=== PATIENT | male | born 1970 | race Caucasian/White ===

== ENCOUNTER 2018-11-04 09:03 | Outpatient (REF) | payer BC, SELFPAY ==
[2018-11-04 13:32] LABS: ALT 24 U/L (16-63); AST 15 U/L (15-37); Calculated LDL 144 mg/dL; Cholesterol 202 mg/dL (50-200); HDL Cholesterol 40 mg/dL (40-60); Triglyceride 92 mg/dL (30-150)
== END 2018-11-04 09:23 ==
LOC: NCHCN 09:03
PROVIDERS: PCP Internal Medicine; Visit Provider Nurse Practitioner Family
DX: R03.0 Elevated blood-pressure reading, without diagnosis of hypertension (principal); Z82.49 Family history of ischemic heart disease and other diseases of the circulatory system; Z13.220 Encounter for screening for lipoid disorders
CPT/HCPCS: 80061; 83721; 84450; 84460

== ENCOUNTER 2018-11-10 09:46 | Observation (INO) | payer BC, SELFPAY ==
[2018-11-10] VITALS (25 sets, daily range): BP systolic 141–184; BP diastolic 78–123; PULSE 53–92; RESP 16–21; TEMP 36.6–37; O2SAT 92–97
--- NOTE | 2018-11-10 09:47 | DI.CT_ITS ---
SYMPTOM/DIAGNOSIS: LEFT SIDED WEAKNESS CT BRAIN: Noncontrast. No priors. A noncontrast cranial CT was performed. The ventricular system is normal in appearance. There is no evidence of an intracranial mass lesion. There is no evidence of a subdural or epidural hematoma. No focal areas of decreased attenuation are seen. CONCLUSION: Normal noncontrast Cranial CT. The findings were discussed with the Emergency Department on the date of the examination.
--- NOTE | 2018-11-10 09:53 | ED.GENADUL_ITS ---
Discharge Plan Disposition Patient Disposition: [facility] INPATIENT Condition: Improving Discharge Details Chief Complaint: CVA/TIA Clinical Impression: Transient neurologic deficit Admit Date/Time: 11/10/18 12:33 Admit Provider: Yajaira Aaron Attending Provider: Yajaira Aaron Primary Care Provider: Petar Brown ED Provider: Jed Arana Discharge Data Discharge Date/Time-TO BE ENTERED AT DEPARTURE: 11/10/18 13:45 Medical Decision Making Head CT negative for acute bleed or large infarct. CTA head neck negative. [facility] [place] consulted, recommends full dose aspirin, admit for telemetry and MRI. Dr. Santana in to see patient for hospitalist admission. Lab Data FSBG 110 ECG Data Attestation: I personally reviewed and interpreted this ECG (s) as follows: (NSR, rate 69, normal axis and morphology, no acute ST/T waves) JHONNY Recinos is a 47-year-old man with past medical history significant for hypertension, recently diagnosed and started antihypertensive medication as of 1 week ago. He felt well when he woke up this morning aside from a 2 out of 10 dull generalized headache noted upon waking, but while at [employer] at 8 AM he noticed some weakness on the left side of his body, particularly his left arm, and staff at his work noticed that his speech was off and had some drooping of the left half of his face. He also was noted to have some trouble walking. He refused ambulance transport to the emergency department. On arrival, he has a mild generalized headache, and is uncertain if he has weakness in the left half of his body. Fingerstick blood glucose on arrival is 105. He is hypertensive at 180/110 on arrival. No recent injuries. No blood thinning medications. No history of atrial fibrillation or other rhythm disturbance. General Date/Time Provider Initiated Documentation: 11/10/18 09:47 . Related Data Home Medications Medication Instructions Recorded Confirmed ibuprofen [IBU-200] 400 mg PO PRN PRN 11/10/18 11/10/18 lisinopril 10 mg PO DAILY 11/10/18 11/10/18 Allergies Allergy/AdvReac Type Severity Reaction Status Date / Time shellfish derived Allergy Severe Unverified 11/10/18 14:14 General Stated Complaint: CVA/TIA JYOTI: 1 Review of Systems Constitutional Denies chills, Denies fatigue, Denies fever(s) and Denies lethargy Eyes Denies loss of vision ENT Denies nasal congestion and Denies sore throat Cardiovascular Denies chest pain and Denies dyspnea Respiratory Denies cough and Denies dyspnea Gastrointestinal Denies abdominal pain, Denies nausea and Denies vomiting Musculoskeletal Denies back pain, Denies muscle weakness and Denies numbness Integumentary/Breasts Denies rash Neurologic Denies focal weakness, Denies loss of vision and Denies numbness Endocrine Denies fatigue Hematologic/Lymphatic Denies easy bruising PFSH Medical History (Updated 11/10/18 @ 14:32 by Yajaira Aaron MD) Hypertension (Chronic) Obesity (Chronic) Family History (Updated 11/10/18 @ 14:11 by Yajaira Aaron MD) Father Heart disease massive [place] - from this Paternal Grandfather Heart disease Massive heart failure Mother Heart disease +CAD, Afib Hypertension Diabetes Maternal Grandfather Prostate cancer Social History (Updated 11/10/18 @ 14:19 by Yajaira Aaron MD) Smoking/Tobacco Use Status: Former Tobacco Use Quit Date: 11/03/18 Pack-years: 27 Tobacco: How many years used: 27 Counseling given: provider counseling, support medications and patient declined Alcohol Intake: current Alcohol Intake frequency: holidays/special occasions only Substance use type: does not use Do you feel safe at home: Yes Do you feel safe in your relationship?: Yes Exam Const General: cooperative and comfortable HENMT Mouth: moist mucous membranes Eyes Conjunctivae: conjunctivae normal Sclera: sclerae normal Neck Neck: trachea midline Resp Effort & Inspection: normal respiratory effort and able to speak in complete sentences Auscultation: clear to auscultation bilaterally Cardio Rate: regular rate Rhythm: regular rhythm GI Inspection: non-distended Palpation: soft, not firm, no guarding, no masses and nontender Skin General skin exam: no rashes or lesions noted Neuro General: alert, awake, tone normal and moves all extremities Cranial Nerves: CN's II-XI intact bilaterally Cognition: normal cognition Speech: abnormal speech other (Difficulty word finding. Speech otherwise clear and appropriate.) Gait: normal gait Motor: muscle tone normal throughout, strength 5/5 throughout and no pronator drift Sensory Exam: no sensory deficits noted Pupils: Normal pupillary reactivity/response: bilateral Other: Unaided stroke scale 1 for expressive aphasia. Serial NIH stroke score is remain 1. At time of admission stroke score 0. Psych Appearance: grossly normal Mental Status: mental status grossly normal Course Vital Signs Temperature 36.6 C 11/10/18 09:49 Pulse 74 11/10/18 09:49 Respiratory Rate 16 11/10/18 09:49 Blood Pressure 180/110 H 11/10/18 09:49 Pulse Oximetry 96 11/10/18 09:49 Temperature 36.6 C 11/10/18 09:49 Temperature Source Temporal Artery Scan 11/10/18 09:49 Pulse 74 11/10/18 09:49 Respiratory Rate 16 11/10/18 09:49 Blood Pressure 180/110 H 11/10/18 09:49 Blood Pressure Position Sitting 11/10/18 09:49 Pulse Oximetry 96 11/10/18 09:49 Oxygen Delivery Method Room Air 11/10/18 09:49 Oxygen Flow Rate 0 11/10/18 09:49 Pain Level 4 11/10/18 09:49
[2018-11-10] MEDS: Normal Saline Flush 10 ML SYR IVP ×2 (09:55→19:52)
[2018-11-10 10:15] LABS: Abs Immature Grans 0.02 k/cumm (0.0-0.09); Absolute Basophil Count 0.02 k/cumm (0.0-0.2); Absolute Eosinophil Count 0.19 k/cumm (0.0-0.7); Absolute Lymphocyte Count 1.68 k/cumm (1.2-3.4); Absolute Monocyte Count 0.69 k/cumm (0.11-0.7); Absolute Neutrophil Count 8.66 k/cumm (1.2-6.7); Basophils % 0.2; Eosinophils % 1.7; HCT 45.9 % (40.0-50.0); HGB 15.8 g/dL (13.5-17.5); Immature Grans % 0.2; Lymphocytes % 14.9; Mean Corp. HGB Concentration 34.4 g/dL (32.0-36.0); Mean Corpuscular Hemoglobin 30.4 pg (27.0-33.0); Mean Corpuscular Volume 88.3 fL (80-95); Mean Platelet Volume 10.4 fL (8.0-11.0); Monocytes % 6.1; Neutrophils % 76.9; Platelet Count 279 x1000/uL (130-400); RBC Distribution Width 13.5 % (11.8-14.1); White Blood Cell Count 11.26 k/cumm (4.4-10.8)
[2018-11-10 10:37] LABS: ALT 24 U/L (16-63); AST 13 U/L (15-37); Albumin 3.9 g/dL (3.4-5.0); Alkaline Phosphatase 85 U/L (46-116); Anion Gap 11.3 mmol/L (3-11); BUN 19 mg/dL (7-18); Bilirubin, Total 0.5 mg/dL (0.2-1.0); CO2 24.7 mmol/L (21.0-32.0); CREATININE 1.08 mg/dL (0.70-1.30); Calcium 9.1 mg/dL (8.5-10.1); Chloride 104 mmol/L (98-107); Glucose 118 mg/dL (70-100); Magnesium 2.1 mg/dL (1.8-2.4); Potassium 3.9 mmol/L (3.5-5.1); Sodium 140 mmol/L (136-145); Total Protein 7.5 g/dL (6.4-8.2); Troponin I < 0.05 ng/mL (0.00-0.06)
--- NOTE | 2018-11-10 10:37 | DI.RAD_ITS ---
SYMPTOM/DIAGNOSIS: WEAKNESS, HEADACHE SINCE 8 A.M. CHEST X-RAY: Portable AP view No priors. The heart is normal in size. The lungs are clear. The mediastinal structures and pleura appear intact. CONCLUSION: Normal chest.
--- NOTE | 2018-11-10 11:05 | DI.CT_ITS ---
SYMPTOM/DIAGNOSIS: LT HEMIPARESIS, EXPRESSIVE APHASIS CTA HEAD AND NECK: CT angiography was performed with multi slice acquisition and multi planar and 3D reconstruction. NECK: The common carotid arteries are unremarkable without evidence of dissection or occlusion. The external carotid arteries are unremarkable without evidence of occlusion or significant stenosis. The extracranial internal carotid arteries are unremarkable without evidence of occlusion, dissection or significant stenosis. The vertebral arteries are unremarkable. No evidence of occlusion or significant stenosis is seen. The soft tissues are unremarkable. The lung apices appear clear. Degenerative changes are seen in the spine. IMPRESSION: No evidence of acute arterial injury in the neck. HEAD: The intracranial internal carotid arteries are unremarkable without evidence of occlusion or significant stenosis. No aneurysm is seen. The middle cerebral arteries are unremarkable without evidence of occlusion, stenosis or aneurysm. The anterior cerebral arteries are unremarkable without evidence of occlusion, stenosis or aneurysm. The right anterior cerebral artery is fed through the anterior communicating artery. The posterior cerebral arteries are unremarkable without evidence of occlusion, aneurysm or significant stenosis. The vertebral arteries and basilar artery are unremarkable without evidence of dissection, aneurysm or significant stenosis. IMPRESSION: No evidence of acute intracranial arterial injury. The findings were discussed with Jed Arana of the ER on the date of the examination.
[2018-11-10] MEDS: Omnipaque 350 MG/ML 100 ML BTL IJ (11:27)
[2018-11-10] MEDS: Aspirin 81 MG CHEW 324 MG CH (12:10)
[2018-11-10 12:17] LABS: Bilirubin Negative (Negative); Blood Negative (Negative); Clarity Clear (Clear); Glucose Negative (Negative); Ketones Negative (Negative); Leukocyte Esterase Negative (Negative); Nitrite Negative (Negative); Urobilinogen 0.2 EU/dL (Up TO 0.2)
[2018-11-10 12:30] LABS: *AMPHETAMINES SCREEN URINE Negative (Negative); *BARBITURATES SCREEN URINE Negative (Negative); *BENZODIAZEPINES SCREEN URINE Negative (Negative); Cannabinoids THC Negative (Negative); Cocaine Screen,Urine Negative (Negative); METHADONE URINE SCREEN Negative (Negative); OPIATES URINE SCREEN Negative (Negative)
[2018-11-10 12:34] LABS: Tricyclic Antidepressants Negative (Negative)
--- NOTE | 2018-11-10 13:51 | W.PM.HP.N ---
Date of service: 11/10/18 Time of Service: 13:52 Assessment and Plan (1) Transient neurologic deficit: Current visit: Yes Status: Acute Symptoms resolved at the time of evaluation. DDx: TIA, atypical migraine, much less likely seizure, much less likely hypertensive emergency/encephalopathy, neurologic Lyme disease. -Patient will be monitored on tele. -obtain MRI brain, echo, monitor neuro checks. -obtain a neurology consult -PT/OT consults -start asa and statin -permissive hypertension -case was discussed [place] [facility] [place] by the ED provider- asa 325 daily recommended as well as observation until MRI can be done. (2) Hypertension: Current visit: Yes Status: Chronic Hold home lisinopril. Permissive hypertension. Provide prn metoprolol for SBP>200 (3) Obesity: Current visit: Yes Status: Chronic BMI of 30.5. Will need screening for sleep apnea as outpatient (4) Hyperlipidemia: Current visit: Yes Status: Acute Start atorvastatin 80 mg PO qHS (5) DVT prophylaxis: Current visit: Yes Status: Acute TEDs and SCD's Chemical DVT ppx is contraindicated in setting of a potential CVA/TIA due to a risk of hemorrhagic conversion (6) Discharge planning issues: Current visit: Yes Status: Acute Full code Planned for discharge home tomorrow History of Present Illness Chief Complaint: I felt off balance Narrative: Mr Vazquez is a 47 year old male with PMHx of hypertension and smoking as well as family history of early cardiac , who at 8:10 am this morning experienced an acute onset of L facial weakness, dysarthria, LUE and LLE weakness. He felt off balance, but not dizzy. He had a little headache. The symptoms lasted for 30 minutes, then he felt better (but not completely back to normal), then 10 minutes later the symptoms worsened. He stated that overall, the whole episode lasted about 2 hours. In the ED, his BP was 180/110, he was perceived to have very minimal expressive aphasia, but the symptoms have now completely resolved, other than the small headache. Of note, the patient had an episode similar, but not quite like this, 1 month ago. He remembers feeling off balance and he is not quite sure whether or not he had LUE/LLE weakness, but he was leaning to the left when he was walking and felt off balance as well. He does not recall having facial symptoms at that time. Denies dizziness. He had some nausea with the episode today, but not the one 1 month ago. Per patient's , the episode 1 month ago lasted several days, which the patient spent mostly on the couch, and he required support of surrounding objects to stabilize himself when walking. The patient states he got a lot better after his first episode, but did not ever get back to his baseline. This morning, the patient did take ibuprofen for his headache. 1 week ago he was seen in his PCP's office, got diagnosed with hypertension, was started on lisinopril. He also stopped smoking at that time. Review of Systems Review of Systems +headache -dizziness -difficulty swallowing +difficulty pronouncing words (resolved) -syncope +fall (1st episode of loss of balance) -CP/palpitations +nausea -numbness/tingling +weakness +feeling off balance -known tick bites - has pets All systems reviewed & are unremarkable except as noted in HPI and below PFSH Medical History (Updated 11/10/18 @ 14:32 by Yajaira Aaron MD) Hypertension (Chronic) Obesity (Chronic) Family History (Updated 11/10/18 @ 14:11 by Yajaira Aaron MD) Father Heart disease massive [place] - from this Paternal Grandfather Heart disease Massive heart failure Mother Heart disease +CAD, Afib Hypertension Diabetes Maternal Grandfather Prostate cancer Social History (Updated 11/10/18 @ 14:19 by Yajaira Aaron MD) Smoking/Tobacco Use Status: Former Tobacco Use Quit Date: 11/03/18 Pack-years: 27 Tobacco: How many years used: 27 Counseling given: provider counseling, support medications and patient declined Alcohol Intake: current Alcohol Intake frequency: holidays/special occasions only Substance use type: does not use Do you feel safe at home: Yes Do you feel safe in your relationship?: Yes Meds Home Medications Medication Instructions Recorded Confirmed Type ibuprofen [IBU-200] 400 mg PO PRN PRN 11/10/18 11/10/18 History lisinopril 10 mg PO DAILY 11/10/18 11/10/18 History Allergies Allergy/AdvReac Type Severity Reaction Status Date / Time shellfish derived Allergy Severe Unverified 11/10/18 14:14 Exam Narrative Exam Narrative: General: Very pleasant middle-aged male, laying comfortably in a stretcher Neurological: A&Ox3, CN II-XII intact, sensory intact, speech normal, 5/5 strength throughout, EOMI, normal finger to nose and pronator drift, 1+ DTR's, plantar response flexion, no clonus Psychiatric: appropriate speech pattern/content; bright affect Skin: Visible skin intact HEENT: Atraumatic, normocephalic, EOMI, MMM, tongue and uvula midline, large neck diameter, clear oropharynx, no submandibular or cervical lymphadenopathy, no goiter or JVD Cardiovascular: RRR, no m/r/g Lungs: CTAB Gastrointestinal: abdomen soft, nondistended, nontender Extremities: no e/c/c BLE's, 2+ pedal pulses B Results Imaging Additional studies: CT head without contrast: Normal noncontrast Cranial CT. CXR: Normal chest. CTA head and neck: No evidence of acute intracranial arterial injury. No evidence of acute arterial injury in the neck. Labs : 11/10/18 10:05 11/10/18 10:05 Laboratory Results - last 24 hr 11/10/18 11/10/18 11/10/18 10:05 10:05 10:05 WBC 11.26 H RBC 5.20 Hgb 15.8 Hct 45.9 MCV 88.3 MCH 30.4 MCHC 34.4 RDW 13.5 Plt Count 279 MPV 10.4 Immature Gran % 0.2 Neutrophils % 76.9 Lymphocytes % 14.9 Monocytes % 6.1 Eosinophils % 1.7 Basophils % 0.2 Absolute Neutrophils 8.66 H Absolute Lymphocytes 1.68 Absolute Monocytes 0.69 Absolute Eosinophils 0.19 Absolute Basophils 0.02 PT 10.0 INR 1.0 Sodium 140 Potassium 3.9 Chloride 104 Carbon Dioxide 24.7 Anion Gap 11.3 H BUN 19 H Creatinine 1.08 Estimated GFR/1.73 m2 >= 60.00 Glucose 118 H Calcium 9.1 Magnesium 2.1 Total Bilirubin 0.5 AST 13 L ALT 24 Alkaline Phosphatase 85 Troponin I < 0.05 Total Protein 7.5 Albumin 3.9 Urine Color Urine Clarity Urine pH Ur Specific [place] Urine Protein Urine Ketones Urine Blood Urine Nitrite Urine Bilirubin Urine Urobilinogen Ur Leukocyte Esterase Urine Glucose Urine Opiates Screen Urine Methadone Screen Ur Barbiturates Screen Ur Tricyclics Screen Ur Amphetamines Screen U Benzodiazepines Scrn Urine Cocaine Screen Ur THC Screen 11/10/18 11/10/18 12:12 12:12 WBC RBC Hgb Hct MCV MCH MCHC RDW Plt Count MPV Immature Gran % Neutrophils % Lymphocytes % Monocytes % Eosinophils % Basophils % Absolute Neutrophils Absolute Lymphocytes Absolute Monocytes Absolute Eosinophils Absolute Basophils PT INR Sodium Potassium Chloride Carbon Dioxide Anion Gap BUN Creatinine Estimated GFR/1.73 m2 Glucose Calcium Magnesium Total Bilirubin AST ALT Alkaline Phosphatase Troponin I Total Protein Albumin Urine Color Yellow Urine Clarity Clear Urine pH 7.0 Ur Specific [place] 1.010 Urine Protein Negative Urine Ketones Negative Urine Blood Negative Urine Nitrite Negative Urine Bilirubin Negative Urine Urobilinogen 0.2 Ur Leukocyte Esterase Negative Urine Glucose Negative Urine Opiates Screen Negative Urine Methadone Screen Negative Ur Barbiturates Screen Negative Ur Tricyclics Screen Negative Ur Amphetamines Screen Negative U Benzodiazepines Scrn Negative Urine Cocaine Screen Negative Ur THC Screen Negative Last Vital Signs Temp 36.6 C 11/10/18 13:21 Pulse 67 11/10/18 13:21 Resp 21 11/10/18 13:21 BP 166/99 H 11/10/18 13:21 Pulse Ox 95 11/10/18 13:21
--- NOTE | 2018-11-10 15:44 | W.NEUROCONSU ---
Date of service: 11/10/18 Time of Service: 15:44 Assessment and Plan (1) Transient neurologic deficit: Current visit: Yes Status: Acute Mr. Vazquez is a 47 year-old, right-handed man with a PMH of hypertension, smoking (quit 1 week ago), and a FHx of early cardiac disease who presents with a 2 hours spell manifested by left hemiparesis, dysarthria, gait imbalance, and unwellness. The differential diagnosis includes TIA vs migraine. He has numerous vascular risk factors and no prior history of similar events, making TIA the more likely event. I agree with aspiring 325mg daily with high dose statin for secondary stroke prevention. I agree with further work-up including a TTE and a hypercoagulable work-up. Continue permissive hypertension and telemetry. Consideration for MAYDA and extended cardiac monitoring will be made pending the rest of the testing. History of Present Illness Chief Complaint: left hemiparesis Narrative: Handedness: right. HPI: Mr Vazquez is a 47 year-old man with a PMH of hypertension, single childhood febrile seizure, and smoking. He woke up at ~6:15 am with a mild headache. In the last 1 one week, he has woken up with a headache 3x. He attributes this to starting lisinopril one week ago for his hypertension. Prior to last week, he would have a headache only about once per month. At aroung 8:15 am, he initially noticed left arm weakness/heaviness. He subsequetly developed left leg and face weakness, dysarthria, and gait imbalance in the setting of diaphoresis/hot flashes. His symptoms waxed and waned over a 2 hour period at which time he presented to the [facility] ER and everything resolved. He has never had anything similar prior to this. Approximately 1 month ago, he had a 2 day period of unwellness and imbalance. It does not sound like he had any focal symptoms. He has a family history of early cardiac disease in his father (diseased at age 42 from NE) and his mother (NE at age 45). He has no family history of migraines. In the ER, his BP was 180/110. His WBC was 11/26 and he had a recent LDL of 144. He underwent a CT head and CTA head and neck both of which I was able to review. Both were unremarkable. 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 He spends a lot of time with his neck angled, but no change in the frequency of this recently. He has not been in any recent accidents. Consults Requesting physician: Yajaira Aaron Review of Systems Review of Systems All systems reviewed & are unremarkable except as noted in HPI and below PFSH Medical History Hypertension (Chronic) Obesity (Chronic) Seizure in childhood (Acute) Smoking (Acute) Family History Father Heart disease massive [place] - from this Paternal Grandfather Heart disease Massive heart failure Mother Heart disease +CAD, Afib Hypertension Diabetes Maternal Grandfather Prostate cancer Social History Smoking/Tobacco Use Status: Former Tobacco Use Quit Date: 11/03/18 Pack-years: 27 Tobacco: How many years used: 27 Counseling given: provider counseling, support medications and patient declined Alcohol Intake: current Alcohol Intake frequency: holidays/special occasions only Substance use type: does not use Household members: spouse 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 [employer] Do you feel safe at home: Yes Do you feel safe in your relationship?: Yes Visit Medication and Allergies Active Medications Generic Name Dose Route Start Last Admin Trade Name Freq PRN Reason Stop Dose Admin Acetaminophen 0 mg 11/10/18 12:31 Tylenol PO Q4H PRN PRN Al Hydrox/Mg Hydrox/Simethicone 30 ml 11/10/18 12:31 Mylanta Liquid PO Q2H PRN PRN Aspirin 325 mg 11/11/18 08:30 PO DAILY TATIANNA Atorvastatin Calcium 80 mg 11/10/18 20:00 Lipitor PO QPM TATIANNA Dimethicone/Zinc Oxide 0 gm 11/10/18 12:31 Mario Protect Cream TP PRN PRN Docusate Sodium 100 mg 11/10/18 12:31 Colace PO TID PRN PRN IV Miscellaneous Supplies 1 each 11/10/18 10:00 IV DIRECTED TATIANNA Iohexol 100 ml 11/10/18 11:30 11/10/18 11:27 Omnipaque 350 IJ 12/10/18 23:59 85 ml DIRECTED TATIANNA Administration Magnesium Hydroxide 30 ml 11/10/18 12:31 Milk Of Magnesia PO DAILY PRN PRN Metoprolol Tartrate 2.5 mg 11/10/18 14:30 Lopressor Injection IVP Q6H PRN PRN Sodium Chloride 0 ml 11/10/18 09:55 11/10/18 09:55 Saline Flush 10 Ml Syringe IVP 10 ml PRN PRN Administration Allergies shellfish derived Allergy (Severe, Unverified 11/10/18 14:14) Exam Narrative Exam Narrative: Physical Exam: Gen: Patient of apparent stated age, NAD Head and face: no facial or cranial abnormalities Neck: Supple, no meningismus, no occipital tenderness CV: + S1, S2, RRR, no murmur Resp: CTA B/L Abd: soft, nontender, nondistended Ext: No edema. No clubbing or cyanosis. No bony deformity. Neuro Exam: Language: fluency, naming, repetition, and comprehension intact; Mental Status: AAOx3, current events intact, fund of knowledge intact; Speech: no dysarthria Cranial nerves: Funduscopy: not performed CN II: visual osorio intact CN III, IV, : extraocular movements intact, no nystagmus, pupils symmetric and reactive to light CN V: face sensation intact to LT and PP CN VII: no facial asymmetry noted CN VIII: hearing intact bilaterally CN IX, X: palate rises symmetrically CN XI: trapezius/SCM 5/5 bilaterally CN XII: protrudes tongue symmetrically Sensory: intact to LT, PP, vibration, and joint position in all extremities, Motor: bulk and tone intact. Fine motor movements intact bilaterally. No pronator drift. Strength 5/5 throughout including the deltoids, biceps, triceps, wrist extensors, hip flexors, knee flexors, knee extensors, ankle flexors, and ankle extensors. Reflexes: 2+ at the biceps, triceps, brachioradialis, patella, and achilles tendons bilaterally; toes down going bilaterally; Coordination: FTN and HTS intact bilaterally Gait: deferred Results Last Vital Signs Temp 37 C 11/10/18 14:36 Pulse 67 11/10/18 14:36 Resp 18 11/10/18 14:36 BP 176/103 H 11/10/18 14:36 Pulse Ox 97 11/10/18 14:36 Labs : 11/10/18 10:05 11/10/18 10:05 Laboratory Results - last 24 hr 11/10/18 11/10/18 11/10/18 10:05 10:05 10:05 WBC 11.26 H RBC 5.20 Hgb 15.8 Hct 45.9 MCV 88.3 MCH 30.4 MCHC 34.4 RDW 13.5 Plt Count 279 MPV 10.4 Immature Gran % 0.2 Neutrophils % 76.9 Lymphocytes % 14.9 Monocytes % 6.1 Eosinophils % 1.7 Basophils % 0.2 Absolute Neutrophils 8.66 H Absolute Lymphocytes 1.68 Absolute Monocytes 0.69 Absolute Eosinophils 0.19 Absolute Basophils 0.02 PT 10.0 INR 1.0 Sodium 140 Potassium 3.9 Chloride 104 Carbon Dioxide 24.7 Anion Gap 11.3 H BUN 19 H Creatinine 1.08 Estimated GFR/1.73 m2 >= 60.00 Glucose 118 H Calcium 9.1 Magnesium 2.1 Total Bilirubin 0.5 AST 13 L ALT 24 Alkaline Phosphatase 85 Troponin I < 0.05 Total Protein 7.5 Albumin 3.9 Urine Color Urine Clarity Urine pH Ur Specific [place] Urine Protein Urine Ketones Urine Blood Urine Nitrite Urine Bilirubin Urine Urobilinogen Ur Leukocyte Esterase Urine Glucose Urine Opiates Screen Urine Methadone Screen Ur Barbiturates Screen Ur Tricyclics Screen Ur Amphetamines Screen U Benzodiazepines Scrn Urine Cocaine Screen Ur THC Screen 11/10/18 11/10/18 12:12 12:12 WBC RBC Hgb Hct MCV MCH MCHC RDW Plt Count MPV Immature Gran % Neutrophils % Lymphocytes % Monocytes % Eosinophils % Basophils % Absolute Neutrophils Absolute Lymphocytes Absolute Monocytes Absolute Eosinophils Absolute Basophils PT INR Sodium Potassium Chloride Carbon Dioxide Anion Gap BUN Creatinine Estimated GFR/1.73 m2 Glucose Calcium Magnesium Total Bilirubin AST ALT Alkaline Phosphatase Troponin I Total Protein Albumin Urine Color Yellow Urine Clarity Clear Urine pH 7.0 Ur Specific [place] 1.010 Urine Protein Negative Urine Ketones Negative Urine Blood Negative Urine Nitrite Negative Urine Bilirubin Negative Urine Urobilinogen 0.2 Ur Leukocyte Esterase Negative Urine Glucose Negative Urine Opiates Screen Negative Urine Methadone Screen Negative Ur Barbiturates Screen Negative Ur Tricyclics Screen Negative Ur Amphetamines Screen Negative U Benzodiazepines Scrn Negative Urine Cocaine Screen Negative Ur THC Screen Negative
[2018-11-10] MEDS: Atorvastatin 40 MG TAB 80 MG PO (19:51)
[2018-11-11] VITALS (7 sets, daily range): BP systolic 149–167; BP diastolic 96–108; PULSE 58–74; RESP 16–18; TEMP 36–37; O2SAT 95–97
[2018-11-11 07:11] LABS: Abs Immature Grans 0.03 k/cumm (0.0-0.09); Absolute Basophil Count 0.01 k/cumm (0.0-0.2); Absolute Eosinophil Count 0.27 k/cumm (0.0-0.7); Absolute Lymphocyte Count 2.28 k/cumm (1.2-3.4); Absolute Monocyte Count 0.63 k/cumm (0.11-0.7); Absolute Neutrophil Count 6.24 k/cumm (1.2-6.7); Basophils % 0.1; Eosinophils % 2.9; HCT 46.5 % (40.0-50.0); HGB 15.9 g/dL (13.5-17.5); Immature Grans % 0.3; Lymphocytes % 24.1; Mean Corp. HGB Concentration 34.2 g/dL (32.0-36.0); Mean Corpuscular Hemoglobin 30.2 pg (27.0-33.0); Mean Corpuscular Volume 88.2 fL (80-95); Mean Platelet Volume 10.8 fL (8.0-11.0); Monocytes % 6.7; Neutrophils % 65.9; Platelet Count 292 x1000/uL (130-400); RBC 5.27 m/cumm (4.50-6.00); RBC Distribution Width 13.5 % (11.8-14.1); White Blood Cell Count 9.46 k/cumm (4.4-10.8)
--- NOTE | 2018-11-11 07:31 | MERGE_ITS ---
*[facility]* *[facility]* [address] [place] [address] Date of study: 11/11/2018 Transthoracic Echocardiography M-mode, complete 2D, complete spectral Doppler, and color Doppler *STUDY CONCLUSIONS* Summary: 1. Left ventricle: The cavity size was normal. Wall thickness was increased in a pattern of mild LVH. Systolic function was normal. The estimated ejection fraction was 55-60%. Wall motion was normal; there were no regional wall motion abnormalities. 2. Right ventricle: The cavity size was normal. Systolic function was normal. 3. Inferior vena cava: The vessel was patent and normal in size. The respirophasic diameter changes were in the normal range (greater than or equal to 50%), consistent with normal central venous pressure. *PATIENT PRESENTATION* Height: 190.5cm (75in ) S/D Pressure: 152 / 102 Weight: 110.7kg (243.5lb ) BSA: 2.44m^2 Test start time: 07:35 AM. Test stop time: 08:30 AM. PERFORMING Unknown PERFORMING [facility] DAIRY WORKER RT Riaz Newton)(CT), CS CONSULTING Yajaira Aaron ORDERING Yajaira Araon REFERRING Yajaira Aaron *PROCEDURE DATA* Procedure information: The patient was identified by two identifiers. This study was interpreted by [facility]. Pertinent images and digital data are archived for permanent storage and are available for subsequent review. No prior study was available for comparison. Study status: Routine. Transthoracic echocardiography. M-mode, complete 2D, complete spectral Doppler, and color Doppler. A Transthoracic Echocardiogram was performed. Scanning was performed from the parasternal, apical, subcostal, and suprasternal notch acoustic windows. Images were obtained using an [id number] cardiac ultrasound machine. Image quality was adequate. Study completion: The patient tolerated the procedure well. There were no complications. History: PMH: TIA. *CARDIAC ANATOMY* Left ventricle: The cavity size was normal. Wall thickness was increased in a pattern of mild LVH. Systolic function was normal. The estimated ejection fraction was 55-60%. Wall motion was normal; there were no regional wall motion abnormalities. Findings consistent with diastolic dysfunction. There was no evidence of elevated ventricular filling pressure by Doppler parameters. Aortic valve: Trileaflet; normal thickness leaflets. Mobility was not restricted. Doppler: Transvalvular velocity was within the normal range. There was no stenosis. There was no significant regurgitation. VTI ratio of LVOT to aortic valve: 0.79. Valve area (VTI): 2.7cm^2. Indexed valve area (VTI): 1.1cm^2/m^2. Peak velocity ratio of LVOT to aortic valve: 0.85. Valve area (Vmax): 2.9cm^2. Indexed valve area (Vmax): 1.2cm^2/m^2. Mean velocity ratio of LVOT to aortic valve: 0.88. Valve area (Vmean): 3cm^2. Indexed valve area (Vmean): 1.2cm^2/m^2. Mean gradient (S): 3.9mm Hg. Peak gradient (S): 7.3mm Hg. Aorta: Aortic root: The aortic root was normal in size. Ascending aorta: The ascending aorta was normal in size. Mitral valve: Mildly thickened leaflets. Mobility was not restricted. Doppler: Transvalvular velocity was within the normal range. There was no evidence for stenosis. There was mild regurgitation. Valve area by pressure half-time: 3.4cm^2. Indexed valve area by pressure half-time: 1.4cm^2/m^2. Peak gradient (D): 4.1mm Hg. Left atrium: The atrium was normal in size. Right ventricle: The cavity size was normal. Systolic function was normal. Pulmonic valve: The pulmonary valve appears to be grossly normal. Doppler: Transvalvular velocity was within the normal range. There was no evidence for stenosis. There was trivial regurgitation. Tricuspid valve: Structurally normal valve. Doppler: Transvalvular velocity was within the normal range. There was no evidence for stenosis. There was trivial regurgitation. Pulmonary artery: Poorly visualized. Systolic pressure could not be accurately estimated. Right atrium: The atrium was normal in size. Pericardium: There was no pericardial effusion. Systemic veins: Inferior vena cava: Well visualized. The vessel was patent and normal in size. The respirophasic diameter changes were in the normal range (greater than or equal to 50%), consistent with normal central venous pressure. Baseline ECG: Normal sinus rhythm. Measurements Left ventricle Value Reference LV ID, ED, PLAX 5.6 cm 3.5 - 6.0 LV ID, ES, PLAX 3.7 cm 2.1 - 4.0 LV PW thickness, ED, PLAX 1.1 cm LV end-diastolic volume, 1-p A2C 103 ml LV ejection fraction, 1-p A2C 59 % LV end-diastolic volume, 1-p A4C 101 ml LV ejection fraction, 1-p A4C 61 % LV e', lateral 0.1 m/sec LV E/e', lateral 10 LV e', medial 0.076 m/sec LV E/e', medial 13 LV e', average 0.088 m/sec LV E/e', average 11 Ventricular septum Value Reference IVS thickness, ED, PLAX 1.2 cm LVOT Value Reference LVOT ID, A-P 2.1 cm LVOT area 3.4 cm^2 LVOT peak velocity, S 1.14 m/sec LVOT mean velocity, S 0.82 m/sec LVOT VTI, S 22.9 cm LVOT peak gradient, S 5.2 mm Hg LVOT mean gradient, S 3 mm Hg Stroke volume (SV), LVOT DP 78 ml Stroke index (SV/bsa), LVOT DP 32 ml/m^2 Aortic valve Value Reference Aortic valve peak velocity, S 1.3 m/sec Aortic valve mean velocity, S 0.9 m/sec Aortic valve VTI, S 29.0 cm Aortic mean gradient, S 3.9 mm Hg Aortic peak gradient, S 7.3 mm Hg VTI ratio, LVOT/AV 0.79 Aortic valve area, VTI 2.7 cm^2 Velocity ratio, peak, LVOT/AV 0.85 Aortic valve area, peak velocity 2.9 cm^2 Velocity ratio, mean, LVOT/AV 0.88 Aortic valve area, mean velocity 3 cm^2 Aortic valve area/bsa, mean velocity 1.2 cm^2/m^2 Aorta Value Reference Aortic root ID, ED 3.4 cm Ascending aorta ID, A-P, S 3.4 cm Left atrium Value Reference LA ID, A-P, ES 3.4 cm LA ID/bsa, A-P 1.4 cm/m^2 <=2.2 LA volume/bsa, ES, 1-p A4C 24 ml/m^2 LA volume, ES, 2-p 61 ml LA volume/bsa, ES, 2-p 25 ml/m^2 LA/aortic root ratio 1.01 Mitral valve Value Reference Mitral E-wave peak velocity 1.01 m/sec Mitral A-wave peak velocity 0.8 m/sec Mitral deceleration time 221 ms 150 - 230 Mitral pressure half-time 64 ms Mitral peak gradient, D 4.1 mm Hg Mitral E/A ratio, peak 1.26 Mitral valve area, PHT, DP 3.4 cm^2 Pulmonary veins Value Reference Pulmonary vein peak velocity, S 0.72 m/sec Pulmonary vein peak velocity, D 0.43 m/sec Pulmonary vein velocity ratio, peak, 1.69 S/D Tricuspid valve Value Reference Tricuspid regurg peak velocity 2.4 m/sec Tricuspid peak RV-RA gradient 22.6 mm Hg Right atrium Value Reference RA area, ES, A4C 18.5 cm^2 8.3 - 19.5 Legend: (L) and (H) julian values outside specified reference range. I have personally reviewed the images and have reviewed and edited the reported findings. Electronically signed by Jennifer Dowd 11/11/2018 09:45
[2018-11-11 07:37] LABS: Folate 14.2 ng/mL (8.6-20.0)
[2018-11-11 07:47] LABS: Anion Gap 11.2 mmol/L (3-11); BUN 19 mg/dL (7-18); CO2 24.8 mmol/L (21.0-32.0); CREATININE 1.07 mg/dL (0.70-1.30); Calcium 8.5 mg/dL (8.5-10.1); Chloride 107 mmol/L (98-107); Glucose 102 mg/dL (70-100); Magnesium 2.1 mg/dL (1.8-2.4); Potassium 3.9 mmol/L (3.5-5.1); Sodium 143 mmol/L (136-145); Vitamin B12 583 pg/mL (193-986)
--- NOTE | 2018-11-11 09:10 | DI.MRI_ITS ---
SYMPTOM/DIAGNOSIS: TIA MRI BRAIN: Comparison is made with head CT dated 10 November 2018 T2 sagittal, T1, T2 FLAIR, diffusion and gradient echo axial sequences were performed. There is a small focus of high signal seen on the right side of the ran on T2 and Flair images which showed restricted diffusion, consistent with an acute or subacute infarct. There are a few tiny scattered areas of restricted diffusion seen in the posterior parietal lobes bilaterally. There is no evidence of hemorrhage. The ventricles are normal in size. The vascular flow voids appear intact. There is some mucosal thickening at the inferior right maxillary sinus. The orbits and pituitary are unremarkable. IMPRESSION: Acute to subacute lacunar infarct in the right ran. Tiny lacunar infarcts are noted bilaterally in the posterior parietal regions.
[2018-11-11] MEDS: Aspirin 325 MG TAB PO (09:31)
--- NOTE | 2018-11-11 10:24 | OT.INNT ---
Date of service: 11/11/18 Time of Service: 10:24 Occupational Therapy Notes 11/11/18 OT consult received and pt's chart was reviewed. OT attempted to see pt x3 this morning and was unable to due to testing. OT will resume consult next week. Geneva Ozuna OTR/[facility]
[2018-11-11] MEDS: Cyanocobalamin 500 MCG TAB PO (10:49)
[2018-11-11 10:56] LABS: Lyme Ab w Rflx to Lyme Confirm Negative
--- NOTE | 2018-11-11 11:30 | W.PM.PROGNOT ---
Date of Service Date of service: 11/11/18 Time of Service: 11:30 Assessment and Plan (1) Embolic stroke: Current visit: Yes Status: Acute Mr. Vazquez is a 47 year-old, right-handed man who suffered an acute ischemic stroke manifested by left hemiparesis and dysarthria, now resolved. MRI imaging revealed infarcts in the right ran, left parietal cortex, and right parietal cortex. The etiology of his stroke is either cardioembolic or due to a hypercoaguable state. The infarcts in 3 different vascular territories is suspicious for an underlying malignancy. I recommend further work-up including 30 day cardiac monitoring and a MAYDA. A hypercoaguable panel is pending. Additionally, he should undergo cancer screening (consider CT C/A/P, colonoscopy, etc). He should also have a sleep study as an outpatient. I recommend he stop ASA and be started on anticoagulation for stroke prevention. We specifically discussed Eliquis 5mg BID including ADRs and risk of bleeding. He should continue a statin for secondary stroke prevention. This can be reduced to 40mg HS at discharge. Ok to re-start anti-hypertensive medications to slowly slowly reduce BP <140/100. He has already quit smoking and I encouraged him to continue the good work. Finally, we discussed signs and symptoms of recurrent stroke/TIA and what to do. He should follow-up in the neurology clinic in 4-6 weeks. Qualifiers: Precerebral and cerebral artery: unspecified cerebral artery Qualified Code(s): I63.40 - Cerebral infarction due to embolism of unspecified cerebral artery Subjective Interval history since last seen: Mr. Waggoner did well overnight. No new events, no headaches. Telemetry was unremarkable. He underwent a brain MRI and TTE. I was able to review the MRI imaging personally and with him and his family. -MRI brain: acute infarct in the right ran and 2 punctate areas of ischemia in the bilateral parietal cortex; no prior infarcts and no significant small vessel disease. -TTE: EF EF 55-60%, no wall motion abnormalities, LA normal Exam Narrative Exam Narrative: Physical Exam: Constitutional: Patient of apparent stated age, well nourished, well developed, no acute distress Neuro: MS/Language/Speech: Alert, oriented, clear language (fluency and comprehension), no dysarthria CN: EOMI, no facial asymmetry, hearing intact Motor: Moves all extremities equally Coordination: no ataxia Objective Objective Clinical Data: Abnormal lab results 11/11/18 Range/Units 06:35 Anion Gap 11.2 H (3-11) mmol/L BUN 19 H (7-18) mg/dL Glucose 102 H (70-100) mg/dL Vital Signs Temperature 37 C 11/11/18 07:00 Temperature Source Tympanic 11/11/18 07:00 Pulse 58 L 11/11/18 07:10 Pulse Rhythm Regular 11/10/18 19:35 Pulse 68 11/10/18 12:50 Respiratory Rate 16 11/11/18 07:00 Respiratory Effort 11/11/18 05:38 Respiratory Depth Normal 11/11/18 05:38 Respiratory Pattern Normal 11/11/18 05:38 Blood Pressure 167/108 H 11/11/18 07:00 Blood Pressure Mean 109 11/10/18 11:46 Blood Pressure Position Sitting 11/10/18 09:49 Pulse Oximetry 96 11/11/18 07:00 Oxygen Delivery Method Room Air 11/11/18 07:00 Oxygen Flow Rate 0 11/11/18 07:00 Pain Level 0 11/11/18 07:00 Comment 11/10/18 15:30 Intake & Output 11/10/18 11/10/18 11/11/18 11:59 23:59 11:59 Intake Total 240 / 240 Balance 240 / 240 Weight 110.677 kg 110.677 kg Intake: IV Oral 240 / 240 Other: Urine Appearance Clear Clear Voiding Methods Toilet Laboratory Results WBC 9.46 k/cumm (4.4-10.8) 11/11/18 06:35 RBC 5.27 m/cumm (4.50-6.00) 11/11/18 06:35 Hgb 15.9 g/dL (13.5-17.5) 11/11/18 06:35 Hct 46.5 % (40.0-50.0) 11/11/18 06:35 MCV 88.2 fL (80-95) 11/11/18 06:35 MCH 30.2 pg (27.0-33.0) 11/11/18 06:35 MCHC 34.2 g/dL (32.0-36.0) 11/11/18 06:35 RDW 13.5 % (11.8-14.1) 11/11/18 06:35 Plt Count 292 x1000/uL (130-400) 11/11/18 06:35 MPV 10.8 fL (8.0-11.0) 11/11/18 06:35 Immature Gran % 0.3 11/11/18 06:35 65.9 11/11/18 06:35 24.1 11/11/18 06:35 6.7 11/11/18 06:35 2.9 11/11/18 06:35 0.1 11/11/18 06:35 Absolute Neutrophils 6.24 k/cumm (1.2-6.7) 11/11/18 06:35 Absolute Lymphocytes 2.28 k/cumm (1.2-3.4) 11/11/18 06:35 Absolute Monocytes 0.63 k/cumm (0.11-0.7) 11/11/18 06:35 Absolute Eosinophils 0.27 k/cumm (0.0-0.7) 11/11/18 06:35 Absolute Basophils 0.01 k/cumm (0.0-0.2) 11/11/18 06:35 PT 10.0 sec (9.3-11.0) 11/10/18 10:05 INR 1.0 (0.9-1.1) 11/10/18 10:05 Sodium 143 mmol/L (136-145) 11/11/18 06:35 Potassium 3.9 mmol/L (3.5-5.1) 11/11/18 06:35 Chloride 107 mmol/L (98-107) 11/11/18 06:35 Carbon Dioxide 24.8 mmol/L (21.0-32.0) 11/11/18 06:35 11.2 mmol/L (3-11) H 11/11/18 06:35 BUN 19 mg/dL (7-18) H 11/11/18 06:35 1.07 mg/dL (0.70-1.30) 11/11/18 06:35 >= 60.00 (mL/min/1.73m2) 11/11/18 06:35 Glucose 102 mg/dL (70-100) H 11/11/18 06:35 Calcium 8.5 mg/dL (8.5-10.1) 11/11/18 06:35 Magnesium 2.1 mg/dL (1.8-2.4) 11/11/18 06:35 0.5 mg/dL (0.2-1.0) 11/10/18 10:05 AST 13 U/L (15-37) L 11/10/18 10:05 ALT 24 U/L (16-63) 11/10/18 10:05 85 U/L (46-116) 11/10/18 10:05 < 0.05 ng/mL (0.00-0.06) 11/10/18 10:05 7.5 g/dL (6.4-8.2) 11/10/18 10:05 3.9 g/dL (3.4-5.0) 11/10/18 10:05 Vitamin B12 583 pg/mL (193-986) 11/11/18 06:35 14.2 ng/mL (8.6-20.0) 11/11/18 06:35 Yellow (Yellow) 11/10/18 12:12 Clear (Clear) 11/10/18 12:12 7.0 (5-8) 11/10/18 12:12 Ur Specific [place] 1.010 (1.005-1.025) 11/10/18 12:12 Negative mg/dL (Negative) 11/10/18 12:12 Negative mg/dL (Negative) 11/10/18 12:12 Negative (Negative) 11/10/18 12:12 Negative (Negative) 11/10/18 12:12 Negative (Negative) 11/10/18 12:12 0.2 EU/dL (Up TO 0.2) 11/10/18 12:12 Ur Leukocyte Esterase Negative (Negative) 11/10/18 12:12 Negative mg/dL (Negative) 11/10/18 12:12 Negative (Negative) 11/10/18 12:12 Negative (Negative) 11/10/18 12:12 Ur Barbiturates Screen Negative (Negative) 11/10/18 12:12 Ur Tricyclics Screen Negative (Negative) 11/10/18 12:12 Ur Amphetamines Screen Negative (Negative) 11/10/18 12:12 U Benzodiazepines Scrn Negative (Negative) 11/10/18 12:12 Negative (Negative) 11/10/18 12:12 Ur THC Screen Negative (Negative) 11/10/18 12:12
--- NOTE | 2018-11-11 12:17 | DSE_ITS ---
Date of service: 11/11/18 Time of Service: 12:17 DS: Diagnosis Discharge Diagnosis (1) Embolic stroke: Status: Acute (2) Hypertension: Status: Chronic (3) Obesity: Status: Chronic (4) Hyperlipidemia: Status: Acute Discharge Plan Disposition Patient Disposition: HOME Condition: Stable Discharge Details Chief Complaint: CVA/TIA Clinical Impression: Transient neurologic deficit Reason For Visit: TIA Admit Date/Time: 11/10/18 12:33 Admit Provider: Yajaira Aaron Attending Provider: Yajaira Aaron Primary Care Provider: Petar Brown [facility] Hospital Course: Mr Vazquez is a 47 year old male with PMHx of hypertension, obesity, tobacco abuse in remission, who was observed on [facility] hospitalist service from 11/10/18 through 11/11/18 after presented to [facility] ED with self-limited L facial weakness, dysarthria, ?expressive aphasia, LUE/LLE weakness and loss of balance. The symptoms resolved after about 2 hours. The patient had an episode of loss of balance prior to this presentation as well. His workup consistent of negative CT/CTA head and CTA neck, telemetry monitoring (unremarkable), Echocardiogram (unremarkable), neurology evaluation and an MRI of the brain. This revealed 3 acute to subacute infarcts, one of them in R ran, the others in B posterior parietal regions. Dr Sarah is concerned about (A) the embolic nature of t hese strokes and (B) possibility of malignancy, which are associated with the three territory sign. Hyperocoagulable workup was collected while the patient is in the hospital. He was initiated on eliquis (his insurace covers it) as well as atorvastatin. He is going to need to have an outpatient malignancy workup (CT chest/abdomen/pelvis, colonoscopy), outpatient MAYDA, heart monitoring with a zio patch. He will need continued follow up with neurology. The patient was not interested in undergoing a MAYDA as inpatient. He would also benefit from outpatient PT, per our physical therapists, but is deemed safe for discharge home without an assistive device. Home Meds and New Rx's Prescriptions: New Eliquis 5 mg tablet 5 mg PO BID Qty: 60 RF: 0 atorvastatin [Lipitor] 40 mg Tablet 40 mg PO QPM Qty: 30 RF: 0 cyanocobalamin (vitamin B-12) [Vitamin B-12] 500 mcg Tablet 500 mcg PO DAILY Qty: 30 RF: 0 Continued lisinopril 10 mg Tablet 10 mg PO DAILY RF: 0 Discontinued ibuprofen [IBU-200] 200 mg Tablet 400 mg PO PRN PRNRF: 0 Discharge Instructions Instructions: Apixaban (By mouth), Ischemic Stroke (DC) Additional Instructions: Take your medications as prescribed. Return to the hospital with any fever, bleeding, chest pain, shortness of breath, or any new neurological deficits. Care Plan Goals: Home with outpatient PT. Referrals: Petar Brown MD [Primary Care Provider] - Zahira Sarah MD [ [facility] STAFF PHYSICIAN] - Woody Cardoza PT, DPT [DOCTOR OF PHYSICAL THERAPY] - Activity:: Activity as Tolerated Equipment/Supplies:: No Equipment Needed Diet:: Low Sodium Discharge Orders Discharge Orders: Discharge Order (Routine); Ordered 11/11/18 Ordered By: Yajaira Aaron Exam Narrative Exam Narrative: General: Very pleasant middle-aged male, seen ambulating in the hallway, looked very steady without assistive devices, A&Ox3 HEENT: Atraumatic, normocephalic, EOMI, MMM Cardiovascular: RRR, no m/r/g Lungs: CTAB Gastrointestinal: abdomen soft, nondistended, nontender Extremities: no e/c/c BLE's, 2+ pedal pulses B DS: Data Vitals/I&O Vitals and I&O: Vital Signs Temperature 37 C 11/11/18 07:00 Temperature Source Tympanic 11/11/18 07:00 Pulse 58 L 11/11/18 07:10 Pulse Rhythm Regular 11/10/18 19:35 Pulse 68 11/10/18 12:50 Respiratory Rate 16 11/11/18 07:00 Respiratory Effort 11/11/18 05:38 Respiratory Depth Normal 11/11/18 05:38 Respiratory Pattern Normal 11/11/18 05:38 Blood Pressure 167/108 H 11/11/18 07:00 Blood Pressure Mean 109 11/10/18 11:46 Blood Pressure Position Sitting 11/10/18 09:49 Pulse Oximetry 96 11/11/18 07:00 Oxygen Delivery Method Room Air 11/11/18 07:00 Oxygen Flow Rate 0 11/11/18 07:00 Pain Level 0 08/30/19 07:00 Comment 11/10/18 15:30 Intake & Output 11/10/18 11/11/18 11/11/18 23:59 11:59 23:59 Intake Total 240 / 240 Balance 240 / 240 Weight 110.677 kg Intake: IV Oral 240 / 240 Other: Urine Appearance Clear Clear Voiding Methods Toilet Completed studies during hospitalization [Text1]: CT head without contrast: Normal noncontrast Cranial CT. The findings were discussed with the Emergency Department on the date of the examination. CXR: Normal chest. CTA head/neck: No evidence of acute intracranial arterial injury. No evidence of acute arterial injury in the neck. Echo: 1. Left ventricle: The cavity size was normal. Wall thickness was increased in a pattern of mild LVH. Systolic function was normal. The estimated ejection fraction was 55-60%. Wall motion was normal; there were no regional wall motion abnormalities. 2. Right ventricle: The cavity size was normal. Systolic function was normal. 3. Inferior vena cava: The vessel was patent and normal in size. The respirophasic diameter changes were in the normal range (greater than or equal to 50%), consistent with normal central venous pressure. MRI brain: Acute to subacute lacunar infarct in the right ran. Tiny lacunar infarcts are noted bilaterally in the posterior parietal regions Pending studies at discharge: Hypercoagulable workup Labs on day of discharge: Labs from last 24 hours 11/11/18 11/11/18 11/11/18 06:35 06:35 06:35 WBC 9.46 RBC 5.27 Hgb 15.9 Hct 46.5 MCV 88.2 MCH 30.2 MCHC 34.2 RDW 13.5 Plt Count 292 MPV 10.8 Immature Gran % 0.3 Neutrophils % 65.9 Lymphocytes % 24.1 Monocytes % 6.7 Eosinophils % 2.9 Basophils % 0.1 Absolute Neutrophils 6.24 Absolute Lymphocytes 2.28 Absolute Monocytes 0.63 Absolute Eosinophils 0.27 Absolute Basophils 0.01 PT INR Fibrinogen Pending Functional Protein C Pending Functional Protein S Pending Func Antithrombin III Pending Factor V Pending Factor VII Assay Pending Factor VIII Activity Pending Fact VIII Inhib Screen Pending Sodium Potassium Chloride Carbon Dioxide Anion Gap BUN Creatinine Estimated GFR/1.73 m2 Glucose Calcium Magnesium Maau-7-Nsiqfqalphupm Pending Lipoprotein (a) Pending Vitamin B12 Folate 14.2 Homocysteine Pending Urine Color Urine Clarity Urine pH Ur Specific [place] Urine Protein Urine Ketones Urine Blood Urine Nitrite Urine Bilirubin Urine Urobilinogen Ur Leukocyte Esterase Urine Glucose Urine Opiates Screen Urine Methadone Screen Ur Barbiturates Screen Ur Tricyclics Screen Ur Amphetamines Screen U Benzodiazepines Scrn Urine Cocaine Screen Ur THC Screen CHICHI Titer Pending CHICHI Titer 2 Pending CHICHI Titer 3 Pending CHICHI Interpretation Pending Double Strand DNA Ab Pending Anti-Cardiolipin IgG Ab Pending Anti-Cardiolipin IgM Ab Pending A.phagocytophil DNA PCR B. divergens/MO-1 PCR Babesia duncani (PCR) Babesia microti DNA PCR Borrelia (PCR) Lyme Disease Antibody E.chaffeensis DNA (PCR) E.ewingii/canis DNA PCR E. muris-like DNA (PCR) Prothrombin [id number] Mut Pending Prothrombin Mut Interp Pending Prothromb Reviewed By Pending 11/11/18 11/10/18 11/10/18 06:35 12:12 12:12 WBC RBC Hgb Hct MCV MCH MCHC RDW Plt Count MPV Immature Gran % Neutrophils % Lymphocytes % Monocytes % Eosinophils % Basophils % Absolute Neutrophils Absolute Lymphocytes Absolute Monocytes Absolute Eosinophils Absolute Basophils PT INR Fibrinogen Functional Protein C Functional Protein S Func Antithrombin III Factor V Factor VII Assay Factor VIII Activity Fact VIII Inhib Screen Sodium 143 Potassium 3.9 Chloride 107 Carbon Dioxide 24.8 Anion Gap 11.2 H BUN 19 H Creatinine 1.07 Estimated GFR/1.73 m2 >= 60.00 Glucose 102 H Calcium 8.5 Magnesium 2.1 Jnlf-[id number]-Uygwouyylhhvz Lipoprotein (a) Vitamin B12 583 Folate Homocysteine Urine Color Yellow Urine Clarity Clear Urine pH 7.0 Ur Specific [place] 1.010 Urine Protein Negative Urine Ketones Negative Urine Blood Negative Urine Nitrite Negative Urine Bilirubin Negative Urine Urobilinogen 0.2 Ur Leukocyte Esterase Negative Urine Glucose Negative Urine Opiates Screen Negative Urine Methadone Screen Negative Ur Barbiturates Screen Negative Ur Tricyclics Screen Negative Ur Amphetamines Screen Negative U Benzodiazepines Scrn Negative Urine Cocaine Screen Negative Ur THC Screen Negative CHICHI Titer CHICHI Titer 2 CHICHI Titer 3 CHICHI Interpretation Double Strand DNA Ab Anti-Cardiolipin IgG Ab Anti-Cardiolipin IgM Ab A.phagocytophil DNA PCR B. divergens/MO-1 PCR Babesia duncani (PCR) Babesia microti DNA PCR Borrelia (PCR) Lyme Disease Antibody E.chaffeensis DNA (PCR) E.ewingii/canis DNA PCR E. muris-like DNA (PCR) Prothrombin [id number] Mut Prothrombin Mut Interp Prothromb Reviewed By 11/10/18 11/10/18 10:05 10:05 WBC RBC Hgb Hct MCV MCH MCHC RDW Plt Count MPV Immature Gran % Neutrophils % Lymphocytes % Monocytes % Eosinophils % Basophils % Absolute Neutrophils Absolute Lymphocytes Absolute Monocytes Absolute Eosinophils Absolute Basophils PT 10.0 INR 1.0 Fibrinogen Functional Protein C Functional Protein S Func Antithrombin III Factor V Factor VII Assay Factor VIII Activity Fact VIII Inhib Screen Sodium Potassium Chloride Carbon Dioxide Anion Gap BUN Creatinine Estimated GFR/1.73 m2 Glucose Calcium Magnesium Elec-9-Anhboffxhogwm Lipoprotein (a) Vitamin B12 Folate Homocysteine Urine Color Urine Clarity Urine pH Ur Specific [place] Urine Protein Urine Ketones Urine Blood Urine Nitrite Urine Bilirubin Urine Urobilinogen Ur Leukocyte Esterase Urine Glucose Urine Opiates Screen Urine Methadone Screen Ur Barbiturates Screen Ur Tricyclics Screen Ur Amphetamines Screen U Benzodiazepines Scrn Urine Cocaine Screen Ur THC Screen CHICHI Titer CHICHI Titer 2 CHICHI Titer 3 CHICHI Interpretation Double Strand DNA Ab Anti-Cardiolipin IgG Ab Anti-Cardiolipin IgM Ab A.phagocytophil DNA PCR Pending B. divergens/MO-1 PCR Pending Babesia duncani (PCR) Pending Babesia microti DNA PCR Pending Borrelia (PCR) Pending Lyme Disease Antibody Negative E.chaffeensis DNA (PCR) Pending E.ewingii/canis DNA PCR Pending E. muris-like DNA (PCR) Pending Prothrombin [id number] Mut Prothrombin Mut Interp Prothromb Reviewed By [facility] Medical History Hypertension (Chronic) Obesity (Chronic) Seizure in childhood (Acute) Smoking (Acute) Family History Father Heart disease massive MD - from this Paternal Grandfather Heart disease Massive heart failure Mother Heart disease +CAD, Afib Hypertension Diabetes Maternal Grandfather Prostate cancer Social History Smoking/Tobacco Use Status: Former Tobacco Use Quit Date: 11/03/18 Pack-years: 27 Tobacco: How many years used: 27 Counseling given: provider counseling, support medications and patient declined Alcohol Intake: current Alcohol Intake frequency: holidays/special occasions only Substance use type: does not use Household members: spouse 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
[2018-11-11] MEDS: Apixaban 5 MG TAB PO (12:22)
--- NOTE | 2018-11-11 12:34 | INITIAL_ITS ---
- If Service Date Differs Date of service: 11/11/18 Time of Service: 12:34 Care Management Initial Assess REASON FOR HOSPITALIZATION:: TIA PAST MEDICAL HISTORY/PAST SURGICAL HISTORY:: Embolic stroke (New), hyperlipidemia, hypertension, obesity PREVIOUS FUNCTIONAL STATUS/SOCIAL/FAMILY SUPPORTS:: Satish lives with his spouse Debbi he has two children 20 and 16. 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 He is indpendent with ADL's, transportation. His primary care is in [place], [place]. CURRENT FUNCTIONAL STATUS:: Satish is sitting up in bed his Mom and spouse are present. Consult with neurology is complete he will follow up with her as outpatient and primary care. Satish understands that he will need close follow up with primary care and neurology. He will start Eliquis for anticoagulation. CM contacted [facility] in [facility] his co-pay is 20.00 Satish was also provided with a coupon to reduce the cost. Satish makes good eye contact he wants to be discharged as soon he is able. His Mom and Spouse are supportive at the bedside. ADVANCE DIRECTIVES:: None on file - will complete at a later time. Did the patient sign up for the portal?: No CODE STATUS:: Full Code INSURANCE COVERAGE / FINANCIAL ISSUES:: BCBS CURRENT HOME/COMMUNITY SERVICES/EQUIPMENT:: None PRIMARY CARE PHYSICIAN:: POTENTIAL DISCHARGE NEEDS:: Follow up with primary care, neurology, and new medications. PATIENT/FAMILY EDUCATION NEEDS:: Discharge education, limitations and follow up plan of care including ask me three and self management. ANTICIPATED BARRIERS TO DISCHARGE:: None TRANSPORTATION:: Via private car with spouse at time of discharge. PLAN:: Satish is being discharged home today he will need close follow up with primary care including PA completed for Zio patch, continue to follow up with neurology as directed. Satish was notified of the copay at [facility] and this is acceptable for him.
--- NOTE | 2018-11-11 12:59 | PDOC.CMDIS ---
- If Service Date Differs Date of service: 11/11/18 Time of Service: 12:59 LACE Index Scoring Tool - Questions: Length of Stay (in days): 2 Acuity (Admit via E.D.?): Yes E.D. Visits: 1 - Answers: Total Score: 6 Risk of Readmission: Low Risk Care Management Discharge Reason for Hospitalization: TIA Discharge Plan: Satish is being discharged home today. CM faxed notes to [facility] for follow up. CM verified Eliquis prescription and cost. Pt accepted and will molded goods spot picker his medications at time of discharge. CM provided contact informaiton for questions or concerns after discharge. Patient/Family Education Needs: Discharge education, limitations, medications and follow up plan of care. family present during education and Satish asked appropiate questions.
--- NOTE | 2018-11-11 13:54 | PT.INIE ---
Date of service: 11/11/18 Time of Service: 11:40 PT Notes Inpatient Physical Therapy Evaluation Date: 11/11/2018 Referring Doctor: Yajaira Aaron MD PT Orders: PT CONSULT: Limited ability) Precautions: Fall. Standard. Patient Profile/Admitting Diagnosis: Patient presents s/p transient ischemic attack. MRI revealed acute to subacute lacunar infarct in the right ran. Tiny lacunar infarcts are noted bilaterally in the posterior parietal regions. 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 Current Functional Limitations: The patient reports no weakness, stiffness, or deficits in function. Equipment Owned/DME: None Subjective: The patient denied having any pain or weakness. He denied headaches during activity. He stated the neurologist told him that he did not have any special exercises to perform, and he was preparing for discharge to home. Objective: General Observation: The patient was seen laying supine with HOB elevated to 40 degrees. He had TEDs on bilaterally. Mental Status: Alert and Oriented x 4 Pain: The patient denied having any pain. ROM: Left Upper Extremity: Grossly WFL Right Upper Extremity: Grossly WFL Right Lower Extremity: Hip flexion WFL. Hip abduction WFL. Knee flexion WFL. Ankle dorsiflexion WFL. Ankle plantarflexion WFL. Left Lower Extremity: Hip flexion WFL. Hip abduction WFL. Knee flexion WFL. Ankle dorsiflexion WFL. Ankle plantarflexion WFL. Strength: Left Upper Extremity: Globally good against gravity Right Upper Extremity: Globally good against gravity Right Lower Extremity: Hip flexors 5/5. Hip abductors 5/5. Knee flexors 5/5. Knee extensors 5/5. Ankle dorsiflexors 5/5. Ankle plantarflexors 5/5. Left Lower Extremity:Hip flexors 5/5. Hip abductors 5/5. Knee flexors 5/5. Knee extensors 5/5. Ankle dorsiflexors 5/5. Ankle plantarflexors 5/5. Bed Mobility/Transfers: Rolling I Supine to sit I Sit to supine I Sit to stand I Stand to sit I Bed to chair I Chair to bed I Gait: The patient was able to ambulate 150 feet with standby assist without any assistive device. He showed a slight decrease in stance time on the left leg. The PT observed slightly less dorsiflexion on the left compared to the right ankle. Noted no signs of foot drop/slap or trunk sway. Balance: Static Sitting: Normal Dynamic Sitting: Normal Static Standing: Good Dynamic Standing: Good Special Tests: 4-Stage Balance Test: Patient was able to sustain the first 3 stages of the test, and only completed single-leg stance on the right foot classifying him as low-risk for falling. Mobility Limitations Standardized Measure [facility] AM-PAC 6 clicks Basic Mobility Inpatient Short Form: Raw Score: 24 [facility] Score: 0% Informed Consent/Education: Patient instructed in purpose of PT consult. Assessment: Patient is a 47 year old male presenting s/p one day TIA. Patient?s mobility limitations, gait instability, generalized weakness, and impairment of motor control have resolved. Mr. Vazquez appears to have no residual deficits following his TIA other than the slight gait deviation. The patient may benefit from outpatient PT to enhance strength of the L LE to mitigate the gait deviation. He was able to complete 3 stages of the 4-stage balance test and is thus at minimal risk of falling. 1. Decreased stance time on L LE during gait Patient is assessed as a low complexity based on the following: History: Cognitively intact 47 year old male with premorbid independent level diagnosed with TIA. Examination: Underlying impairments and functional limitations as noted above Presentation: Stable Decision Making: Low complexity DISCHARGE RECOMMENDATIONS: Mr. Vazquez will be discharged to his home under the care of his . A recommendation for outpatient physical therapy services was given to physician on-call to enhance the strength of the L LE to mitigate the minor gait deviation seen. TREATMENT CODE/TIME: 67162 x 15 minutes beginning at 11:40 AM. Thank you very much for this referral. Richmond Erwin SPT Under the supervision of: Rosario Asencio PT, DPT, CLT [facility]
[2018-11-11 18:16] LABS: Fibrinogen 273 mg/dl (171-384)
[2018-11-12 16:17] LABS: Lipoprotein (a) <6 mg/dL (<=30)
[2018-11-12 21:34] LABS: Anaplasma phagocytophilum Negative (Negative); B. miyamotoi PCR Negative (Negative); Babesia divergens/MO-1 Negative (Negative); Babesia duncani Negative (Negative); Babesia microti Negative (Negative); Ehrlichia chaffeensis Negative (Negative); Ehrlichia ewingii/canis Negative (Negative); Ehrlichia muris eauclairensis Negative (Negative)
[2018-11-13 10:41] LABS: Coag Factor VIII Activity Assa 176 % (55 - 200)
[2018-11-14 10:08] LABS: Antithrombin 3, Funct. 98 % (85-125)
[2018-11-14 12:04] LABS: Homocysteine 8.7 umol/L (4.5-12.4)
[2018-11-15 10:43] LABS: dsDNA Ab, IgG <12.3 IU/mL (<30)
[2018-11-15 11:12] LABS: Coag Factor VII Assay 100 % (65 - 180)
[2018-11-15 14:12] LABS: ANA Interpretation Positive (NEGAT); ANA Titer Pattern 1:160 Speckled
[2018-11-15 14:48] LABS: Beta-2-Microglobulin 2.36 mcg/mL
[2018-11-16 12:08] LABS: Protein C, Functional 133 % (71-199)
[2018-11-16 12:12] LABS: Protein S, Functional 125 % (73-156)
[2018-11-16 18:12] LABS: Prothrombin G20210A Mutation Negative (Negative)
== END 2018-11-11 13:40 | disposition home or self-care (01) ==
LOC: ER 12:44 → MS 13:46
PROVIDERS: Admitting Provider Internal Medicine; Emergency Provider Physician Assistant Medical; PCP Internal Medicine; Visit Provider Internal Medicine
DX: I63.19 Cerebral infarction due to embolism of other precerebral artery (principal); I67.82 Cerebral ischemia; G81.94 Hemiplegia, unspecified affecting left nondominant side; I10 Essential (primary) hypertension; R29.810 Facial weakness; R47.1 Dysarthria and anarthria; E66.9 Obesity, unspecified; Z68.30 Body mass index [BMI] 30.0-30.9, adult; E78.5 Hyperlipidemia, unspecified; Z82.49 Family history of ischemic heart disease and other diseases of the circulatory system; F17.210 Nicotine dependence, cigarettes, uncomplicated
CPT/HCPCS: 36416; 70496; 70498; 80048; 80053; 80307; 81240; 82962; 83090; 83695; 85240; 85300; 85306; 85384; 86147; 87798; 93005; 97161; 99217; 99220; 99233; 99255; 99285; 70450; 70551; 71045; 81003; 82232; 82607; 82746; 83735; 84484; 85025; 85230; 85303; 85335; 85610; 86038; 86225; 86618; 93010; 93306; G0378; J3490

== ENCOUNTER 2018-11-22 11:07 | Outpatient (CLI) | payer BC, SELFPAY ==
--- NOTE | 2018-12-12 09:30 | ZIOP_ITS ---
DATE OF DICTATION: December 12, [address]: 13 days, 8 hours, November 222018 Baseline rhythm sinus. Rare single PAC. Sixty-four bursts of SVT. Longest 8.9 seconds duration, fastest 245 bpm. No atria l fibrillation. Rare single PVC. No VT. No bradycardia or block. No symptoms. Three triggered events all occurring during sinus rhythm 60-78 bpm. Average heart rate sinus 73 bpm, range 49-142 bpm.
== END 2018-11-22 11:27 ==
PROVIDERS: PCP Internal Medicine; Visit Provider Nurse Practitioner Family
DX: G45.9 Transient cerebral ischemic attack, unspecified (principal)
CPT/HCPCS: 0296T

== ENCOUNTER 2018-12-06 16:46 | Outpatient (CLI) | payer BC, SELFPAY ==
[2018-12-06 18:06] LABS: CREATININE 1.08 mg/dL (0.70-1.30)
[2018-12-14 08:52] LABS: Factor V Leiden (R506Q) Mutat See Comments
== END 2018-12-06 17:06 ==
PROVIDERS: PCP Internal Medicine; Visit Provider Internal Medicine
DX: I63.50 Cerebral infarction due to unspecified occlusion or stenosis of unspecified cerebral artery (principal); Z01.812 Encounter for preprocedural laboratory examination
CPT/HCPCS: 36415; 81241; 82565

== ENCOUNTER 2023-03-12 16:07 | Outpatient (REF) | payer BC, SELFPAY ==
[2023-03-12 14:25] LABS: HCT 48.5 % (40.0-50.0); HGB 16.2 g/dL (13.5-17.5); MCH 29.1 pg (27.0-33.0); MCHC 33.4 % (32.0-36.0); MCV 87 fL (80-95); MPV 10.7 fL (8.0-11.0); Platelet Count 315 10^3/uL (130-400); RBC 5.57 10^6/uL (4.36-5.78); RDW 13.3 % (11.8-14.1); RDW-SD 42.6 fL; WBC 8.91 10^3/uL (4.4-10.8)
[2023-03-12 14:41] LABS: ALT 44 U/L (16-63); AST 23 U/L (15-37); Albumin 3.7 g/dL (3.4-5.0); Alkaline Phosphatase 79 U/L (46-116); BUN 14 mg/dL (7-18); Bilirubin, Total 0.5 mg/dL (0.2-1.0); CREATININE 1.1 mg/dL (0.70-1.30); Calcium 9.4 mg/dL (8.5-10.1); Calculated LDL 115 mg/dL (<100); Chloride 107 mmol/L (98-107); Cholesterol 190 mg/dL (<200); Estimated GFR 81.78 (mL/min/1.73m2); Glucose 87 mg/dL (74-106); HDL Cholesterol 56 mg/dL (40-60); Potassium 4.2 mmol/L (3.5-5.1); Sodium 141 mmol/L (136-145); Triglyceride 96 mg/dL (<150)
[2023-03-12 14:43] LABS: Hemoglobin A1C 5.8 % (<5.7)
== END 2023-03-12 16:08 | disposition home or self-care (01) ==
LOC: NCHCN 16:07
PROVIDERS: PCP Internal Medicine; Visit Provider Nurse Practitioner Family
DX: Z00.00 Encounter for general adult medical examination without abnormal findings (principal); Z13.220 Encounter for screening for lipoid disorders; Z13.1 Encounter for screening for diabetes mellitus; Z13.228 Encounter for screening for other metabolic disorders
CPT/HCPCS: 80053; 80061; 85027; 83036

== ENCOUNTER 2023-09-22 07:00 | Emergency (ER) | payer BC, SELFPAY ==
[2023-09-22 07:13] VITALS: BP 194/122; PULSE 87; RESP 16; TEMP 36.5; O2SAT 97
--- NOTE | 2023-09-22 07:15 | DI.US_ITS ---
Exam(s) US SCROTUM EXAM: US SCROTUM CLINICAL HISTORY: left testicular pain, possible hernia. TECHNIQUE: Scrotal ultrasound performed using grayscale, color-flow and spectral Doppler analysis. COMPARISON: No exams were available for comparison FINDINGS: RIGHT TESTICLE: 3.8 x 1.9 x 2.6 cm Echogenicity: Normal. Contour: Smooth. Mass: None seen. Microlithiasis: None. Hydrocele: None. Varicocele: Vessels mildly dilated 3 millimeters. Hernia: No peristalsing bowel loop identified. Epididymis: Normal. Scrotum: Normal. No hernia is identified LEFT TESTICLE: 3.7 x 1.9 x 2.9 cm Echogenicity: Normal. Contour: Smooth. Mass: None seen. Microlithiasis: None. Hydrocele: None. Varicocele: Vessels mildly dilated to 3 millimeters. Hernia: No peristalsing bowel loop identified. Epididymis: 6 millimeter spermatocele. Hyperemia in epididymal head could indicate epididymitis. Scrotum: Normal. Hernias identified. DOPPLER: Color: Hyperemia to the left testicle consistent with orchitis. Duplex: Bilateral testicular arterial waveforms visualized. IMPRESSION: Hyperemia in the left epididymis and testicle consistent epididymo-orchitis. DATA REPOSITORY:
--- NOTE | 2023-09-22 07:36 | ED.GENADUL_ITS ---
Discharge Plan Disposition Patient Disposition: Home Condition: Stable Discharge Details Clinical Impression: Acute epididymo-orchitis Primary Care Provider: Petar Brown ED Provider: Vin Faye Home Meds and New Rx's Prescriptions: New levofloxacin 500 mg tablet 500 mg PO DAILY 10 Days Qty: 10 0RF No Action aspirin 81 mg tablet,delayed release (DR/EC) 81 mg PO DAILY rosuvastatin 10 mg tablet 10 mg PO DAILY lisinopril 20 mg tablet 20 mg PO DAILY Discharge Instructions Instructions: Epididymitis and orchitis Additional Instructions: Please follow-up with your primary care physician. Please return to the emerged part for any worsening symptoms HPI General Date/Time Provider Initiated Documentation: 09/22/23 07:26 . HPI Narrative: 52-year-old male presents with left groin/scrotal discomfort after lifting a heavy box yesterday. Denies nausea or vomiting denies constipation, has been passing normal stool and flatus. Related Data Home Medications Medication Instructions Recorded Confirmed aspirin 81 mg tablet,delayed 81 mg PO DAILY 07/28/22 07/29/22 release lisinopril 20 mg tablet 20 mg PO DAILY 07/28/22 07/29/22 rosuvastatin 10 mg tablet 10 mg PO DAILY 07/28/22 07/29/22 levofloxacin 500 mg tablet 500 mg PO DAILY 10 days #10 tabs 09/22/23 Previous Rx's Medication Instructions Recorded levofloxacin 500 mg tablet 500 mg PO DAILY 10 days #10 tabs 09/22/23 Allergies Allergy/AdvReac Type Severity Reaction Status Date / Time shellfish derived Allergy Severe Unverified 07/29/22 08:28 General Stated Complaint: GenMedical JYOTI: 3 Review of Systems Narrative: Review of Systems Constitutional: negative Eyes: negative ENT: negative Cardiovascular: negative Respiratory: negative Gastrointestinal: negative : Groin discomfort Musculoskeletal: negative Skin: negative Neurologic: negative Psych: negative Exam Narrative Exam Narrative: Physical Examination General: alert, awake, cooperative, resting comfortably, no acute distress HEENT: normocephalic, atraumatic; PERRL, EOM intact, conjunctiva normal; no nasal discharge; moist mucous membranes, oral and pharyngeal mucosa normal, tolerating secretions Neck: supple, trachea midline; full ROM Chest: normal to inspection Respiratory: normal respiratory effort, speaking in full sentences, clear to auscultation, no wheezing, rales or rhonchi Cardiac: regular rate, regular rhythm, S1S2 intact, no murmurs rubs or gallops GI: abdomen soft, non-tender, non-distended; no palpable mass or hepatosplenomegaly : Normal external genitalia, left testicular discomfort on palpation with fullness to left hemiscrotum, normal rugae normal lie, normal cremasteric reflex Skin: no lesions, rashes or trauma appreciated Neuro: AAOx3, normal speech, moving all extremities Psych: Appropriate mood and affect Course Vital Signs Vital signs: Vital Signs Temperature 36.5 C 09/22/23 07:13 Pulse 87 09/22/23 07:13 Respiratory Rate 16 09/22/23 07:13 Blood Pressure 194/122 H 09/22/23 07:13 Pulse Oximetry 97 09/22/23 07:13 Temperature 36.5 C 09/22/23 07:13 Temperature Source Tympanic 09/22/23 07:13 Pulse 87 09/22/23 07:13 Respiratory Rate 16 09/22/23 07:13 Blood Pressure 194/122 H 09/22/23 07:13 Blood Pressure Position Supine 09/22/23 07:13 Pulse Oximetry 97 09/22/23 07:13 Oxygen Delivery Method Room Air 09/22/23 07:13 Oxygen Flow Rate 0 09/22/23 07:13 Pain Level 8 09/22/23 07:13 Medical Decision Making 52-year-old male presents with left groin discomfort after lifting a heavy box yesterday, fullness to left hemiscrotum, some tenderness to left testicle, normal lie normal rugae normal cremasteric reflex no penile discharge, high clinical suspicion for indirect inguinal hernia no evidence of incarceration or strangulation at this time given nonperitoneal no nausea no vomiting no constipation. Will obtain ultrasound scrotum to assess testicular, will likely receive surgical follow-up for elective hernia repair as needed in the future. 9: 58 evidence of left testicular orchitis and epididymitis, will screen patient for STI risk factors and treat appropriately with antibiotics, patient preparing to give us a urine sample. Patient will follow close with his primary care physician. Given home care instructions and strict return precautions 10: 21 no history of STIs per patient, no extramarital partners, no insertive anal intercourse, based off of these social factors patient can be covered with levofloxacin 500 mg orally once daily for 10 days. Home care instructions and return precautions given Quality:SDOH Health Related Social Needs: No Data to Display PFSH All Active Problems (Updated 09/22/23 @ 10:22 by Vin Faye MD) Acute epididymo-orchitis (Acute) Embolic stroke (Acute) lacunar infarct DVT prophylaxis (Acute) Hyperlipidemia (Acute) Transient neurologic deficit (Acute) Hypertension (Chronic) Obesity (Chronic) Medical History (Updated 09/22/23 @ 10:22 by Vin Faye MD) Sebaceous cyst face Back pain Family history of premature coronary heart disease Seizure in childhood Smoking Discharge planning issues Family History Father Heart disease massive [place] - from this Paternal Grandfather Heart disease Massive heart failure Mother Heart disease +CAD, Afib Hypertension Diabetes Maternal Grandfather Prostate cancer Social History Smoking/Tobacco Use Status: Former Tobacco Use Quit Date: 11/03/18 Pack-years: 27 Tobacco: How many years used: 27 Counseling given: provider counseling, support medications and patient declined Smoking risk assessment performed?: Yes Alcohol Intake: current Alcohol Intake frequency: holidays/special occasions only Substance use type: does not use Household members: spouse 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
[2023-09-22 08:09] VITALS: RESP 16
[2023-09-22 08:11] VITALS: BP 194/122; PULSE 87; RESP 16; TEMP 36.5; O2SAT 97
[2023-09-22 10:26] LABS: Bilirubin Negative (Negative); Blood Negative (Negative); Clarity Sl Cloudy (Clear); Glucose Negative (Negative); Ketones Negative (Negative); Leukocyte Esterase Negative (Negative); Nitrite Negative (Negative); Specific Gravity <= 1.005 (1.005-1.025); Urobilinogen 0.2 mg/dL (Up to 0.2)
[2023-09-22] MEDS: levoFLOXacin 500 MG TAB PO (10:42)
[2023-09-22 10:44] VITALS: BP 188/132; PULSE 84; RESP 18; O2SAT 95
== END 2023-09-22 10:51 | disposition home or self-care (01) ==
PROVIDERS: Emergency Provider Emergency Medicine; PCP Internal Medicine
DX: N45.3 Epididymo-orchitis (principal); I10 Essential (primary) hypertension; X50.0XXA Overexertion from strenuous movement or load, initial encounter
CPT/HCPCS: 87491; 87591; 99283; 76870; 81003

== ENCOUNTER 2023-10-28 15:00 | Outpatient (CLI) | payer BC, SELFPAY | END 2023-10-28 15:01 | disposition home or self-care (01) | PROVIDERS: PCP Internal Medicine; Visit Provider Nurse Practitioner Family | DX: I48.92 Unspecified atrial flutter (principal) | CPT/HCPCS: 93246 ==

== ENCOUNTER 2023-11-16 02:58 | Inpatient (IN) | payer BC, SELFPAY ==
[2023-11-16] VITALS (104 sets, daily range): BP systolic 102–158; BP diastolic 74–132; PULSE 55–172; RESP 16–30; TEMP 36.5–36.8; O2SAT 88–98
--- NOTE | 2023-11-16 03:00 | RT.EKG_ITS ---
APPROVED REPORT Exam: Resting ECG Reason for Exam: diff breathing Patient Location: E HR:160 bpm ECG Measurements Heart Rate 160 AXIS LA [id number] P [id number] QRSd 87 QRS 72 QT 284 T 242 QTc 464 Conclusion Atrial fibrillation...V-rate 111-188, irreg A-activity Probable lateral infarct, age indeterminate...Q >35mS, T neg, V5-V6 I aVL Anterior infarct, old...Q >40mS, abnormal ST-T, V2-V5 A-fib with rate related ST changes. No STEMI
[2023-11-16] MEDS: Metoprolol 5 MG/5 ML VIAL IVP ×4 (03:15→19:59)
--- NOTE | 2023-11-16 03:15 | DI.RAD_ITS ---
Exam(s) XR PORTABLE CHEST AP EXAM: XR PORTABLE CHEST AP CLINICAL HISTORY: SOB TECHNIQUE: 2D digital imaging was performed of the chest. One image was obtained. An AP view was ob tained. COMPARISON: CR XR PORTABLE CHEST AP from 11/10/2018 FINDINGS: MEDIASTINUM: Normal. HEART: The heart is at the upper limits of normal. PULMONARY VASCULATURE: Normal. LUNGS: No focal consolidating infiltrates. PLEURAL SPACE: No pleural effusion or pneumothorax. BONE:Within normal limits for the patient's age. OTHER FINDINGS:Normal. IMPRESSION: No focal consolidating infiltrates. If symptoms persist, a repeat chest x-ray may be obtained. DATA REPOSITORY: RADIATION DOSE DELIVERED:
[2023-11-16 03:25] LABS: Abs Immature Grans 0.06 10^3/uL (0.0-0.06); Absolute Basophil Count 0.05 10^3/uL (0.0-0.2); Absolute Eosinophil Count 0.15 10^3/uL (0.0-0.7); Absolute Lymphocyte Count 2.28 10^3/uL (1.2-3.4); Absolute Monocyte Count 0.87 10^3/uL (0.1-0.8); Basophils % 0.4 %; Eosinophils % 1.1 %; HCT 46.7 % (40.0-50.0); HGB 15.2 g/dL (13.5-17.5); Immature Grans % 0.5 %; Lymphocytes % 17.2 %; MCH 29.6 pg (27.0-33.0); MCHC 32.5 % (32.0-36.0); MCV 91 fL (80-95); MPV 10.9 fL (8.0-11.0); Monocytes % 6.6 %; Neutrophils % 74.2 %; Nucleated RBC 0.2 % (0.0-0.3); Platelet Count 345 10^3/uL (130-400); RBC 5.13 10^6/uL (4.36-5.78); RDW 13.7 % (11.8-14.1); RDW-SD 45.1 fL; WBC 13.25 10^3/uL (4.4-10.8)
[2023-11-16 03:29] LABS: Absolute Neutrophil Count 9.83 10^3/uL (1.2-6.7)
[2023-11-16 03:45] LABS: ALT 56 U/L (16-63); AST 32 U/L (15-37); Albumin 3.4 g/dL (3.4-5.0); Alkaline Phosphatase 85 U/L (46-116); Anion Gap 11.6 mmol/L (3-11); BUN 26 mg/dL (7-18); Bilirubin, Total 0.85 mg/dL (0.2-1.0); CO2 24.4 mmol/L (21.0-32.0); CREATININE 1.6 mg/dL (0.70-1.30); Calcium 9.4 mg/dL (8.5-10.1); Chloride 106 mmol/L (98-107); Estimated GFR 52.17 (mL/min/1.73m2); Glucose 153 mg/dL (74-106); Potassium 4.4 mmol/L (3.5-5.1); Sodium 142 mmol/L (136-145); Total Protein 7.1 g/dL (6.4-8.2); Troponin I < 50 ng/L (< or =60)
--- NOTE | 2023-11-16 03:52 | ED.GENADUL_ITS ---
Discharge Plan Disposition Patient Disposition: Admit to [facility] Condition: Fair Discharge Details Clinical Impression: Atrial fibrillation with RVR Primary Care Provider: Petar Brown ED Provider: Francisco Lopes Kimball Meds and New Rx's Prescriptions: No Action rosuvastatin 10 mg tablet 10 mg PO DAILY lisinopril 40 mg tablet 40 mg PO DAILY Patient Comments: TAKE ONE TABLET BY MOUTH EVERY DAY Eliquis 5 mg tablet 5 mg PO BID Patient Comments: TAKE ONE TABLET BY MOUTH TWICE A DAY metoprolol succinate 25 mg tablet extended release 24 hr 75 mg PO DAILY Patient Comments: TAKE ONE TABLET BY MOUTH EVERY DAY HPI General Mode of arrival: ambulatory . Date/Time Provider Initiated Documentation: 11/16/23 03:17 . Limitations to Documentation: no limitations . Information obtained by: patient, RN notes reviewed and old records reviewed . HPI Narrative: Patient presents to ED with complaint of chest tightness, shortness of breath, palpitations. Symptoms much worse this morning. Has been bothering him over the weekend. Recently diagnosed with atrial fibrillation and placed on metoprolol and Eliquis. Metoprolol dose increased last week from 25 to 75. Denies any syncope. Denies any cough. Denies any vomiting or diarrhea. Typically takes the metoprolol in the morning. Related Data Home Medications ?Medication ?Instructions ?Recorded ?Confirmed rosuvastatin 10 mg tablet 10 mg PO DAILY 07/28/22 11/16/23 apixaban 5 mg tablet (Eliquis) 5 mg PO BID 11/16/23 11/16/23 lisinopril 40 mg tablet 40 mg PO DAILY 11/16/23 11/16/23 metoprolol succinate 25 mg 75 mg PO DAILY 11/16/23 11/16/23 tablet,extended release 24 hr Allergies Allergy/AdvReac Type Severity Reaction Status Date / Time shellfish derived Allergy Severe Unknown Verified 11/16/23 03:12 General Stated Complaint: SOB JYOTI: 3 Review of Systems Narrative: Per HPI Exam Narrative Exam Narrative: Const: WDWN male in NAD. VS per triage. HEENT: NC/AT. Normal facial exam. Neck: Supple. Trachea midline. Lungs: Normal respiratory effort. Lungs are clear. Cor: Irr/irr and tachy. Good radial pulses. GI: Soft/ND/NT. Neuro: A+O x 3. Normal speech, mentation, gait. Cranial nerves II - XII grossly intact. No gross motor or sensory deficit. Ext: No C/C/E. Course Vital Signs Vital signs: Vital Signs Temperature 98.2 F 11/16/23 03:05 Pulse 168 H 11/16/23 03:05 Respiratory Rate 22 11/16/23 03:05 Pulse Oximetry 96 11/16/23 03:05 Temperature 98.2 F 11/16/23 03:05 Pulse 145 H 11/16/23 03:35 Respiratory Rate 22 11/16/23 03:05 Respiratory Effort Normal 11/16/23 03:10 Respiratory Depth Normal 11/16/23 03:10 Respiratory Pattern Normal 11/16/23 03:10 Blood Pressure 126/100 H 11/16/23 03:35 Pulse Oximetry 96 11/16/23 03:05 Pain Level 0 11/16/23 03:05 Lab/Test Results Lab/Test Results: Laboratory Tests Range/Units 11/16/23 03:15 WBC (4.4-10.8) 10^3/uL 13.25 H RBC (4.36-5.78) 10^6/uL 5.13 Hgb (13.5-17.5) g/dL 15.2 Hct (40.0-50.0) % 46.7 MCV (80-95) fL 91 MCH (27.0-33.0) pg 29.6 MCHC (32.0-36.0) % 32.5 RDW (11.8-14.1) % 13.7 Plt Count (130-400) 10^3/uL 345 MPV (8.0-11.0) fL 10.9 Immature Gran % % 0.5 Neutrophils % % 74.2 Lymphocytes % % 17.2 Monocytes % % 6.6 Eosinophils % % 1.1 Basophils % % 0.4 Nucleated RBC % (0.0-0.3) % 0.2 Absolute Neutrophils (1.2-6.7) 10^3/uL 9.83 H Absolute Lymphocytes (1.2-3.4) 10^3/uL 2.28 Absolute Monocytes (0.1-0.8) 10^3/uL 0.87 H Absolute Eosinophils (0.0-0.7) 10^3/uL 0.15 Absolute Basophils (0.0-0.2) 10^3/uL 0.05 Sodium (136-145) mmol/L 142 Potassium (3.5-5.1) mmol/L 4.4 Chloride (98-107) mmol/L 106 Carbon Dioxide (21.0-32.0) mmol/L 24.4 Anion Gap (3-11) mmol/L 11.6 H BUN (7-18) mg/dL 26 H Creatinine (0.70-1.30) mg/dL 1.6 H Est GFR (CKD-EPI 2020) (mL/min/1.73m2) 52.17 Glucose (74-106) mg/dL 153 H Calcium (8.5-10.1) mg/dL 9.4 Magnesium (1.8-2.4) mg/dL 2.0 Total Bilirubin (0.2-1.0) mg/dL 0.85 AST (15-37) U/L 32 ALT (16-63) U/L 56 Alkaline Phosphatase (46-116) U/L 85 Troponin I (< or =60) ng/L < 50 Total Protein (6.4-8.2) g/dL 7.1 Albumin (3.4-5.0) g/dL 3.4 Medical Decision Making Patient presenting to ED in rapid atrial fibrillation with recent diagnosis of same being made in the last 2 to 3 weeks. Review of his old records actually shows that he was here in 2019 with an embolic stroke. His EKG is rapid A-fib with rate related ST changes. IV established and laboratory studies obtained. As he is on metoprolol and due for his morning dose in a few hours will start with IV Lopressor 5 mg every 5 minutes x 3 doses. Portable chest x-ray ordered. Patient's rate slowed by about 20 points with the Lopressor. Still running at about 140. Will give Cardizem bolus and reevaluate. Laboratory studies with a white count of 13.3, normal hemoglobin and platelets. Electrolytes are normal. Kidney function is elevated with a BUN of 26 and a creatinine of 1.6. Creatinine in February 2023 was 1.1. Liver function is normal. Initial troponin is negative. Portable chest x-ray per my read and preliminary radiology read with no acute process. With the Cardizem bolus heart rate has come down to 120 but no lower. Will rebolus with 10 mg and start Cardizem drip. Discussed with hospitalist for admission for further management. Discussed with patient. Will plan admission to ICU on a Cardizem drip for A-fib with RVR. Medical Records Medical records reviewed: Yes I reviewed the patient's medical records. Medical records narrative: Admission from 2019 Imaging Data Radiologic Study: Attestation: I personally reviewed and interpreted this imaging study as follows: Imaging: X-Ray My impression: No acute process Lab Data Lab results reviewed: Yes I reviewed the patient's lab results. ECG Data Attestation: I personally reviewed and interpreted this ECG (s) as follows: Interpretation: See EKG Critical Care Time Critical Care Time Critical Care Time: Yes Total Critical Care Time: 45 Attestation: Upon my evaluation, this patient had a high probability of imminent or life- threatening deterioration, which required my direct attention, intervention, and personal management. I have personally provided 45 minutes of critical care time exclusive of time spent on separately billable procedures. Time includes monitoring for potential decompensation, ordering of tests and medications, review of laboratory and radiology results, discussion with consultants and documentation . Interventions were performed as documented above in procedures. PFSH All Active Problems (Updated 11/16/23 @ 04:28 by Francisco Lopes MD) Atrial fibrillation with RVR (Acute) Seizure in childhood (Acute) Family history of premature coronary heart disease (Acute) Sebaceous cyst (Acute) face Transient neurologic deficit (Acute) Medical History Hyperlipidemia Hypertension Embolic stroke lacunar infarct Family History Father Heart disease massive [place] - from this Paternal Grandfather Heart disease Massive heart failure Mother Heart disease +CAD, Afib Hypertension Diabetes Maternal Grandfather Prostate cancer Social History Smoking/Tobacco Use Status: Former Tobacco Use Quit Date: 11/03/18 Pack-years: 27 Tobacco: How many years used: 27 Counseling given: provider counseling, support medications and patient declined Smoking risk assessment performed?: Yes Alcohol Intake: current Alcohol Intake frequency: holidays/special occasions only Substance use type: does not use Household members: spouse 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
[2023-11-16] MEDS: dilTIAZem 25 MG/5 ML VIAL 15 MG IVP (03:57)
--- NOTE | 2023-11-16 04:13 | DI.VRAD_ITS ---
PROCEDURE INFORMATION: Exam: XR Chest Exam date and time: 11/16/2023 3:47 AM Age: 52 years old Clinical indication: Shortness of breath TECHNIQUE: Imaging protocol: Radiologic exam of the chest. Views: 1 view. COMPARISON: CR XR PORTABLE CHEST AP 11/10/2018 10:24 AM FINDINGS: Lungs: Unremarkable. No consolidation. Pleural spaces: Unremarkable. No pleural effusion. No pneumothorax. Heart/Mediastinum: Unremarkable. No cardiomegaly. Bones/joints: Unremarkable. IMPRESSION: No acute findings. Dictated and Authenticated by: Mark Garnica MD. Ordering:LEXUS Singh MD
[2023-11-16] MEDS: dilTIAZem 25 MG/5 ML VIAL 10 MG IVP (04:27)
[2023-11-16] MEDS: dilTIAZem 125 MG in Normal Saline 100 ML IV (04:28)
--- NOTE | 2023-11-16 04:51 | W.PM.HP.N ---
Date of service: 11/16/23 Time of Service: 07:14 Assessment and Plan Assessment and plan (1) Atrial fibrillation with RVR: Status: Acute Assessment and plan: Recently diagnosed as an outpatient. [id number] 3, was started on apixaban as well as metoprolol. Trigger is unclear, but around the time this started he quit smoking and also had a course of levofloxacin for epididymitis. Presented to ED with ongoing atrial fibrillation with RVR despite IV metopolol in the ED and recent uptitration to 75mg metoprolol succinate as outpatient. More response to diltiazem IV, now on drip and admitted to ICU for monitoring. Continue metoprolol orally as well. EKG shows some strain and BNaP high, but troponin x 2 negative and no longer symptomatic. Echo pending. (2) Acute renal insufficiency: Status: Acute Assessment and plan: New bump in creatinine. May be prerenal with heart strain/tachycardia. Monitor renal function and urine output. Get bladder scan to rule out outlet obstruction. (3) CVA (cerebrovascular accident): Assessment and plan: History of stroke in 2019 at age 47, concerning for embolic, though not totally clear and atrial fibrillation not found and treated with ASA/statin. Qualifiers: CVA mechanism: unspecified Qualified Code(s): I63.9 - Cerebral infarction, unspecified (4) Hyperlipidemia: Assessment and plan: Continue rosuvastatin, recheck LDL. With history and risk factors I think a goal of <70 LDL is appropriate (5) Hypertension: Assessment and plan: Continue lisinopril, also on metoprolol and not diltiazem. (6) Smoking: Status: Resolved Assessment and plan: Quit last month. He doesn't feel he needs medical help in maintenance. Encouraged. (7) DVT prophylaxis: Status: Acute Assessment and plan: on apixaban History of Present Illness History of Present Illness Chief Complaint: SOB Narrative: 52 yo M with history of CVA, recent smoker, who was diagnosed with atrial fibrillation 3 weeks ago as an outpatient presenting with gradually progressive shortness of breath and chest tightness. Atrial fibrillation was noted 3 weeks ago, started on metoprolol succinate 25mg and apixaban started 2 weeks ago. 5 days ago PCP increased his metoprolol to 75mg because his heart was too fast. Over the weekend he noted increased shortness of breath and chest tightness and finally came into the hospital. The chest tightness and shortness of breath resolved after he got medicine in the emergency room. He feels fine now. He states he decided to quit smoking last month, before he was diagnosed with atrial fibrillation. Around that time he was also treated with an antibiotic (levofloxacin per the record) for epididymitis. He has some stress at home but nothing major. He can't think of any other triggers. Sleeping well. Minimal alcohol. He states he has been on aspirin since he had the stroke along with his statin. He stopped the aspirin when he started the apixaban. He has not had bleeding. Review of Systems All systems reviewed & are unremarkable except as noted in HPI and below PFSH All Active Problems Acute renal insufficiency (Acute) DVT prophylaxis (Acute) Atrial fibrillation with RVR (Acute) Sebaceous cyst (Acute) face Family history of premature coronary heart disease (Acute) Seizure in childhood (Acute) Transient neurologic deficit (Acute) Medical History CVA (cerebrovascular accident) lacunar a/w dysartrhia, 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 neurology, but treated with ASA/statin, 2019 Hyperlipidemia Hypertension Family History Father Heart disease massive [place] - from this Paternal Grandfather Heart disease Massive heart failure Mother Heart disease +CAD, Afib Hypertension Diabetes Maternal Grandfather Prostate cancer Social History (Updated 11/16/23 @ 08:24 by Kwame Branch) Smoking/Tobacco Use Status: Former Tobacco Use Quit Date: 11/03/18 Pack-years: 27 Tobacco: How many years used: 27 Counseling given: provider counseling, support medications and patient declined Smoking risk assessment performed?: Yes Alcohol Intake: current Alcohol Intake frequency: holidays/special occasions only Substance use type: does not use Household members: spouse Housing: house 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[employer], 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[employer] Do you feel safe at home: Yes Do you feel safe in your relationship?: Yes Additional Social history: Lives with and one adult child in [facility] Allergies and Home Medications Allergies Allergy/AdvReac Type Severity Reaction Status Date / Time shellfish derived Allergy Severe Unknown Verified 11/16/23 03:12 Home Medications ?Medication ?Instructions ?Recorded ?Confirmed ?Type rosuvastatin 10 mg tablet 10 mg PO DAILY 07/28/22 11/16/23 History apixaban 5 mg tablet (Eliquis) 5 mg PO BID 11/16/23 11/16/23 History lisinopril 40 mg tablet 40 mg PO DAILY 11/16/23 11/16/23 History metoprolol succinate 25 mg 75 mg PO DAILY 11/16/23 11/16/23 History tablet,extended release 24 hr Exam Narrative Exam Narrative: GEN: Alert and oriented x 4, pleasant and cooperative, gives linear history. No acute distress at rest. HEENT: Head atraumatic. Conjunctiva clear, no icterus. PEERL, EOMI. no rhinorrhea. MMM, OP benign. Neck is supple with no thyromegaly, no masses or lymphadenopathy, trachea midline LUNGS: CTAB with normal effort CV: RRR with no murmurs, gallops, or rubs. ABD: active bowel sounds, soft, nontender and nondistended. No masses. EXT: no cyanosis, clubbing, or edema MSK: No joint redness or swelling NEURO: CN 2-12 grossly intact. Normal movement of 4 extremities. Normal speech and coordination. No tremor SKIN: No rashes or open wounds. PSYCH: normal mood and affect Results Imaging Chest x-ray: report reviewed (no acute disease) and image reviewed EKG: report reviewed and image reviewed (atrial fibrillation, rate 160, nl axis, slight ST depression/flat Ts lateral leads, no STEMI) Labs 11/16/23 03:15 11/16/23 03:15 Labs: Laboratory Results - last 24 hr 11/16/23 03:15 WBC 13.25 H RBC 5.13 Hgb 15.2 Hct 46.7 MCV 91 MCH 29.6 MCHC 32.5 RDW 13.7 Plt Count 345 MPV 10.9 Immature Gran % 0.5 Neutrophils % 74.2 Lymphocytes % 17.2 Monocytes % 6.6 Eosinophils % 1.1 Basophils % 0.4 Nucleated RBC % 0.2 Absolute Neutrophils 9.83 H Absolute Lymphocytes 2.28 Absolute Monocytes 0.87 H Absolute Eosinophils 0.15 Absolute Basophils 0.05 Sodium 142 Potassium 4.4 Chloride 106 Carbon Dioxide 24.4 Anion Gap 11.6 H BUN 26 H Creatinine 1.6 H Est GFR (CKD-EPI 2020) 52.17 Glucose 153 H Calcium 9.4 Magnesium 2.0 Total Bilirubin 0.85 AST 32 ALT 56 Alkaline Phosphatase 85 Troponin I < 50 Total Protein 7.1 Albumin 3.4 Last Vital Signs Temp 36.8 C 11/16/23 03:05 Pulse 112 H 11/16/23 04:27 Resp 26 H 11/16/23 03:57 BP 135/109 H 11/16/23 04:27 Pulse Ox 94 11/16/23 03:57 Time Spent Time spent with Patient: >75 minutes Time was spent: preparing to see the patient(eg.review tests), obtaining and/or reviewing separately otained hiistory, ordering medications,tests, procedures, referring, communicating with other health care management assistant, indepentently interpreting results, counseling the patient and care coordination
[2023-11-16 05:07] LABS: NT-proBNP 6513 pg/mL (<300)
[2023-11-16 05:34] LABS: Lab Add On Test DONE
[2023-11-16 05:42] LABS: Calculated LDL 51 mg/dL (<100); Cholesterol 99 mg/dL (<200); HDL Cholesterol 33 mg/dL (40-60); TSH (W/Ref FT4) 3.81 uIU/mL (0.36-3.74); Triglyceride 75 mg/dL (<150)
[2023-11-16 05:52] LABS: ETHANOL BLOOD < 3.0 mg/dL (<10)
[2023-11-16 06:00] LABS: FREE T4 1.32 ng/dL (0.76-1.46)
[2023-11-16 07:07] LABS: Lab Add On Test DONE
[2023-11-16 07:15] LABS: Troponin I < 50 ng/L (< or =60)
--- NOTE | 2023-11-16 09:01 | INITIAL_ITS ---
Date of service: 11/16/23 Time of Service: 09:02 Care Management Initial Assmt Initial Assessment Reason for Hospitalization: atrial fib with RVR Functional Status/Living Situation Patient Presentation: Satish was sitting up in bed visiting with his son when CM met with him. He was polite but minimally engaged. Satish was admitted with atrial fibrillation with RVR. He remains in the ICU on a Diltiazem drip and states that he feels good. His heart rate has ranged from a high of 160 to a low of 60. Satish has an Echo today and his EF was noted to be 30% and he has global hypokinesis. Satish is and lives in a single family home in [facility] with his and daughter. He works for the [employer] and is independent at baseline. Town of Residence: [facility] Resides with: Spouse (Debbi) Significant Other/Family: [facility] Employment Status: Employed ([employer]) Instrumental Activities of Daily Living (ADLs): Independent Medications Medication Management: No Issues/Barriers identified Physical Functioning/Mobility Assistive Device: none Advance Directives Advance Directives: Do you have an Advance Directive: N 07/27/22 10:43 AD On File at [facility]: N 07/27/22 10:43 Date Asked 11/16/23 11/16/23 03:17 AD Date Reviewed COLST On File at [facility] No 09/22/23 07:08 COLST Date Scanned Code Status Resuscitation Status Full Code Portal Pt does not currently have a portal and education provided: No Insurance Coverage/Financial Issues Insurance: / Care Team Visit Care Team Role Provider Type Petar Brown MD Primary Care Provider [facility] STAFF PHYSICIAN Francisco Lopes MD Emergency Provider [facility] STAFF PHYSICIAN Kwame Branch Admit Provider [facility] STAFF PHYSICIAN Attending Provider Discharge Potential Discharge Needs: PCP F/U Appt Anticipated Barriers to Discharge: None Identified Patient/Family Education Needs: Review discharge instructions, discuss Ask Me Three Transportation: Private vehicle Plan: Anticipate Satish will be discharged home with no new services when medically cleared. He will follow up with Cardiology and his PCP and transport with family. Cm will follow and continue to support discharge planning needs. 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 neurology, but treated with ASA/statin, 2019 Hyperlipidemia Hypertension Family History Father Heart disease massive [place] - from this Paternal Grandfather Heart disease Massive heart failure Mother Heart disease +CAD, Afib Hypertension Diabetes Maternal Grandfather Prostate cancer Social History (Updated 11/16/23 @ 08:24 by Kwame Branch) Smoking/Tobacco Use Status: Former Tobacco Use Quit Date: 11/03/18 Pack-years: 27 Tobacco: How many years used: 27 Counseling given: provider counseling, support medications and patient declined Smoking risk assessment performed?: Yes Alcohol Intake: current Alcohol Intake frequency: holidays/special occasions only Substance use type: does not use Household members: spouse Housing: house 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[employer], 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[employer] Do you feel safe at home: Yes Do you feel safe in your relationship?: Yes Additional Social history: Lives with and one adult child in [facility](Care Management) Screening Will the Patient Participate in the Screening?: Yes Do you worry about having a steady place to live?: no Problems where you live: no known problems In the past 12 months, have you had to go without electric, gas, oil or water in your home?: no Have you or anyone in your house had to go without enough food to eat?: no Has lack of transportation kept you from medical appointments or from doing things needed for daily living?: no Has anyone in your support network made you feel unsafe for any reason?: no
[2023-11-16] MEDS: Metoprolol CR 25 MG TABCR 75 MG PO (09:03)
[2023-11-16] MEDS: Lisinopril 20 MG TAB 40 MG PO (09:03)
[2023-11-16] MEDS: Rosuvastatin 5 MG TAB 10 MG PO (09:04)
[2023-11-16] MEDS: Apixaban 5 MG TAB PO ×2 (09:04→19:58)
[2023-11-16] MEDS: Normal Saline Flush 10 ML SYR IVP ×2 (09:06→20:00)
[2023-11-16 13:35] LABS: *AMPHETAMINES SCREEN URINE Negative (Negative); *BARBITURATES SCREEN URINE Negative (Negative); *BENZODIAZEPINES SCREEN URINE Negative (Negative); Cannabinoids THC Negative (Negative); Cocaine Screen,Urine Negative (Negative); METHADONE URINE SCREEN Negative (Negative); OPIATES URINE SCREEN Negative (Negative); Tricyclic Antidepressants Negative (Negative)
--- NOTE | 2023-11-16 14:00 | DI.US_ITS ---
APPROVED REPORT EXAM: Comprehensive 2D, Doppler, and color-flow Echocardiogram Patient Location: In-Patient Room/Bed: STC208 Fruit Raiser: Alison Dickson RDCS (AE) Indications: A FIB Other Information Study Quality: Fair. Technically limited study due to body habitus, inability to position patient exa m done supine bedside, arrhythmia. Conclusion Normal left ventricular wall thickness and chamber size. Ejection fraction is 30%. There is global hypokinesis Right ventricle is mildly hypocontractile Both atria are mildly enlarged There are no structural valvular abnormalities Moderate mitral regurgitation Moderate to severe tricuspid regurgitation Estimated right ventricular systolic pressure is 40 mmHg Wall motion Left Ventricle The left ventricle is normal size. Left ventricular ejection fraction is moderate to severely decreas ed. Beat to beat variation throughout exam. There is normal left ventricular wall thickness. There is no ventricular septal defect visualized. LVEF is 32%. Right Ventricle Right ventricle is grossly normal in size. Right ventricle is mildly hypokinetic. Atria Left atrium is mildly dilated. Right atrium is mildly dilated. The interatrial septum is intact with no evidence for an atrial septal defect. Aortic Valve The aortic valve is normal in structure. Aortic valve is trileaflet. There is no aortic valvular sten osis. Trace aortic regurgitation. Mitral Valve The mitral valve is normal in structure. No evidence of mitral valve stenosis. Moderate mitral regurg itation. Tricuspid Valve The tricuspid valve is normal in structure. There is no tricuspid valve stenosis. Moderate to severe tricuspid regurgitation. The RVSP is 40.5mmHg. Pulmonic Valve The pulmonary valve is normal in structure. There is no pulmonic valvular stenosis. There is no pulmo sri valvular regurgitation. Great Vessels The aortic root is normal in size. The ascending aorta is normal in size. Aortic arch is not well vis ualized. The IVC collapses <50% with inspiration. Pericardium There is no pericardial effusion. 2D Dimensions IVSD d PLAX 0.91 cm M: 0.6-1.2 Ao Root d 2.99 cm M: 3.1 - 3.7 LVPW d PLAX 0.91 cm M: 0.6 - 1.2 Ao Asc Diam d 3.40 cm M: 2.6 - 3.4 LVID d PLAX 5.65 cm M: 4.2 - 5.8 LVDs 4.90 cm M: 2.5 - 4.0 LV EF Teichholz 26.7 % FS 12.59 % LV EDV (Teich) 156.9 mL LV ESV (Teich) 115.0 mL M-Mode TAPSE 1.95 cm (M/F) >1.7 Auto EF LV EDV A4C 147.1 mL LV EDV A2C 137.8 mL LV EDV BP 142.2 mL LV ESV A4C 103.6 mL LV ESV A2C 91.2 mL LV ESV BP 97.0 mL LVEF(%) A4C 29.6 % LVEF(%) A2C 33.8 % LVEF(%) BP 31.8 % LV SV A4C 43.5 ml LV SV A2C 46.6 ml LV SV BP 45.2 ml LV CO A4C 3.9 L/min LV CO A2C 3.8 L/min LV CO BP 3.8 L/min HR A4C 89.33 BPM HR A2C 80.91 BPM LV EDV Index (BP) LA Volume LA Length A4C 6.3 cm LA Length A2C 6.2 cm LA Area A4C s 22.64 cm2 LA Area A2C s 27.67 cm2 LA Vol A4C A-L 69.16 mL LA Vol A2C A-L 105.63 mL LA Vol Biplane A-L 86.4 mL LA Vol/BSA A4C A-L LA Vol/BSA A2C A-L LA Vol/BSA BP A-L 36.2 mL/m2 LA Vol A4C MOD 66.0 mL LA Vol A2C MOD 97.4 mL LA Vol BP MOD 80.5 mL RA Volume RA Area A4C 20.7 cm2 RA ESV A4C (A-L) 61.4mL RA Vol/BSA A4C A-L RA Length A4C 5.9 cm RA ESV A4C (MOD) 57.9mL LV Diastology MV E Vmax 1.19 (0.4-1.3 m/s) Aortic Valve AoV Vmax 1.19 m/s LVOT Vmax 0.83 m/s AoV Peak Grad 5.7 mmHg LVOT Peak Grad 2.8 mmHg AoV Area (Vmax) 2.39 cm2 LVOT VTI 0.124 m AoV VTI 0.197 m LVOT Mean Fritz. 0.54 m/s AoV Mean Fritz. 0.84 m/s LVOT Mean Grad 1.4 mmHg AoV Mean Grad 3.3 mmHg LVOT SV 42.48 mL AoV Area (VTI) 2.16 cm2 LVOT Diam s 2.05 cm Velocity Ratio 0.70 Mitral Valve MV Vmax TIPS 1.13 m/s MV Mean Grad 1.4 (<2mmHg) MV Area PHT 5.20 cm2 MV VTI 0.265 m Pulmonary Valve PV Vmax 0.70 (0.5-1.5 m/s) RVOT Vmax 0.39 m/s PV Peak Grad 2.0 mmHg RVOT Peak Gr. 0.6 mmHg PV Mean Fritz 0.42 m/s RVOT VTI 0.080 m PV Mean Grad 0.8 mmHg RVOT Mean Gr. 0.3 mmHg Tricuspid Valve RA Pressure 8.00 mmHg TR Vmax 2.84 m/s TV S' 0.13 m/s TR Peak Grad 32.5 mmHg RVSP (TR) 40.5 mmHg
[2023-11-16] MEDS: dilTIAZem 125 MG in Normal Saline 100 ML 10 MG IV (16:01)
--- NOTE | 2023-11-16 17:42 | CHAPLAIN ---
Satish was resting in bed when I visited, and had two visitors in the room with him. We had a brief visit. I introduced myself and explained my role. Satish was pleasant but did not seem interested in further conversation.
[2023-11-16] MEDS: Metoprolol 50 MG TAB PO (19:58)
[2023-11-16] MEDS: Furosemide 40 MG/4 ML VIAL IVP (19:58)
--- NOTE | 2023-11-16 20:09 | W.EVENT ---
Date of service: 11/16/23 Time of Service: 20:09 Event Note: This is a 52-year-old gentleman who was hospitalized with exertional shortness of breath and found to have atrial fibrillation recently initiated on apixaban and metoprolol succinate with his lisinopril continued for blood pressure treatment. He also was on rosuvastatin which was continued. The nurse did call me but as he stated his heart rate despite being on diltiazem infusion was continuing to be well over 100 and to the 120s and higher but the patient was not having increased symptoms. His troponins were negative. His metoprolol was at the same dose of 75 mg daily with metoprolol succinate and this was discontinued with metoprolol tartrate 50 mg to be given every 8 hours. He also had IV metoprolol 5 mg as needed given with continuation of diltiazem infusion and slow weaning if possible. He presented with atrial fibrillation throughout the night and had no change in symptoms. His troponins were negative as mentioned. Labs were otherwise stable. Exam of the patient was unrevealing with slight moisture of his skin but normal color, no distress and lung findings essentially clear. His heart was irregularly irregular with slight tachycardia at times especially when exerting himself in his room. He voiced no new symptoms and did not have chest pain. He denies any weight gain or peripheral edema prior to his admission. His echocardiogram was done this hospitalization revealing drop in his left ventricular ejection fraction to around 30% having been about 50% on previous echocardiogram in 2019 the patient had had acute CVA with left-sided weakness. At that time he did not have any evidence of atrial fibrillation. Patient heart rate did improve with increased beta-blockade and diltiazem infusion was being weaned. His blood pressure was stable and even slightly low prior to diltiazem weaning and would be monitored closely with advance metoprolol if needed. Cardiology consultation was placed and patient needs evaluation of his treatment of CHF with response to IV Lasix 40 mg diuresing more than 2000 cc which was given when I was first consulted by the ICU nurses. He may be candidate for Entresto with discontinuation of his lisinopril. Apixaban will be maintained. He is a full code. Time Spent with Patient Time spent in critical care(minutes): 30 Time Spent Included: Chart review, Documenting critically ill care, Time at immediate bedside and Discussing critically ill care with other medical staff
[2023-11-16 21:54] LABS: Bilirubin Negative (Negative); Blood Negative (Negative); Clarity Clear (Clear); Glucose Negative (Negative); Ketones Negative (Negative); Leukocyte Esterase Negative (Negative); Nitrite Negative (Negative); Urobilinogen 0.2 mg/dL (Up to 0.2); pH 5.5 (5-8)
[2023-11-17] VITALS (56 sets, daily range): BP systolic 112–146; BP diastolic 84–119; PULSE 69–142; RESP 15–28; TEMP 36–36.8; O2SAT 89–95
[2023-11-17] MEDS: dilTIAZem 125 MG in Normal Saline 100 ML 12.5 MG IV (00:06)
[2023-11-17] MEDS: Metoprolol 50 MG TAB PO ×3 (03:48→15:10)
[2023-11-17] MEDS: Normal Saline Flush 10 ML SYR IVP ×3 (06:03→20:08)
[2023-11-17] MEDS: Metoprolol 5 MG/5 ML VIAL IVP ×3 (06:03→23:59)
[2023-11-17 06:43] LABS: Anion Gap 7.9 mmol/L (3-11); BUN 24 mg/dL (7-18); CO2 25.1 mmol/L (21.0-32.0); CREATININE 1.5 mg/dL (0.70-1.30); Calcium 8.9 mg/dL (8.5-10.1); Chloride 102 mmol/L (98-107); Estimated GFR 56.37 (mL/min/1.73m2); Glucose 113 mg/dL (74-106); Potassium 3.4 mmol/L (3.5-5.1); Sodium 135 mmol/L (136-145)
[2023-11-17] MEDS: Lisinopril 20 MG TAB 40 MG PO (08:36)
[2023-11-17] MEDS: Apixaban 5 MG TAB PO ×2 (08:36→20:05)
[2023-11-17] MEDS: Rosuvastatin 5 MG TAB 10 MG PO (08:36)
--- NOTE | 2023-11-17 09:02 | PDOC.CMPRO ---
Date of service: 11/17/23 Time of Service: 09:02 Care Management Progress Note Progress Note Text Progress Note Text: Satish was sitting up in bed when CM met with him. He was pleasant and cooperative and stated that he is feeling OK. Satish is still having issues with his heart rate (tachycardia) and is undergoing medication changes. CM will follow. Discharge Potential Discharge Needs: PCP F/U Appt Anticipated Barriers to Discharge: None Identified Patient/Family Education Needs: Review discharge instructions, discuss Ask Me Three Transportation: Private vehicle Plan: Anticipate Satish will be discharged home with no new services when medically cleared. It is possible he may require transfer to a tertiary care facility if his heart rate can not be controlled. Satish will follow up with his PCP, Cardiology and plan of care and transport with family. CM will follow and continue to support discharge planning needs. SDOH(Care Management) Screening Will the Patient Participate in the Screening?: Yes Do you worry about having a steady place to live?: no Problems where you live: no known problems In the past 12 months, have you had to go without electric, gas, oil or water in your home?: no Have you or anyone in your house had to go without enough food to eat?: no Has lack of transportation kept you from medical appointments or from doing things needed for daily living?: no Has anyone in your support network made you feel unsafe for any reason?: no
--- NOTE | 2023-11-17 09:22 | W.PM.PROGNOT ---
Date of Service Date of service: 11/17/23 Time of Service: 09:22 Assessment and Plan Assessment and plan (1) Atrial fibrillation with RVR: Status: Acute Assessment and plan: -Recently diagnosed as an outpatient on 10/19/2023 (4wks +1 day) with [id number] 3, was started on apixaban as well as metoprolol. -Trigger is unclear, but around the time this started he quit smoking and also had a course of levofloxacin for epididymitis. -Presented to ED with ongoing atrial fibrillation with RVR despite IV metopolol in the ED and recent uptitration to 75mg metoprolol succinate as outpatient. -had responded to dilt drip and continuation of home metop, but became smore tachycardic overnight -metop dose changed to 50mg PO Q8, dilt drip down to 10mcg, rates 90's-130's AM 11/16 -TTE showed EF 30% with global hypokinesis, potentially dueto tachy induced cardiomyopathy -given new finding of HFrEF, will need to wean off of dilt drip -patient has had good initial response to addition of PO lopressor -giving additional one-time 50mg PO dose and changing scheduled to 100mg PO BID to begin this evening -will get Cardiology consult in AM if patient remains in RVR anbd or remains on dilt drip (2) HFrEF (heart failure with reduced ejection fraction): Status: Acute Assessment and plan: -newly diagnosed on TTE 11/15 with EF 30% and global hypokinesis -currently on metop and lisinopril -consider transition to Entresto as outpatient (3) Acute renal insufficiency: Status: Acute Assessment and plan: -New bump in creatinine up to 1.6 on admission -May be prerenal with heart strain/tachycardia -Cr down to 1.5 AM 11/16 -f/u AM BMP (4) CVA (cerebrovascular accident): Assessment and plan: -History of stroke in 2019 at age 47, concerning for embolic, though not totally clear and atrial fibrillation not found and treated with ASA/statin. Qualifiers: CVA mechanism: unspecified Qualified Code(s): I63.9 - Cerebral infarction, unspecified (5) Hyperlipidemia: Assessment and plan: -Continue rosuvastatin (6) Hypertension: Assessment and plan: -Continue lisinopril, may consider transition to Entresto as outpatient given new dx of HFrEF as noted above (7) Smoking: Status: Resolved Assessment and plan: Quit last month. He doesn't feel he needs medical help in maintenance. Encouraged. (8) DVT prophylaxis: Status: Acute Assessment and plan: on apixaban Subjective Subjective Interval history since last seen: Patient states that he is continuing to do well and remains asymptomatic. He understands the plan to continue to monitor his HR and adjust his medication regimen accordingly. He also understands that there is a possibility he may need to transferred for MAYDA cardioversion if we are unable to control his rate with IV/PO lopressor Exam Narrative Exam Narrative: well appearing gentleman laying in bed in no acute distress, AOx4, heart irregularly irregular, rate 90-130bpm, lungs CTAB, abdomen soft, non-tender, non-distended Objective Last Vital Signs Temp 97.7 F 11/16/23 20:00 Pulse 80 11/17/23 08:02 Resp 18 11/17/23 09:00 BP 125/101 H 11/17/23 08:02 Pulse Ox 94 11/17/23 09:00 Laboratory Results - last 24 hr 11/16/23 11/16/23 11/17/23 12:10 21:30 05:45 Sodium 135 L Potassium 3.4 L D Chloride 102 Carbon Dioxide 25.1 Anion Gap 7.9 BUN 24 H Creatinine 1.5 H Est GFR (CKD-EPI 2020) 56.37 Glucose 113 H Calcium 8.9 Urine Color Yellow Urine Clarity Clear Urine pH 5.5 Ur Specific [place] 1.010 Urine Protein Negative Urine Ketones Negative Urine Blood Negative Urine Nitrite Negative Urine Bilirubin Negative Urine Urobilinogen 0.2 Ur Leukocyte Esterase Negative Urine Glucose Negative Urine Opiates Screen Negative Urine Methadone Screen Negative Ur Barbiturates Screen Negative Ur Tricyclics Screen Negative Ur Amphetamines Screen Negative U Benzodiazepines Scrn Negative Urine Cocaine Screen Negative Ur THC Screen Negative PAWSS Have you Been Recently Intoxicated or Drunk Within the Last 30 days?: No Have you Ever Experienced Previous Episodes of Alcohol Withdrawal?: No Have you ever Experienced Withdrawal Seizures?: No Have you ever Experienced Delirium Tremens(DT)s?: No Have you ever undergone Alcohol Rehabilitation Treatment (i.e, inpt ot outpatient treatment programs)?: No Have you ever Experienced Blackouts?: No Have you ever Combined Alcohol with other Downers within the last 90 days?: No Have you ever Combined Alcohol with any other Substance of Abuse during the last 90 days?: No Positive Blood Alcohol level on Presentation? [PCS.BAL]: No Evidence of Increased Autonomic Activity (i.e. HR>120, tremor, sweating, agitation, nausea)?: No Result: 0 Time Spent with Patient Time Spent with Patient: >50 minutes Time was spent: preparing to see the patient(eg.review tests), obtaining and/or reviewing separately otained hiistory, ordering medications,tests, procedures, referring, communicating with other health director of patient care, indepentently interpreting results, counseling the patient and care coordination
[2023-11-17] MEDS: dilTIAZem 125 MG in Normal Saline 100 ML 10 MG IV (10:53)
--- NOTE | 2023-11-17 11:16 | PHA.REVIEW2 ---
Pharmacy Admission Review Admission Clinical Review Admission Pharmacy Review: HFrEF (heart failure with reduced ejection fraction) (Acute) Acute renal insufficiency (Acute) DVT prophylaxis (Acute) Atrial fibrillation with RVR (Acute) shellfish derived Allergy (Severe, Verified 11/16/23 03:12) Unknown Resuscitation Status Full Code Height 6 ft 4 in Weight 107 kg Pharmacy Admission Review Renal Dosing Renal Dosing: BUN 24 mg/dL (7-18) H 11/17/23 05:45 Creatinine 1.5 mg/dL (0.70-1.30) H 11/17/23 05:45 Medications needing adjustments: Reviewed (CrCl 79 mL/min, BUN decreased from 26 and SCr decreased from 1.6) List of meds needing interventions: Current medications are okay Anticoagulation Anticoagulation: Hgb 15.2 g/dL (13.5-17.5) 11/16/23 03:15 Hct 46.7 % (40.0-50.0) 11/16/23 03:15 Plt Count 345 10^3/uL (130-400) 11/16/23 03:15 Creatinine 1.5 mg/dL (0.70-1.30) H 11/17/23 05:45 DVT Prophylaxis: Reviewed Medications: Apixaban (5mg PO BID) Relevant Labs Relevant Labs: Sodium 135 mmol/L (136-145) L 11/17/23 05:45 Potassium 3.4 mmol/L (3.5-5.1) L D 11/17/23 05:45 Chloride 102 mmol/L (98-107) 11/17/23 05:45 Magnesium 2.0 mg/dL (1.8-2.4) 11/16/23 03:15 Electrolytes, C-Reactive P, ESR: Reviewed (Na 135 and K 3.4) Cardiac Review Cardiac Review: Troponin I < 50 ng/L (< or =60) 11/16/23 05:35 NT-Pro-B Natriuret Pep 6513 pg/mL (<300) H 11/16/23 03:15 Blood Pressure 125/101 0802 Blood Pressure 133/108 0701 Blood Pressure 131/117 0603 Blood Pressure 131/117 0601 Blood Pressure 124/101 0501 Blood Pressure 146/109 0400 Blood Pressure 115/84 0301 Blood Pressure 136/104 0201 Blood Pressure 117/100 0101 Blood Pressure 120/99 0011 BP, HR, EF%: Reviewed (HR WNL - has been in the 120's for most of the morning) List meds needing interventions: Patient currently on diltiazem drip at 10mg/hr - per morning meeting trying to wean off. Patient is also on lisinopril 40mg daily, metoprolol IR 50mg q8h (was on 75mg XL daily at home) with a IVP 5mg PRN order (1 PRN dose given this morning at 0603). Per morning meeting if unable to get HR under control then patient may need MAYDA cardioversion which would [place] [facility] [place] QTc Review QTc: Reviewed (464 from 11/15) IV to PO Switch IV Medications: Reviewed (diltiazem infusion and metoprolol PRN) Home Meds Home Med List reviewed: Reviewed Current Meds Current Medication Order Review: Reviewed
[2023-11-17] MEDS: Metoprolol 50 MG TAB 100 MG PO (19:37)
[2023-11-18] VITALS (42 sets, daily range): BP systolic 103–140; BP diastolic 81–123; PULSE 62–180; RESP 16–28; TEMP 36.3–36.7; O2SAT 89–96
[2023-11-18] MEDS: Metoprolol 5 MG/5 ML VIAL IVP ×6 (04:05→22:27)
[2023-11-18] MEDS: Normal Saline Flush 10 ML SYR IVP ×5 (04:08→20:12)
[2023-11-18 06:19] LABS: HCT 42.9 % (40.0-50.0); HGB 14.5 g/dL (13.5-17.5); MCH 30.5 pg (27.0-33.0); MCHC 33.8 % (32.0-36.0); MCV 90 fL (80-95); Platelet Count 227 10^3/uL (130-400); RBC 4.75 10^6/uL (4.36-5.78); WBC 9.69 10^3/uL (4.4-10.8)
[2023-11-18 06:35] LABS: Anion Gap 8.5 mmol/L (3-11); BUN 22 mg/dL (7-18); CO2 25.5 mmol/L (21.0-32.0); CREATININE 1.3 mg/dL (0.70-1.30); Chloride 105 mmol/L (98-107); Estimated GFR 66.93 (mL/min/1.73m2); Glucose 117 mg/dL (74-106); Potassium 3.7 mmol/L (3.5-5.1); Sodium 139 mmol/L (136-145)
--- NOTE | 2023-11-18 08:30 | W.CARDEVENT ---
Date of service: 11/18/23 Time of Service: 08:30 Cardiac Event Recorder Referring Provider:: Ruth Mayorga Indications:: Unspecified atrial flutter Cardiac Event Note: This is a cardiac event monitor. Patient was monitored for 10 days and 9 hours Rhythm throughout was atrial fibrillation/flutter with an average heart rate of 144 There were occasional premature ventricular contractions. Episodes labeled brief nonsustained ventricular tachycardia were probably aberrant conduction Minimum heart rate was 86, maximum 232 There were no apparent patient symptoms
--- NOTE | 2023-11-18 08:34 | CCONE_ITS ---
Date of service: 11/18/23 Time of Service: 08:34 History of Present Illness Narrative: This is a 52-year-old man who has been in atrial fibrillation/flutter for several weeks. He just had an event monitor which disclosed his average heart rate was 145. He is now admitted to the hospital, found to have reduced left ventricular function. There have been difficulties controlling his rate. He is now on Eliquis for stroke prevention. Based on the records I cannot tell how long he has been anticoagulated. I suspect his LV dysfunction is due to uncontrolled rates of his atrial dysrhythmia If he has been anticoagulated for 4 weeks, we could do a cardioversion here. If it is less than 4 weeks, he should have a MAYDA cardioversion. I think this would be the best option for his care. I agree that Entresto should be considered as an alternative to lisinopril given his ejection fraction. 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 neurology, but treated with ASA/statin, 2019 Hyperlipidemia Hypertension Family History Father Heart disease massive [place] - from this Paternal Grandfather Heart disease Massive heart failure Mother Heart disease +CAD, Afib Hypertension Diabetes Maternal Grandfather Prostate cancer Social History (Updated 11/16/23 @ 08:24 by Kwame Branch) Smoking/Tobacco Use Status: Former Tobacco Use Quit Date: 11/03/18 Pack-years: 27 Tobacco: How many years used: 27 Counseling given: provider counseling, support medications and patient declined Smoking risk assessment performed?: Yes Alcohol Intake: current Alcohol Intake frequency: holidays/special occasions only Substance use type: does not use Household members: spouse Housing: house 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[employer], 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[employer] Do you feel safe at home: Yes Do you feel safe in your relationship?: Yes Additional Social history: Lives with and one adult child in [facility] Results Last Vital Signs Temp 36.3 C L 11/18/23 04:26 Pulse 128 H 11/18/23 08:01 Resp 20 11/18/23 08:01 BP 123/92 H 11/18/23 08:01 Pulse Ox 94 11/18/23 08:01 Labs 11/18/23 05:50 11/18/23 05:50 Labs: Laboratory Results - last 24 hr 11/18/23 05:50 WBC 9.69 RBC 4.75 Hgb 14.5 Hct 42.9 MCV 90 MCH 30.5 MCHC 33.8 RDW 14.0 Plt Count 227 MPV 11.0 Sodium 139 Potassium 3.7 Chloride 105 Carbon Dioxide 25.5 Anion Gap 8.5 BUN 22 H Creatinine 1.3 Est GFR (CKD-EPI 2020) 66.93 Glucose 117 H Calcium 9.0
[2023-11-18] MEDS: Rosuvastatin 5 MG TAB 10 MG PO (08:36)
[2023-11-18] MEDS: Metoprolol 50 MG TAB 100 MG PO ×2 (08:37→19:22)
[2023-11-18] MEDS: Lisinopril 20 MG TAB 40 MG PO (08:37)
[2023-11-18] MEDS: Apixaban 5 MG TAB PO ×2 (08:37→19:32)
[2023-11-18 09:05] LABS: Lab Add On Test DONE
[2023-11-18 09:27] LABS: Magnesium 2.1 mg/dL (1.8-2.4)
[2023-11-18] MEDS: POTASSIUM CHLORIDE 10 MEQ/100 ML BAG 100 MEQ IVINF ×2 (09:53→11:31)
--- NOTE | 2023-11-18 09:58 | PDOC.CMPRO ---
Date of service: 11/18/23 Time of Service: 09:58 Care Management Progress Note Progress Note Text Progress Note Text: Satish was sitting up in bed visiting with his son when CM met with him. He reported that he is not feeling any better as his heart rate remains elevated with rates today as high as 180. He was seen by Cardiology this morning and is scheduled to have an elective cardioversion tomorrow morning at 7:30. Satish shared that if he converts to a sinus rhythm with a normal rate, he may be able to go home later in the day. He admitted he would be very pleased if that were able to happen. Discharge Potential Discharge Needs: PCP F/U Appt and Other (Cardiology) Anticipated Barriers to Discharge: Medical Status Patient/Family Education Needs: Review discharge instructions, discuss Ask Me Three Transportation: Private vehicle Plan: Anticipate Satish will be discharged home with no new services when medically cleared. He will follow up with Cardiology, his PCP and plan of care and transport with family. CM will follow and continue to support discharge needs. SDOH(Care Management) Screening Will the Patient Participate in the Screening?: Yes Do you worry about having a steady place to live?: no Problems where you live: no known problems In the past 12 months, have you had to go without electric, gas, oil or water in your home?: no Have you or anyone in your house had to go without enough food to eat?: no Has lack of transportation kept you from medical appointments or from doing things needed for daily living?: no Has anyone in your support network made you feel unsafe for any reason?: no
--- NOTE | 2023-11-18 11:27 | PGE_ITS ---
Date of Service Date of service: 11/18/23 Time of Service: 11:27 Assessment and Plan Assessment and plan (1) Atrial fibrillation with RVR: Status: Acute Assessment and plan: -Recently diagnosed as an outpatient on 10/19/2023 (4wks +1 day) with [id number], was started on apixaban as well as metoprolol. -Trigger is unclear, but around the time this started he quit smoking and also had a course of levofloxacin for epididymitis. -Presented to ED with ongoing atrial fibrillation with RVR despite IV metopolol in the ED and recent uptitration to 75mg metoprolol succinate as outpatient. -had responded to dilt drip and continuation of home metop, but became smore tachycardic overnight -metop dose changed to 50mg PO Q8, dilt drip down to 10mcg, rates 90's-130's AM 11/16 -TTE showed EF 30% with global hypokinesis, potentially dueto tachy induced cardiomyopathy -given new finding of HFrEF, will need to wean off of dilt drip -patient has had good initial response to addition of PO lopressor -giving additional one-time 50mg PO dose and changing scheduled to 100mg PO BID to begin this evening -Cardiology consulted and has scheduled patient for Cardioversion tomorrow morning, Wednesday11/19/2023 at 7:30am -NPO at midnight (2) HFrEF (heart failure with reduced ejection fraction): Status: Acute Assessment and plan: -newly diagnosed on TTE 11/15 with EF 30% and global hypokinesis -currently on metop and lisinopril -consider transition to Entresto as outpatient (3) Acute renal insufficiency: Status: Acute Assessment and plan: -New bump in creatinine up to 1.6 on admission -May be prerenal with heart strain/tachycardia -Cr down to 1.5 AM 11/16 -f/u AM BMP (4) CVA (cerebrovascular accident): Assessment and plan: -History of stroke in 2019 at age 47, concerning for embolic, though not totally clear and atrial fibrillation not found and treated with ASA/statin. Qualifiers: CVA mechanism: unspecified Qualified Code(s): I63.9 - Cerebral infarction, unspecified (5) Hyperlipidemia: Assessment and plan: -Continue rosuvastatin (6) Hypertension: Assessment and plan: -Continue lisinopril, may consider transition to Entresto as outpatient given new dx of HFrEF as noted above (7) Smoking: Status: Resolved Assessment and plan: Quit last month. He doesn't feel he needs medical help in maintenance. Encouraged. (8) DVT prophylaxis: Status: Acute Assessment and plan: on apixaban Subjective Subjective Interval history since last seen: Patient stats that he is doing well and understands that he is set up for a Cardioversion tomorrow morning. Exam Narrative Exam Narrative: well appearing gentleman laying in bed in no acute distress, AOx4, heart irregularly irregular, rate 90-130bpm, lungs CTAB, abdomen soft, non-tender, non-distended Objective Last Vital Signs Temp 97.3 F L 11/18/23 04:26 Pulse 134 H 11/18/23 09:51 Resp 20 11/18/23 08:01 BP 121/102 H 11/18/23 09:51 Pulse Ox 94 11/18/23 08:01 Laboratory Results - last 24 hr 11/18/23 11/18/23 05:50 09:04 WBC 9.69 RBC 4.75 Hgb 14.5 Hct 42.9 MCV 90 MCH 30.5 MCHC 33.8 RDW 14.0 Plt Count 227 MPV 11.0 Sodium 139 Potassium 3.7 Chloride 105 Carbon Dioxide 25.5 Anion Gap 8.5 BUN 22 H Creatinine 1.3 Est GFR (CKD-EPI 2020) 66.93 Glucose 117 H Calcium 9.0 Magnesium 2.1 Add-On Test Request DONE PAWSS Have you Been Recently Intoxicated or Drunk Within the Last 30 days?: No Have you Ever Experienced Previous Episodes of Alcohol Withdrawal?: No Have you ever Experienced Withdrawal Seizures?: No Have you ever Experienced Delirium Tremens(DT)s?: No Have you ever undergone Alcohol Rehabilitation Treatment (i.e, inpt ot outpatient treatment programs)?: No Have you ever Experienced Blackouts?: No Have you ever Combined Alcohol with other Downers within the last 90 days?: No Have you ever Combined Alcohol with any other Substance of Abuse during the last 90 days?: No Positive Blood Alcohol level on Presentation? [PCS.BAL]: No Evidence of Increased Autonomic Activity (i.e. HR>120, tremor, sweating, agitation, nausea)?: No Result: 0 Time Spent with Patient Time Spent with Patient: >50 minutes Time was spent: preparing to see the patient(eg.review tests), obtaining and/or reviewing separately otained hiistory, ordering medications,tests, procedures, referring, communicating with other health career development consultant, indepentently interpreting results, counseling the patient and care coordination
[2023-11-19] VITALS (65 sets, daily range): BP systolic 95–147; BP diastolic 74–116; PULSE 52–162; RESP 12–30; TEMP 37.1–37.3; TEMPC 36.5; O2SAT 90–100; BMI 28.5
[2023-11-19 06:10] LABS: Anion Gap 7.6 mmol/L (3-11); BUN 24 mg/dL (7-18); CO2 23.4 mmol/L (21.0-32.0); CREATININE 1.5 mg/dL (0.70-1.30); Chloride 105 mmol/L (98-107); Estimated GFR 56.37 (mL/min/1.73m2); Glucose 110 mg/dL (74-106); Potassium 4.2 mmol/L (3.5-5.1); Sodium 136 mmol/L (136-145)
--- NOTE | 2023-11-19 06:15 | RT.EKG_ITS ---
APPROVED REPORT Exam: Resting ECG Reason for Exam: Pre-op for cardioversion Patient Location: I HR:150 bpm ECG Measurements Heart Rate 150 AXIS HI [id number] P [id number] QRSd 92 QRS 58 QT 312 T 223 QTc 493 Conclusion Atrial fibrillation...V-rate 87-192, irreg A-activity Ventricular premature complex...V complex w/ short R-R interval Nonspecific T abnormalities,
--- NOTE | 2023-11-19 06:28 | ANES.PREOP_ITS ---
General Info Date of Service Date Performed: 11/19/23 Height: 6 ft 4 in Weight: 106.5 kg Body Mass Index (BMI): 28.5 Surgical Procedure: Operation Date: 11/19/23 07:30 Proposed Procedure Side Surgeon p Cardioversion Asuncion Tellez MD Meds Allergies and Home Medications Allergies Allergy/AdvReac Type Severity Reaction Status Date / Time shellfish derived Allergy Severe Unknown Verified 11/16/23 03:12 Home Medication ?Medication ?Instructions ?Recorded rosuvastatin 10 mg tablet 10 mg PO DAILY 07/28/22 apixaban 5 mg tablet (Eliquis) 5 mg PO BID 11/16/23 lisinopril 40 mg tablet 40 mg PO DAILY 11/16/23 metoprolol succinate 25 mg 75 mg PO DAILY 11/16/23 tablet,extended release 24 hr Current Visit Medications: Current Medications Generic Name Dose Route Start Last Admin Trade Name Freq PRN Reason Stop Dose Admin Apixaban 5 mg 11/16/23 08:30 11/18/23 19:32 Apixaban 5 Mg Tab PO 5 mg BID TATIANNA Administration Diltiazem HCl 125 mg/ Sodium 125 mls @ 5 mls/hr 11/16/23 04:15 11/17/23 22:18 Chloride IV 0 mg/hr INFUSION TATIANNA 0 mls/hr Titration Protocol 5 MG/HR IV Miscellaneous Supplies 1 each 11/16/23 09:15 Iv Access IV DIRECTED TATIANNA Lisinopril 40 mg 11/16/23 08:30 11/18/23 08:37 Lisinopril 20 Mg Tab PO 40 mg DAILY TATIANNA Administration Metoprolol Tartrate 5 mg 11/16/23 19:36 11/18/23 22:27 Metoprolol 5 Mg/5 Ml Vial IVP 5 mg Q2H PRN PRN Administration Metoprolol Tartrate 100 mg 11/17/23 20:00 11/18/23 19:22 Metoprolol 50 Mg Tab PO 100 mg BID TATIANNA Administration Rosuvastatin Calcium 10 mg 11/16/23 08:30 11/18/23 08:36 Rosuvastatin 5 Mg Tab PO 10 mg DAILY TATIANNA Administration Sodium Chloride 0 ml 11/16/23 03:17 11/18/23 07:34 Normal Saline Flush 10 Ml Syr IVP 20 ml PRN PRN Administration Sodium Chloride 0 ml 11/16/23 08:30 11/18/23 20:12 Normal Saline Flush 10 Ml Syr IVP 20 ml BID TATIANNA Administration Sodium Chloride 0 ml 11/16/23 03:17 Normal Saline 10 Ml Vial IJ DIRECTED PRN PFSH Active Problems Active Problems: Problem Status Onset Code HFrEF (heart failure with reduced ejection fraction) Acute I50.20 Acute renal insufficiency Acute N28.9 DVT prophylaxis Acute Z29.9 Atrial fibrillation with RVR Acute I48.91 Seizure in childhood Acute R56.9 Family history of premature coronary heart disease Acute Z82.49 Sebaceous cyst Acute L72.3 Transient neurologic deficit Acute R29.818 Medical History Medical History CVA (cerebrovascular accident) lacunar a/w dysartrhia, 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 neurology, but treated with ASA/statin, 2019 Hyperlipidemia Hypertension Tobacco Smoking/Tobacco Use Status: Former Tobacco Use Counseling given: provider counseling, support medications and patient declined Alcohol Alcohol Intake: current Alcohol intake frequency: holidays/special occasions only Substance Use Substance use type: does not use Vital Signs and Lab Results Vital Signs Most Recent Vital Signs in EMR: Most Recent Vital Signs Temp Pulse Resp BP Pulse Ox 36.3 C L 127 H 13 103/81 97 11/18/23 04:26 11/18/23 22:34 11/19/23 04:00 11/18/23 22:34 11/19/23 04:00 Lab Results 11/18/23 05:50 11/19/23 05:50 Blood Type / Crossmatch: 2 No Data to Display Complete Blood Count: 2 White Blood Count 9.69 10^3/uL (4.4-10.8) 11/18/23 05:50 Red Blood Count 4.75 10^6/uL (4.36-5.78) 11/18/23 05:50 Hemoglobin 14.5 g/dL (13.5-17.5) 11/18/23 05:50 Hematocrit 42.9 % (40.0-50.0) 11/18/23 05:50 Platelet Count 227 10^3/uL (130-400) 11/18/23 05:50 Complete Metabolic Panel: 2 Sodium 136 mmol/L (136-145) 11/19/23 05:50 Potassium 4.2 mmol/L (3.5-5.1) 11/19/23 05:50 Chloride 105 mmol/L (98-107) 11/19/23 05:50 Carbon Dioxide 23.4 mmol/L (21.0-32.0) 11/19/23 05:50 BUN 24 mg/dL (7-18) H 11/19/23 05:50 Creatinine 1.5 mg/dL (0.70-1.30) H 11/19/23 05:50 Est GFR (CKD-EPI 2020) 56.37 (mL/min/1.73m2) 11/19/23 05:50 Magnesium 2.0 mg/dL (1.8-2.4) 11/19/23 05:50 Calcium 9.0 mg/dL (8.5-10.1) 11/19/23 05:50 Albumin 3.4 g/dL (3.4-5.0) 11/16/23 03:15 Glucose 110 mg/dL (74-106) H 11/19/23 05:50 Liver Function Panel: 2 Alanine Aminotransferase (ALT/SGPT) 56 U/L (16-63) 11/16/23 03: 15 Aspartate Amino Transf (AST/SGOT) 32 U/L (15-37) 11/16/23 03:15 Coagulation Panel: 2 No Data to Display Cardiac Panel: 2 Troponin I < 50 ng/L (< or =60) 11/16/23 NT-Pro-B Natriuret Pep 6513 pg/mL (<300) H 11/16/23 Arterial Blood Gas: 2 No Data to Display Venous Blood Gas: 2 No Data to Display Pancreas Panel: 2 No Data to Display Thyroid Panel: 2 Thyroid Stimulating Hormone (TSH) 3.81 uIU/mL (0.36-3.74) H 11/16/23 03:15 Infectious Disease: 2 No Data to Display Blood Cultures: 2 No Data to Display Toxicology Panel: 2 Ethyl Alcohol Level < 3.0 mg/dL (<10) 11/16/23 03:15 Urine Amphetamines Screen Negative (Negative) 11/16/23 12:10 Urine Benzodiazepines Screen Negative (Negative) 11/16/23 12:1 0 Urine Barbiturates Screen Negative (Negative) 11/16/23 12:10 Urine Cocaine Screen Negative (Negative) 11/16/23 12:10 Urine Methadone Screen Negative (Negative) 11/16/23 12:10 Urine Opiates Screen Negative (Negative) 11/16/23 12:10 Ur Tricyclic Antidepressants Screen Negative (Negative) 12:10 Ur Tetrahydrocannabinol (THC) Scrn Negative (Negative) 4 12:10 Imaging and Studies Imaging and Studies Study information below may be from another EMR and interpreted by another provider. Please see original notes in EMR for more complete details. EKG Summary: 12/06: a fib. Echocardiogram Summary: 12/06: LVEF 30%, global hypokinesis. RV hypocontractile. moderate MR. mod-severe TR. RVSP 40 mmhg. Anesthesia Assessment and Plan Anesthesia History Personal History: No History of Anesthesia Complications Family History: No Family History of Anesthesia Complications Exercise Tolerance Exercise Tolerance: Metabolic Equivalents>4 Cardiac & Pulmonary Exam Cardiac Exam: Normal S1/S2 Heart Sounds Pulmonary Exam: Clear Bilateral Breath Sounds Implantable Cardiac Device Does patient have a Pacemaker or an ICD?: No Airway Exam Known Difficult Airway: No Mallampati Class: 3 Mouth Opening: Narrow (< 3cm) Thyromental Distance: Greater than 3 cm Neck Range of Motion: Full ROM Neck Circumference: Normal Teeth Condition: Normal Dentition ASA Classification ASA Score: ASA 3 Emergency Case?: No NPO Status NPO Status: NPO Clears >2 hours, Solids >8 hours Anesthesia Plan Resuscitation Status: Full Code Anesthesia Technique: General Anesthesia Airway Planned: Natural Airway Monitors Used: Standard Monitors Preoperative Comments:: 52 yo male presented to the ED recently with chest tightness, SOB, palpitations and was found to be in afib with rvr. He was admitted an given metoprolol an diltiazem. He had negative trops. Plan for cardioversion today. Sig PMHx: AFib, CVA (apixaban. only residual is his left legs feels weak when he is tired), HTN (lisinopril), former smoker, occ EtOH. ECHO: LVEF 30%, global hypokinesis. RV hypocontractile. moderate MR. mod-severe TR. RVSP 40 mmhg.
[2023-11-19] MEDS: Metoprolol 5 MG/5 ML VIAL IVP (07:34)
[2023-11-19] MEDS: Normal Saline Flush 10 ML SYR IVP ×3 (07:36→22:06)
--- NOTE | 2023-11-19 07:55 | W.CARDVER ---
Date of service: 11/19/23 Time of Service: 07:55 Cardioversion DATE OF PROCEDURE: 11/19/23 PRE-OP DIAGNOSES: Atrial fibrillation POST-OP DIAGNOSES: same Indications: Atrial fibrillation uncontrolled rate, tachycardia mediated cardiomyopathy Procedure Description: Synchronized cardioversion Procedure was performed in the intensive care unit. After informed consent was obtained the patient was sedated under the direction of the department of anesthesia. Anterior and posterior ZOLL pads were placed. He was on the cardioverter/defibrillator, sync mode. When he was adequately sedated and initial shock of 150 W seconds was delivered. Atrial fibrillation persisted. He had 2 additional shocks, at 150 and then 200 W seconds but failed to convert to sinus rhythm. He should be treated with amiodarone loading with consideration to repeat cardioversion when this has been completed. Would consider transfer to [facility] where he can be evaluated further by electrophysiology, discussion of eventual atrial fibrillation ablation. Case was discussed with Dr. Branch
[2023-11-19] MEDS: Rosuvastatin 5 MG TAB 10 MG PO (08:45)
[2023-11-19] MEDS: Apixaban 5 MG TAB PO ×2 (08:45→20:05)
[2023-11-19] MEDS: Lisinopril 20 MG TAB 40 MG PO (08:45)
[2023-11-19] MEDS: Metoprolol 50 MG TAB 100 MG PO (08:45)
--- NOTE | 2023-11-19 09:41 | PDOC.CMPRO ---
Date of service: 11/19/23 Time of Service: 09:41 Care Management Progress Note Progress Note Text Progress Note Text: Satish was sitting up in bed visiting with his family when CM met with him. He had a cardioversion this morning in an attempt to convert him back to a sinus rhythm but it was unsuccessful. Satish verbalized being very disappointed, however he is hopeful that the new medication (Amiodarone) that has been started will be effective. Satish is understandably concerned as his father of heart disease at a young age. Satish was only diagnosed with atrial fibrillation in September and efforts to control his heart rate have not been successful. After consultation with [facility] Cardiology and Dr. Tellez, the current plan is to continue the Amiodarone through the weekend as he will need at least 72 hours before the cardioversion can be attempted again. Discharge Potential Discharge Needs: PCP F/U Appt Anticipated Barriers to Discharge: None Identified Patient/Family Education Needs: Review discharge instructions, discuss Ask Me Three Transportation: Private vehicle Plan: Anticipate Satish will be discharged home with no new services when medically cleared. He will follow up with Cardiology, his PCP and plan of care and transport with family. CM will follow and continue to support discharge needs. SDOH(Care Management) Screening Will the Patient Participate in the Screening?: Yes Do you worry about having a steady place to live?: no Problems where you live: no known problems In the past 12 months, have you had to go without electric, gas, oil or water in your home?: no Have you or anyone in your house had to go without enough food to eat?: no Has lack of transportation kept you from medical appointments or from doing things needed for daily living?: no Has anyone in your support network made you feel unsafe for any reason?: no
--- NOTE | 2023-11-19 09:55 | W.PM.PROGNOT ---
Date of Service Date of service: 11/19/23 Time of Service: 09:55 Assessment and Plan Assessment and plan (1) Atrial fibrillation with RVR: Status: Acute Assessment and plan: -Recently diagnosed as an outpatient on 10/06/2023 with [id number], was started on apixaban as well as metoprolol. -Trigger is unclear, but around the time this started he quit smoking and also had a course of levofloxacin for epididymitis. -Presented to ED with ongoing atrial fibrillation with RVR despite IV metopolol in the ED and recent uptitration to 75mg metoprolol succinate as outpatient. -had responded to dilt drip and continuation of home metop, but became more tachycardic overnight -metop dose changed to 50mg PO Q8, dilt drip down to 10mcg, rates 90's-130's AM 11/16 -TTE showed EF 30% with global hypokinesis, potentially due to tachy induced cardiomyopathy -given new finding of HFrEF, weaned off of dilt drip 11/16 -patient not rate controlled on metoprolol 100mg BID, spread to 50mg QID per [facility] [place]. -Cardiology consulted, cardioversion performed 11/18 am, failed to convert -Dr. Tellez recommended amiodarone loading. Case reviewed with [facility] [place] who agreed with amiodarone. Will need at least 72 hours before attempting cardioversion again. -Patient willing to stay for monitoring during loading process. (2) HFrEF (heart failure with reduced ejection fraction): Status: Acute Assessment and plan: -newly diagnosed on TTE 11/15 with EF 30% and global hypokinesis, most c/w rate induced cardiomyopathy -rate control is the first priority, though GDMT still indicated. -currently on metoprolol maximum dose and lisinopril -will start low dose spironolactone -consider trial on SGLT2i -consider transition to Entresto as outpatient (3) Acute renal insufficiency: Status: Acute Assessment and plan: -New bump in creatinine up to 1.6 on admission -May be prerenal with heart strain/tachycardia -Cr down to 1.5, follow on amiodarone (4) Hypertension: Assessment and plan: -Continue lisinopril, may consider transition to Entresto as outpatient given new dx of HFrEF as noted above. Start spironolactone as he does have room on his blood pressure at this point. (5) Smoking: Status: Resolved Assessment and plan: Quit last month. He doesn't feel he needs medical help in maintenance. Encouraged. (6) DVT prophylaxis: Status: Acute Assessment and plan: on apixaban Subjective Subjective Patient reports: voiding w/o difficulty; denies nausea or fever Interval history since last seen: Cardioversion x 3 this morning, unsuccsessful He feels frustrated. No chest pain. Not SOB at rest. No bleeding. He is hungry. Exam Narrative Exam Narrative: well appearing gentleman laying in bed in no acute distress, AOx4, heart irregularly irregular, rate 100-150bpm, lungs CTAB, abdomen soft, non-tender, non-distended Objective Last Vital Signs Temp 36.3 C L 11/18/23 04:26 Pulse 125 H 11/19/23 07:36 Resp 16 11/19/23 07:36 BP 135/112 H 11/19/23 07:36 Pulse Ox 94 11/19/23 07:36 Laboratory Results - last 24 hr 11/19/23 05:50 Sodium 136 Potassium 4.2 Chloride 105 Carbon Dioxide 23.4 Anion Gap 7.6 BUN 24 H Creatinine 1.5 H Est GFR (CKD-EPI 2020) 56.37 Glucose 110 H Calcium 9.0 Magnesium 2.0 PAWSS Have you Been Recently Intoxicated or Drunk Within the Last 30 days?: No Have you Ever Experienced Previous Episodes of Alcohol Withdrawal?: No Have you ever Experienced Withdrawal Seizures?: No Have you ever Experienced Delirium Tremens(DT)s?: No Have you ever undergone Alcohol Rehabilitation Treatment (i.e, inpt ot outpatient treatment programs)?: No Have you ever Experienced Blackouts?: No Have you ever Combined Alcohol with other Downers within the last 90 days?: No Have you ever Combined Alcohol with any other Substance of Abuse during the last 90 days?: No Positive Blood Alcohol level on Presentation? [PCS.BAL]: No Evidence of Increased Autonomic Activity (i.e. HR>120, tremor, sweating, agitation, nausea)?: No Result: 0 Time Spent with Patient Time Spent with Patient: >50 minutes Time was spent: preparing to see the patient(eg.review tests), obtaining and/or reviewing separately otained hiistory, ordering medications,tests, procedures, referring, communicating with other health hospice care sales consultant, indepentently interpreting results, counseling the patient and care coordination
[2023-11-19] MEDS: Spironolactone 25 MG TAB 12.5 MG PO (10:24)
[2023-11-19] MEDS: Amiodarone in Dextrose 360 MG/200 ML BAG 33.333 MG IV ×2 (10:26→14:03)
--- NOTE | 2023-11-19 14:06 | CHAPLAIN ---
I had a brief with Satish and his this morning. The cardioversion
--- NOTE | 2023-11-19 14:10 | W.ANESPOSTOP ---
Postoperative Evaluation Date, Time and Location Date Performed: 11/19/23 Time Performed: 14:10 Patient Location: Intensive Care Unit Vital Signs Most Recent Imported Vital Signs: Most Recent Vital Signs Temp Pulse Resp BP Pulse Ox 36.3 C L 125 H 16 135/112 H 94 11/18/23 04:26 11/19/23 07:36 11/19/23 07:36 11/19/23 07:36 11/19/23 07:36 Most Recent Manually Entered Vital Signs: Adult Blood Pressure: 116/94 Heart Rate: 113 Respirations: 22 Oxygen Saturation (%): 96 Temperature (C): 36.5 C Pain Score (0-10 Scale): 0 Pain Score Most Recent Pain Score: Most Recent Pain Score Pain Level 0 11/18/23 04:26 Assessment Mental Status: Awake (Alert & Oriented to Patient Baseline) Airway and Respiratory Function: Patent airway with normal (patient baseline) respiratory exam Cardiovascular Function: Hemodynamically Stable Hydration Status: Adequately Hydrated Nausea & Vomiting: No Nausea or Vomiting Pain: Pt. Denies Any Pain Peripheral Nerve Block: Patient did not receive a nerve block
--- NOTE | 2023-11-19 14:14 | CHAPLAIN ---
I had a brief visit with Satish and his . Satish had an attempted cardio version this morning that was not successful. He was not interested in further conversation with him. His father at an early age due to cardio issues so these concerns are in Satish's background. In the past his mother and sister have visited him as well as his . I don't know if they know he his were.
[2023-11-19] MEDS: Metoprolol 50 MG TAB PO ×2 (16:39→22:06)
[2023-11-19] MEDS: Melatonin 3 MG TAB 6 MG PO (22:06)
[2023-11-19] MEDS: Amiodarone in Dextrose 360 MG/200 ML BAG 16.667 MG IV (23:30)
[2023-11-20] VITALS (28 sets, daily range): BP systolic 111–135; BP diastolic 92–120; PULSE 72–140; RESP 13–31; TEMP 37.3; O2SAT 92–98
[2023-11-20] MEDS: Metoprolol 50 MG TAB PO ×4 (04:12→21:49)
[2023-11-20 07:04] LABS: HCT 46.1 % (40.0-50.0); HGB 15.5 g/dL (13.5-17.5); MCH 30.1 pg (27.0-33.0); MCHC 33.6 % (32.0-36.0); MCV 90 fL (80-95); MPV 13.5 fL (8.0-11.0); Platelet Count 152 10^3/uL (130-400); RBC 5.15 10^6/uL (4.36-5.78); RDW 14.7 % (11.8-14.1); RDW-SD 46.9 fL
[2023-11-20 07:13] LABS: ALT 47 U/L (16-63); AST 31 U/L (15-37); Alkaline Phosphatase 82 U/L (46-116); Anion Gap 11.3 mmol/L (3-11); BUN 30 mg/dL (7-18); Bilirubin, Total 0.76 mg/dL (0.2-1.0); CO2 17.7 mmol/L (21.0-32.0); CREATININE 1.3 mg/dL (0.70-1.30); Chloride 104 mmol/L (98-107); Estimated GFR 66.93 (mL/min/1.73m2); Glucose 127 mg/dL (74-106); Potassium 4.5 mmol/L (3.5-5.1); Sodium 133 mmol/L (136-145); Total Protein 6.7 g/dL (6.4-8.2)
[2023-11-20] MEDS: Spironolactone 25 MG TAB 12.5 MG PO (08:12)
[2023-11-20] MEDS: Rosuvastatin 5 MG TAB 10 MG PO (08:13)
[2023-11-20] MEDS: Lisinopril 20 MG TAB 40 MG PO (08:13)
[2023-11-20] MEDS: Apixaban 5 MG TAB PO ×2 (08:13→19:53)
[2023-11-20] MEDS: Normal Saline Flush 10 ML SYR IVP ×2 (08:14→19:58)
--- NOTE | 2023-11-20 08:43 | W.PM.PROGNOT ---
Date of Service Date of service: 11/20/23 Time of Service: 08:43 Assessment and Plan Assessment and plan (1) Atrial fibrillation with RVR: Status: Acute Assessment and plan: -Recently diagnosed as an outpatient on 10/06/2023 with [id number] 3, was started on apixaban as well as metoprolol. -Trigger is unclear, but around the time this started he quit smoking and also had a course of levofloxacin for epididymitis. -Presented to ED with ongoing atrial fibrillation with RVR despite IV metopolol in the ED and recent uptitration to 75mg metoprolol succinate as outpatient. 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 -Cardiology consulted, cardioversion performed 11/18 am, failed to convert -Dr. Tellez recommended amiodarone loading. Case reviewed with [facility] [place] who agreed with amiodarone. Will need at least 72 hours before attempting cardioversion again. -Patient willing to stay for monitoring during loading process. (2) HFrEF (heart failure with reduced ejection fraction): Status: Acute Assessment and plan: -newly diagnosed on TTE 11/15 with EF 30% and global hypokinesis, most c/w rate induced cardiomyopathy -rate control is the first priority, though GDMT still indicated. -currently on metoprolol maximum dose and lisinopril -will start low dose spironolactone -consider trial on SGLT2i -consider transition to Entresto as outpatient (3) Acute renal insufficiency: Status: Acute Assessment and plan: -New bump in creatinine up to 1.6 on admission -May be prerenal with heart strain/tachycardia -Cr down to 1.5, follow on amiodarone (4) Hypertension: Assessment and plan: -Continue lisinopril, may consider transition to Entresto as outpatient given new dx of HFrEF as noted above. Start spironolactone as he does have room on his blood pressure at this point. (5) Smoking: Status: Resolved Assessment and plan: Quit last month. He doesn't feel he needs medical help in maintenance. Encouraged. (6) DVT prophylaxis: Status: Acute Assessment and plan: on apixaban Subjective Subjective Interval history since last seen: Patient states that he is doing well today. He understands the plan to continue with amiodarone loading and in the event he does not convert to normal sinus rhythm to plan for another attempt at cardioversion on Wednesday morning. Exam Narrative Exam Narrative: well appearing gentleman laying in bed in no acute distress, AOx4, heart irregularly irregular, rate 90-110bpm, lungs CTAB, abdomen soft, non-tender, non-distended Objective Last Vital Signs Temp 98.8 F 11/19/23 22:02 Pulse 102 H 11/20/23 07:02 Resp 16 11/20/23 07:02 BP 111/99 H 11/20/23 07:02 Pulse Ox 98 11/20/23 07:02 Laboratory Results - last 24 hr 11/20/23 06:08 WBC 12.20 H RBC 5.15 Hgb 15.5 Hct 46.1 MCV 90 MCH 30.1 MCHC 33.6 RDW 14.7 H Plt Count 152 MPV 13.5 H Sodium 133 L Potassium 4.5 Chloride 104 Carbon Dioxide 17.7 L Anion Gap 11.3 H BUN 30 H Creatinine 1.3 Est GFR (CKD-EPI 2020) 66.93 Glucose 127 H Calcium 9.0 Total Bilirubin 0.76 AST 31 ALT 47 Alkaline Phosphatase 82 Total Protein 6.7 Albumin 3.0 L PAWSS Have you Been Recently Intoxicated or Drunk Within the Last 30 days?: No Have you Ever Experienced Previous Episodes of Alcohol Withdrawal?: No Have you ever Experienced Withdrawal Seizures?: No Have you ever Experienced Delirium Tremens(DT)s?: No Have you ever undergone Alcohol Rehabilitation Treatment (i.e, inpt ot outpatient treatment programs)?: No Have you ever Experienced Blackouts?: No Have you ever Combined Alcohol with other Downers within the last 90 days?: No Have you ever Combined Alcohol with any other Substance of Abuse during the last 90 days?: No Positive Blood Alcohol level on Presentation? [PCS.BAL]: No Evidence of Increased Autonomic Activity (i.e. HR>120, tremor, sweating, agitation, nausea)?: No Result: 0 Time Spent with Patient Time Spent with Patient: >50 minutes Time was spent: preparing to see the patient(eg.review tests), obtaining and/or reviewing separately otained hiistory, ordering medications,tests, procedures, referring, communicating with other health memory care director, indepentently interpreting results, counseling the patient and care coordination
[2023-11-20] MEDS: Amiodarone 200 MG TAB 400 MG PO ×2 (10:38→19:54)
[2023-11-20] MEDS: traZODone 50 MG TAB PO (21:48)
[2023-11-21] VITALS (24 sets, daily range): BP systolic 118–138; BP diastolic 92–108; PULSE 76–150; RESP 16–26; TEMP 37.1; O2SAT 92–98
[2023-11-21] MEDS: Metoprolol 50 MG TAB PO ×4 (04:00→20:03)
[2023-11-21 06:09] LABS: HCT 43.4 % (40.0-50.0); HGB 14.1 g/dL (13.5-17.5); MCH 29.6 pg (27.0-33.0); MCHC 32.5 % (32.0-36.0); MCV 91 fL (80-95); MPV 11.3 fL (8.0-11.0); Platelet Count 231 10^3/uL (130-400); RBC 4.76 10^6/uL (4.36-5.78); RDW 14.6 % (11.8-14.1); RDW-SD 48.1 fL; WBC 11.35 10^3/uL (4.4-10.8)
[2023-11-21 06:36] LABS: ALT 38 U/L (16-63); AST 20 U/L (15-37); Alkaline Phosphatase 76 U/L (46-116); Anion Gap 8.8 mmol/L (3-11); BUN 27 mg/dL (7-18); Bilirubin, Total 1.14 mg/dL (0.2-1.0); CO2 24.2 mmol/L (21.0-32.0); CREATININE 1.4 mg/dL (0.70-1.30); Calcium 8.9 mg/dL (8.5-10.1); Chloride 104 mmol/L (98-107); Estimated GFR 61.23 (mL/min/1.73m2); Glucose 100 mg/dL (74-106); Sodium 137 mmol/L (136-145); Total Protein 6.3 g/dL (6.4-8.2)
[2023-11-21] MEDS: Spironolactone 25 MG TAB 12.5 MG PO (08:03)
[2023-11-21] MEDS: Apixaban 5 MG TAB PO ×2 (08:05→20:03)
[2023-11-21] MEDS: Rosuvastatin 5 MG TAB 10 MG PO (08:05)
[2023-11-21] MEDS: Lisinopril 20 MG TAB 40 MG PO (08:06)
[2023-11-21] MEDS: Amiodarone 200 MG TAB 400 MG PO ×2 (08:06→20:03)
[2023-11-21] MEDS: Normal Saline Flush 10 ML SYR IVP ×2 (08:07→20:03)
--- NOTE | 2023-11-21 08:45 | W.PM.PROGNOT ---
Date of Service Date of service: 11/21/23 Time of Service: 08:47 Assessment and Plan Assessment and plan (1) Atrial fibrillation with RVR: Status: Acute Assessment and plan: -Recently diagnosed as an outpatient on 10/06/2023 with [id number] 3, was started on apixaban as well as metoprolol. -Trigger is unclear, but around the time this started he quit smoking and also had a course of levofloxacin for epididymitis. -Presented to ED with ongoing atrial fibrillation with RVR despite IV metopolol in the ED and recent uptitration to 75mg metoprolol succinate as outpatient. 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 -Cardiology consulted, cardioversion performed 11/18 am, failed to convert -Dr. Tellez recommended amiodarone loading. Case reviewed with [facility] cardiology who agreed with amiodarone. Will need at least 72 hours before attempting cardioversion again. -was on IV loading dose, and has been on 400mg BID since AM 11/19 -Patient willing to stay for monitoring during loading process and will readdress with Cardiology Wednesday (2) HFrEF (heart failure with reduced ejection fraction): Status: Acute Assessment and plan: -newly diagnosed on TTE 11/15 with EF 30% and global hypokinesis, most c/w rate induced cardiomyopathy -rate control is the first priority, though GDMT still indicated. -currently on metoprolol maximum dose and lisinopril -will start low dose spironolactone -consider trial on SGLT2i -consider transition to Entresto as outpatient (3) Acute renal insufficiency: Status: Acute Assessment and plan: -New bump in creatinine up to 1.6 on admission -May be prerenal with heart strain/tachycardia -Cr down to 1.5, follow on amiodarone (4) Hypertension: Assessment and plan: -Continue lisinopril, may consider transition to Entresto as outpatient given new dx of HFrEF as noted above. Start spironolactone as he does have room on his blood pressure at this point. (5) Smoking: Status: Resolved Assessment and plan: Quit last month. He doesn't feel he needs medical help in maintenance. Encouraged. (6) DVT prophylaxis: Status: Acute Assessment and plan: on apixaban Subjective Subjective Interval history since last seen: Patient states that he is doing well and understands the plan to coordinate with Cardiology tomorrow to schedule his cardioversion. Exam Narrative Exam Narrative: well appearing gentleman laying in bed in no acute distress, AOx4, heart irregularly irregular, rate 90-110bpm, lungs CTAB, abdomen soft, non-tender, non-distended Objective Last Vital Signs Temp 99.1 F 11/20/23 20:00 Pulse 123 H 11/21/23 08:01 Resp 25 H 11/21/23 08:01 BP 123/106 H 11/21/23 08:01 Pulse Ox 93 11/21/23 08:01 Laboratory Results - last 24 hr 11/21/23 05:20 WBC 11.35 H RBC 4.76 Hgb 14.1 Hct 43.4 MCV 91 MCH 29.6 MCHC 32.5 RDW 14.6 H Plt Count 231 D MPV 11.3 H Sodium 137 Potassium 4.0 Chloride 104 Carbon Dioxide 24.2 Anion Gap 8.8 BUN 27 H Creatinine 1.4 H Est GFR (CKD-EPI 2020) 61.23 Glucose 100 Calcium 8.9 Total Bilirubin 1.14 H AST 20 ALT 38 Alkaline Phosphatase 76 Total Protein 6.3 L Albumin 3.0 L PAWSS Have you Been Recently Intoxicated or Drunk Within the Last 30 days?: No Have you Ever Experienced Previous Episodes of Alcohol Withdrawal?: No Have you ever Experienced Withdrawal Seizures?: No Have you ever Experienced Delirium Tremens(DT)s?: No Have you ever undergone Alcohol Rehabilitation Treatment (i.e, inpt ot outpatient treatment programs)?: No Have you ever Experienced Blackouts?: No Have you ever Combined Alcohol with other Downers within the last 90 days?: No Have you ever Combined Alcohol with any other Substance of Abuse during the last 90 days?: No Positive Blood Alcohol level on Presentation? [PCS.BAL]: No Evidence of Increased Autonomic Activity (i.e. HR>120, tremor, sweating, agitation, nausea)?: No Result: 0 Time Spent with Patient Time Spent with Patient: >50 minutes Time was spent: preparing to see the patient(eg.review tests), obtaining and/or reviewing separately otained hiistory, ordering medications,tests, procedures, referring, communicating with other health intensive care ambulance paramedic, indepentently interpreting results, counseling the patient and care coordination
[2023-11-21] MEDS: Melatonin 3 MG TAB 6 MG PO (20:03)
[2023-11-21] MEDS: traZODone 50 MG TAB PO (22:13)
[2023-11-22] VITALS (11 sets, daily range): BP systolic 80–143; BP diastolic 68–98; PULSE 56–112; RESP 10–27; TEMP 36.4; O2SAT 96–98
[2023-11-22] MEDS: Metoprolol 50 MG TAB PO ×2 (04:58→09:05)
--- NOTE | 2023-11-22 08:38 | NUR.NOTE ---
Access chart to delete duplicate EKG order. Nursing Note:
[2023-11-22] MEDS: Apixaban 5 MG TAB PO (09:04)
[2023-11-22] MEDS: Amiodarone 200 MG TAB 400 MG PO (09:04)
[2023-11-22] MEDS: Lisinopril 20 MG TAB 40 MG PO (09:06)
[2023-11-22] MEDS: Rosuvastatin 5 MG TAB 10 MG PO (09:06)
[2023-11-22] MEDS: Normal Saline Flush 10 ML SYR IVP (09:07)
[2023-11-22] MEDS: Spironolactone 25 MG TAB 12.5 MG PO (09:12)
--- NOTE | 2023-11-22 09:14 | PDOC.CMPRO ---
Date of service: 11/22/23 Time of Service: 09:15 Care Management Progress Note Discharge Potential Discharge Needs: PCP F/U Appt and Other (Cardiology) Anticipated Barriers to Discharge: Medical Status (unable to convert afib) Patient/Family Education Needs: Review discharge instructions, discuss Ask Me Three Transportation: Private vehicle Plan: Anticipate Satish will be discharged home with no new services when medically cleared. He has still not converted from afib to NSR and remains tachycardic. He may have an elective cardioversion again today. Satish will follow up with Cardiology, his PCP and plan of care and transport with family. CM will follow and continue to support discharge needs. SDOH(Care Management) Screening Will the Patient Participate in the Screening?: Yes Do you worry about having a steady place to live?: no Problems where you live: no known problems In the past 12 months, have you had to go without electric, gas, oil or water in your home?: no Have you or anyone in your house had to go without enough food to eat?: no Has lack of transportation kept you from medical appointments or from doing things needed for daily living?: no Has anyone in your support network made you feel unsafe for any reason?: no
--- NOTE | 2023-11-22 09:22 | W.PM.PROGNOT ---
Date of Service Date of service: 11/22/23 Time of Service: :22 Assessment and Plan Assessment and plan (1) Atrial fibrillation with RVR: Status: Acute Assessment and plan: A-fib diagnosis outpatient on 10/06/2023 with [id number] score of 3 initially started on apixaban as well as metoprolol. Patient has not yet had noninvasive evaluation for coronary artery disease although CAD does run in his family his father in his 40s from a heart attack. Patient is not a regular consumer of alcohol therefore alcoholic cardiomyopathy is unlikely. Patient has had longstanding hypertension and formally was a smoker until he quit at the time of his diagnosis of A-fib. Echocardiogram shows diffuse hypokinesis with an LVEF of 30% potentially due to tachycardia induced cardiomyopathy however ischemic heart disease has not been evaluated. Plan will be for rate control and continued loading with amiodarone. Switching from Lopressor to Toprol XL 100 mg twice a day if his rates reasonably controlled this afternoon he can potentially be discharged today on 400 mg of amiodarone twice a day for another 10 days and then decrease to 200 mg twice a day. He will go home on the 100 mg of Toprol XL q12h and remain on apixaban. Further work should be directed towards goal-directed therapy of his cardiomyopathy including low-dose spironolactone and transition from lisinopril which is currently 40 mg daily to Entresto. He should follow-up with his physical fitness trainer Dr. Jamal garcía at [facility] who can then arrange repeat DCC cardioversion as an outpatient. Furthermore Dr. García can facilitate getting the patient in to see an EP physical fitness trainer. Case was discussed with Dr. Tellez, physical fitness trainer (2) HFrEF (heart failure with reduced ejection fraction): Status: Acute Assessment and plan: as above. currently on lisinopril 40 mg daily, spironolactone 12.5 mg daily, lopressor 50 mg q6h (will switch to Toprol XL 100 mg q12h) and apixaban 5 mg bid. Should consider Entresto but this can be managed as outpatient by Dr. García. For now goal is rate control and loading of amiodarione. (3) Acute renal insufficiency: Status: Acute Assessment and plan: creatinine stable over the course of this admission at 1.4 (has fluctuated 1.3 to 1.6) but definitely up from 9 months ago when his baseline was 1.1. (4) Hypertension: Assessment and plan: continue lisinopril 40 mg daily and spironolactone, monitor BUN and creatinine and K levels. Will have him get follow up BMP in one week from discharge. Qualifiers: Hypertension type: primary hypertension Qualified Code(s): I10 - Essential (primary) hypertension (5) Smoking: Status: Resolved Assessment and plan: Quit last month. He doesn't feel he needs medical help in maintenance. Encouraged. (6) DVT prophylaxis: Status: Acute Assessment and plan: on apixaban Subjective Subjective Interval history since last seen: Patient denies any current CP or dyspnea. He is upset that he was told that he would have a repeat cardioversion today after amiodarone loading. I conferred w/ Dr. Tellez. She agrees that repeat DCC should be tried prior to an ablation but says that it is too soon. She recommends that he be discharged on loading doses of amiodarone and follow up w/ Dr. García and EP cardiology. Patient tells me that he has an appointment w/ Dr. García in [place], [place] on . I told the patient that I am willing to dc him later today if his rate is reasonably controlled and he is not symptomatic while walking around the hospital. I will give him an additional dose of Toprol XL 100 mg today (was already on lopressor 50 mg q6h while inpatient but was on Toprol XL 75 mg daily as outpatient. He will be discharged on amiodarone 400 mg bid X 10 days then 200 mg bid thereafter. He will then see Dr. García who can set up outpatient DCC and EP referral. Exam Narrative Exam Narrative: Alert and oriented x 3 sitting up in bed talking with his stepfather who is visiting this morning. Jorje is not short of breath heart rhythm remains atrial fibrillation rate varies but is generally in the 120s at rest Lungs are clear Neck without JVD Heart is irregularly irregular no appreciable murmur rub rate is tachycardic Extremities without peripheral edema Objective Last Vital Signs Temp 37.1 C 11/21/23 20:00 Pulse 72 11/22/23 06:02 Resp 10 L 11/22/23 06:02 BP 143/95 H 11/22/23 06:02 Pulse Ox 96 11/22/23 00:00 PAWSS Have you Been Recently Intoxicated or Drunk Within the Last 30 days?: No Have you Ever Experienced Previous Episodes of Alcohol Withdrawal?: No Have you ever Experienced Withdrawal Seizures?: No Have you ever Experienced Delirium Tremens(DT)s?: No Have you ever undergone Alcohol Rehabilitation Treatment (i.e, inpt ot outpatient treatment programs)?: No Have you ever Experienced Blackouts?: No Have you ever Combined Alcohol with other Downers within the last 90 days?: No Have you ever Combined Alcohol with any other Substance of Abuse during the last 90 days?: No Positive Blood Alcohol level on Presentation? [PCS.BAL]: No Evidence of Increased Autonomic Activity (i.e. HR>120, tremor, sweating, agitation, nausea)?: No Result: 0 Time Spent with Patient Time Spent with Patient: 25-34 minutes Time was spent: preparing to see the patient(eg.review tests), ordering medications,tests, procedures, referring, communicating with other health career developer (Dr. Tellez), indepentently interpreting results, counseling the patient and care coordination
[2023-11-22] MEDS: Metoprolol CR 100 MG TABCR PO (09:37)
--- NOTE | 2023-11-22 13:03 | PDOC.CMDIS ---
Date of service: 11/22/23 Time of Service: 13:04 LACE Index Scoring Tool Questions: Length of Stay (in days): 4 - 6 Was the patient admitted via the E.D.?: Yes Comorbidities: Cerebrovascular Disease E.D. Visits: 2 Answers: Total Score: 10 Risk of Readmission: High Risk Care Management Discharge Plan Reason for Hospitalization: atrial fibrillation with RVR Discharge Plan: Satish will be discharged home with no new services when medically cleared. He will follow up with an EP E Commerce Marketing Analyst at [facility] [place] possible ablation and also with his PCP and plan of care. Satish will transport with family. Patient/Family Education Needs: Review discharge instructions, discuss Ask Me Three SDND Health Related Social Needs: No Data to Display
--- NOTE | 2023-11-22 14:05 | W.PM.DS.N ---
Date of service: 11/22/23 Time of Service: 14:05 DS: Diagnosis Discharge Diagnosis (1) Atrial fibrillation with RVR: Status: Acute Asessment and Plan: Rate improved with IV diltiazem however patient was switched to oral metoprolol 50 mg every 6 hours and then transition over to Toprol XL 100 mg every 12 hours. Still has some mild tachycardia but is asymptomatic from this. Resting heart rate is in the 90s with activity his heart rate will go up into the 120s but then come back down to baseline. Patient will continue apixaban 5 mg twice a day. Toprol-XL 100 mg every 12 hours has been prescribed. Patient was started on amiodarone was given a loading dose intravenously and then switched to oral loading dose 400 mg every 12 hours. He should continue 4 mg twice a day for 9 more days then decrease his maintenance dose to 200 mg once a day. Patient will need periodic monitoring of his thyroid function test and liver function test and ophthalmologic exams. Also consider performing DLCO monitoring of his lungs given that he is a former smoker. (2) HFrEF (heart failure with reduced ejection fraction): Status: Acute Asessment and Plan: Global hypokinesis with LVEF of 30%. Patient needs follow-up evaluation including workup for underlying. Consider stress MPI once his atrial fibrillation rate is controlled and has remained stable for some time. (3) Acute renal insufficiency: Status: Acute Asessment and Plan: Stable BUN and creatinine. Throughout hospital stay creatinine is ranged between 1.3-1.5. At the time of discharge creatinine is 1.4 BUN of 27 electrolytes within normal limits. (4) Hypertension: Asessment and Plan: Continue lisinopril 40 mg daily. Spironolactone 12.5 mg daily was added for goal-directed treatment of his cardiomyopathy. Recommend titration of his spironolactone to 25 mg daily after a week and consider transition from lisinopril to Entresto if his insurance will provide coverage. Also consider adding an SGLT2 inhibitor again if his insurance will cover it. (5) Smoking: Status: Resolved Asessment and Plan: Patient has been a non-smoker status for the last 5 weeks. Encouraged the patient to remain abstinent and consider obtaining PFTs including a DLCO particularly since the patient is going on amiodarone therapy. Discharge Plan Disposition Patient Disposition: Home Condition: Improving Discharge Details Reason For Visit: atrial fibrillation with RVR Admit Date/Time: 11/16/23 04:44 Admit Provider: Kwame Branch Attending Provider: Kwame Branch Primary Care Provider: Petar Brown Hospital Course Hospital Course: 52-year-old male former smoker with a history of recent diagnosis of atrial fibrillation as of 10/06/2023 with a [id number] score 3 was initially started on apixaban and metoprolol as an outpatient. Patient presented to the hospital with rapid atrial fibrillation on 11/16/2023 for which she was symptomatic of shortness of breath and chest tightness. EKG did not show acute ischemic changes troponin levels were normal. He was admitted to the intensive care unit started on IV diltiazem. Cardiology consultation was obtained with Dr. Terrie Tellez who performed cardioversion on 11/19/2023 which was unsuccessful. Patient was then started on amiodarone given a loading dose of IV amiodarone received 250 mg IV bolus and then placed on a continuous drip per protocol at 1 mg/h for 6 hours and 0.5 mg/h for another 18 hours and then started on oral amiodarone. During his hospital stay has had a total of 3050 mg of amiodarone. Per Dr. Tellez she did not plan to repeat cardioversion during this hospital stay although the hospitalist were managing them over the weekend thought he was going to have another cardioversion on Wednesday. Per Dr. Tellez she would wait at least 2 weeks until he has been fully loaded with amiodarone before attempting another cardioversion. Patient is routinely followed by Dr. Jamal García, rail car painter/sandblaster at [facility]. Patient has an appointment with Dr. García on 11/25/2023 at 12:40 PM. Patient's metoprolol dose was converted from the XL to Lopressor during hospital stay he was titrated up to 50 mg every 6 hours. He will now be discharged on a converted dose of metoprolol succinate or Toprol XL at 100 mg twice a day. He will remain on his Eliquis 5 mg twice a day and his lisinopril 40 mg daily. As well as his rosuvastatin 10 mg daily. Spironolactone was added at 12.5 mg daily to begin goal-directed therapy for his cardiomyopathy. Patient has a known diffuse LV hypokinesis with an EF of 30%. It is recommended that he have a follow-up stress MPI once his atrial fibrillation rate and/or rhythm are controlled. 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 Of note his TSH was checked this admission was slightly high at 3.81 with a normal free T4 of 1.32. It is recommended that repeat thyroid function test be obtained in 8 to 12 weeks and then monitored periodically thereafter possibly every 6 months for the first year and then yearly thereafter while on amiodarone. His LFTs were normal during this hospitalization. Total bilirubin 0.76 with an AST of 31, ALT 47 alkaline phosphatase 82. LFT should also be periodically monitored while on amiodarone. Again this should be repeated in 8 to 12 weeks and then probably every 3 months for the first year and then every 6 months thereafter. Patient should have a retinal exam by his certified rehabilitation counselor. Home Meds and New Rx's Prescriptions: New metoprolol succinate 100 mg tablet extended release 24 hr 100 mg PO Q12H Qty: 60 0RF amiodarone 200 mg tablet See Rx Instructions .ROUTE .COMPLEX Qty: 57 0RF Rx Instructions: 400 mg (two 200 mg) orally every 12h x 9 days then 200 mg once a day spironolactone 25 mg tablet 12.5 mg PO DAILY Qty: 30 0RF Continued rosuvastatin 10 mg tablet 10 mg PO DAILY lisinopril 40 mg tablet 40 mg PO DAILY Patient Comments: TAKE ONE TABLET BY MOUTH EVERY DAY Eliquis 5 mg tablet 5 mg PO BID Patient Comments: TAKE ONE TABLET BY MOUTH TWICE A DAY Discontinued metoprolol succinate 25 mg tablet extended release 24 hr 75 mg PO DAILY Patient Comments: TAKE ONE TABLET BY MOUTH EVERY DAY Discharge Instructions Instructions: Cardioversion, Medicines for atrial fibrillation, Amiodarone Additional Instructions: Follow-up with your primary care provider in the next week to 2 weeks. Follow-up with Dr. Jamal García as previously scheduled on 11/25/2023 at 12:40 PM. Get repeat labs in 1 week including a BMP to monitor electrolytes and BUN/creatinine while on spironolactone. Discussed with Dr. García's recommendations as far as follow-up monitoring while on amiodarone. This should include repeat thyroid function tests in 8 to 12 weeks and liver function test in 8 to 12 weeks as well as periodic monitoring thereafter every 3 to 6 months. Please see an certified rehabilitation counselor for an eye exam to monitor for any changes secondary to amiodarone. Begin your amiodarone at a dose of 400 mg twice a day for 9 more days then decrease her dose down to 200 mg once a day thereafter. Further adjustment will be made by Dr. García. Further medication changes may be recommended to treat your cardiomyopathy. He should discuss with Dr. García having a stress test to evaluate for ischemic heart disease. Referrals: Ruth Mayorga [NURSE PRACTITIONER] - 11/30/23 12:00 pm Activity:: Activity as Tolerated Equipment/Supplies:: No Equipment Needed Diet:: Low Sodium Discharge Orders Discharge Orders: Discharge Order (Routine); Ordered 11/22/23 Ordered By: Henry Hudson Other Ambulatory Orders: Basic Metabolic Panel (Routine) Timeframe: 1 Week Facility: [facility] - Location: Laboratory Outpatient - [facility] Ordered By: Henry Hudson DS: Summary Time Spent with Patient providing and/or coordinating discharge services: Greater than 30 minutes Status at Discharge Functional status at discharge: independent ambulation Overall status at discharge: patient is progressing back to baseline Mental Status: mental status grossly normal Speech and Movement: speech and movement normal Mood: congruent mood Affect: normal affect Quality:SDOH Health Related Social Needs: No Data to Display Exam Narrative Exam Narrative: Alert and oriented x 3 sitting up in bed talking with his stepfather who is visiting this morning. Jorje is not short of breath heart rhythm remains atrial fibrillation rate varies but is generally in the 120s at rest Lungs are clear Neck without JVD Heart is irregularly irregular no appreciable murmur rub rate is tachycardic Extremities without peripheral edema Psych Mental Status: mental status grossly normal Speech and Movement: speech and movement normal Mood: congruent mood Affect: normal affect DS: Data Vitals/I&O Vitals and I&O: Vital Signs Temperature 36.4 C L 11/22/23 10:46 Temperature Source Temporal Artery Scan 11/21/23 20:00 Pulse 80 11/22/23 10:46 Pulse 105 H 11/22/23 06:02 Respiratory Rate 17 11/22/23 10:46 Respiratory Effort Normal, Non-Labored 11/16/23 05:58 Respiratory Depth Normal 11/16/23 05:58 Respiratory Pattern Normal 11/16/23 05:58 Blood Pressure 109/91 H 11/22/23 10:46 Blood Pressure Mean 110 11/22/23 06:02 Blood Pressure Position Supine 11/16/23 05:58 Pulse Oximetry 98 11/22/23 10:46 Respiratory End-tidal CO2 35 11/19/23 08:07 Oxygen Delivery Method Room Air 11/22/23 10:46 Oxygen Flow Rate 0 11/22/23 10:46 Pain Level 0 11/22/23 10:46 Intake & Output 11/21/23 11/22/23 11/22/23 23:59 11:59 23:59 Intake Total 190.282 / 310.282 360 / 720 360 / 720 Output Total 700 / 1275 600 / 600 Balance -509.718 / -964.718 -240 / 120 360 / 120 Intake: IV 190.282 / 190.282 Oral 360 / 720 360 / 720 Output: Urine 700 / 1275 600 / 600 Other: Urine Color Light Sadie Light Sadie Urine Appearance Clear Clear Urine Odor Normal Normal Voiding Methods Urinal PFSH All Active Problems Medication monitoring encounter (Acute) HFrEF (heart failure with reduced ejection fraction) (Acute) Acute renal insufficiency (Acute) DVT prophylaxis (Acute) Atrial fibrillation with RVR (Acute) Seizure in childhood (Acute) Family history of premature coronary heart disease (Acute) Sebaceous cyst (Acute) face Transient neurologic deficit (Acute) Medical History CVA (cerebrovascular accident) lacunar a/w dysartrhia, 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 neurology, but treated with ASA/statin, 2019 Hyperlipidemia Hypertension Family History Father Heart disease massive DC - from this Paternal Grandfather Heart disease Massive heart failure Mother Heart disease +CAD, Afib Hypertension Diabetes Maternal Grandfather Prostate cancer Social History Smoking/Tobacco Use Status: Former Tobacco Use Quit Date: 11/03/18 Pack-years: 27 Tobacco: How many years used: 27 Counseling given: provider counseling, support medications and patient declined Smoking risk assessment performed?: Yes Alcohol Intake: current Alcohol Intake frequency: holidays/special occasions only Substance use type: does not use Household members: spouse Housing: house 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
== END 2023-11-22 14:30 | disposition home or self-care (01) | DRG 308 ==
LOC: ER 04:52 → ICU 05:53
PROVIDERS: Family Medicine; Admitting Provider Family Medicine; Emergency Provider Emergency Medicine; PCP Internal Medicine; Visit Provider Family Medicine
DX: I48.91 Unspecified atrial fibrillation (principal); I50.21 Acute systolic (congestive) heart failure; I11.0 Hypertensive heart disease with heart failure; N28.89 Other specified disorders of kidney and ureter; I42.8 Other cardiomyopathies; I48.92 Unspecified atrial flutter; E78.5 Hyperlipidemia, unspecified; Z87.891 Personal history of nicotine dependence; Z86.73 Personal history of transient ischemic attack (TIA), and cerebral infarction without residual deficits; Z79.01 Long term (current) use of anticoagulants; Z82.49 Family history of ischemic heart disease and other diseases of the circulatory system
CPT/HCPCS: 92960; 00123; 36415; 80048; 80053; 80061; 80307; 85027; 93005; 96365; 96375; 99291; 71045; 80320; 81003; 83735; 83880; 84439; 84443; 84484; 85025; 93010; 93306; 99223; 99233; 99238; J0283; J1940; J2371; J2704; J3480; J3490

== ENCOUNTER 2023-11-29 16:03 | Outpatient (CLI) | payer BC, SELFPAY ==
--- OUTSIDE RECORDS SUMMARY | 2023-11-29 16:05 | XMS_ITS | Continuity of Care Document ---
Author Organization [facility] Address [address] [place] [address] Assessment No assessment recorded. Plan of Treatment Reminders Order Date Submit Date Provider Last Modified By Organization Details Last Modified Time Details Appointments hospital follow up 2023 12:00P M Not available Not available Not available Annual Wellness Exam 40 2024 07:30A M Not available Not available Not available Office Visit 30 2024 01:30P M Not available Not available Not available Lab None recorded. Referral cardiolog ist referral 2023 024 GABE García MD, [address] [facility], [place], [address], 11/25/2023 14:37:04 Procedures MRI procedure (PROC) - please advise on how to order MRI of mass on back WO/W or if this order can suffice. original US report that recommend s the MRI is attached. CPT code needed as well.Patricia ext [phone] [facility], [address], [place], [address], 11/18/2023 09:07:18 Surgeries None recorded. Imaging electroca rdiogram 2023 024 [email or web address] [facility], [address] [place], [address], 11/10/2023 09:59:17 Medication Orders Eliquis 5 mg tablet 2023 024 [facility], [address] [facility], [address], [place], [address], 11/09/2023 15:56:47 Patient TargetsNo targets recorded. Patient InstructionsNo instructions recorded. Reason for Referral Urologist Referral for Lizeth watkins requested Referring Physician: [facility], Encounter Date: 10/06/2023 Web Operations Lead Referral for At jamaal flumarlener Referring Physician: [facility], Encounter Date: 10/06/2023 Web Operations Lead Referral for At rial flutter Referring Physician: [facility], Encounter Date: 11/09/2023 Results Created Date Observation Date Name Description Value Unit Range Abnormal Flag Note LastModifiedBy Organization Detail LastModifiedTime 11/08/19 24 11/04/2023 US, lower back No observ ation record ed. [address], [place], [address], 11/11/2023 08:07:16 11/09/19 24 11/10/2023 elect rocar diogr am No observ ation record ed. [email or web address] [address], [address], 11/10/2023 13:02:09 11/09/19 elect rocar diogr am No observ ation record ed. [email or web address] Not Available 2023 13:01:47 11/16/19 24 11/16/2023 vrad karen sy Name: Shankar mockDanny quintana et U Unit #: [id number] Loc: ER Orderi ng Provid er: Accgilmar t #: [id number] Status : REG ER Primar y Care Provid er: Jacques Brown M.D. Date of Exam: Sex: M : 1970 Age: 52 Exam(s ) PROCED URE INFORM ATION: Exam: XR Chest Exam date and time: 11/16/19 3:47 AM Age: 52 years old Clinic al indica tion: Shortn ess of breath TECHNI QUE: Imagin g protoc ol: Radiol ogic exam of the chest. Views: 1 view. COMPAR LILIYA: CR XR PORTAB LE CHEST AP 019 10:24 AM FINDIN GS: Lungs: Unrema rkable . No consol idatio n. Pleura l spaces : Unrema rkable . No pleura l effusi on. No pneumo thorax . Heart/ Medias tinum: Unrema rkable . No cardio megaly . Bones/ joints : Unrema rkable . IMPRES RICHY: No acute findin gs. Dictat ed and Authen ticate d by: Robin oswald MD. Orderi ng:Antonette Singh MD Access ion#=[id number] Ordere d By: CC: ------ ------ ------ ------ ------ ------ ------ ------ ------ ------ ------ ------ ---- Dictat ed By: Report s vrad 346 Transc ribed By: Hallie Merge 346 This is privil eged, confid ential inform ation intend ed only for the provid er named. Any use or distri bution by any person other than this provid er is strict ly prohib ited. If you receiv e this report in error, please notify us immedi ately at [phone] and return the origin al report to us at the addres s above. Thank- you. [email or web address] [facility] [address] [facility] [place] [place], [address] 11/16/2023 11:24:54 11/16/1911/16/2023 x-ray imagi ng repor t Patien t Name: Shankar leslie,Danny et U Unit #: [id number] Loc: ICU Orderi ng Provid er: Francisco Lopes M.D. Accoun t #: [id number] Status : ADM IN Primar y Care Provid er: Jacques Brown M.D. Date of Exam: Sex: M Admiss ion Date: : 1970 Age: 52 Exam(s ) XR PORTAB LE CHEST AP EXAM: XR PORTAB LE CHEST AP CLINIC AL HISTOR Y: SOB TECHNI QUE: 2D digita l imagin g was perfor med of the chest. One image was obtain ed. An AP view was obtain ed. COMPAR LILIYA: CR XR PORTAB LE CHEST AP from 2018 FINDIN GS: MEDIAS TINUM: Normal . HEART: The heart is at the upper limits of normal . PULMON RONEY VASCUL ATURE: Normal . LUNGS: No focal consol idatin g infilt rates. PLEURA L SPACE: No pleura l effusi on or pneumo thorax . BONE:W ithin normal limits for the patien t's age. OTHER FINDIN GS:Nor mal. IMPRES RICHY: No focal consol idatin g infilt rates. If sympto ms jeanna t, a repeat chest x-ray may be obtain ed. DATA REPOSI TORY: RADIAT ION DOSE DELIVE RED: Ordere d By: Francisco Lopes M.D. CC: ------ ------ ------ ------ ------ ------ ------ ------ ------ ------ ------ ------ - Dictat ed By: Francisco Medina M.D. 1029 1029 Transc ribed By: Francisco Medina 1029 This is privil eged, confid ential inform ation intend ed only for the provid er named. Any use or distri bution by any person other than this provid er is strict ly prohib ited. If you receiv e this report in error, please notify us immedi quentinly at and return the origin al report to us at the addres s above. Thank- you. [email or web address] [place] [id number], [place], [address] 11/16/2023 14:40:58 09/03/20 24 11/16/2023 ultra sound imagi ng repor t Patien t Name: Gatrh Jackson U Unit #: [id number] Loc: ICU Orderi ng Provid er: Cynthia Foote M.D. Accoun t #: [id number] Status : ADM IN Primva y [facility] er: Jacques Brwon M.D. Date of Exam: Sex: M Admiss ion Date: : 1970 Age: 52 ------ ------ --- APPROV ED REPORT ------ ------ -- EXAM: Compre hensiv e 2D, Dopple r, and color- flow Echoca rdiogr am Patien t Locati on: In-Pat ient Room/B ed: [id number] Sonogr apher: Alison Dickson , RDCS (AE) Indica tions: A FIB Other Inform ation Study Qualit y: Fair. Techni adelina limite d study due to body habitu s, inabil ity to positi on patien t exam done supine bedsid e, arrhyt hmia. Conclu richy Normal left ventri cular wall thickn ess and chambe r size. Ejecti on fracti on is 30%. There is global hypoki nesis Right ventri mike is mildly hypoco ntract ile Both atria are mildly enlarg ed There are no struct ural valvul ar abnorm alitie s Modera te mitral regurg itatio n Modera te to severe tricus pid regurg itatio n Estima orlando right ventri cular systol ic pressu re is 40 mmHg Wall motion Left Ventri mike The left ventri mike is normal size. Left ventri cular ejecti on fracti on is modera te to severe ly decrea sed. Beat to beat variat ion throug hout exam. There is normal left ventri cular wall thickn ess. There is no ventri cular septal defect visual ized. LVEF is 32%. Right Ventri mike Right ventri mike is grossl y normal in size. Right ventri mike is mildly hypoki netic. Atria Left atrium is mildly dilate d. Right atrium is mildly dilate d. The intera trial septum is intact with no eviden ce for an atrial septal defect . Aortic Valve The aortic valve is normal in struct ure. Aortic valve is trilea flet. There is no aortic valvul ar stenos is. Trace aortic regurg itatio n. Mitral Valve The mitral valve is normal in struct ure. No eviden ce of mitral valve stenos is. Modera te mitral regurg itatio n. Tricus pid Valve The tricus pid valve is normal in struct ure. There is no tricus pid valve stenos is. Modera te to severe tricus pid regurg itatio n. The RVSP is 40.5mm Hg. Pulmon ic Valve The pulmon roney valve is normal in struct ure. There is no pulmon ic valvul ar stenos is. There is no pulmon ic valvul ar regurg itatio n. Great Vessel s The aortic root is normal in size. The ascend ing aorta is normal in size. Aortic arch is not well visual ized. The IVC collap ses <50% with inspir ation. Perica rdium There is no perica rdial effusi on. 2D Dimens ions IVSD d PLAX 0.91 cm M: 0.6-1. 2 Ao Root d 2.99 cm M: 3.1 - 3.7 LVPW d PLAX 0.91 cm M: 0.6 - 1.2 Ao Asc Diam d 3.40 cm M: 2.6 - 3.4 LVID d PLAX 5.65 cm M: 4.2 - 5.8 LVDs 4.90 cm M: 2.5 - 4.0 LV EF Teichh olz 26.7 % FS 12.59 % LV EDV (Teich ) 156.9 mL LV ESV (Teich ) 115.0 mL M-Mode TAPSE 1.95 cm (M/F) >1.7 Auto EF LV EDV A4C 147.1 mL LV EDV A2C 137.8 mL LV EDV BP 142.2 mL LV ESV A4C 103.6 mL LV ESV A2C 91.2 mL LV ESV BP 97.0 mL LVEF(% ) A4C 29.6 % LVEF(% ) A2C 33.8 % LVEF(% ) BP 31.8 % LV SV A4C 43.5 ml LV SV A2C 46.6 ml LV SV BP 45.2 ml LV CO A4C 3.9 L/min LV CO A2C 3.8 L/min LV CO BP 3.8 L/min HR A4C 89.33 BPM HR A2C 80.91 BPM LV EDV Index (BP) LA Volume LA Length A4C 6.3 cm LA Length A2C 6.2 cm LA Area A4C s 22.64 cm2 LA Area A2C s 27.67 cm2 LA Vol A4C A-L 69.16 mL LA Vol A2C A-L 105.63 mL LA Vol Biplan e A-L 86.4 mL LA Vol/BS A A4C A-L LA Vol/BS A A2C A-L LA Vol/BS A BP A-L 36.2 mL/m2 LA Vol A4C MOD 66.0 mL LA Vol A2C MOD 97.4 mL LA Vol BP MOD 80.5 mL RA Volume RA Area A4C 20.7 cm2 RA ESV A4C (A-L) 61.4mL RA Vol/BS A A4C A-L RA Length A4C 5.9 cm RA ESV A4C (MOD) 57.9mL LV Diasto logy MV E Vmax 1.19 (0.4-1 .3 m/s) Aortic Valve AoV Vmax 1.19 m/s LVOT Vmax 0.83 m/s AoV Peak Grad 5.7 mmHg LVOT Peak Grad 2.8 mmHg AoV Area (Vmax) 2.39 cm2 LVOT VTI 0.124 m AoV VTI 0.197 m LVOT Mean Fritz. 0.54 m/s AoV Mean Fritz. 0.84 m/s LVOT Mean Grad 1.4 mmHg AoV Mean Grad 3.3 mmHg LVOT SV 42.48 mL AoV Area (VTI) 2.16 cm2 LVOT Diam s 2.05 cm Veloci ty Ratio 0.70 Mitral Valve MV Vmax TIPS 1.13 m/s MV Mean Grad 1.4 (<2mmH g) MV Area PHT 5.20 cm2 MV VTI 0.265 m Pulmon roney Valve PV Vmax 0.70 (0.5-1 .5 m/s) RVOT Vmax 0.39 m/s PV Peak Grad 2.0 mmHg RVOT Peak Gr. 0.6 mmHg PV Mean Frtiz 0.42 m/s RVOT VTI 0.080 m PV Mean Grad 0.8 mmHg RVOT Mean Gr. 0.3 mmHg Tricus pid Valve RA Pressu re 8.00 mmHg TR Vmax 2.84 m/s TV S' 0.13 m/s TR Peak Grad 32.5 mmHg RVSP (TR) 40.5 mmHg Ordercj d By: Cynthia Foote M.D. CC: ------ ------ ------ ------ ------ ------ ------ ------ ------ ------ ------ ------ - Dictat ed By: Asuncion Tellez M.D. 1526 1559 Transc ribed By: sAuncion Tellez MD 1526 This is privil eged, confid ential inform ation intend ed only for the provid er named. Any use or distri bution by any person other than this provid er is strict ly prohib ited. If you receiv e this report in error, please notify us immedi ately at and return the origin al report to us at the addres s above. Thank- you. [email or web address] [facility] [address], [place], [address] 11/17/2023 12:36:00 11/18/19 24 11/18/2023 event monit or CARDIA C EVENT RECORD ER REPORT JHON Sy NAME: Shankar mockDanny quintana et U UNIT #: [id number] ORDERI NG PROVID ER: ACCOUN T #: [id number] PRIMAR Y CARE PROVID ER: MERRILL MAYS, YAEL Y DATE/T JOAQUIN OF S ERVICE : : 1970 Date of servic e: Time of Servic e: 08:30 Cardia c Event Record er Referr ing Provid er:: Ruth Mayorga Indica tions: : Unspec ified atrial flutte r Cardia c Event Note: This is a cardia c event monito r. Jhon t was monito red for 10 days and 9 hours Rhythm throug hout was atrial fibril lation /flutt er with an averag e heart rate of 144 There were occasi onal premat ure ventri cular contra ctions . Episod es labele d brief nonsus tained ventri cular tachyc ardia were probab ly aberra nt conduc tion Minimu m heart rate was 86, maximu m 232 There were no appare nt jhon sy sympto ms CC: ------ ------ ------ ------ ------ ------ ------ ------ ------ ------ ------ ------ ------ ------ ------ ------ ---- -- Dictat ed by: LENORA MAYS,RAFAT MENDEZ Dictat ed:: [id number] [phone] 08 Transc ribed Date: Transc ribed Time: 829 By: RAMEZ This is privil eged, confid ential inform ation, intend ed only for the provid er named. Any use or distri bution by any person other than this provid er is strict ly prohib ited. If you receiv e this report in error, please notify us immedi quentinly at [phone] and return the origin al report to us at the addres s above. Thank you. [email or web address] [address] [place], [address] 11/23/2023 16:26:18 11/18/19 24 11/18/2023 cardi ac monit or No observ ation record ed. [email or web address] [facility] [address] [place] [address] [place], [address], 11/18/2023 12:24:27 Result Notes None recorded. Problems Name Problem SNOMED Code Status Onset Date Resolution Date Notes Provider Name and Address Organization Details Recorded Time Daniel medellin richy 88684091 Active 201805/06/19 22 - Comments only - Ruth WEBB - BP high today has not takin lisinopr il for 2-3 days. Previous ly taking 2 -10 mg tables. With patient bayron on I have sent for 20 mg tablets, take 1 daily. Problem Code: I10; Problem Code Type: ICD-10; JON ESPINOZA [address], [place], [address] , [facility] 3 11:48:44 Adult health examinat ion Active 201805/06/19 22 - Comments only - Ruth WEBB - Annual exam complete d at today's visit. [facility] ed routine visit to eye provider . [facility] COVID-19 VACCINAT ION: Per current guidelin es due for MRNA COVID-19 booster vaccinat ion. TETANUS VACCINAT ION: Administ ered 2018. PPSV23 VACCINAT ION: Administ ered in 2018. COLONOSC OPY: Elects not to complete until age 52, denies any family history of colon cancer. LIPIDS: Last complete d 2018. PSA: Will wait on screenin g until age 52, denies any history of prostate cancer. Problem Code: Z00.00; Problem Code Type: ICD-10; Not Available [facility] 3 03:49:54 Family history of Cardiova scular disease 308139538 Active 201810/28/19 19 - Comments only - Ruth Recinos voices his awarenes s of cardiac risk in regards to tobacco use. Will return for fasting labs to evaluate for hyperlip idemia. Problem Code: Z82.49; Problem Code Type: ICD-10; [address], [place], [address] , [facility] 3 11:48:31 Nicotine dependen ce 80991469 Active 201803/10/20 19 - Comments only - Ruth Covarrubias continue s to abstain from tobacco. Problem Code: Z87.891; Problem Code Type: ICD-10; Not Available [facility] 03:49:54 Hyperlip idemia 07034628 Active 201801/19/20 20 - Comments only - Ruth WEBB - Continue statin. Consider lipids at next visit. Problem Code: E78.5; Problem Code Type: ICD-10; [address], [place], [address] , [facility] 3 11:49:29 Cerebral infarcti on 285781690 Active 201801/19/20 20 - Comments only - Ruth WEBB - Continue asprin 81mg daily. Denies any bleeding concenrs . Problem Code: I63.50; Problem Code Type: ICD-10; [address], [place], [address] , [facility] 3 11:49:24 Pain in thoracic spine 023032634 Completed 201803/12/2023 12/07/19 19 - Comments only - Ruth Covarrubias has not taken anything for pain due to fear of interact ion with his medicati ons. Recommen ded he try acetamin ophen up to 4000mg a day, preferab ly 3000mg if pain is tolerabl e (may take up to 1000 mg every 4-6 hours). Has hurt his back in the past, has a chiropra ctor appointm ent on Wednesday. Problem Code: M54.9; Problem Code Type: ICD-10; [address], [place], [address] , [facility] 3 11:49:05 Stress at work 514722666 Completed 202103/12/2023 05/06/19 22 - Comments only - Ruth Anguloag ed to FU for mental health concerns that he feels warrant interven tion. Problem Code: Z56.6; Problem Code Type: ICD-10; [address], [place], [address] , [facility] 3 11:48:49 Pre-surg yanni testing Completed 201803/09/2019 Problem Code: Z01.812; Problem Code Type: ICD-10; Not Available [facility] 3 03:50:06 Cardiome fenrando 1458803 Completed 201801/19/2020 Problem Code: I51.7; Problem Code Type: ICD-10; Not Available [facility] 3 03:50:07 Tobacco user 503407377 Completed 201812/09/2022 Problem Code: Z72.0; Problem Code Type: ICD-10; Not Available [facility] 3 03:50:10 Dizzines s and giddines s 700824788 Completed 201812/06/2018 Problem Code: R42; Problem Code Type: ICD-10; Not Available [facility] 3 03:50:11 Hyperlip idemia screenin g Completed 201812/09/2022 Problem Code: Z13.220; Problem Code Type: ICD-10; Not Available [facility] 3 03:50:12 Screenin g for cancer Completed 201803/09/2019 Problem Code: Z12.9; Problem Code Type: ICD-10; Not Available [facility] 3 03:50:13 Transien t cerebral ischemia 936386466 Completed 201812/06/2018 Problem Code: G45.9; Problem Code Type: ICD-10; Not Available [facility] 3 03:50:14 Elevated blood-pr essure reading without diagnosi s of hyperten richy 921056497 Completed 201812/09/2022 10/28/19 19 - Comments only - Ruth WEBB - Blood pressure is quite elevated at today's visit. Jorje has not had medical care in some time, he agrees to follow-u p with fasting blood work and blood pressure check for further evaluati on. Problem Code: R03.0; Problem Code Type: ICD-10; JON ESPINOZA [facility] [address], [place], [address] , [facility] 4 14:10:59 Varicose veins of lower extremit y 59127578 Active [address], [place] [address] , [facility] 3 12:33:56 Lipoma of skin 883480740 Active [address], [place] [address] , [facility] 4 14:09:57 Elevated blood-pr essure reading without diagnosi s of hyperten richy 097846769 Active 202310/28/19 19 - Comments only - Ruth WEBB - Blood pressure is quite elevated at today's visit. Jorje has not had medical care in some time, he agrees to follow-u p with fasting blood work and blood pressure check for further evaluati on. Problem Code: R03.0; Problem Code Type: ICD-10; JON ESP[address], [place], [place], [address] [place] [address] , [facility] 4 14:10:59 Blood glucose outside referenc e range 546509542 Active [address], [place], [place], [address] [place] [address] , [facility] 4 16:16:53 Atrial flutter 4763697 Active [address], [place] [address] , [facility] 4 16:17:01 Disorder of skin and/or subcutan eous tissue 36889397 Active [address], [place] [address] , [facility] 4 15:58:21 Tricuspi d valve regurgit ation 827282614 Active [address], [place], [address] , [facility] 4 12:35:15 Mitral valve regurgit ation 08475604 Active [address], [place], [address] , [facility] 4 12:35:27 Atrial fibrilla tion 41306839 Active 2023 VANAD lucas, [facility] 4 08:43:19 Problem Notes None recorded. Procedures Surgical History None recorded. Imaging Results Imaging Date Name Status LastModified by Organization Details LastModified Time 11/10/2023 electrocardiogram completed [email or web address] [address], [address], 11/10/2023 13:02:09 Procedure Notes None recorded. Medical Equipment None Reported. Allergies No known drug allergies Medications Name Sig Start Date Stop Date Status Note LastModified by Organization Details LastModified Time furosemid e 40 mg tablet TAKE ONE TABLET BY MOUTH EVERY DAY active Not Available Not Available No t Available atorvasta tin 40 mg tablet Take 1 tablet by mouth every night 05/06 completed [facility] Not Available Not Available Not Available amiodaron e 200 mg tablet Take 2 tablets every 12 hours by oral route for 9 days. active Then 200 mg daily per [facility] d/c summary 11/22/23 Not Available Not Available Not Available lisinopri l 20 mg tablet TAKE ONE TABLET BY MOUTH EVERY DAY 03/12 completed DOSE INCREASE D Not Available Not Available Not Available metoprolo l succinate ER 100 mg tablet,ex tended release 24 hr Take 1 tablet every 12 hours by oral route. active per [facility] d/c summary 11/22/23 Not Available Not Available Not Available spironola ctone 25 mg tablet TAKE ONE-HALF TABLET BY MOUTH EVERY DAY active Not Available Not Available No t Available lisinopri l 10 mg tablet Take 2 tablet by mouth once a day 03/09 completed Not Available Not Available Not Available aspirin 81 mg tablet Take 1 tablet by mouth once a day 2018 active [facility] Not Available Not Available Not Avai lable metoprolo l succinate ER 25 mg tablet,ex tended release 24 hr TAKE ONE TABLET BY MOUTH EVERY DAY active Disconti nued per [facility] d/c summary 11/22/23 Not Available Not Available Not Available Aspir-81 mg tablet,de layed release Take 1 tab by mouth daily 2018 active [facility] Not Available Not Available Not Avai lable levofloxa sonia 500 mg tablet TAKE ONE TABLET BY MOUTH EVERY DAY FOR 10 DAYS 10/05 completed Not Available Not Available Not Available lisinopri l 40 mg tablet TAKE ONE TABLET BY MOUTH EVERY DAY active Not Available Not Available No t Available Flexeril 5 mg tablet 1 TAB three times daily 10/26 completed Not Available Not Available Not Available rosuvasta tin 10 mg tablet TAKE ONE TABLET BY MOUTH EVERY DAY active Not Available Not Available No t Available aspirin 2-3 prn 10/26 completed Not Available Not Available Not Available ibuprofen 10/26 completed Not Available Not Available Not Available Eliquis 5 mg tablet Take 1 tab by mouth twice a day 2023 active Not Available Not Available Not Avai lable cyanocoba sharri (vit B-12) 500 mcg sublingua l tablet Take 1 tablet by mouth daily 2018 active [facility] Not Available Not Available Not Avai lable Vitals Date Recorded Body height Body mass index (BMI) Body weight Body temperature Oxygen saturation Oxygen saturation in Arterial blood by Pulse oximetry Heart rate Systolic blood pressure Diastolic blood pressure Provider Name and Address Organization Details Last Updated DateTime 4 189.103 cm 30.6 kg/m2 560383. 76 g 97.8 [degF] 96 % 96 % 57 /min 140 mm[Hg] 82 mm[Hg] CHANO JULES [facility] 4 15:31:37 Social History None recorded. Functional Status None recorded. Mental Status None recorded. Family History Relationship Description Onset Age of this Age Resolved Age Notes Mother Family history of Hypertension Maternal Grandfather Family history of malignant neoplasm Father Family history of heart failure Paternal Grandfather Family history of heart failure PGF- [place] at 40 years old Notes:*Problem: Mother: denise corona and healthy Father: age 42 years cause [place] Sisters: 1 and healthy Brothers: none Children: 2 both healthy Family History of: Hypertension: no Coronary heart disease: yes father Diabetes mellitus: yes mgm Medical History No medical history recorded. Immunizations Vaccine Type Date Status Provider Name and Address Organization Details Recorded Time Tdap 10/26/2018 completed Not Available [facility] 06:07:27 Influenza, split virus, quadrivalent, PF 01/18/2020 completed Not Available [facility] 01/22/2023 06:07:27 Influenza, split virus, quadrivalent, PF 03/12/2022 completed Not Available [facility] 01/22/2023 06:07:27 COVID-19 vaccine, vector-nr, rS-Ad26, PF, 0.5 mL 06/14/2020 completed Not Available [facility] 01/22/2023 06:07:27 COVID-19, mRNA, LNP-S, PF, 30 mcg/0.3 mL dose, remy-sucrose 03/28/2021 completed Not Available [facility] 01/22/2023 06:07:27 pneumococcal polysaccharide PPV23 10/26/2018 completed Not Available [facility] 2022 06:07:27 Past Encounters Encounter ID Performer Location Encounter Start Date Encounter Closed Date Diagnosis/Indication Diagnosis SNOMED-CT Code Diagnosis ICD10 Code [id number] JON ESPINOZA [address] [address] 11/09/2023 15:22:35 11/09/2023 16:10:07 Atrial flutter 3857839 I48.92 Disorder o f skin and/or subcutaneous tissue 39187755 L98.9 Health Concerns Section Related Observation LastModified by Organization Detai ls LastModified Time None Recorded Concern Status LastModified by Organization Details LastModified Time None Recorded Payers Encounter Date Sequence Insurance Name Policy Number Policy Roldan Covered Member ID Roldan Member ID Guarantor Name 11/09/2023 1 [employer] [facility] Satish Vazquez [id number] Satish Vazquez Notes Date Note Type Note Provider Name and Address Organization Details Recorded Time 11/09/2023 text/html HPI Notes: Satish is here today to follow-up on a-fib. He admits to some fatigue. He has not heard back from cardiology regarding an appointment. He is wearing a rhythm monitor (has been wearing for 14 days) now. JON ESPINOZA [address], [place], [address], [facility]. 11/10/2023 15:57:32
--- OUTSIDE RECORDS SUMMARY | 2023-11-29 16:05 | XMS_ITS | Data Portability ---
Author Organization [place] [facility] Address [place] [address] Assessment No assessment recorded. Plan of Treatment Reminders Order Date Submit Date Provider Last Modified By Organization Details Last Modified Time Details Appointments hospital follow up 2023 12:00P M Not available Not available Not available Annual Wellness Exam 40 2024 07:30A M Not available Not available Not available Office Visit 30 2024 01:30P M Not available Not available Not available Lab CMP, serum or plasma 2022 023 [facility] (Registration ), [address] [place] [address] [place], [address], 03/12/2023 14:48:09 CBC 2022 023 [facility] (Registration ), [address] [place] [address] [place], [address], 03/12/2023 14:28:50 lipid panel, serum 2022 023 [email or web address] [facility] (Registration ), [address] [place] [address] [place], [address], 03/19/2023 11:03:37 HbA1c (hemoglob in A1c), blood 2022 023 [email or web address] [facility] (Registration ), [address] [place] [address] [place], [address], 03/19/2023 11:03:37 hemoglobi n A1C, fingersti ck 2023 024 [email or web address] [facility], [address] [place] [address], [id number], 10/06/2023 16:20:26 Referral urologist referral 2023 024 [facility], [address], [place], [address], 10/07/2023 09:10:31 cardiolog ist referral 2023 024 [email or web address] [facility], [address], [place], [address], 11/16/2023 10:23:00 cardiolog ist referral 2023 024 GABE García MD, [address], [place], [address], 11/25/2023 14:37:04 Procedures MRI procedure (PROC) - please advise on how to order MRI of mass on back WO/W or if this order can suffice. original US report that recommend s the MRI is attached. CPT code needed as well.Patricia ext [phone] [facility], [address], [place], [address], 11/18/2023 09:07:18 Surgeries None recorded. Imaging US, lower back 2023 024 [facility] (Imaging), [address], [place], [address], 11/08/2023 11:51:07 electroca rdiogram 2023 024 [facility], [address] [place] [address], [phone], 11/10/2023 09:59:17 Medication Orders lisinopri l 40 mg tablet 2022 023 GABE [facility], [address] [place], [address], 03/12/2023 12:37:04 metoprolo l succinate ER 25 mg tablet,ex tended release 24 hr 2023 024 [email or web address] [facility], [address] [place], [address], 11/24/2023 08:37:24 Eliquis 5 mg tablet 2023 024 GABE [facility], [address] [place], [address], 10/06/2023 16:20:30 Eliquis 5 mg tablet 2023 024 [facility], [address] [place] [address], [address], [place], [address], 11/09/2023 15:56:47 Patient TargetsNo targets recorded. Patient InstructionsNo instructions recorded. Reason for Referral Urologist Referral for Vasec june requested Referring Physician: Family Carri [facility], Encounter Date: 10/06/2023 Cokeman Referral for At jamaal shane Referring Physician: Family Carri Medicine, Encounter Date: 10/06/2023 Cokeman Referral for At jamaal shane Referring Physician: Family Shana Espinoza, Encounter Date: 11/09/2023 Results Created Date Observation Date Name Description Value Unit Range Abnormal Flag Note LastModifiedBy Organization Detail LastModifiedTime 03/12/2003/12/2023 COMPL ETE BLOOD COUNT NO DIFF WBC 8.91 10_3/ uL 4.4-10 .8 normal Not Available [facility] [address] [facility] [place], [address] 03/12/2023 14:28:50 03/12/20 23 03/12/2023 COMPL ETE BLOOD COUNT NO DIFF RBC 5.57 10_6/ uL 4.36-5 .78 normal Not Available [address] [place], [address] 03/12/2023 14:28:50 03/12/20 23 03/12/2023 COMPL ETE BLOOD COUNT NO DIFF HGB 16.2 g/dL 13.5-1 7.5 normal Not Available [address] [place], [address] 03/12/2023 14:28:50 03/12/20 23 03/12/2023 COMPL ETE BLOOD COUNT NO DIFF HCT 48.5 % 40.0-5 0.0 normal Not Available [address] [place], [address] 03/12/2023 14:28:50 03/12/2003/12/2023 COMPL ETE BLOOD COUNT NO DIFF MCV 87 fL 80-95 normal Not Available [address] [place], [address] 03/12/2023 14:28:50 03/12/20 23 03/12/2023 COMPL ETE BLOOD COUNT NO DIFF MCH 29.1 pg 27.0-3 3.0 normal Not Available [address] [place], [address] 03/12/2023 14:28:50 03/12/20 23 03/12/2023 COMPL ETE BLOOD COUNT NO DIFF MCHC 33.4 % 32.0-3 6.0 normal Not Available [address] [place], [address] 03/12/2023 14:28:50 03/12/20 23 03/12/2023 COMPL ETE BLOOD COUNT NO DIFF RDW 13.3 % 11.8-1 4.1 normal Not Available [address] [place], [address] 03/12/2023 14:28:50 03/12/20 23 03/12/2023 COMPL ETE BLOOD COUNT NO DIFF platelet count 315 10_3/ uL 130-40 0 normal Not Available [address] [place], [address] 03/12/2023 14:28:50 03/12/20 03/12/2023 COMPL ETE BLOOD COUNT NO DIFF MPV 10.7 fL 8.0-11 .0 normal Not Available [address] [place], [address] 03/12/2023 14:28:50 03/12/20 23 03/12/2023 COMPR EHENS BONY METAB OLIC PANEL calcium 9.4 mg/dL 8.5-10 .1 normal Not Available [address] [place], [address] 03/12/2023 14:48:09 03/12/20 23 03/12/2023 COMPR EHENS BONY METAB OLIC PANEL glucose 87 mg/dL 74-106 normal Not Available Leo caballero [address] [place], [address] 03/12/2023 14:48:09 03/12/20 23 03/12/2023 COMPR EHENS BONY METAB OLIC PANEL BUN 14 mg/dL 7-18 normal Not Available Leo caballero [address] [place], [address] 03/12/2023 14:48:09 03/12/20 23 03/12/2023 COMPR EHENS BONY METAB OLIC PANEL creatinine 1.1 mg/dL 0.70-1 .30 normal Not Available [address] [place], [address] 03/12/2023 14:48:09 03/12/20 23 03/12/2023 COMPR EHENS BONY METAB OLIC PANEL estimated GFR 81.78 mL/min /1.73m 2 The eGFR is calcu lated from a serum creat inine using the CKD-E PI 2020 equat ion. Other varia bles requi red for the equat ion are gende r and age; this equat ion does not inclu de a race coeff icien t. This equat ion has simil ar overa ll perfo rmanc e to previ ous equat ions excep t value s may diffe r, in parti cular , in patie nts with highe r value s of eGFR and young er-ag ed adult s. Not Available [address] [place], [address] 03/12/2023 14:48:09 03/12/20 23 03/12/2023 COMPR EHENS BONY METAB OLIC PANEL total protein 7.0 g/dL 6.4-8. 2 normal Not Available [address] [place], [address] 03/12/2023 14:48:09 03/12/20 23 03/12/2023 COMPR EHENS BONY METAB OLIC PANEL albumin 3.7 g/dL 3.4-5. 0 normal Not Available [address] [place], [address] 03/12/2023 14:48:09 03/12/20 23 03/12/2023 COMPR EHENS BONY METAB OLIC PANEL bilirubin, total 0.5 mg/dL 0.2-1. 0 normal Not Available [address] [place], [address] 03/12/2023 14:48:09 03/12/20 23 03/12/2023 COMPR EHENS BONY METAB OLIC PANEL alk phos 79 U/L 46-116 normal Not Available [address] [place], [address] 03/12/2023 14:48:09 03/12/20 23 03/12/2023 COMPR EHENS BONY METAB OLIC PANEL sodium 141 mmol/ L 136-14 5 normal Not Available [address] [place], [address] 03/12/2023 14:48:09 03/12/20 23 03/12/2023 COMPR EHENS BONY METAB OLIC PANEL potassium 4.2 mmol/ L 3.5-5. 1 normal Not Available [address] [place], [address] 03/12/2023 14:48:09 03/12/20 23 03/12/2023 COMPR EHENS BONY METAB OLIC PANEL chloride 107 mmol/ L 98-107 normal Not Available [address] [place], [address] 03/12/2023 14:48:09 03/12/20 23 03/12/2023 COMPR EHENS BONY METAB OLIC PANEL CO2 25.0 mmol/ L 21.0-3 2.0 normal Not Available [address] [place], [address] 03/12/2023 14:48:09 03/12/20 23 03/12/2023 COMPR EHENS BONY METAB OLIC PANEL anion gap 9.0 mmol/ L 3-11 normal Not Available [address] [place], [address] 03/12/2023 14:48:09 03/12/20 23 03/12/2023 COMPR EHENS BONY METAB OLIC PANEL AST 23 U/L 15-37 normal Not Available Leo [address] [place], [address] 03/12/2023 14:48:09 03/12/20 23 03/12/2023 COMPR EHENS BONY METAB OLIC PANEL ALT 44 U/L 16-63 normal Not Available Leo [address] [place], [address] 03/12/2023 14:48:09 03/12/20 23 03/12/2023 LIPID 2 cholesterol 190 mg/dL <200 Not Available [address] [place], [address] 03/12/2023 14:48:10 03/12/20 23 03/12/2023 LIPID 2 triglyceride 96 mg/dL <150 Not Available [address] [place], [address] 03/12/2023 14:48:10 03/12/20 23 03/12/2023 LIPID 2 HDL cholesterol 56 mg/dL 40-60 Not Available [address] [place], [address] 03/12/2023 14:48:10 03/12/20 23 03/12/2023 LIPID 2 calculated LDL 115 mg/dL <100 high Natio nal Fawn stero l Educa tion Progr am (NCEP -ATPI II) class ifica tions : Fawn stero l <200 mg/dL Tiki able Fawn stero l 200-2 39 mg/dL Borde rline High Fawn stero l >or=2 40 mg/dL High HDL <40 mg/dL Low HDL >or=6 0 mg/dL High LDL <100 mg/dL Optim al LDL 100-1 29 mg/dL Near Optim al/Ab ove Optim al LDL 130-1 59 mg/dL Borde rline High LDL 160-1 89 mg/dL High LDL >or=1 90 mg/dL Very High *The above refer ence range is for adult s 18 years or older . Not Available [address] [place], [address] 03/12/2023 14:48:10 03/12/20 23 03/12/2023 HEMOG LOBIN A1C hemoglobin A1C 5.8 % <5.7 high Refer ence Range s <5.7 Kirti l 5.7-6 .4% Predi abete s 6.5% or great er Diagn ostic for diabe ta (if confi rmed) Refer ences : 1. Ameri can Diabe ta Assoc iatio n. Clas sific ation and Diagn osis of Diabe ta. Diabe ta Care 2019 Mar;4 2(Sup pleme nt 1):S1 3-s28 . Not Available [address] [facility] [place], [address] 03/12/2023 14:50:59 09/22/19 24 09/22/2023 URINA LYSIS color Yellow yellow Not Available Leo caballero [address] [place], [address] 09/22/2023 10:31:00 09/22/19 24 09/22/2023 URINA LYSIS clarity Sl Cloudy clear Not Available Jia donovan [address] [facility] [place], [address] 09/22/2023 10:31:00 09/22/19 24 09/22/2023 URINA LYSIS specific gravity <= 1.005 1.005- 1.025 normal Not Available [address] [facility] [place], [address] 09/22/2023 10:31:00 09/22/19 24 09/22/2023 URINA LYSIS pH 6.0 5-8 normal Not Available Leo caballero [address] [facility] [place], [address] 09/22/2023 10:31:00 09/22/19 24 09/22/2023 URINA LYSIS leukocyte esterase Negati ve negati ve Not Available [address] [place], [address] 09/22/2023 10:31:00 09/22/19 24 09/22/2023 URINA LYSIS nitrite Negati ve negati ve Not Available [address] [place], [address] 09/22/2023 10:31:00 09/22/1909/22/2023 URINA LYSIS protein Trace mg/dL neg-tr rut Not Available [address] [place], [address] 09/22/2023 10:31:00 09/22/19 24 09/22/2023 URINA LYSIS glucose Negati ve mg/dL negati ve Not Available [address] [place], [address] 09/22/2023 10:31:00 09/22/19 24 09/22/2023 URINA LYSIS ketones Negati ve mg/dL negati ve Not Available [address] [place], [address] 09/22/2023 10:31:00 09/22/1909/22/2023 URINA LYSIS urobilinogen 0.2 mg/dL up to 0.2 Not Available [address] [place], [address] 09/22/2023 10:31:00 09/22/1909/22/2023 URINA LYSIS bilirubin Negati ve negati ve Not Available [address] [place], [address] 09/22/2023 10:31:00 09/22/19 24 09/22/2023 URINA LYSIS blood Negati ve negati ve Not Available [address] [place], [address] 09/22/2023 10:31:00 10/06/19 24 10/06/2023 hemog lobin A1C, finge rstic k hemoglobin A1C 5.7 % <5.7 Not Available [address], [address], 10/06/2023 14:09:28 11/16/1911/16/2023 COMPL ETE BLOOD COUNT W/DIF F WBC 13.25 10_3/ uL 4.4-10 .8 high Not Available [address] [place], [address] 11/16/2023 03:32:52 11/16/1911/16/2023 COMPL ETE BLOOD COUNT W/DIF F RBC 5.13 10_6/ uL 4.36-5 .78 normal Not Available [address] [place], [address] 11/16/2023 03:32:52 11/16/1911/16/2023 COMPL ETE BLOOD COUNT W/DIF F HGB 15.2 g/dL 13.5-1 7.5 normal Not Available [address] [place], [address] 11/16/2023 03:32:52 11/16/1911/16/2023 COMPL ETE BLOOD COUNT W/DIF F HCT 46.7 % 40.0-5 0.0 normal Not Available [address] [place], [address] 11/16/2023 03:32:52 11/16/1911/16/2023 COMPL ETE BLOOD COUNT W/DIF F MCV 91 fL 80-95 normal Not Available Leo caballero [address] [place], [address] 11/16/2023 03:32:52 11/16/1911/16/2023 COMPL ETE BLOOD COUNT W/DIF F MCH 29.6 pg 27.0-3 3.0 normal Not Available [address] [place], [address] 11/16/2023 03:32:52 11/16/1911/16/2023 COMPL ETE BLOOD COUNT W/DIF F MCHC 32.5 % 32.0-3 6.0 normal Not Available [address] [place], [address] 11/16/2023 03:32:52 11/16/19 24 11/16/2023 COMPL ETE BLOOD COUNT W/DIF F RDW 13.7 % 11.8-1 4.1 normal Not Available [address] [place], [address] 11/16/2023 03:32:52 11/16/19 24 11/16/2023 COMPL ETE BLOOD COUNT W/DIF F platelet count 345 10_3/ uL 130-40 0 normal Not Available [address] [place], [address] 11/16/2023 03:32:52 11/16/1911/16/2023 COMPL ETE BLOOD COUNT W/DIF F MPV 10.9 fL 8.0-11 .0 normal Not Available [address] [place], [address] 11/16/2023 03:32:52 11/16/1911/16/2023 COMPL ETE BLOOD COUNT W/DIF F neutrophils % 74.2 % Not Available [address] [place], [address] 11/16/2023 03:32:52 11/16/1911/16/2023 COMPL ETE BLOOD COUNT W/DIF F lymphocytes % 17.2 % Not Available [address] [place], [address] 11/16/2023 03:32:52 11/16/19 24 11/16/2023 COMPL ETE BLOOD COUNT W/DIF F monocytes % 6.6 % Not Available [address] [place], [address] 11/16/2023 03:32:52 11/16/1911/16/2023 COMPL ETE BLOOD COUNT W/DIF F eosinophils % 1.1 % Not Available [address] [place], [address] 11/16/2023 03:32:52 11/16/19 24 11/16/2023 COMPL ETE BLOOD COUNT W/DIF F basophils % 0.4 % Not Available [address] [place], [address] 11/16/2023 03:32:52 11/16/19 24 11/16/2023 COMPL ETE BLOOD COUNT W/DIF F immature grans % 0.5 % Not Available Yasmeen beal [address], [address] 11/16/2023 03:32:52 11/16/19 24 11/16/2023 COMPL ETE BLOOD COUNT W/DIF F nucleated RBC 0.2 % 0.0-0. 3 normal Not Available [address] [place], [address] 11/16/2023 03:32:52 11/16/19 24 11/16/2023 COMPL ETE BLOOD COUNT W/DIF F absolute neutrophil count 9.83 10_3/ uL 1.2-6. 7 high Not Available [address] [place], [address] 11/16/2023 03:32:52 11/16/19 24 11/16/2023 COMPL ETE BLOOD COUNT W/DIF F absolute lymphocyte count 2.28 10_3/ uL 1.2-3. 4 normal Not Available [address] [place], [address] 11/16/2023 03:32:52 11/16/19 24 11/16/2023 COMPL ETE BLOOD COUNT W/DIF F absolute monocyte count 0.87 10_3/ uL 0.1-0. 8 high Not Available [address] [place], [address] 11/16/2023 03:32:52 11/16/19 24 11/16/2023 COMPL ETE BLOOD COUNT W/DIF F absolute eosinophil count 0.15 10_3/ uL 0.0-0. 7 normal Not Available [address] [place], [address] 11/16/2023 03:32:52 11/16/19 24 11/16/2023 COMPL ETE BLOOD COUNT W/DIF F absolute basophil count 0.05 10_3/ uL 0.0-0. 2 normal Not Available [address] [place], [address] 11/16/2023 03:32:52 11/16/19 24 11/16/2023 COMPR EHENS BONY METAB OLIC PANEL calcium 9.4 mg/dL 8.5-10 .1 normal Not Available [address] [place], [address] 11/16/2023 03:48:52 11/16/19 24 11/16/2023 COMPR EHENS BONY METAB OLIC PANEL glucose 153 mg/dL 74-106 high Not Available Leo caballero [address] [place], [address] 11/16/2023 03:48:52 11/16/19 24 11/16/2023 COMPR EHENS BONY METAB OLIC PANEL BUN 26 mg/dL 7-18 high Not Available Leo [address] [place], [address] 11/16/2023 03:48:52 11/16/19 24 11/16/2023 COMPR EHENS BONY METAB OLIC PANEL creatinine 1.6 mg/dL 0.70-1 .30 high Not Available [address] [place], [address] 11/16/2023 03:48:52 11/16/1911/16/2023 COMPR EHENS BONY METAB OLIC PANEL estimated GFR 52.17 mL/min /1.73m 2 The eGFR is calcu lated from a serum creat inine using the CKD-E PI 2020 equat ion. Other varia bles requi red for the equat ion are gende r and age; this equat ion does not inclu de a race coeff icien t. This equat ion has simil ar overa ll perfo rmanc e to previ ous equat ions excep t value s may diffe r, in parti cular , in patie nts with highe r value s of eGFR and young er-ag ed adult s. Not Available [address] [place], [address] 11/16/2023 03:48:52 11/16/19 24 11/16/2023 COMPR EHENS BONY METAB OLIC PANEL total protein 7.1 g/dL 6.4-8. 2 normal Not Available [address] [place], [address] 11/16/2023 03:48:52 11/16/1911/16/2023 COMPR EHENS BONY METAB OLIC PANEL albumin 3.4 g/dL 3.4-5. 0 normal Not Available [address] [place], [address] 11/16/2023 03:48:52 11/16/1911/16/2023 COMPR EHENS BONY METAB OLIC PANEL bilirubin, total 0.85 mg/dL 0.2-1. 0 normal Not Available [address] [place], [address] 11/16/2023 03:48:52 11/16/1911/16/2023 COMPR EHENS BONY METAB OLIC PANEL alk phos 85 U/L 46-116 normal Not Available [address] [place], [address] 11/16/2023 03:48:52 11/16/1911/16/2023 COMPR EHENS BONY METAB OLIC PANEL sodium 142 mmol/ L 136-14 5 normal Not Available [address] [place], [address] 11/16/2023 03:48:52 11/16/1911/16/2023 COMPR EHENS BONY METAB OLIC PANEL potassium 4.4 mmol/ L 3.5-5. 1 normal Not Available [address] [place], [address] 11/16/2023 03:48:52 11/16/1911/16/2023 COMPR EHENS BONY METAB OLIC PANEL chloride 106 mmol/ L 98-107 normal Not Available [address] [place], [address] 11/16/2023 03:48:52 11/16/1911/16/2023 COMPR EHENS BONY METAB OLIC PANEL CO2 24.4 mmol/ L 21.0-3 2.0 normal Not Available [address] [place], [address] 11/16/2023 03:48:52 11/16/19 24 11/16/2023 COMPR EHENS BONY METAB OLIC PANEL anion gap 11.6 mmol/ L 3-11 high Not Available [address] [place], [address] 11/16/2023 03:48:52 11/16/19 24 11/16/2023 COMPR EHENS BONY METAB OLIC PANEL AST 32 U/L 15-37 normal Not Available Leo [address] [place], [address] 11/16/2023 03:48:52 11/16/19 24 11/16/2023 COMPR EHENS BONY METAB OLIC PANEL ALT 56 U/L 16-63 normal Not Available Leo [address] [place], [address] 11/16/2023 03:48:52 11/16/19 24 11/16/2023 MAGNE SIUM magnesium 2.0 mg/dL 1.8-2. 4 normal Not Available [address] [place], [address] 11/16/2023 03:48:53 11/16/1911/16/2023 TROPO SHANDRA I troponin I < 50 NG/L < or =60 Not Available [address] [place], [address] 11/16/2023 03:48:53 11/16/19 24 11/16/2023 MAGNE SIUM magnesium 2.0 mg/dL 1.8-2. 4 normal Not Available [address] [place], [address] 11/16/2023 05:10:55 11/16/1911/16/2023 NT-AL OBNP nt-probnp 6513 pg/mL <300 high NT-pr oBNP value s <300 pg/mL have a 98% negat bony predi ctive value for exclu ding acute conge stive heart failu re (CHF) . NT-pr oBNP value s >450 pg/mL are consi stent with CHF in adult s <50 years of age. A diagn ostic cut-o ff of 900 pg/mL has been sugge sted in adult s >50 years of age in the absen ce of renal failu re. A cut-o ff of 1200 pg/mL for patie nts with an eGFR less than 60 yield s a diagn ostic sensi tivit y and speci ficit y of 89% and 72% for acute conge stive failu re. NOTE: Supra -phys iolog ic doses of Bioti n(B7) may cause false negat bony resul ts. Not Available [address] [place], [address] 11/16/2023 05:10:56 11/16/19 24 11/16/2023 LAB ADD ON TEST lab add on test DONE Not Available [address] [place], [address] 11/16/2023 05:36:55 11/16/19 24 11/16/2023 LIPID 2 cholesterol 99 mg/dL <200 Not Available [address] [place], [address] 11/16/2023 05:43:55 11/16/19 24 11/16/2023 LIPID 2 triglyceride 75 mg/dL <150 Not Available [address] [place], [address] 11/16/2023 05:43:55 11/16/19 24 11/16/2023 LIPID 2 HDL cholesterol 33 mg/dL 40-60 low Not Available Guadalupe [address] [place], [address] 11/16/2023 05:43:55 11/16/1911/16/2023 LIPID 2 calculated LDL 51 mg/dL <100 Natio nal Fawn stero l Educa tion Progr am (NCEP -ATPI II) class ifica tions : Fawn stero l <200 mg/dL Tiki able Fawn stero l 200-2 39 mg/dL Borde rline High Fawn stero l >or=2 40 mg/dL High HDL <40 mg/dL Low HDL >or=6 0 mg/dL High LDL <100 mg/dL Optim al LDL 100-1 29 mg/dL Near Optim al/Ab ove Optim al LDL 130-1 59 mg/dL Borde rline High LDL 160-1 89 mg/dL High LDL >or=1 90 mg/dL Very High *The above refer ence range is for adult s 18 years or older . Not Available [address] [place], [address] 11/16/2023 05:43:55 11/16/19 24 11/16/2023 TSH (W/RE F FT4) TSH (w/ref FT4) 3.81 uIU/m L 0.36-3 .74 high Not Available [address] [place], [address] 11/16/2023 05:43:56 11/16/1911/16/2023 ETHYL ALCOH OL ethyl alcohol < 3.0 mg/dL <10 ETOH Refer ence Range = <10 mg/dL Legal Limit of Intox icati on is 80 mg/dL This test is inten ded only for Medic al purpo ses. Divid e resul t by 1000 to conve rt to %(w/v ) Not Available [address] [place], [address] 11/16/2023 05:55:56 11/16/19 24 11/16/2023 LIPID 2 cholesterol 99 mg/dL <200 Not Available [address] [place], [address] 11/16/2023 06:02:57 11/16/1911/16/2023 LIPID 2 triglyceride 75 mg/dL <150 Not Available [address] [place], [address] 11/16/2023 06:02:57 11/16/1911/16/2023 LIPID 2 HDL cholesterol 33 mg/dL 40-60 low Not Available Guadalupe [address] [place], [address] 11/16/2023 06:02:57 11/16/1911/16/2023 LIPID 2 calculated LDL 51 mg/dL <100 Natio nal Fawn stero l Educa tion Progr am (NCEP -ATPI II) class ifica tions : Fawn stero l <200 mg/dL Tiki able Fawn stero l 200-2 39 mg/dL Borde rline High Fawn stero l >or=2 40 mg/dL High HDL <40 mg/dL Low HDL >or=6 0 mg/dL High LDL <100 mg/dL Optim al LDL 100-1 29 mg/dL Near Optim al/Ab ove Optim al LDL 130-1 59 mg/dL Borde rline High LDL 160-1 89 mg/dL High LDL >or=1 90 mg/dL Very High *The above refer ence range is for adult s 18 years or older . Not Available [address] [place], [address] 11/16/2023 06:02:57 11/16/19 24 11/16/2023 TSH (W/RE F FT4) TSH (w/ref FT4) 3.81 uIU/m L 0.36-3 .74 high Not Available [address] [place], [address] 11/16/2023 06:02:57 11/16/19 24 11/16/2023 FREE T4 free T4 1.32 NG/dL 0.76-1 .46 normal Not Available [address] [place], [address] 11/16/2023 06:02:58 11/16/1911/16/2023 LAB ADD ON TEST lab add on test DONE Not Available Gorhamjames beal [address] [place], [address] 11/16/2023 07:10:02 11/16/19 24 11/16/2023 TROPO SHANDRA I troponin I < 50 NG/L < or =60 Not Available [address] [place], [address] 11/16/2023 07:17:04 11/16/1911/16/2023 URINE DRUG SCREE N ([facility] ) methadone Negati ve negati ve Not Available [address] [place], [address] 11/16/2023 13:39:02 11/16/19 24 11/16/2023 URINE DRUG SCREE N ([facility] ) benzodiazepi terrie Negati ve negati ve Benzo diaze pines are exten sivel y metab olize d and the paren t compo und may not be detec orlando in urine . If clini lucinda suspi cion is high, pleas e notif y Lab for send- out testi ng. Not Available [address] [place], [address] 11/16/2023 13:39:02 11/16/19 24 11/16/2023 URINE DRUG SCREE N ([facility] ) cocaine Negati ve negati ve Not Available [address] [place], [address] 11/16/2023 13:39:02 11/16/19 24 11/16/2023 URINE DRUG SCREE N ([facility] ) amphetamines Negati ve negati ve Not Available [address] [place], [address] 11/16/2023 13:39:02 11/16/19 24 11/16/2023 URINE DRUG SCREE N ([facility] ) tetrahydroca nnabinol Negati ve negati ve Not Available [address] [place], [address] 11/16/2023 13:39:02 11/16/19 24 11/16/2023 URINE DRUG SCREE N ([facility] ) opiates Negati ve negati ve Not Available [address] [place], [address] 11/16/2023 13:39:02 11/16/19 24 11/16/2023 URINE DRUG SCREE N ([facility] ) barbiturates Negati ve negati ve Not Available [address] [place], [address] 11/16/2023 13:39:02 11/16/19 24 11/16/2023 URINE DRUG SCREE N ([facility] ) tricyclic antidepressa nts Negati ve negati ve T his test is not suita ble for legal purpo ses Cutof f vernell ntrat ions for each drug class are: MTD 300 ng/mL BZO 200 ng/mL BANG 300 ng/mL * AMP 1000 ng/mL * THC 50 ng/mL OPI 300 ng/mL BAR 200 ng/mL TCA 1000 ng/mL *Francisco mmend ed scree mary cutof f vernell ntrat ions by the subst ance abuse and menta l healt h servi ruthie admin istra tion. This test provi john preli minar y resul ts. A more speci fic alter marisela metho d such as GC/MS is the prefe rred confi rmato ry metho d. Notif y the Labor atory withi n 72 hours of repor t date if you tiki e confi rmati on. Presc ribed medic ation s may give posit bony resul ts and must be consi dered prior to inter preta tion of these resul ts. Not Available [address] [facility] [place], [address] 11/16/2023 13:39:02 11/16/1911/16/2023 URINA LYSIS color Yellow yellow Not Available Leo caballero [address] [facility] [place], [address] 11/16/2023 21:58:04 11/16/19 24 11/16/2023 URINA LYSIS clarity Clear clear Not Available Leo caballero [address] [place], [address] 11/16/2023 21:58:04 11/16/19 24 11/16/2023 URINA LYSIS specific gravity 1.010 1.005- 1.025 normal Not Available [address] [place], [address] 11/16/2023 21:58:04 11/16/19 24 11/16/2023 URINA LYSIS pH 5.5 5-8 normal Not Available Leo caballero [address] [place], [address] 11/16/2023 21:58:04 11/16/19 24 11/16/2023 URINA LYSIS leukocyte esterase Negati ve negati ve Not Available [address] [facility] [place], [address] 11/16/2023 21:58:04 11/16/19 24 11/16/2023 URINA LYSIS nitrite Negati ve negati ve Not Available [address] [place], [address] 11/16/2023 21:58:04 11/16/19 24 11/16/2023 URINA LYSIS protein Negati ve mg/dL neg-tr rut Not Available [address] [place], [address] 11/16/2023 21:58:04 11/16/19 24 11/16/2023 URINA LYSIS glucose Negati ve mg/dL negati ve Not Available [address] [place], [address] 11/16/2023 21:58:04 11/16/19 24 11/16/2023 URINA LYSIS ketones Negati ve mg/dL negati ve Not Available [address] [place], [address] 11/16/2023 21:58:04 11/16/19 24 11/16/2023 URINA LYSIS urobilinogen 0.2 mg/dL up to 0.2 Not Available [address] [place], [address] 11/16/2023 21:58:04 11/16/19 24 11/16/2023 URINA LYSIS bilirubin Negati ve negati ve Not Available [address] [place], [address] 11/16/2023 21:58:04 11/16/1911/16/2023 URINA LYSIS blood Negati ve negati ve Not Available [address] [place], [address] 11/16/2023 21:58:04 11/17/19 24 11/17/2023 BASIC METAB OLIC PANEL calcium 8.9 mg/dL 8.5-10 .1 normal Not Available [address] [place], [address] 11/17/2023 06:51:32 11/17/19 24 11/17/2023 BASIC METAB OLIC PANEL glucose 113 mg/dL 74-106 high Not Available Leo caballero [address] [place], [address] 11/17/2023 06:51:32 11/17/19 24 11/17/2023 BASIC METAB OLIC PANEL BUN 24 mg/dL 7-18 high Not Available Leo caballero [address] [place], [address] 11/17/2023 06:51:32 11/17/19 24 11/17/2023 BASIC METAB OLIC PANEL creatinine 1.5 mg/dL 0.70-1 .30 high Not Available [address] [place], [address] 11/17/2023 06:51:32 11/17/19 24 11/17/2023 BASIC METAB OLIC PANEL estimated GFR 56.37 mL/min /1.73m 2 The eGFR is calcu lated from a serum creat inine using the CKD-E PI 2020 equat ion. Other varia bles requi red for the equat ion are gende r and age; this equat ion does not inclu de a race coeff icien t. This equat ion has simil ar overa ll perfo rmanc e to previ ous equat ions excep t value s may diffe r, in parti cular , in patie nts with highe r value s of eGFR and young er-ag ed adult s. Not Available [address] [place], [address] 11/17/2023 06:51:32 11/17/19 24 11/17/2023 BASIC METAB OLIC PANEL sodium 135 mmol/ L 136-14 5 low Not Available [address] [place], [address] 11/17/2023 06:51:32 11/17/19 24 11/17/2023 BASIC METAB OLIC PANEL potassium 3.4 mmol/ L 3.5-5. 1 low Not Available [address] [place], [address] 11/17/2023 06:51:32 11/17/19 24 11/17/2023 BASIC METAB OLIC PANEL chloride 102 mmol/ L 98-107 normal Not Available [address] [place], [address] 11/17/2023 06:51:32 11/17/19 24 11/17/2023 BASIC METAB OLIC PANEL CO2 25.1 mmol/ L 21.0-3 2.0 normal Not Available [address] [place], [address] 11/17/2023 06:51:32 11/17/19 24 11/17/2023 BASIC METAB OLIC PANEL anion gap 7.9 mmol/ L 3-11 normal Not Available [address] [place], [address] 11/17/2023 06:51:32 11/18/19 24 11/18/2023 COMPL ETE BLOOD COUNT NO DIFF WBC 9.69 10_3/ uL 4.4-10 .8 normal Not Available [address] [place], [address] 11/18/2023 06:24:15 11/18/1911/18/2023 COMPL ETE BLOOD COUNT NO DIFF RBC 4.75 10_6/ uL 4.36-5 .78 normal Not Available [address] [place], [address] 11/18/2023 06:24:15 11/18/19 24 11/18/2023 COMPL ETE BLOOD COUNT NO DIFF HGB 14.5 g/dL 13.5-1 7.5 normal Not Available [address] [place], [address] 11/18/2023 06:24:15 11/18/1911/18/2023 COMPL ETE BLOOD COUNT NO DIFF HCT 42.9 % 40.0-5 0.0 normal Not Available [address] [place], [address] 11/18/2023 06:24:15 11/18/1911/18/2023 COMPL ETE BLOOD COUNT NO DIFF MCV 90 fL 80-95 normal Not Available Leo caballero [address] [place], [address] 11/18/2023 06:24:15 11/18/1911/18/2023 COMPL ETE BLOOD COUNT NO DIFF MCH 30.5 pg 27.0-3 3.0 normal Not Available [address] [place], [address] 11/18/2023 06:24:15 11/18/19 24 11/18/2023 COMPL ETE BLOOD COUNT NO DIFF MCHC 33.8 % 32.0-3 6.0 normal Not Available [address] [place], [address] 11/18/2023 06:24:15 11/18/1911/18/2023 COMPL ETE BLOOD COUNT NO DIFF RDW 14.0 % 11.8-1 4.1 normal Not Available [address] [place], [address] 11/18/2023 06:24:15 11/18/1911/18/2023 COMPL ETE BLOOD COUNT NO DIFF platelet count 227 10_3/ uL 130-40 0 normal Not Available [address] [place], [address] 11/18/2023 06:24:15 11/18/1911/18/2023 COMPL ETE BLOOD COUNT NO DIFF MPV 11.0 fL 8.0-11 .0 normal Not Available [address] [place], [address] 11/18/2023 06:24:15 11/18/1911/18/2023 BASIC METAB OLIC PANEL calcium 9.0 mg/dL 8.5-10 .1 normal Not Available [address] [place], [address] 11/18/2023 06:41:16 11/18/1911/18/2023 BASIC METAB OLIC PANEL glucose 117 mg/dL 74-106 high Not Available Leo caballero [address] [place], [address] 11/18/2023 06:41:16 11/18/1911/18/2023 BASIC METAB OLIC PANEL BUN 22 mg/dL 7-18 high Not Available Leo caballero [address] [place], [address] 11/18/2023 06:41:16 11/18/1911/18/2023 BASIC METAB OLIC PANEL creatinine 1.3 mg/dL 0.70-1 .30 normal Not Available [address] [place], [address] 11/18/2023 06:41:16 09/05/20 24 11/18/2023 BASIC METAB OLIC PANEL estimated GFR 66.93 mL/min /1.73m 2 The eGFR is calcu lated from a serum creat inine using the CKD-E PI 2020 equat ion. Other varia bles requi red for the equat ion are gende r and age; this equat ion does not inclu de a race coeff icien t. This equat ion has simil ar overa ll perfo rmanc e to previ ous equat ions excep t value s may diffe r, in parti cular , in patie nts with highe r value s of eGFR and young er-ag ed adult s. Not Available [address] [place], [address] 11/18/2023 06:41:16 11/18/1911/18/2023 BASIC METAB OLIC PANEL sodium 139 mmol/ L 136-14 5 normal Not Available [address] [place], [address] 11/18/2023 06:41:16 11/18/1911/18/2023 BASIC METAB OLIC PANEL potassium 3.7 mmol/ L 3.5-5. 1 normal Not Available [address] [place], [address] 11/18/2023 06:41:16 11/18/1911/18/2023 BASIC METAB OLIC PANEL chloride 105 mmol/ L 98-107 normal Not Available [address] [place], [address] 11/18/2023 06:41:16 11/18/1911/18/2023 BASIC METAB OLIC PANEL CO2 25.5 mmol/ L 21.0-3 2.0 normal Not Available [address] [place], [address] 11/18/2023 06:41:16 11/18/1911/18/2023 BASIC METAB OLIC PANEL anion gap 8.5 mmol/ L 3-11 normal Not Available [address] [place], [address] 11/18/2023 06:41:16 11/18/1911/18/2023 LAB ADD ON TEST lab add on test DONE Not Available Yasmeen beal [address] [place], [address] 11/18/2023 09:06:46 11/18/1911/18/2023 MAGNE SIUM magnesium 2.1 mg/dL 1.8-2. 4 normal Not Available [address] [place], [address] 11/18/2023 09:35:52 11/19/19 24 11/19/2023 BASIC METAB OLIC PANEL calcium 9.0 mg/dL 8.5-10 .1 normal Not Available [address] [place], [address] 11/19/2023 06:18:11 11/19/19 24 11/19/2023 BASIC METAB OLIC PANEL glucose 110 mg/dL 74-106 high Not Available Leo caballero [address] [place], [address] 11/19/2023 06:18:11 11/19/19 24 11/19/2023 BASIC METAB OLIC PANEL BUN 24 mg/dL 7-18 high Not Available Leo caballero [address] [place], [address] 11/19/2023 06:18:11 11/19/19 24 11/19/2023 BASIC METAB OLIC PANEL creatinine 1.5 mg/dL 0.70-1 .30 high Not Available [address] [place], [address] 11/19/2023 06:18:11 11/19/19 24 11/19/2023 BASIC METAB OLIC PANEL estimated GFR 56.37 mL/min /1.73m 2 The eGFR is calcu lated from a serum creat inine using the CKD-E PI 2020 equat ion. Other varia bles requi red for the equat ion are gende r and age; this equat ion does not inclu de a race coeff icien t. This equat ion has simil ar overa ll perfo rmanc e to previ ous equat ions excep t value s may diffe r, in parti cular , in patie nts with highe r value s of eGFR and young er-ag ed adult s. Not Available [address] [place], [address] 11/19/2023 06:18:11 11/19/19 24 11/19/2023 BASIC METAB OLIC PANEL sodium 136 mmol/ L 136-14 5 normal Not Available [address] [place], [address] 11/19/2023 06:18:11 11/19/19 24 11/19/2023 BASIC METAB OLIC PANEL potassium 4.2 mmol/ L 3.5-5. 1 normal Not Available [address] [place], [address] 11/19/2023 06:18:11 11/19/19 24 11/19/2023 BASIC METAB OLIC PANEL chloride 105 mmol/ L 98-107 normal Not Available [address] [place], [address] 11/19/2023 06:18:11 11/19/19 24 11/19/2023 BASIC METAB OLIC PANEL CO2 23.4 mmol/ L 21.0-3 2.0 normal Not Available [address] [place], [address] 11/19/2023 06:18:11 11/19/19 24 11/19/2023 BASIC METAB OLIC PANEL anion gap 7.6 mmol/ L 3-11 normal Not Available [address] [place], [address] 11/19/2023 06:18:11 11/19/19 24 11/19/2023 MAGNE SIUM magnesium 2.0 mg/dL 1.8-2. 4 normal Not Available [address] [place], [address] 11/19/2023 06:18:11 11/20/19 24 11/20/2023 COMPL ETE BLOOD COUNT NO DIFF WBC 12.20 10_3/ uL 4.4-10 .8 high Not Available [address] [place], [address] 11/20/2023 07:11:09 11/20/19 24 11/20/2023 COMPL ETE BLOOD COUNT NO DIFF RBC 5.15 10_6/ uL 4.36-5 .78 normal Not Available [address] [place], [address] 11/20/2023 07:11:09 11/20/19 24 11/20/2023 COMPL ETE BLOOD COUNT NO DIFF HGB 15.5 g/dL 13.5-1 7.5 normal Not Available [address] [place], [address] 11/20/2023 07:11:09 11/20/19 24 11/20/2023 COMPL ETE BLOOD COUNT NO DIFF HCT 46.1 % 40.0-5 0.0 normal Not Available [address] [place], [address] 11/20/2023 07:11:09 11/20/1911/20/2023 COMPL ETE BLOOD COUNT NO DIFF MCV 90 fL 80-95 normal Not Available Leo [address] [place], [address] 11/20/2023 07:11:09 11/20/19 24 11/20/2023 COMPL ETE BLOOD COUNT NO DIFF MCH 30.1 pg 27.0-3 3.0 normal Not Available [address] [place], [address] 11/20/2023 07:11:09 11/20/19 24 11/20/2023 COMPL ETE BLOOD COUNT NO DIFF MCHC 33.6 % 32.0-3 6.0 normal Not Available [address] [place], [address] 11/20/2023 07:11:09 11/20/19 24 11/20/2023 COMPL ETE BLOOD COUNT NO DIFF RDW 14.7 % 11.8-1 4.1 high Not Available [address] [place], [address] 11/20/2023 07:11:09 11/20/19 24 11/20/2023 COMPL ETE BLOOD COUNT NO DIFF platelet count 152 10_3/ uL 130-40 0 normal Not Available [address] [place], [address] 11/20/2023 07:11:09 11/20/19 24 11/20/2023 COMPL ETE BLOOD COUNT NO DIFF MPV 13.5 fL 8.0-11 .0 high Not Available [address] [place], [address] 11/20/2023 07:11:09 11/20/19 24 11/20/2023 COMPR EHENS BONY METAB OLIC PANEL calcium 9.0 mg/dL 8.5-10 .1 normal Not Available [address] [place], [address] 11/20/2023 07:18:13 11/20/19 24 11/20/2023 COMPR EHENS BONY METAB OLIC PANEL glucose 127 mg/dL 74-106 high Not Available Leo caballero [address] [place], [address] 11/20/2023 07:18:13 11/20/19 24 11/20/2023 COMPR EHENS BONY METAB OLIC PANEL BUN 30 mg/dL 7-18 high Not Available Leo caballero [address] [place], [address] 11/20/2023 07:18:13 11/20/19 24 11/20/2023 COMPR EHENS BONY METAB OLIC PANEL creatinine 1.3 mg/dL 0.70-1 .30 normal Not Available [address] [place], [address] 11/20/2023 07:18:13 11/20/19 24 11/20/2023 COMPR EHENS BONY METAB OLIC PANEL estimated GFR 66.93 mL/min /1.73m 2 The eGFR is calcu lated from a serum creat inine using the CKD-E PI 2020 equat ion. Other varia bles requi red for the equat ion are gende r and age; this equat ion does not inclu de a race coeff icien t. This equat ion has simil ar overa ll perfo rmanc e to previ ous equat ions excep t value s may diffe r, in parti cular , in patie nts with highe r value s of eGFR and young er-ag ed adult s. Not Available [address] [place], [address] 11/20/2023 07:18:13 11/20/19 24 11/20/2023 COMPR EHENS BONY METAB OLIC PANEL total protein 6.7 g/dL 6.4-8. 2 normal Not Available [address] [place], [address] 11/20/2023 07:18:13 11/20/19 24 11/20/2023 COMPR EHENS BONY METAB OLIC PANEL albumin 3.0 g/dL 3.4-5. 0 low Not Available [address] [place], [address] 11/20/2023 07:18:13 11/20/19 24 11/20/2023 COMPR EHENS BONY METAB OLIC PANEL bilirubin, total 0.76 mg/dL 0.2-1. 0 normal Not Available [address] [place], [address] 11/20/2023 07:18:13 11/20/19 24 11/20/2023 COMPR EHENS BONY METAB OLIC PANEL alk phos 82 U/L 46-116 normal Not Available [address] [place], [address] 11/20/2023 07:18:13 11/20/19 24 11/20/2023 COMPR EHENS BONY METAB OLIC PANEL sodium 133 mmol/ L 136-14 5 low Not Available [address] [place], [address] 11/20/2023 07:18:13 11/20/19 24 11/20/2023 COMPR EHENS BONY METAB OLIC PANEL potassium 4.5 mmol/ L 3.5-5. 1 normal Not Available [address] [place], [address] 11/20/2023 07:18:13 11/20/19 24 11/20/2023 COMPR EHENS BONY METAB OLIC PANEL chloride 104 mmol/ L 98-107 normal Not Available [address] [place], [address] 11/20/2023 07:18:13 11/20/19 24 11/20/2023 COMPR EHENS BONY METAB OLIC PANEL CO2 17.7 mmol/ L 21.0-3 2.0 low Not Available [address] [place], [address] 11/20/2023 07:18:13 11/20/1911/20/2023 COMPR EHENS BONY METAB OLIC PANEL anion gap 11.3 mmol/ L 3-11 high Not Available [address] [place], [address] 11/20/2023 07:18:13 11/20/1911/20/2023 COMPR EHENS BONY METAB OLIC PANEL AST 31 U/L 15-37 normal Not Available Leo caballero [address] [place], [address] 11/20/2023 07:18:13 11/20/1911/20/2023 COMPR EHENS BONY METAB OLIC PANEL ALT 47 U/L 16-63 normal Not Available Leo [address] [place], [address] 11/20/2023 07:18:13 11/21/1911/21/2023 COMPL ETE BLOOD COUNT NO DIFF WBC 11.35 10_3/ uL 4.4-10 .8 high Not Available [address] [place], [address] 11/21/2023 06:15:48 11/21/1911/21/2023 COMPL ETE BLOOD COUNT NO DIFF RBC 4.76 10_6/ uL 4.36-5 .78 normal Not Available [address] [place], [address] 11/21/2023 06:15:48 11/21/1911/21/2023 COMPL ETE BLOOD COUNT NO DIFF HGB 14.1 g/dL 13.5-1 7.5 normal Not Available [address] [place], [address] 11/21/2023 06:15:48 11/21/1911/21/2023 COMPL ETE BLOOD COUNT NO DIFF HCT 43.4 % 40.0-5 0.0 normal Not Available [address] [place], [address] 11/21/2023 06:15:48 11/21/1911/21/2023 COMPL ETE BLOOD COUNT NO DIFF MCV 91 fL 80-95 normal Not Available Leo caballero [address] [place], [address] 11/21/2023 06:15:48 11/21/19 24 11/21/2023 COMPL ETE BLOOD COUNT NO DIFF MCH 29.6 pg 27.0-3 3.0 normal Not Available [address] [place], [address] 11/21/2023 06:15:48 11/21/19 24 11/21/2023 COMPL ETE BLOOD COUNT NO DIFF MCHC 32.5 % 32.0-3 6.0 normal Not Available [address] [place], [address] 11/21/2023 06:15:48 11/21/19 24 11/21/2023 COMPL ETE BLOOD COUNT NO DIFF RDW 14.6 % 11.8-1 4.1 high Not Available [address] [place], [address] 11/21/2023 06:15:48 11/21/1911/21/2023 COMPL ETE BLOOD COUNT NO DIFF platelet count 231 10_3/ uL 130-40 0 Not Available [address] [place], [address] 11/21/2023 06:15:48 11/21/19 24 11/21/2023 COMPL ETE BLOOD COUNT NO DIFF MPV 11.3 fL 8.0-11 .0 high Not Available [address] [place], [address] 11/21/2023 06:15:48 11/21/19 24 11/21/2023 COMPR EHENS BONY METAB OLIC PANEL calcium 8.9 mg/dL 8.5-10 .1 normal Not Available [address] [place], [address] 11/21/2023 06:38:52 11/21/19 24 11/21/2023 COMPR EHENS BONY METAB OLIC PANEL glucose 100 mg/dL 74-106 normal Not Available Leo caballero [address] [place], [address] 11/21/2023 06:38:52 11/21/19 24 11/21/2023 COMPR EHENS BONY METAB OLIC PANEL BUN 27 mg/dL 7-18 high Not Available Leo caballero [address] [place], [address] 11/21/2023 06:38:52 11/21/19 24 11/21/2023 COMPR EHENS BONY METAB OLIC PANEL creatinine 1.4 mg/dL 0.70-1 .30 high Not Available [address] [place], [address] 11/21/2023 06:38:52 11/21/19 24 11/21/2023 COMPR EHENS BONY METAB OLIC PANEL estimated GFR 61.23 mL/min /1.73m 2 The eGFR is calcu lated from a serum creat inine using the CKD-E PI 2020 equat ion. Other varia bles requi red for the equat ion are gende r and age; this equat ion does not inclu de a race coeff icien t. This equat ion has simil ar overa ll perfo rmanc e to previ ous equat ions excep t value s may diffe r, in parti cular , in patie nts with highe r value s of eGFR and young er-ag ed adult s. Not Available [address] [place], [address] 11/21/2023 06:38:52 11/21/19 24 11/21/2023 COMPR EHENS BONY METAB OLIC PANEL total protein 6.3 g/dL 6.4-8. 2 low Not Available [address] [place], [address] 11/21/2023 06:38:52 11/21/19 24 11/21/2023 COMPR EHENS BONY METAB OLIC PANEL albumin 3.0 g/dL 3.4-5. 0 low Not Available [address] [place], [address] 11/21/2023 06:38:52 11/21/19 24 11/21/2023 COMPR EHENS BONY METAB OLIC PANEL bilirubin, total 1.14 mg/dL 0.2-1. 0 high Not Available [address] [place], [address] 11/21/2023 06:38:52 11/21/1911/21/2023 COMPR EHENS BONY METAB OLIC PANEL alk phos 76 U/L 46-116 normal Not Available [address] [place], [address] 11/21/2023 06:38:52 11/21/1911/21/2023 COMPR EHENS BONY METAB OLIC PANEL sodium 137 mmol/ L 136-14 5 normal Not Available [address] [place], [address] 11/21/2023 06:38:52 11/21/1911/21/2023 COMPR EHENS BONY METAB OLIC PANEL potassium 4.0 mmol/ L 3.5-5. 1 normal Not Available [address] [place], [address] 11/21/2023 06:38:52 11/21/19 24 11/21/2023 COMPR EHENS BONY METAB OLIC PANEL chloride 104 mmol/ L 98-107 normal Not Available [address] [place], [address] 11/21/2023 06:38:52 11/21/1911/21/2023 COMPR EHENS BONY METAB OLIC PANEL CO2 24.2 mmol/ L 21.0-3 2.0 normal Not Available [address] [place], [address] 11/21/2023 06:38:52 11/21/19 24 11/21/2023 COMPR EHENS BONY METAB OLIC PANEL anion gap 8.8 mmol/ L 3-11 normal Not Available [address] [place], [address] 11/21/2023 06:38:52 11/21/1911/21/2023 COMPR EHENS BONY METAB OLIC PANEL AST 20 U/L 15-37 normal Not Available Leo [address] [place], [address] 11/21/2023 06:38:52 11/21/19 24 11/21/2023 COMPR EHENS BONY METAB OLIC PANEL ALT 38 U/L 16-63 normal Not Available Leo caballero [facility] [address] [place], [address] 11/21/2023 06:38:52 09/22/19 24 09/22/2023 ultra sound imagi ng repor t Patien t Name: Shankar mocks,Br et U Unit #: [id number] Loc: ER Orderi ng Provid er: Irvin Bains M.D. Accoun t #: [id number] Status : REG ER Primar y Care Provid er: Jacques Brown M.D. Date of Exam: Sex: M Admiss ion Date: : 1970 Age: 52 Exam(s ) US SCROTU M EXAM: US SCROTU M CLINIC AL HISTOR Y: left testic ular pain, possib le hernia . TECHNI QUE: Scrota l ultras ound perfor med using graysc ana, color- flow and spectr al Dopple r analys is. COMPAR GURDEEP: No exams were availa ble for compar gurdeep FINDIN GS: RIGHT TESTIC LE: 3.8 x 1.9 x 2.6 cm Echoge nicity : Normal . Contou r: Smooth . Mass: None seen. Microl ithias is: None. Hydroc ann marie: None. Varico scott: Vessel s mildly dilate d 3 millim eters. Hernia : No perist alsing bowel loop identi fied. Epidid ymis: Normal . Scrotu m: Normal . No hernia is identi fied LEFT TESTIC LE: 3.7 x 1.9 x 2.9 cm Echoge nicity : Normal . Contou r: Smooth . Mass: None seen. Microl ithias is: None. Hydroc ann marie: None. Varico scott: Vessel s mildly dilate d to 3 millim eters. Hernia : No perist alsing bowel loop identi fied. Epidid ymis: 6 millim eter sperma tocele . Hypere cindi in epidid ymal head could indica te epidid ymitis . Scrotu m: Normal . Hernia s identi fied. DOPPLE R: Color: Hypere cindi to the left testic le consis tent with orchit is. Duplex : Bilate ral testic ular arteri al wavefo kaycee visual ized. IMPRES DENIA: Hypere cindi in the left epidid ymis and testic le consis tent epidid ymo-or chitis . DATA REPOSI TORY: Ivorye d By: Irvin Bains M.D. CC: ------ ------ ------ ------ ------ ------ ------ ------ ------ ------ ------ ------ - Dictat ed By: Sudarshan Harden 931 Transc ribed By: Nick Garcai 931 This is privil eged, confid ential inform ation intend ed only for the provid er named. Any use or distri bution by any person other than this provid er is strict ly prohib ited. If you receiv e this report in error, please notify us immedi ately at [phone] and return the origin al report to us at the addres s above. Thank- you. [email or web address] [place] [address], [place], [address] 09/22/2023 14:55:25 11/08/1911/04/2023 US, lower back No observ ation record ed. [email or web address] [address], [place], [address], 11/11/2023 08:07:16 11/09/1911/10/2023 elect cristina christianson am No observ ation record ed. [email or web address] [address], [address], 11/10/2023 13:02:09 11/09/19 elect cristina christianson am No observ ation record ed. [email or web address] Not Available 2023 13:01:47 11/16/19 24 11/16/2023 vrad repor t Ponce t Name: Garth Jackson U Unit #: [id number] Loc: ER Orderi lin Rodgers er: Jarrod sy #: [id number] Status : REG ER Primar y [...] of the chest. Views: 1 view. COMPAR GURDEEP: CR XR PORTAB LE CHEST AP 019 10:24 AM FINDIN GS: Lungs: Unrema rkable . No consol idatio n. Pleura l spaces : Unrema rkable . No pleura l effusi on. No pneumo thorax . Heart/ Medias tinum: Unrema rkable . No cardio megaly . Bones/ joints : Unrema rkable . IMPRES DENIA: No acute findin gs. Dictat ed and Authen kristineate d by: Robin oswald MD. Dwain ng:Antonette Singh MD Access ion#=[id number] Orderjames d By: CC: ------ ------ ------ ------ ------ ------ ------ ------ ------ ------ ------ ------ ---- Dictat ed By: Report s vrad [id number] 041 Transc ribed By: Hallie Casiano 346 This is privil eged, confid ential [...] at the addres s above. Thank- you. [email or web address] [facility] [address] [place], [address] 11/16/2023 11:24:54 11/16/19 24 11/16/2023 x-ray imagi ng karen Serra t Name: Danny Jackson et U Unit #: [id number] Loc: ICU Orderi ng Provid er: Francisco Lopes M.D. Accoun t #: [id number] Status : ADM IN Primar y Care [facility] er: Jacques Brown M.D. Date of Exam: Sex: M Admiss ion Date: : 1970 Age: 52 Exam(s ) XR PORTAB LE CHEST AP EXAM: XR PORTAB LE CHEST AP CLINIC AL HISTOR Y: SOB TECHNI QUE: 2D digita l imagin g was perfor med of the chest. One image was obtain ed. An AP view was obtain ed. COMPAR GURDEEP: CR XR PORTAB LE CHEST AP from 2018 FINDIN GS: MEDIAS TINUM: Normal . HEART: The heart is at the upper limits of normal . PULMON SHAYLA VASCUL ATURE: Normal . LUNGS: No focal consol idatin g infilt rates. PLEURA L SPACE: No pleura l effusi on or pneumo thorax . BONE:W ithin normal limits for the patien t's age. OTHER FINDIN GS:Nor mal. IMPRES DENIA: No focal consol idatin g infilt rates. If sympto ms jeanna sy, a repeat chest x-ray may be obtain ed. DATA REPOSI TORY: RADIAT ION DOSE DELIVE RED: Hallie meyer By: Francisco Lopes M.D. CC: ------ ------ [...] error, please notify us immedi ately at [phone] and return the origin al report to us at the addres s above. Thank- you. [email or web address] [facility] [address], [place], [address] 11/16/2023 14:40:58 11/16/19 24 11/16/2023 ultra sound imagi ng repor t Patien t Name: Lis Jackson Unit #: [id number] Loc: ICU Orderi ng Provid er: Cynthia Foote M.D. Accoun t #: [id number] Status : ADM IN Primar y Care Provid er: Jacques Brown M.D. Date of Exam: Sex: M Admiss ion Date: : 1970 Age: 52 ------ ------ --- APPROV ED REPORT ------ ------ -- EXAM: Compre hensiv e 2D, Dopple r, and color- flow Echoca rdiogr am Patien t Locati on: In-Pat ient Room/B ed: [id number] Sonogr apher: Alison Dickson RDCS (AE) Indica tions: A FIB Other Inform ation Study Qualit y: Fair. Techni adelina limite d study due to body habitu s, inabil ity to positi on patien t exam done supine bedsid e, arrhyt hmia. Conclu denia Normal left ventri cular wall thickn ess [...] 40.5mm Hg. Pulmon ic Valve The pulmon shayla valve is normal in struct ure. There [...] 5.20 cm2 MV VTI 0.265 m Pulmon shayla Valve PV Vmax 0.70 (0.5-1 .5 m/s) RVOT Vmax 0.39 m/s PV Peak Grad 2.0 mmHg RVOT Peak Gr. 0.6 mmHg PV Mean Fritz 0.42 m/s RVOT VTI 0.080 m PV Mean Grad 0.8 mmHg RVOT Mean Gr. 0.3 mmHg Tricus pid Valve RA Pressu re 8.00 mmHg TR Vmax 2.84 m/s TV S' 0.13 m/s TR Peak Grad 32.5 mmHg RVSP (TR) 40.5 mmHg Ordere d By: Cynthia Foote M.D. CC: ------ ------ ------ ------ ------ ------ ------ ------ ------ ------ ------ ------ - Dictat ed By: Asuncion Tellez M.D. 1526 1559 Transc ribed By: Asuncion Tellez MD 1526 This is privil eged, [...] at the addres s above. Thank- you. [email or web address] [facility] [address] [place], [address] 11/17/2023 12:36:00 11/18/19 24 11/18/2023 event monit or CARDIA C EVENT RECORD ER REPORT PONCE Sy NAME: Bourge ois,Br et U UNIT #: [id number] ORDERI NG PROVID ER: ACCENO T #: [id number] PRIMAR Y CARE PROVID ER: YAEL BROWN MD Y DATE/T JOAQUIN OF S ERVICE : : 1970 Date of servic e: Time of Servic e: 08:30 Cardia c Event Record er Referr ing Provid er:: Mary Mayorga Indica tions: : Unspec ified atrial flutte r Cardia c Event Note: This is a cardia c event monito r. Ponce sy was monito red for 10 days and [...] m 232 There were no appare nt ponce t sympto ms CC: ------ ------ ------ ------ ------ ------ ------ ------ ------ ------ ------ ------ ------ ------ ------ ------ ---- -- Dictat ed by: RAFAT TELLEZ MD Dictat ed:: 4 30 0832 Transc ribed Date: Transc ribed Time: 829 By: RAMEZ This is privil eged, confid ential inform ation, intend ed only for the provid er named. Any use or distri bution by any person other than this provid er is strict ly prohib ited. If you receiv e this report in error, please notify us [email or web address] belen at and return the origin al report to us at the addres s above. Thank you. [address] [place], [address] 11/23/2023 16:26:18 11/18/19 24 11/18/2023 cardi ac monit or No observ ation record ed. [email or web address] [facility]- Cardiology [address] [place] [address] [place], [address], 11/18/2023 12:24:27 Result Notes None recorded. Problems Name Problem SNOMED Code Status Onset Date Resolution Date Notes Provider Name and Address Organization Details Recorded Time Daniel everett Amnisarash loaz 36521436 Active 201805/06/19 22 - Comments only - Mary WEBB - BP high today has not takin lisinopr il for 2-3 days. Previous ly taking 2 -10 mg tables. With patient permissi on I have sent for 20 mg tablets, take 1 daily. Problem Code: I10; Problem Code Type: ICD-10; [address], [place], [address] , [facility] 3 11:48:44 Adult health examinat ion Active 201805/06/19 22 - Comments only - Mary WEBB - Annual exam complete d at today's visit. [facility] ed routine visit to eye provider . [facility] COVID-19 VACCINAT ION: Per current guidelin es due for MRNA COVID-19 booster vaccinat ion. TETANUS VACCINAT ION: Administ ered 2019. PPSV23 VACCINAT ION: Administ ered in 2019. COLONOSC OPY: Elects not to complete until age 52, denies any family history of colon cancer. LIPIDS: Last complete d 2018. PSA: Will wait on screenin g until age 52, denies any history of prostate cancer. Problem Code: Z00.00; Problem Code Type: ICD-10; Not Available [facility] 3 03:49:54 Family history of Cardiova scular disease 551523986 Active 201810/28/19 19 - Comments only - Mary WEBB - Jorje voices his awarenes s of cardiac risk in regards to tobacco use. Will return for fasting labs to evaluate for hyperlip idemia. Problem Code: Z82.49; Problem Code Type: ICD-10; [address], [place], [address] , [facility] 3 11:48:31 Nicotine dependen ce 58790115 Active 201803/10/20 19 - Comments only - Mary VITALP - Satish continue s to abstain from tobacco. Problem Code: Z87.891; Problem Code Type: ICD-10; Not Available [facility] 3 03:49:54 Hyperlip idemia 12472711 Active 201801/19/20 20 - Comments only - Mary WEBB - Continue statin. Consider lipids at next visit. Problem Code: E78.5; Problem Code Type: ICD-10; [address], [place], [address] , [facility] 3 11:49:29 Cerebral infarcti on 518189449 Active 201801/19/20 20 - Comments only - Mary WEBB - Continue asprin 81mg daily. Denies any bleeding concenrs . Problem Code: I63.50; Problem Code Type: ICD-10; [address], [place], [address] , [facility] 3 11:49:24 Pain in thoracic spine 519125571 Completed 201803/12/2023 12/07/19 19 - Comments only - Mary VITALP - Satish has not taken anything for pain due [...] Problem Code Type: ICD-10; [address], [place], [address] , [facility] 3 11:49:05 Stress at work 354078153 Completed 202103/12/2023 05/06/19 22 - Comments only - Mary WEBB - [facility] ed to for mental health concerns that he feels warrant interven tion. Problem Code: Z56.6; Problem Code Type: ICD-10; [address], [place], [address] , [facility] 3 11:48:49 Pre-surg yanni testing Completed 201803/09/2019 Problem Code: Z01.812; Problem Code Type: ICD-10; Not Available [facility] 3 03:50:06 Cardiome fernando 7767543 Completed 201801/19/2020 Problem Code: I51.7; Problem Code Type: ICD-10; Not Available [facility] 3 03:50:07 Tobacco user 412672344 Completed 201812/09/2022 Problem Code: Z72.0; Problem Code Type: ICD-10; Not Available [facility] 3 03:50:10 Dizzines s and giddines s 866886647 Completed 201812/06/2018 Problem Code: R42; Problem Code Type: ICD-10; Not Available [facility] 3 03:50:11 Hyperlip idemia screenin g Completed 201812/09/2022 Problem Code: Z13.220; Problem Code Type: ICD-10; Not Available [facility] 3 03:50:12 Screenin g for cancer Completed 201803/09/2019 Problem Code: Z12.9; Problem Code Type: ICD-10; Not Available [facility] 3 03:50:13 Transien t cerebral ischemia 879686855 Completed 201812/06/2018 Problem Code: G45.9; Problem Code Type: ICD-10; Not Available [facility] 3 03:50:14 Elevated blood-pr essure reading without diagnosi s of hyperten denia 523467751 Completed 201812/09/2022 10/28/19 19 - Comments only - Mary Mayorga RELISH BLENDER - Blood pressure is quite elevated at today's visit. Jorje has not had medical care in some time, he agrees to follow-u p with fasting blood work and blood pressure check for further evaluati on. Problem Code: R03.0; Problem Code Type: ICD-10; [address], [place], [address] , [facility] 4 14:10:59 Varicose veins of lower extremit y 02408439 Active [address], [place], [address] , [facility], [facility] 3 12:33:56 Lipoma of skin 097506619 Active [address], [place], [address] , [facility], [facility] 4 14:09:57 Elevated blood-pr essure reading without diagnosi s of hyperten denia 272643648 Active 202310/28/19 19 - Comments only - Mary Mayorga RELISH BLENDER - Blood pressure is quite elevated at today's visit. Jorje has not had medical care in some time, he agrees to follow-u p with fasting blood work and blood pressure check for further evaluati on. Problem Code: R03.0; Problem Code Type: ICD-10; [address], [place], [address] , [facility], [facility]. 4 14:10:59 Blood glucose outside referenc e range 996982034 Active [address], [place], [address] , [facility]. 4 16:16:53 Atrial flutter 7228600 Active [address], [place], [address] , [facility] 4 16:17:01 Disorder of skin and/or subcutan eous tissue 00679281 Active [address], [place], [address] , [facility] 4 15:58:21 Tricuspi d valve regurgit ation 951105586 Active [address], [place], [address] , [facility] 4 12:35:15 Mitral valve regurgit ation 55569891 Active [address], [place], [address] , [facility] 4 12:35:27 Atrial fibrilla tion 93967785 Active 2023 VANDA lucas, [facility] 4 08:43:19 Problem Notes Documentation Provider Name and Address Organization Details Recorded Time Hospital Consultation - Cardiology : CARDIOLOGY CONSULTATION PATIENT NAME: Satish Vazquez UNIT #: [id number] ORDERING PROVIDER: PRIMARY CARE PROVIDER: ANTONIO BROWN MD DATE/TIME OF S ERVICE: 11/18/23 : 1970 Date of service: 11/18/23 Time of Service: 08:34 History of Present Illness Narrative: This is a 52-year-old man who has been in atrial fibrillation/flutter for several weeks. He just had an event monitor which disclosed his average heart rate was 145. He is now admitted to the hospital, found to have reduced left ventricular function. There have been difficulties controlling his rate. He is now on Eliquis for stroke prevention. Based on the records I cannot tell how long he has been anticoagulated. I suspect his LV dysfunction is due to uncontrolled rates of his atrial dysrhythmia If he has been anticoagulated for 4 weeks, we could do a cardioversion here. If it is less than 4 weeks, he should have a MAYDA cardioversion. I think this would be the best option for his care. I agree that Entresto should be considered as an alternative to lisinopril given his ejection fraction. 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 neurology, but treated with ASA/statin, 2019 Hyperlipidemia Hypertension Family History Father Heart disease massive [place] - from this Paternal Grandfather Heart disease Massive heart failure Mother Heart disease +CAD, Afib Hypertension Diabetes Maternal Grandfather Prostate cancer Social History (Updated 11/16/23 @ 08:24 by Kwame Branch) Smoking/Tobacco Use Status: Former Tobacco Use Quit Date: 11/03/18 Pack-years: 27 Tobacco: How many years used: 27 Counseling given: provider counseling, support medications and patient declined Smoking risk assessment performed?: Yes Alcohol Intake: current Alcohol Intake frequency: holidays/special occasions only Substance use type: does not use Household members: spouse Housing: house 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[employer], 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[employer] Do you feel safe at home: Yes Do you feel safe in your relationship?: Yes Additional Social history: Lives with and one adult child in [facility] Results Last Vital Signs Temp 36.3 C L 11/18/23 04:26 Pulse 128 H 11/18/23 08:01 Resp 20 11/18/23 08:01 BP 123/92 H 11/18/23 08:01 Pulse Ox 94 11/18/23 08:01 Labs 11/18/23 05:50 11/18/23 05:50 Labs: Laboratory Results - last 24 hr 11/18/23 05:50 WBC 9.69 RBC 4.75 Hgb 14.5 Hct 42.9 MCV 90 MCH 30.5 MCHC 33.8 RDW 14.0 Plt Count 227 MPV 11.0 Sodium 139 Potassium 3.7 Chloride 105 Carbon Dioxide 25.5 Anion Gap 8.5 BUN 22 H Creatinine 1.3 Est GFR (CKD-EPI 2020) 66.93 Glucose 117 H Calcium 9.0 CC: -- Dictated by: LENORA MAYS,ASUNCION ASHRAF Dictated:: [id number] Transcribed Date: 11/18/23 Transcribed Time: 833 By: RAMEZ This is privileged, confidential information, intended only for the provider named. Any use or distribution by any person other than this provider is strictly prohibited. If you receive this report in error, please notify us immediately at [phone] and return the original report to us at the address above. Thank you. [address], [place], [address], [facility]. 11/23/2023 17:00:59 Procedures Surgical History None recorded. Imaging Results Imaging Date Name Status LastModified by Organization Details LastModified Time 09/22/2023 ultrasound imaging report completed [email or web address] [facility] [address] , [facility] [place], [address] 09/22/2023 14:55:25 11/04/2023 US, lower back completed [email or web address] [facility] [address], [place], [address], 11/11/2023 08:07:16 11/10/2023 electrocardiogram completed [email or web address] [address], [address], 11/10/2023 13:02:09 11/09/2023 electrocardiogram completed [email or web address] Informa tion not available 11/10/2023 13:01:47 11/16/2023 vrad report completed [email or web address] [address] [place], [address] 11/16/2023 11:24:54 11/16/2023 x-ray imaging report completed [email or web address] Guadalupe craven [address], [address] 11/16/2023 14:40:58 11/16/2023 ultrasound imaging report completed [email or web address] [address] [place], [address] 11/17/2023 12:36:00 11/18/2023 event monitor completed [email or web address] [address] [place], [address] 11/23/2023 16:26:18 11/18/2023 health information systems technician completed [email or web address] [facility] Cardiology [address] [place] [address] [place], [address], 11/18/2023 12:24:27 Procedure Notes None recorded. Medical Equipment None Reported. Allergies No known drug allergies Medications Name Sig Start Date Stop Date Status Note LastModified by Organization Details LastModified Time furosemid e 40 mg tablet TAKE ONE TABLET BY MOUTH EVERY DAY active Not Available Not Available No t Available atorvasta tin 40 mg tablet Take 1 tablet by mouth every night 05/06 completed nv Not Available Not Available Not Available amiodaron e 200 mg tablet Take 2 tablets every 12 hours by oral route for 9 days. active Then 200 mg daily per [facility] d/c summary 11/22/23 Not Available Not Available Not Available lisinopri l 20 mg tablet TAKE ONE TABLET BY MOUTH EVERY DAY 03/12 completed DOSE INCREASE D Not Available Not Available Not Available metoprolo l succinate ER 100 mg tablet,ex tended release 24 hr Take 1 tablet every 12 hours by oral route. active per [facility] d/c summary 11/22/23 Not Available Not Available [...] by mouth once a day 2018 active [facility] Not Available Not Available Not Avai lable metoprolo l succinate ER 25 mg tablet,ex tended release 24 hr TAKE ONE TABLET BY MOUTH EVERY DAY active Disconti nued per [facility] d/c summary 11/22/23 Not Available Not Available Not Available Aspir-81 mg tablet,de layed release Take 1 tab by mouth daily 2018 active [facility] Not Available Not Available Not Avai lable [...] 1 tablet by mouth daily 2018 active [facility] Not Available Not Available Not Avai lable Vitals Date Recorded Body height Body temperature Oxygen saturation Oxygen saturation in Arterial blood by Pulse oximetry Heart rate Body mass index (BMI) Body weight Systolic blood pressure Diastolic blood pressure Provider Name and Address Organization Details Last Updated DateTime 3 189.103 cm 97.1 [degF] 97 % 97 % 76 /min 30.8 kg/m2 347868. 23 g 156 mm[Hg] 98 mm[Hg] Mago White RN [place] [facility], [facility]. 3 11:43:36 Date Recorded Body height Oxygen saturation Oxygen saturation in Arterial blood by Pulse oximetry Heart rate Body temperature Body mass index (BMI) Body weight Systolic blood pressure Diastolic blood pressure Provider Name and Address Organization Details Last Updated DateTime 4 189.103 cm 96 % 96 % 71 /min 97.3 [degF] 30.6 kg/m2 834191. 48 g 134 mm[Hg] 98 mm[Hg] Mago White RN [facility], [facility] 4 13:39:21 Date Recorded Body height Body mass index (BMI) Body weight Body temperature Oxygen saturation Oxygen saturation in Arterial blood by Pulse oximetry Heart rate Systolic blood pressure Diastolic blood pressure Provider Name and Address Organization Details Last Updated DateTime 4 189.103 cm 30.6 kg/m2 188633. 76 g 97.8 [degF] 96 % 96 % 57 /min 140 mm[Hg] 82 mm[Hg] CHANO JULES MA [facility], [facility] 4 15:31:37 Social History None recorded. [...] Recorded Time Tdap 10/26/2018 completed Not Available [facility] 06:07:27 Influenza, split virus, quadrivalent, PF 01/18/2020 completed Not Available [facility] 01/22/2023 06:07:27 Influenza, split virus, quadrivalent, PF 03/12/2022 completed Not Available [facility] 01/22/2023 06:07:27 COVID-19 vaccine, vector-nr, rS-Ad26, PF, 0.5 mL 06/14/2020 completed Not Available [facility] 01/22/2023 06:07:27 COVID-19, mRNA, LNP-S, PF, 30 mcg/0.3 mL dose, remy-sucrose 03/28/2021 completed Not Available [facility] 01/22/2023 06:07:27 pneumococcal polysaccharide PPV23 10/26/2018 completed Not Available [facility] 2022 06:07:27 Past Encounters Encounter ID Performer Location Encounter Start Date Encounter Closed Date Diagnosis/Indication Diagnosis SNOMED-CT Code Diagnosis ICD10 Code [id number] MARY MAYORGA [address] [address] 03/12/2023 11:35:31 03/12/2023 12:36:06 Adult health examination 461723142 Z00.00 Hyperlipidemia 06021532 E78.5 Essential hypertension 42124684 I10 Varicose v eins of lower extremity 51902145 I83.[id number] [address] 10/06/2023 13:29:26 10/06/2023 14:36:02 Essential hypertension 71911241 I10 Vasectomy requested 1839 20540 Z30.2 Lipoma of skin 095086635 D17.30 Blood gluc ose outside reference range 511076298 R73.09 Atrial flutter 7623765 I 48.92 [id number] MARY MAYORGA [address] [address] 11/09/2023 15:22:35 11/09/2023 16:10:07 Atrial flutter 1815640 I48.92 Disorder o f skin and/or subcutaneous tissue 11170945 L98.9 Health Concerns Section Related Observation LastModified by Organization Detai ls LastModified Time None Recorded Concern Status LastModified by Organization Details LastModified Time None Recorded Advance Directives Directive None Recorded Payers Encounter Date Sequence Insurance Name Policy Number Policy Roldan Covered Member ID Roldan Member ID Guarantor Name 03/12/2023 1 [place] [employer] [place] [id number] Debbi Vazquez [id number] Satish Vazquez 10/06/2023 1 [place] [employer] [place] Satish Vazquez [id number] Satish Vazquez 11/09/2023 1 [place] [place] Satish Vazquez [id number] Satish Vazquez Notes Date Note Type Note Provider Name and Address Organization Details Recorded Time 03/12/2023 text/html HPI Notes: Here today for annual exam. Notices that his left foot is blue at night. Legs ache some at night. [address], [place], [address], [facility] 03/12/2023 12:37:17 10/06/2023 text/html HPI Notes: - Requests referral for vasectomy. - Does not check blood pressures at home, has been taking lisinopril. - He has a lump that has been present on his back for the past [address], [place], [address], [facility] 10/06/2023 16:25:30 11/09/2023 text/html HPI Notes: Satish is here today to follow-up on a-fib. He admits to some fatigue. He has not heard back from cardiology regarding an appointment. He is wearing a rhythm monitor (has been wearing for 14 days) now. [address], [place], [address], [facility] 11/10/2023 15:57:32
--- OUTSIDE RECORDS SUMMARY | 2023-11-29 16:06 | XMS_ITS | Encounter Summary ---
Author Organization Formerly [facility] [place] [address] Care Team Providers Care Direct Of Real Estate Name Role Phone SandipMavis PILY Primary Care Provider [phone] [phone] Reason for Visit * Auth/Cert Specialty Diagnoses / Procedures Referred By Marisol t Referred To Contact Diagnoses Cerebral ischemia, cerebral arter occlusion w/cerebral Procedures PRG MAYDA REAL TIME IMG 2D W PRB IMG ACQUIS I&R TRANSESOPHAGEAL ECHOCARDIOGRAM (WRVU 2.55) Referral ID Status Reason Start Date Expiration Date Visits Re quested Visits Authorized [id number] 1 1 Encounter Details Date Type Department Care Team (Late st Contact Info) Description 01/02/2019 10:23 AM EDT - 01/02/2019 2:26 PM EDT Hospital Encounter [place] [address] Aditya Lemus MD [facility] [place] [address] Discharge Disposition: Home Social History Tobacco Use Types Packs/Day Years Used Date Smoking Tobacco: Never Assessed Sex and Gender Information Value Date Recorded Sex Assigned at Not on file Gender Identity Not on file Sexual Orientation Not on file documented as of this encounter Last Filed Vital Signs Vital Sign Reading Time Taken Comments Blood Pressure 138/87 01/02/2019 1:45 PM EDT Pulse 62 01/02/2019 11:40 AM EDT Temperature 36.2 ??C (97.2 ??F) 01/02/2019 1:08 PM ED T Respiratory Rate 16 01/02/2019 1:30 PM EDT Oxygen Saturation 98% 01/02/2019 1:51 PM EDT Inhaled Oxygen Concentration - - Weight 108 kg (238 lb 1.6 oz) 01/02/2019 11:40 A M EDT Height 193 cm (6' 4) 01/02/2019 11:40 AM EDT Body Mass Index 28.98 01/02/2019 11:40 AM EDT documented in this encounter Discharge Instructions * Discharge Instructions* Arely Smith RN - 01/02/2019 1:22 PM EDT SAME DAY PROGRAM POST-OPERATIVE INSTRUCTIONS POST TRANSESOPHAGEL ECHOCARDIOGRAPHY 1. A sore throat is normal after the procedure. It usually lasts several hours. Cold liquids and soothing lozenges will help ease the discomfort. 2. You may resume your normal diet in two hours. 3. No driving for twenty-four hours. No heavy lifting, no climbing or activities that require balance for twenty-four hours. 4. Please call you doctor if you develop: a. Difficulty swallowing or breathing b. Severe chest or abdominal pain c. Vomiting of blood 5. If you are having problems or have additional concerns or questions please call: Cardiology Clinic 8am - 5pm Same Day Program 6am- 6:30pm Emergency Room after 6:30pm documented in this encounter Medications at Time of Discharge Medication Sig Dispensed Refills Start Date End Date lisinopriL (Zestril) 40 mg tablet Take 40 mg by mouth daily. atorvastatin (LIPITOR) 40 mg Tablet Take 40 mg by mouth daily. apixaban (ELIQUIS) 5 mg Tablet Take 5 mg by mouth daily. 03/17/2019 cyanocobalamin, vitamin B-12, 500 mcg Tablet Take 500 mcg by mouth daily. 11/11/2023 documented as of this encounter Progress Notes * Arely Smith RN - 01/02/2019 2:27 PM EDT Patient alert and oriented, vital signs stable. Reviewed discharge instructions; patient and by nurse Deonna, verbalized understanding. Copy of instruction sheet with contact numbers for questions/concerns. Pain assessment documented. Patient escorted out of department via wheelchair with . Dr. Millan by to talk with patient and . documented in this encounter H&P Notes * Hari Millan - 01/02/2019 12:27 PM EDT Patient Name: Satish aVzquez Patient Age: 48 y.o. Birthdate: 1970 Admit date: 01/02/2019 Attending Physician: Aditya eLmus MD Patient presenting for MAYDA for evaluation of multiple CVAs over a month ago. Unclear etiology. Sentfor further evaluation by OSH provider. Patient has no history of upper GI bleeds. No problems withswallowing related to stroke. Understands risks/benefits. Plan to proceed as planned. Hari Millan MD Hull Sorter documented in this encounter Plan of Treatment Upcoming Encounters Date Type Department Care Team (Late st Contact Info) Description 04/26/2024 10:00 AM EST Office Visit Cardiology at [address] [address] Reggie Sy MD [facility] [place] [address] documented as of this encounter Procedures Procedure Name Priority Date/Time Associated Diagnosis Comments MAYDA complete wo contrast (08760) 01/02/2019 12:36 PM EDT Cerebral ischemia, cerebral arter occlusion w/cerebral documented in this encounter Visit Diagnoses Not on filedocumented in this encounter Administered Medications Inactive Administered Medications - up to 3 most recent administrations Medication Order MAR Action Action Date Dose Rate Site lactated ringers infusion 1,000 mL, at 100 mL/hr, Intravenous, CONTINUOUS, Starting on 01/02/19 at 1200, Until Wed01/02/19 at 1632, Day of Surgery (Day of Procedure) New Bag 01/02/2019 12:37 PM EDT New Bag 01/02/2019 12:10 PM EDT 1,000 mLs 100 mL/hr lidocaine (XYLOCAINE) 10 mg/mL (1 %) injection 3 mg 3 mg (0.3 mL), Subcutaneous, ONCE PRN, 1 dose, Starting on Wed01/02/19 at 1139, Until Wed01/02/19 at 1632, for discomfort with PIV insertion, Day of Surgery (Day of Procedure), Routine sodium chloride 0.9 % (flush) flush 5-20 mL 5-20 mL, Intravenous, EVERY 1 MIN PRN, Starting on Wed01/02/19 at 1139, Until Wed01/02/19 at 1632, flush, Flush pertains to all indwelling lines. Flush per protocol found in the job aid using the link provided on this medication record., Day of Surgery (Day of Procedure), Routine Given 01/02/2019 12:10 PM EDT 10 mLs documented in this encounter Active and Recently Administered Medications Times are shown in EDT. Continuous Medication Order 12/31/2018 01/01/2019 01/02/2019 lactated ringers infusion 1,000 mL, at 100 mL/hr, Intravenous, CONTINUOUS, Starting on Wed01/02/19 at 1200, Until Wed01/02/19 at 1632, Day of Surgery (Day of Procedure) 1210 (New Bag - Prov ider: Alyssa Deal RN)1237 (New Bag - Provider: Antione Bryant CRNA)1240 (Canceled Entry - Provider: Antione Bryant CRNA) PRN Medication Order 12/31/2018 01/01/2019 01/02/2019 lidocaine (XYLOCAINE) 10 mg/mL (1 %) injection 3 mg 3 mg (0.3 mL), Subcutaneous, ONCE PRN, 1 dose, Starting on Wed01/02/19 at 1139, Until Wed01/02/19 at 1632, for discomfort with PIV insertion, Day of Surgery (Day of Procedure), Routine lidocaine (XYLOCAINE) 5 % ointment (CANCELED) ONCE PRN, Starting on Wed01/02/19 at 1241, Until Wed01/02/19 at 1632, Intra-Operative (Intra-Procedure) 1241 (Given - Provid er: Aditya Lemus MD - Comment: back of throat) sodium chloride 0.9 % (flush) flush 5-20 mL 5-20 mL, Intravenous, EVERY 1 MIN PRN, Starting on Wed01/02/19 at 1139, Until Wed01/02/19 at 1632, flush, Flush pertains to all indwelling lines. Flush per protocol found in the job aid using the link provided on this medication record., Day of Surgery (Day of Procedure), Routine 1210 (Given - Provid er: Alyssa Deal RN) documented in this encounter Care Teams Direct Of Real Estate Relationship Specialty Start Date End Date Mavis Oropeza, PILY [address] [place] [address] PCP - General Family Medicine 11/21/18 11/24/23 documented as of this encounter
--- OUTSIDE RECORDS SUMMARY | 2023-11-29 16:06 | XMS_ITS | Encounter Summary ---
Author Organization [facility] [place] [address] Care Team Providers Care Clinical Team Manager Name Role Phone SandipMavis addison PILY Primary Care Provider [phone] Reason for Visit * Auth/Cert Specialty Diagnoses / Procedures Referred By Marisol t Referred To Contact Diagnoses Cerebral ischemia, cerebral arter occlusion w/cerebral Procedures PRG MAYDA REAL TIME IMG 2D W PRB IMG ACQUIS I&R TRANSESOPHAGEAL ECHOCARDIOGRAM (WRVU 2.55) Referral ID Status Reason Start Date Expiration Date Visits Re quested Visits Authorized [id number] 1 1 Encounter Details Date Type Department Care Team (Late st Contact Info) Description 01/02/2019 12:15 PM EDT - 01/02/2019 1:15 PM EDT Surgery [place] [address] Aditya Lemus MD [facility] [place] [address] TRANSESOPHAGEAL ECHOCARDIOGRAM (WRVU 2.3) Social History Tobacco Use Types Packs/Day Years Used Date Smoking Tobacco: Never Assessed Sex and Gender Information Value Date Recorded Sex Assigned at Not on file Gender Identity Not on file Sexual Orientation Not on file documented as of this encounter Last Filed Vital Signs Vital Sign Reading Time Taken Comments Blood Pressure 127/86 01/02/2019 1:15 PM EDT Pulse 62 01/02/2019 11:40 AM EDT Temperature 36.2 ??C (97.2 ??F) 01/02/2019 1:08 PM ED T Respiratory Rate 16 01/02/2019 1:15 PM EDT Oxygen Saturation 97% 01/02/2019 1:15 PM EDT Inhaled Oxygen Concentration - - [...] 01/02/2019 12:27 PM EDT Patient Name: Satish Vazquez Patient Age: 48 y.o. Birthdate: 1970 Admit date: 01/02/2019 Attending Physician: Aditya Lemus MD Patient presenting for MAYDA for evaluation of multiple CVAs over a month ago. Unclear etiology. Sentfor further evaluation by OSH provider. Patient has no history of upper GI bleeds. No problems withswallowing related to stroke. Understands risks/benefits. Plan to proceed as planned. Hari Millan MD Individual Pension Adviser documented in this encounter Plan of Treatment Upcoming Encounters Date Type Department Care Team (Late st Contact Info) Description 04/26/2024 10:00 AM EST Office Visit Cardiology at [address] [address] Reggie Sy MD [facility] [address] documented as of this encounter Procedures Procedure Name Priority Date/Time Associated Diagnosis Comments MAYDA complete wo contrast (55615) 01/02/2019 12:36 PM EDT Cerebral ischemia, cerebral [...] Procedure), Routine lidocaine (XYLOCAINE) 5 % ointment ONCE PRN, Starting on Wed01/02/19 at 1241, Until Wed01/02/19 at 1632, Intra-Operative (Intra-Procedure) Given 01/02/2019 12:41 PM EDT 1 inch 20-Other (document i n comment section) sodium chloride 0.9 % (flush) flush 5-20 [...] RN) documented in this encounter Care Teams Clinical Team Manager Relationship Specialty Start Date End Date Mavis Oropeza APRN [address] [place] [address] PCP - General Family Medicine 11/21/18 11/24/23 documented as of this encounter
--- OUTSIDE RECORDS SUMMARY | 2023-11-29 16:06 | XMS_ITS | Encounter Summary ---
Author Organization [facility] [place] [address] Care Team Providers Care Software Development Engineer Name Role Phone SandipMavis addison PILY Primary Care Provider [phone] [phone] Encounter Details Date Type Department Care Team (Late st Contact Info) Description 01/02/2019 7:45 AM EDT Laboratory Appointment Lab [address] [place] [address] Social History Tobacco Use Types Packs/Day Years Used Date Smoking Tobacco: Never Assessed Sex and Gender Information Value Date Recorded Sex Assigned at Not on file Gender Identity Not on file Sexual Orientation Not on file documented as of this encounter Plan of Treatment Upcoming Encounters Date Type Department Care Team (Late st Contact Info) Description 04/26/2024 10:00 AM EST Office Visit Cardiology at [address] [address] Reggie Sy MD [facility] [place] [address] documented as of this encounter Procedures Procedure Name Priority Date/Time Associated Diagnosis Comments CREATININE Routine 01/02/2019 7:53 AM EDT documented in this encounter Results * Creatinine (01/02/2019 7:53 AM EDT) Creatinine 1.07 0.80 - 1.50 mg/dL [facility] Est Glomerular Filtration Rate 83 >=60 mL/min/1.7 3 m?? [facility] Comment: The eGFR was calculated using the CKD-EPI equation. As with all creatinine based estimates of kidney function, eGFR values calculated with the CKD-EPI equation are not accurate in patients with acute kidney failure, extremes of body mass or the acutely ill. [email or web address] eGFR 96 >=60 mL/min/1.7 3 m?? [facility] Comment: The eGFR was calculated using the CKD-EPI equation. As with all creatinine based estimates of kidney function, eGFR values calculated with the CKD-EPI equation are not accurate in patients with acute kidney failure, extremes of body mass or the acutely ill. [email or web address] [email or web address] Blood specimen (specimen) Venous Draw / Unknown 01/02/2019 7:53 AM EDT 01/02/2019 7:57 AM EDT Narrative Resulting Agency Comment Spec In Lab Ruth Mayorga APRN CHEMISTRY ORDERABLES Performing Organization Address City/State/[facility] Co de Phone Number [facility] [place] [phone] documented in this encounter Visit Diagnoses Not on filedocumented in this encounter Care Teams Software Development Engineer Relationship Specialty Start Date End Date Mavis Oropeza APRN [address] [place] [address] PCP - General Family Medicine 11/21/18 11/24/23 documented as of this encounter
--- OUTSIDE RECORDS SUMMARY | 2023-11-29 16:06 | XMS_ITS | Encounter Summary ---
[place] [address] Care Team Providers Care Industrial Roofer Name Role Phone Mavis Oropeza APRN Primary Care Provider [phone] Reason for Referral * Diagnostic Test (Routine) - Closed Specialty Diagnoses / Procedures Referred By Marisol sy Referred To Contact Radiology Diagnoses Lacunar infarction TIA (transient ischemic attack) Procedures CT Abdomen & Pelvis w Contrast CT Abdomen & Pelvis wwo Contrast (Generic) Ruth Mayorga APRN [address] [place] [address] [facility] [place] [address] Referral ID Status Reason Start Date Expiration Date V isits Requested Visits Authorized [id number] Closed Specialty Service Requested 11/22/2018 01/19/2019 1 1 Reason for Visit * Diagnostic Test (Routine) - Closed Specialty Diagnoses / Procedures Referred By Contac t Referred To Contact Radiology Diagnoses Lacunar infarction TIA (transient ischemic attack) Procedures CT Abdomen & Pelvis w Contrast CT Abdomen & Pelvis wwo Contrast (Generic) Ruth Mayorga APRN [address] [place] [address] [facility] [place] [address] Referral ID Status Reason Start Date Expiration Date V isits Requested Visits Authorized [id number] Closed Specialty Service Requested 11/22/2018 01/19/2019 1 1 Encounter Details Date Type Department Care Team (Latest Contact Info) Description 01/02/2019 7:31 AM EDT - 01/02/2019 10:22 AM EDT Hospital [place] [address] Ruth Mayorga APRN [address] [place] [address] Lacunar infarction; TIA (transient ischemic attack) Discharge Disposition: Home Social History Tobacco Use Types Packs/Day Years Used Date Smoking Tobacco: Never Assessed Sex and Gender Information Value Date Recorded Sex Assigned at Not on file Gender Identity Not on file Sexual Orientation Not on file documented as of this encounter Medications at Time of Discharge [...] daily. 11/11/2023 documented as of this encounter Plan of Treatment Upcoming Encounters Date Type Department Care Team (Late st Contact Info) Description 04/26/2024 10:00 AM EST Office Visit Cardiology at [address] [address] Reggie Sy MD [facility] [place] [address] documented as of this encounter Procedures Procedure Name Priority Date/Time Associated Diagnosis Comments CT ABDOMEN AND PELVIS W CONTRAST Routine 01/02/2019 10:16 AM EDT Lacunar infarction TIA (transient ischemic attack) documented in this encounter Results * CT Abdomen & Pelvis w Contrast (01/02/2019 10:16 AM EDT) Anatomical Region Laterality Modality Abdomen, Pelvis Computed Tomogra phy Impressions 01/02/2019 11:13 AM EDT Normal study. No solid organ abnormality. The colon is grossly unremarkable. Thank you for letting us participate in the care of this patient. For questions regarding this report, please contact the number below. ? Narrative 01/02/2019 11:13 AM EDT EXAMINATION: ??CT ABDOMEN AND PELVIS W CONTRAST CLINICAL HISTORY: ??TIA, lacunar infarction, neurology concerned about clots malignancy, pt is also being scheduled for MAYDA outside order in scanned docs; Auth# [id number] exp.01-19-19 TECHNIQUE: Helical CT of the abdomen and pelvis was performed following the intravenous administration of contrast. Administered 120.0 ml of OMNIPAQUE 350.00 mg/ml. Oral contrast was administered. COMPARISON: None FINDINGS: Lower chest: Normal. Liver: Normal size and attenuation without lesions. Bile ducts: Nondilated. Gallbladder: No calcified gallstones. Normal caliber wall. Pancreas: Normal attenuation without ductal dilatation. Spleen: Normal. Adrenals: Normal. Kidneys: Normal. Symmetric renal enhancement. No renal masses. No renal collecting system obstruction bilaterally Urinary Bladder: Normal. Vasculature: No aneurysm. Lymph Nodes: No enlarged lymph nodes. Bowel: Nondilated, no wall thickening. ?? Peritoneum and mesentery: No ascites, free air, or loculated fluid collection. No mesenteric inflammation. Abdominal wall: Normal. Reproductive organs: Normal. Osseous structures: No suspicious lesions. Procedure Note Luis Varner MD - 01/02/2019 EXAMINATION: CT ABDOMEN AND PELVIS W CONTRAST CLINICAL HISTORY: TIA, lacunar infarction, neurology concerned aboutclots malignancy, pt is also being scheduled for MAYDA outside order in scanned docs; Auth# [id number] exp.01-19-19 TECHNIQUE: Helical CT of the abdomen and pelvis was performed followingthe intravenous administration of contrast. Administered 120.0 ml ofOMNIPAQUE 350.00 mg/ml. Oral contrast was administered. COMPARISON: None FINDINGS: Lower chest: Normal. Liver: Normal size and attenuation without lesions. Bile ducts: Nondilated. Gallbladder: No calcified gallstones. Normal caliber wall. Pancreas: Normal attenuation without ductal dilatation. Spleen: Normal. Adrenals: Normal. Kidneys: Normal. Symmetric renal enhancement. No renal masses. No renal collecting system obstruction bilaterally Urinary Bladder: Normal. Vasculature: No aneurysm. Lymph Nodes: No enlarged lymph nodes. Bowel: Nondilated, no wall thickening. Peritoneum and mesentery: No ascites, free air, or loculated fluidcollection. No mesenteric inflammation. Abdominal wall: Normal. Reproductive organs: Normal. Osseous structures: No suspicious lesions. IMPRESSION Normal study. No solid organ abnormality. The colon is grosslyunremarkable. Thank you for letting us participate in the care of this patient. Forquestions regarding this report, please contact the number below. Ruth Mayorga APRN IMG CT ORDERABLES documented in this encounter Visit Diagnoses Diagnosis Lacunar infarction Unspecified cerebral artery occlusion with cerebral infarction TIA (transient ischemic attack) Unspecified transient cerebral ischemia documented in this encounter Administered Medications Inactive Administered Medications - up to 3 most recent administrations Medication Order MAR Action Action Date Dose Rate Site iohexol (OMNIPAQUE) 350 mg/mL solution 0-200 mL 0-200 mL, Intravenous, ONCE PRN, 1 dose, Starting on Wed01/02/19 at 1017, Until Wed01/02/19 at 1012, Per Protocol, Warning Vesicant/Irritant Medication , Radiology Contrast, Routine Given 01/02/2019 10:12 AM EDT 120 mLs documented in this encounter Care Teams Industrial Roofer Relationship Specialty Start Date End Date Mavis Oropeza APRN [address] [place] [address] PCP - General Family Medicine 11/21/18 11/24/23 documented as of this encounter
--- OUTSIDE RECORDS SUMMARY | 2023-11-29 16:06 | XMS_ITS | Encounter Summary ---
Author Organization [facility] [place] [address] Care Team Providers Care Heavy Mobile Equipment Repairer Name Role Phone SandipMavis addison PILY Primary Care Provider [phone] [phone] Encounter Details Date Type Department Care Team (Late st Contact Info) Description 03/10/2019 Telephone [place] [address] Petar Laws MD [facility] [place] [address] Social History Tobacco Use Types Packs/Day Years Used Date Smoking Tobacco: Former Cigarettes Q uit: 08/2018 Smokeless Tobacco: Never Alcohol Use Standard Drinks/Week Comments Yes 0 (1 standard drink = 0.6 oz pur e alcohol) Rare Sex and Gender Information Value Date Recorded Sex Assigned at Not on file Gender Identity Not on file Sexual Orientation Not on file documented as of this encounter Miscellaneous Notes * Telephone Encounter - Livia Hernández RN - 03/20/2019 12:[address] Laws, he has ordered a limited transthoracic echo with bubbles to be done here at [facility] and has sent letter to pt. Information given to nurse at PCP office * Addendum Note - Livia Hernández RN - 03/17/2019 9:10 AM ESTAddended by: LIVIA HERNÁNDEZ on: 03/17/2019 09:10 AM Modules accepted: Orders * Telephone Encounter - Livia Hernández RN - 03/17/2019 9:08 AM EST Call placed to [facility], they will fax over lipid results (Oct 2018). Will speak with Dr Laws re: further MRI review and any follow up recommendations * Telephone Encounter - Rosa Cadena RN - 03/10/2019 12:11 PM EST Spoke to staff from [facility]. Made aware that Dr. Laws is on vacation. Advised tocall back if there's anything urgent. If not, to call back next week. Verbalized understanding. * Telephone Encounter - Ema Holman - 03/10/2019 10:58 AM EST Clinical Chemical Recovery Operator Message Caller: [facility] If not Pt / Relation to pt: [facility] Call back Number: [phone] Reason for call: Test results. Plan of care going forward and possible further testing. Disposition of Call ?? Routine Message sent to the Nurse documented in this encounter Plan of Treatment Upcoming Encounters Date Type Department Care Team (Late st Contact Info) Description 04/26/2024 10:00 AM EST Office Visit Cardiology at [address] [place] [address] Reggie Sy MD [facility] [place] [address] documented as of this encounter Visit Diagnoses Not on filedocumented in this encounter Care Teams Heavy Mobile Equipment Repairer Relationship Specialty Start Date End Date Mavis Oropeza APRN [address] [place] [address] PCP - General Family Medicine 11/21/18 11/24/23 documented as of this encounter
--- OUTSIDE RECORDS SUMMARY | 2023-11-29 16:06 | XMS_ITS | Encounter Summary ---
Author Organization Formerly [facility] Address [facility] [place] [address] Care Team Providers Care Bead Wire Insulator Name Role Phone SandipMavis addison PILY Primary Care Provider [phone] Reason for Visit * Auth/Cert Specialty Diagnoses / Procedures Referred By Marisol t Referred To Contact Diagnoses Cerebral ischemia, cerebral arter occlusion w/cerebral Procedures PRG MAYDA REAL TIME IMG 2D W PRB IMG ACQUIS I&R TRANSESOPHAGEAL ECHOCARDIOGRAM (WRVU 2.55) Referral ID Status Reason Start Date Expiration Date Visits Re quested Visits Authorized [id number] 1 1 Encounter Details Date Type Department Care Team (Late st Contact Info) Description 01/02/2019 12:37 PM EDT Anesthesia Event [place] [phone] Bill Amaya MD [facility] [place] [address] Anesthesia Record Procedure Summary Procedure Name Responsible Anesthesiologist Anesthesia Start Time Anesthesia Stop Time TRANSESOPHAGEAL ECHOCARDIOGRAM (WRVU 2.3) Bill Amaya MD 01/02/19 1237 01/02/19 1303 Events Date Time Event Comment 01/02/2019 1214 1237 AN Verify 1237 Start 1237 An Start Data 1239 Anesthesia Ready 1245 Procedure Start 1258 Quick Note Bubble study 1302 Procedure Stop 1303 an stop data 1303 Recovery or ICU Handoff Danyelle ent care was transferred to the destination unit staff after review of the patient's medical history, current anesthetic/surgical status and plan, according to the Provider Handoff Checklist. 1303 Stop Meds Name Total Propofol 200 mg Propofol INF 288.9 mg lactated ringers infusion 0 mL * Agents Name O2 Auxiliary Flowmeter 1 * Blood No blood administrations on file. Lines, Drains, and Airways Type Details Placement Removal (RETIRED) Peripheral IV Line - Single Lumen 01/02/19; 1008; cephalic vein (lateral side of arm), right; [id number]-lcn-eydasa catheter system; 20 gauge; distraction, intradermal injection, tolerated well; 12/18/20 (LDA Cleanup utility RA#[id number]); 1650 (LDA Cleanup utility RA#[id number]) 01/02/19 1008 by Kev Blake LPN 12/18/20 1650 by Renny Shukla documented in this encounter Social History Tobacco Use Types Packs/Day Years Used Date Smoking Tobacco: Never Assessed Sex and Gender Information Value Date Recorded Sex Assigned at Not on file Gender Identity Not on file Sexual Orientation Not on file documented as of this encounter OR Notes * Anesthesia Postprocedure Evaluation - Bill Amaya MD - 01/02/2019 2:06 PM EDT Department of Anesthesiology Post-procedure Note Patient: Satish Vazquez Procedure Summary Date: 01/02/19 Room / Location: [facility] / [facility] MA[facility] OR Anesthesia Start: 1237 Anesthesia Stop: 1303 Procedure: TRANSESOPHAGEAL ECHOCARDIOGRAM (WRVU 2.55) (N/A ) Diagnosis: (Cerebral ischemia, cerebral arter occlusion w/cerebral) Surgeon: Aditya Lemus MD Responsible Provider: Bill Amaya MD Anesthesia Type: MAC ASA Status: 3 All Anesthesia Providers: Anesthesiologist: Bill Amaya MD MATHEMATICIAN RESEARCH: Antione Bryant CRNA; Varsha Jimenez CRNA Vitals Value Taken Time BP 138/87 01/02/2019 1:45 PM Temp Pulse Resp SpO2 98 % 01/02/2019 1:51 PM Pain Level Patient Location: PACU/[facility] Level of Consciousness: Awake and Alert Pain Management: Satisfactory Analgesia PONV: None Cardiovascular Status: Hemodynamically Stable and At Baseline Respiratory Status: Stable Respiratory Status, At Baseline and Room Air Postoperative Fluid Status: Intravascular EUvolemia Possible Anesthetic Complications: NONE apparent at time of evaluation Final Primary Anesthesia Type: MAC (The anesthetic type performed was the same as planned.) Comments: * Anesthesia Preprocedure Evaluation - Bill Amaya MD - 01/01/2019 8:39 PM EDT Pre-Anesthesia Evaluation for: Satish Vazquez a 48 y.o. male. Procedure(s): TRANSESOPHAGEAL ECHOCARDIOGRAM (WRVU 2.55) There are no active problems to display for this patient. No past medical history on file. No past surgical history on file. Social History Tobacco Use ??? Smoking status: Not on file Substance Use Topics ??? Alcohol use: Not on file Social History Substance and Sexual Activity Drug Use Not on file No Known Allergies Medications: MAR and/or home medications have been reviewed. Physical Exam: There were no vitals filed for this visit. There is no height or weight on file to calculate BMI. Airway Assessment: Mallampati: I TM distance: >3 FB Cardiovascular Assessment: Rhythm: regular Rate: normal Pulmonary Assessment: Dental Assessment: - normal exam Misc Assessment: Patient is wearing No contact(s). IV access: Peripheral line Anesthesia Plan: ASA 3 MAC, with a(n) intravenous induction PRELIM NOTE 48 y.o.male (111 kg) h/o HTN, active tobacco use, and recent CVA/lacunar infarcts scheduled for MAYDA. Patient denies significant GERD, recent URI symptoms. Last PO intake was omnipaque oral contrast for CT scan at 0945, decompressed stomach/significant contrast through to colon on subsequent CT scan. Activity status: > 4 METS ADR:No Known Allergies Recent Labs: No results found for: NA, K, CL, CO2, BUN, CREATININE Anesthestic Hx: No prior anesthestics Airway Hx: None avail Plan: Propofol MAC with GA backup, PIV access The patient was informed of the risks, benefits and alternatives of anesthesia. These risks included, but were not limited to, prolonged intubation, post- operative nausea and/or vomiting, pain, sore throat, dental/lip trauma, and other rare but serious complications such as major organ damage, awareness, severe allergic reactions, position-related nerve injuries, and need blood transfusions. The patient accepts that additional procedures and/or escalation of care may be necessary as dictated bythe course of the procedure/anesthetic. All questions sought and answered. Consent was signed and placed in chart. Region - Other Informed Consent: Anesthetic plan and risks discussed with patient. Plan discussed with MATHEMATICIAN RESEARCH. PAT Clinic Note documented in this encounter Plan of Treatment Upcoming Encounters Date Type Department Care Team (Late st Contact Info) Description 04/26/2024 10:00 AM EST Office Visit Cardiology at [address] [place] [address] Reggie Sy MD [facility] [place] [address] documented as of this encounter Visit Diagnoses [...] 12:10 PM EDT 1,000 mLs 100 mL/hr propofol (DIPRIVAN) 10 mg/mL bolus injection (Anesthesia) PRN, Starting on Wed01/02/19 at 1240, Until Wed01/02/19 at 1303, Anesthesia Intra-op Given 01/02/2019 12:44 PM EDT 3 0 mg Given 01/02/2019 12:42 PM EDT 20 mg Given 01/02/2019 12:41 PM EDT 20 mg propofol (DIPRIVAN) infusion CONTINUOUS PRN, Starting on Wed01/02/19 at 1240, Until Wed01/02/19 at 1303, Anesthesia Intra-op, Routine Rate/Dose Change 01/02/2019 12:51 PM EDT 175 mcg/kg/min 113.4 mL/hr New Bag 01/02/2019 12:40 PM EDT 100 mcg/kg/min 64.8 mL/ hr documented in this encounter Care Teams Bead Wire Insulator Relationship Specialty Start Date End Date Mavis Oropeza, PILY [address] [place] [address] PCP - General Family Medicine 11/21/18 11/24/23 documented as of this encounter
--- OUTSIDE RECORDS SUMMARY | 2023-11-29 16:06 | XMS_ITS | Encounter Summary ---
Author Organization [facility] Address [facility] [place] [address] Care Team Providers Care Asparagus Cutter Name Role Phone Unavailable Primary Care Provider Unavailabl e Encounter Details Date Type Department Care Team (Late st Contact Info) Description 11/10/2018 12:50 PM EDT Ancillary Procedure Radiology Library at [facility] [place] [address] Steph Curiel MD [facility] [place] [address] Social History Tobacco Use Types Packs/Day Years [...] 10:00 AM EST Office Visit Cardiology at [address] [phone] Reggie Sy MD [facility] [place] [address] documented as of this encounter Procedures Procedure Name Priority Date/Time Associated Diagnosis Comments FILM LIBRARY STORAGE ONLY CT HEAD AND SPINE Routine 11/10/2018 12:45 PM EDT documented in this encounter Results * Film Library- Storage Only CT Head And Spine (11/10/2018 12:45 PM EDT) Narrative [facility] - 11/10/2018 12:45 PM EDT This exam is auto-finalizing. It's purpose is for storage only. Steph Curiel MD IMG FILM LIBRARY O RDERABLES Performing Organization Address City/State/[facility] Co de Phone Number [place], [place] documented in this encounter Visit Diagnoses Not on filedocumented in this encounter
--- OUTSIDE RECORDS SUMMARY | 2023-11-29 16:06 | XMS_ITS | Continuity of Care Document ---
Author Organization [facility] Address [address] [place] [address] Care Team Providers Care Clinical Nursing Coordinator Name Role Phone MARY ALBRECHT Primary Care Physician [phone] Encounter LTTL_SC FIN NBR [id number] Date(s): 11/24/23 - 11/24/23 [facility] [address], [place] [address] Encounter Diagnosis CHF exacerbation(Discharge Diagnosis) - 11/24/23 Acute on chronic systolic (congestive) heart failure(Final) - Discharge Disposition: Home f/u External Provider Attending Physician: Ryne Vasquez MD Admitting Physician: Ryne Vasquez MD Allergies, Adverse Reactions, Alerts No Known Medication Allergies Assessment and Plan Extracted from: Title:ED Provider Note Author:Ziggy Acosta Date:11/24/23 Assessment/Plan 1.??CHF exacerbation??I50.9 ??Patient be discharged she understands risk and benefits of this. ??He agrees with the fact that??there is no need for admission. ??He will follow with Dr. García as scheduled tomorrow at noon time. ??He will be started on Lasix here??and we will defer to Dr. García for any further Lasix treatment.?? He has any question concerns or new symptoms in the interim he will return here to the emergency department for reevaluation. Orders: Discharge Patient, 11/24/23 16:06:00 EDT, Home Independently Patient Education Heart Failure, Diagnosis Follow Up With When Contact Information Jamal García MD Within [address] [place] [address] [place] [address] [phone] ?? Additional Instructions: Follow-up with Dr. García tomorrow as scheduled Follow-up with your primary care Within 1 week Additional Instructions: Follow-up with your primary care as needed, they will be able to reevaluate if necessary Return to ED if concerns ?? Medications amiodarone 400 mg oral tablet 800 mg = 2 tab, Oral, Daily, # 60 tab, 0 Refill(s) Start Date: 11/24/23 Status: Ordered apixaban 5 mg oral tablet 5 mg = 1 tab, Oral, BID, # 60 tab, 0 Refill(s) Start Date: 11/24/23 Status: Ordered lisinopril 40 mg oral tablet 40 mg = 1 tab, Oral, Daily, # 30 tab, 0 Refill(s) Start Date: 11/24/23 Status: Ordered metoprolol succinate 100 mg oral capsule, extended release 100 mg =, Oral, BID, 0 Refill(s) Start Date: 11/24/23 Status: Ordered rosuvastatin 10 mg oral capsule 10 mg = 1 cap, Oral, Daily, # 30 cap, 0 Refill(s) Start Date: 11/24/23 Status: Ordered spironolactone 12.5, Oral, Daily, 0 Refill(s) Start Date: 11/24/23 Status: Ordered Results Laboratory List Name Date BNP 11/24/23 Comprehensive Metabolic Panel 11/24/23 CBC w/ Diff 11/24/23 Free T4 11/24/23 Magnesium Level 11/24/23 TSH w/ Rflx to Free T4 11/24/23 Troponin-I High Sensitivity (High Sensit ivityTroponin-I) 11/24/23 Troponin-I High Sensitivity (High Sensit ivityTroponin-I) 11/24/23 Automated Diff 11/24/23 Most recent to oldest [Reference Range]: 1 2 WBC [4.8-10.8 K/mcL] 14.0 K/mcL *HI* (11/24/23 1:39 PM) RBC [4.20-6.10 Million/mcL] 4.98 Million /mcL (11/24/23 1:39 PM) Neutro Auto [42.2-75.2 %] 75.5 % *HI* (11/24/23 1:39 PM) Lymph Auto [20.5-51.1 %] 14.8 % *LOW* (11/24/23 1:39 PM) Bell Auto [1.7-9.3 %] 8.5 % (11/24/23 1:39 PM) Basophil Auto [0.0-0.8 %] 0.4 % (11/24/23 1:39 PM) BUN [7-25 mg/dL] 24 mg/dL (11/24/23 2:50 PM) Glucose Level [70-109 mg/dL] 111 mg/dL *HI* (11/24/23 2:50 PM) Potassium Level [3.5-5.1 mmol/L] 4.3 mmo l/L (11/24/23 2:50 PM) Baso Absolute [0.0-0.2 K/mcL] 0.1 K/mcL (11/24/23 1:39 PM) MCV [80.0-99.0 fL] 93.6 fL (11/24/23 1:39 PM) T4 Free [0.61-1.12 ng/dL] 1.18 ng/dL 1 *HI* (11/24/23 2:50 PM) AST [13-39 IntlUnit/L] 17 IntlUnit/L (11/24/23 2:50 PM) ALT [7-52 IntlUnit/L] 34 IntlUnit/L (11/24/23 2:50 PM) MCHC [32.0-37.0 g/dL] 32.2 g/dL (11/24/23 1:39 PM) Osmolality [275-295 mOsm/kg] 279 mOsm/kg (11/24/23 2:50 PM) Sodium Level [136-145 mmol/L] 137 mmol/L (11/24/23 2:50 PM) Lymph Absolute [1.2-3.4 K/mcL] 2.1 K/mcL (11/24/23 1:39 PM) Hct [37.0-52.0 %] 46.6 % (11/24/23 1:39 PM) Calcium Level [8.6-10.3 mg/dL] 9.2 mg/dL (11/24/23 2:50 PM) Bell Absolute [0.1-0.6 K/mcL] 1.2 K/mcL *HI* (11/24/23 1:39 PM) Albumin Level [3.5-5.7 g/dL] 4.0 g/dL (11/24/23 2:50 PM) Protein Total [6.4-8.9 g/dL] 6.7 g/dL (11/24/23 2:50 PM) MCH [27.0-31.0 pg] 30.1 pg (11/24/23 1:39 PM) Magnesium Level [1.9-2.7 mg/dL] 2.1 mg/d L (11/24/23 1:39 PM) Neutro Absolute [1.4-6.5 K/mcL] 10.6 K/m cL *HI* (11/24/23 1:39 PM) Bilirubin Total [0.3-1.0 mg/dL] 1.1 mg/d L *HI* (11/24/23 2:50 PM) Hgb [12.0-18.0 g/dL] 15.0 g/dL (11/24/23 1:39 PM) Alk Phos [34-104 IntlUnit/L] 66 IntlUnit /L (11/24/23 2:50 PM) MPV [7.4-10.4 fL] 9.2 fL (11/24/23 1:39 PM) Platelets [130-400 K/mcL] 276 K/mcL (11/24/23 1:39 PM) CO2 [21-31 mmol/L] 22 mmol/L (11/24/23 2:50 PM) Eos Absolute [0.0-0.2 K/mcL] 0.1 K/mcL (11/24/23 1:39 PM) TSH [0.45-5.33 mcIntlUnit/mL] 9.04 mcInt lUnit/mL *HI* (11/24/23 1:39 PM) BNP [<=100 pg/mL] 1266 pg/mL *HI* (11/24/23 2:50 PM) Chloride Level [98-107 mmol/L] 107 mmol/ L (11/24/23 2:50 PM) RDW-CV [11.5-14.5 %] 15.7 % *HI* (11/24/23 1:39 PM) A/G Ratio [1.0-2.5 g/dL] 1.5 g/dL (11/24/23 2:50 PM) BUN/Creat Ratio [8.0-20.0] 17.1 (11/24/23 2:50 PM) Globulin [2.3-3.5 g/dL] 2.7 g/dL (11/24/23 2:50 PM) Creatinine Level [0.60-1.30 mg/dL] 1.40 mg/dL *HI* (11/24/23 2:50 PM) Troponin-I HS [<=12 ng/L] 29 ng/L 2 *HI* (11/24/23 1:39 PM) 36 ng/L 3 *HI* (11/24/23 1:39 PM) Anion Gap [3.0-12.0] 8.0 (11/24/23 2:50 PM) Eos, Auto [0.00-3.00 %] 0.80 % (11/24/23 1:39 PM) eGFR CKD-EPI [>=60 mL/min/1.73 m2] 46 mL /min/1.73 m2 *LOW* (11/24/23 2:50 PM) 1Interpretive Data: Possible Interfering Substance: Biotin > 10 ng/mL may falsely elevate Free F2tfhrvtp. 2Interpretive Data: The [facility] ACCESS high-sensitivity Troponin I (hsTNI) 99 percentile cutoffs forhealthy adults are 12 ng/L or less for females and 20 ng/L or less for males. SERIAL MEASUREMENT IS HIGHLY RECOMMENDED for the diagnosis or exclusion of Acute Coronary Syndromes(ACS). Please refer to the High-Sensitivity Troponin Algorithm 2023 for guidance. As with all markers of cardiac injury, elevations of hsTnI do not in and of themselves indicate thepresence of an ischemic mechanism. Many other disease states can be associated with elevations via mechanisms different from those that cause injury in patients with ACS. These include trauma (contusion, ablation, pacing); congestive heart failure; pulmonary embolism; kidney failure; and myocarditis. Clinical judgement is necessary to distinguish patients who have ischemic heart disease from those who do not. 3Interpretive Data: The [facility]ha ACCESS high-sensitivity Troponin I (hsTNI) 99 percentile cutoffs forhealthy adults are 12 ng/L or less for females and 20 ng/L or less for males. SERIAL MEASUREMENT IS HIGHLY RECOMMENDED for the diagnosis or exclusion of Acute Coronary Syndromes(ACS). Please refer to the High-Sensitivity Troponin Algorithm 2023 for guidance. As with all markers of cardiac injury, elevations of hsTnI do not in and of themselves indicate thepresence of an ischemic mechanism. Many other disease states can be associated with elevations via mechanisms different from those that cause injury in patients with ACS. These include trauma (contusion, ablation, pacing); congestive heart failure; pulmonary embolism; kidney failure; and myocarditis. Clinical judgement is necessary to distinguish patients who have ischemic heart disease from those who do not. Radiology Reports * Exam Date Time Procedure Performing Provider Status 11/24/23 2:05 PM XR Chest 2 Views Alvin Shah [facility] (Verified) Notes: (XR Chest 2 Views) Reason For Exam: SOB;Chest pain XR Chest 2 Views EXAM DESCRIPTION: XR Chest 2 Views 11/24/2023 INDICATION: CHEST PAIN COMPARISON: None FINDINGS: Clear lungs with no focal infiltrate or pulmonary edema. Normal cardiomediastinal contour. Normal pleural margins with no pleural effusion or pneumothorax. Mild spondylotic changes of the dorsal spine. IMPRESSION: No active chest disease. JOB #: [id number] Final Signed by: Mariano Hughes MD Signed (Electronic Signature): 11/24/2023 2:07 pm Vital Signs Most recent to oldest [Reference Range]: 1 2 3 Temperature Temporal Artery [36-38 Deg C] 36.7 Deg C (11/24/23 1:20 PM) Peripheral Pulse Rate [60-100 bpm] 78 bpm (11/24/23 4:17 PM) 79 bpm (11/24/23 3:30 PM) 78 bpm (11/24/23 2:17 PM) Heart Rate Monitored [60-100 bpm] 78 bpm (11/24/23 4:17 PM) 79 bpm (11/24/23 3:30 PM) 78 bpm (11/24/23 2:17 PM) Respiratory Rate [12-24 br/min] 21 br/min (11/24/23 4:17 PM) 20 br/min (11/24/23 3:30 PM) 22 br/min (11/24/23 2:17 PM) Blood Pressure [90-140/60-90 mmHg] 149/123mmHg *HI* (11/24/23 4:13 PM) 149/110mmHg *HI* (11/24/23 2:17 PM) 130/109mmHg (11/24/23 1:20 PM) Mean Arterial Pressure, Cuff [65-140 mmHg] 123 mmHg (11/24/23 2:17 PM) 116 mmHg (11/24/23 1:20 PM) Mean Arterial Pressure Cuff 132 mmHg (11/24/23 4:13 PM) Weight 106.1 kg (11/24/23 1:20 PM) Weight Dosing 106.100 kg (11/24/23 1:20 PM) Height 193 cm (11/24/23 1:20 PM) Body Mass Index 28.48 kg/m2 (11/24/23 1:20 PM) Social History Social History Type Response Tobacco Never tobacco user T obacco Use:. Sex Sex Representation Patient sex unknown (finding) Hospital Discharge Instructions Patient Education 11/24/2023 15:07:41 Heart Failure, Diagnosis Heart Failure, Diagnosis Heart failure is a condition in which the heart has trouble pumping blood. This may mean that the heart cannot pump enough blood out to the body or that the heart does not fill up with enough blood. For some people with heart failure, fluid may back up into the lungs. There may also be swelling (edema) in the lower legs. Heart failure is usually a long-term (chronic) condition. It is important for you to take good care of yourself and follow the treatment plan from your health care provider. Different stages of heart failure have different treatment plans. The stages are: ??? Stage A: At risk for heart failure. ??? Having no symptoms of heart failure, but being at risk for developing heart failure. ??? Stage B: Pre-heart failure. ??? Having no symptoms of heart failure, but having structural changes to the heart that indicate heart failure. ??? Stage C: Symptomatic heart failure. ??? Having symptoms of heart failure in addition to structural changes to the heart that indicate heart failure. ??? Stage D: Advanced heart failure. ??? Having symptoms that interfere with daily life and frequent hospitalizations related to heart failure. What are the causes? This condition may be caused by: ??? High blood pressure (hypertension). Hypertension causes the heart muscle to work harder than normal. ??? Coronary artery disease, or CAD. CAD is the buildup of cholesterol and fat (plaque) in the arteries of the heart. ??? Heart attack, also called myocardial infarction. This injures the heart muscle, making it hard for the heart to pump blood. ??? Abnormal heart valves. The valves do not open and close properly, forcing the heart to pump harder to keep the blood flowing. ??? Heart muscle disease, inflammation, or infection (cardiomyopathy or myocarditis). This is damage to the heart muscle. It can increase the risk of heart failure. ??? Lung disease. The heart works harder when the lungs are not healthy. What increases the risk? The risk of heart failure increases as a person ages. This condition is also more likely to developin people who: ??? Are obese. ??? Use tobacco or nicotine products. ??? Abuse alcohol or drugs. ??? Have taken medicines that can damage the heart, such as chemotherapy drugs. ??? Have any of these conditions: ??? Diabetes. ??? Abnormal heart rhythms. ??? Thyroid problems. ??? Low blood counts (anemia). ??? Chronic kidney disease. ??? Have a family history of heart failure. What are the signs or symptoms? Symptoms of this condition include: ??? Shortness of breath with activity, such as when climbing stairs. ??? A cough that does not go away. ??? Swelling of the feet, ankles, legs, or abdomen. ??? Losing or gaining weight for no reason. ??? Trouble breathing when lying flat. ??? Waking from sleep because of the need to sit up and get more air. ??? Rapid heartbeat. Other symptoms may include: ??? Tiredness (fatigue) and loss of energy. ??? Feeling light-headed, dizzy, or close to fainting. ??? Nausea or loss of appetite. ??? Waking up more often during the night to urinate (nocturia). ??? Confusion. How is this diagnosed? This condition is diagnosed based on: ??? Your medical history, symptoms, and a physical exam. ??? Blood tests. ??? Diagnostic tests, which may include: ??? Echocardiogram. ??? Electrocardiogram (ECG). ??? Chest X-ray. ??? Exercise stress test. ??? Cardiac MRI. ??? Cardiac catheterization and angiogram. ??? Radionuclide scans. How is this treated? Treatment for this condition is aimed at managing the symptoms of heart failure. Medicines Treatment may include medicines that: ??? Help lower blood pressure by relaxing (dilating) the blood vessels. These medicines are called JAH inhibitors (angiotensin-converting enzyme), ARBs (angiotensin receptor blockers), or vasodilators. ??? Cause the kidneys to remove salt and water from the blood through urination (diuretics). ??? Improve heart muscle strength and prevent the heart from beating too fast (beta blockers). ??? Increase the force of the heartbeat (digoxin). ??? Lower heart rates. Certain diabetes medicines (SGLT-2 inhibitors) may also be used in treatment. Healthy behavior changes Treatment may also include making healthy lifestyle changes, such as: ??? Reaching and staying at a healthy weight. ??? Not using tobacco or nicotine products. ??? Eating heart-healthy foods. ??? Limiting or avoiding alcohol. ??? Stopping the use of illegal drugs. ??? Being physically active. ??? Participating in a cardiac rehabilitation program, which is a treatment program to improve yourhealth and well-being through exercise training, education, and counseling. Other treatments Other treatments may include: ??? Procedures to open blocked arteries or repair damaged valves. ??? Placing a pacemaker to improve heart function (cardiac resynchronization therapy). ??? Placing a device to treat serious abnormal heart rhythms (implantable cardioverter defibrillator, or ICD). ??? Placing a device to improve the pumping ability of the heart (left ventricular assist device, or LVAD). ??? Receiving a healthy heart from a donor (heart transplant). This is done when other treatments have not helped. Follow these instructions at home: ??? Manage other health conditions as told by your health care provider. These may include hypertension, diabetes, thyroid disease, or abnormal heart rhythms. ??? Get ongoing education and support as needed. Learn as much as you can about heart failure. ??? Keep all follow-up visits. This is important. Where to find more information ??? [place] [employer]: www.heart.org ??? Centers for Disease Control and Prevention: www.cdc.gov ??? NIH National [place] [employer] A[place]: www.aby.nih.gov Summary ??? Heart failure is a condition in which the heart has trouble pumping blood. ??? This condition is commonly caused by high blood pressure and other diseases of the heart and lungs. ??? Symptoms of this condition include shortness of breath, tiredness (fatigue), nausea, and swelling of the feet, ankles, legs, or abdomen. ??? Treatments for this condition may include medicines, lifestyle changes, and surgery. ??? Manage other health conditions as told by your health care provider. This information is not intended to replace advice given to you by your health care provider. Make sure you discuss any questions you have with your health care provider. Document Revised: 06/09/2022 Document Reviewed: 09/21/2020 Elsevier Patient Education ?? 2022 [employer]. Follow Up Care 11/24/2023 13:06:07 With:Jamal García MD Address: [address] [place] [address] [place] [address] [phone] When:24 Hours Comments:Follow-up with Dr. García tomorrow as scheduled With:Follow-up with your primary care Address: When:1 week Comments:Follow-up with your primary care as needed, they will be able to reevaluate if necessaryReturn to ED if concerns Physician Emergency department Note * RUEL Acosta: PERFORM Event Display: ED Note Physician Authored Date: [id number] TRISTAN LOPEZ :1970 Age:52 years Sex:Unknown Visit Date:11/24/2023 Primary Care Physician: MARY ALBRECHT Basic Information Time Seen: RUEL Acosta / 11/24/2023 13:13 Chief Complaint Patient in with complaints of shortness of breath while laying down. ??Recently discharged from [facility] with afib RVR, and CHF. History Of Present Illness: Patient 52-year-old male presents emergency department after having recent discharge from [facility]??after being admitted there 1 week ago for??A-fib with RVR new onset.?? He had??at that time an echo which showed an EF of??30%??he was started on amiodarone, metoprolol and??lisinopril. Patient??has been having difficulty sleeping due to the fact that he cannot breathe he feels as though he may have underdiagnosed sleep apnea??and is having a slight cough.?? Mostly at night??is whenhe is experiencing??his shortness of breath if he is upright he does not feel nearly as bad. ??Patient does note that his tolerance is low since his??discharge however??he feels it is from the admission. Patient is had no fever chills nausea vomiting or other concerns. Review of Systems: See HPI Physical Exam Vitals & Measurements T:??36.7?C ??(Temporal Artery)?? HR:??78??(Peripheral)?? HR:??78??(Monitored)?? RR:??21?? BP:??149/123?? SpO2:??98%?? HT:??193??cm?? WT:??106.1??kg?? BMI:??28.48?? Patient alert oriented age-appropriate well-nourished nontoxic Normocephalic atraumatic Neck supple nontender EOM intact, PERRLA, sclera nonicteric Clear to auscultation bilaterally Regular rate and rhythm no murmurs Abdominal exam reveals normal bowel sounds, negative rebound tenderness, negative psoas sign Normal gait and station, normal strength all extremities Neuro exam intact without focal deficit Appropriate mood and affect Medical Decision Making: Patient's laboratory evaluation was concerning for a troponin of 26 however x 2 showed no change His BNP was 1266 and he is only on spironolactone. ??Remaining laboratory evaluation is unremarkable ?? At this time??we will start him on Lasix and he will follow-up with Dr. García as scheduled tomorrow. ??I did not feel any need for further evaluations or admission. Procedure No Qualifying Data Assessment/Plan 1.??CHF exacerbation??I50.9 ??Patient be discharged she understands risk and benefits of this. ??He agrees with the fact that??there is no need for admission. ??He will follow with Dr. García as scheduled tomorrow at noon time.??He will be started on Lasix here??and we will defer to Dr. García for any further Lasix treatment.?? He has any question concerns or new symptoms in the interim he will return here to the emergencydepartment for reevaluation. Orders: Discharge Patient, 11/24/23 16:06:00 EDT, Home Independently Patient Education Heart Failure, Diagnosis Follow Up With When Contact Information Jamal García MD Within [address] [place] [address] [place] [address] [phone] Additional Instructions: Follow-up with Dr. García tomorrow as scheduled Follow-up with your primary care Within 1 week Additional Instructions: Follow-up with your primary care as needed, they will be able to reevaluate if necessary Return to ED if concerns Medication Reconciliation Unchanged amiodarone (amiodarone 400 mg oral tablet)2 tab Oral (given by mouth) every day. ?? apixaban (apixaban 5 mg oral tablet)1 tab Oral (given by mouth) 2 times a day. ?? lisinopril (lisinopril 40 mg oral tablet)1 tab Oral (given by mouth) every day. ?? metoprolol (metoprolol succinate 100 mg oral capsule, extended release)100 Milligrams Oral (given by mouth) 2 times a day. ?? rosuvastatin (rosuvastatin 10 mg oral capsule)1 Capsules Oral (given by mouth) every day. ?? [id number] Oral (given by mouth) every day. Problem List/Past Medical History Ongoing No qualifying data Historical No qualifying data Medication Administration Given Lasix, 40 mg, IV Push Allergies No Known Medication Allergies Social History Electronic Cigarette/Vaping Electronic Cigarette Use: Never. Tobacco Never tobacco user Tobacco Use:. Diagnostic Results XR Chest 2 Views 11/24/2023 14:09 EDT XR Chest 2 Views ?? 11/24/23 14:07:22 EXAM DESCRIPTION: XR Chest 2 Views ?? 11/24/2023 ? INDICATION: CHEST PAIN ?? COMPARISON: ?? None ?? FINDINGS: Clear lungs with no focal infiltrate or pulmonary edema. Normal cardiomediastinal contour. Normal pleural margins with no pleural effusion or pneumothorax. Mild spondylotic changes of the dorsal spine. ?? IMPRESSION: No active chest disease. ? JOB #: [id number] Electronically Signed By: ?? Signed By: Mariano Hughes MD Lab Results CBC and Differential?? LATEST RESULTS?? WBC?? 11/24/23 13:39?? 14.0 ??High?? RBC?? 11/24/23 13:39?? 4.98?? Hgb?? 11/24/23 13:39?? 15.0?? Hct?? 11/24/23 13:39?? 46.6?? MCV?? 11/24/23 13:39?? 93.6?? MCH?? 11/24/23 13:39?? 30.1?? MCHC?? 11/24/23 13:39?? 32.2?? RDW-CV?? 11/24/23 13:39?? 15.7 ??High?? Platelets?? 11/24/23 13:39?? 276?? MPV?? 11/24/23 13:39?? 9.2?? Neutro Auto?? 11/24/23 13:39?? 75.5 ??High?? Lymph Auto?? 11/24/23 13:39?? 14.8 ??Low?? Bell Auto?? 11/24/23 13:39?? 8.5?? Eos, Auto?? 11/24/23 13:39?? 0.80?? Basophil Auto?? 11/24/23 13:39?? 0.4?? Neutro Absolute?? 11/24/23 13:39?? 10.6 ??High?? Lymph Absolute?? 11/24/23 13:39?? 2.1?? Bell Absolute?? 11/24/23 13:39?? 1.2 ??High?? Eos Absolute?? 11/24/23 13:39?? 0.1?? Baso Absolute?? 11/24/23 13:39?? 0.1? Routine Chemistry?? LATEST RESULTS?? Sodium Level?? 11/24/23 14:50?? 137?? Potassium Level?? 11/24/23 14:50?? 4.3?? Chloride Level?? 11/24/23 14:50?? 107?? CO2?? 11/24/23 14:50?? 22?? Alk Phos?? 11/24/23 14:50?? 66?? AST?? 11/24/23 14:50?? 17?? ALT?? 11/24/23 14:50?? 34?? BUN?? 11/24/23 14:50?? 24?? Glucose Level?? 11/24/23 14:50?? 111 ??High?? Creatinine Level?? 11/24/23 14:50?? 1.40 ??High?? BUN/Creat Ratio?? 11/24/23 14:50?? 17.1?? eGFR CKD-EPI?? 11/24/23 14:50?? 46 ??Low?? Calcium Level?? 11/24/23 14:50?? 9.2?? Protein Total?? 11/24/23 14:50?? 6.7?? Albumin Level?? 11/24/23 14:50?? 4.0?? Globulin?? 11/24/23 14:50?? 2.7?? A/G Ratio?? 11/24/23 14:50?? 1.5?? Bilirubin Total?? 11/24/23 14:50?? 1.1 ??High?? Anion Gap?? 11/24/23 14:50?? 8.0?? Magnesium Level?? 11/24/23 13:39?? 2.1?? Osmolality?? 11/24/23 14:50?? 279? Cardiac Isoenzymes?? LATEST RESULTS?? BNP?? 11/24/23 14:50?? 1266 ??High?? Troponin-I HS?? 11/24/23 13:39?? 29 ??High? Thyroid Studies?? LATEST RESULTS?? T4 Free?? 11/24/23 14:50?? 1.18 ??High?? TSH?? 11/24/23 13:39?? 9.04 ??High? Electronically Signed on 11/24/2023 19:09 EDT RUEL Acosta Emergency department Discharge instructions * RUEL Acosta: PERFORM Event Display: ED Discharge Information Authored Date: [id number] TRISTAN LOPEZ :1970 Age:52 years Sex:Unknown Visit Date:11/24/2023 Primary Care Physician: MARY ALBRECHT Discharge Instructions We would like to thank you for allowing us to assist you with your healthcare needs. The following includes patient education materials and information regarding your injury/illness. Diagnosis from Today's Visit CHF exacerbation Discharge Vitals Temperature??(Temporal Artery) 98.1 ??F (36.7 ??C) Heart Rate??(Peripheral) 79 Heart Rate??(Monitored) 79 Respiratory Rate?? 20 Blood Pressure?? 149/110?? SpO2?? 97% Height?? 75.98 in (193 cm) Weight?? 233.95 lb (106.1 kg) BMI?? 28.48 Allergies No Known Medication Allergies What to Do Next You Need to Schedule the Following Appointments Follow Up with??Jamal García MD When:??Within 24 Hours Why: Follow-up with Dr. García tomorrow as scheduled Where: [address] [place] [address] [place] [address] [phone] Follow Up with??Follow-up with your primary care When:??Within 1 week Why: Follow-up with your primary care as needed, they will be able to reevaluate if necessary Return to ED if concerns You were treated today on an emergency basis; it may be [place] to contact your primary care provider to notify them of your visit today. You may have been referred to your regular doctor or a specialist, please follow up as instructed. If your condition worsens or you can't get in to see the doctor, contact the Emergency Department. Medications What How Much When Instructions Next Dose Unchanged amiodarone (amiodarone 400 mg oral tablet) 2 tab Oral (given by mouth) Every day Unchanged apixaban (apixaban 5 mg oral tablet) 1 tab Oral (given by mouth) 2 times a day Unchanged lisinopril (lisinopril 40 mg oral tablet) 1 tab Oral (given by mouth) Every day Unchanged metoprolol (metoprolol succinate 100 mg oral capsule, extended release) 100 Milligrams Oral (given by mouth) 2 times a day Unchanged rosuvastatin (rosuvastatin 10 mg oral capsule) 1 Capsules Oral (given by mouth) Every day Unchanged spironolactone 12.5 Oral (given by mouth) Every day Education Materials Heart Failure, Diagnosis Heart failure is a condition in which the heart has trouble pumping blood. This may mean that the heart cannot pump enough blood out to the body or that the heart does not fill up with enough blood. For some people with heart failure, fluid may back up into the lungs. There may also be swelling (edema) in the lower legs. Heart failure is usually a long-term (chronic) condition. It is important for you to take good care of yourself and follow the treatment plan from your health care provider. Different stages of heart failure have different treatment plans. The stages are: ? Stage A: At risk for heart failure. ? Having no symptoms of heart failure, but being at risk for developing heart failure. ? Stage B: Pre-heart failure. ? Having no symptoms of heart failure, but having structural changes to the heart that indicate heartfailure. ? Stage C: Symptomatic heart failure. ? Having symptoms of heart failure in addition to structural changes to the heart that indicate heartfailure. ? Stage D: Advanced heart failure. ? Having symptoms that interfere with daily life and frequent hospitalizations related to heart failure. What are the causes? This condition may be caused by: ? High blood pressure (hypertension). Hypertension causes the heart muscle to work harder than normal. ? Coronary artery disease, or CAD. CAD is the buildup of cholesterol and fat (plaque) in the arteriesof the heart. ? Heart attack, also called myocardial infarction. This injures the heart muscle, making it hard for the heart to pump blood. ? Abnormal heart valves. The valves do not open and close properly, forcing the heart to pump harder to keep the blood flowing. ? Heart muscle disease, inflammation, or infection (cardiomyopathy or myocarditis). This is damage tothe heart muscle. It can increase the risk of heart failure. ? Lung disease. The heart works harder when the lungs are not healthy. What increases the risk? The risk of heart failure increases as a person ages. This condition is also more likely to developin people who: ? Are obese. ? Use tobacco or nicotine products. ? Abuse alcohol or drugs. ? Have taken medicines that can damage the heart, such as chemotherapy drugs. ? Have any of these conditions: ? Diabetes. ? Abnormal heart rhythms. ? Thyroid problems. ? Low blood counts (anemia). ? Chronic kidney disease. ? Have a family history of heart failure. What are the signs or symptoms? Symptoms of this condition include: ? Shortness of breath with activity, such as when climbing stairs. ? A cough that does not go away. ? Swelling of the feet, ankles, legs, or abdomen. ? Losing or gaining weight for no reason. ? Trouble breathing when lying flat. ? Waking from sleep because of the need to sit up and get more air. ? Rapid heartbeat. Other symptoms may include: ? Tiredness (fatigue) and loss of energy. ? Feeling light-headed, dizzy, or close to fainting. ? Nausea or loss of appetite. ? Waking up more often during the night to urinate (nocturia). ? Confusion. How is this diagnosed? This condition is diagnosed based on: ? Your medical history, symptoms, and a physical exam. ? Blood tests. ? Diagnostic tests, which may include: ? Echocardiogram. ? Electrocardiogram (ECG). ? Chest X-ray. ? Exercise stress test. ? Cardiac MRI. ? Cardiac catheterization and angiogram. ? Radionuclide scans. How is this treated? Treatment for this condition is aimed at managing the symptoms of heart failure. Medicines Treatment may include medicines that: ? Help lower blood pressure by relaxing (dilating) the blood vessels. These medicines are called JAH inhibitors (angiotensin-converting enzyme), ARBs (angiotensin receptor blockers), or vasodilators. ? Cause the kidneys to remove salt and water from the blood through urination (diuretics). ? Improve heart muscle strength and prevent the heart from beating too fast (beta blockers). ? Increase the force of the heartbeat (digoxin). ? Lower heart rates. Certain diabetes medicines (SGLT-2 inhibitors) may also be used in treatment. Healthy behavior changes Treatment may also include making healthy lifestyle changes, such as: ? Reaching and staying at a healthy weight. ? Not using tobacco or nicotine products. ? Eating heart-healthy foods. ? Limiting or avoiding alcohol. ? Stopping the use of illegal drugs. ? Being physically active. ? Participating in a cardiac rehabilitation program, which is a treatment program to improve your health and well-being through exercise training, education, and counseling. Other treatments Other treatments may include: ? Procedures to open blocked arteries or repair damaged valves. ? Placing a pacemaker to improve heart function (cardiac resynchronization therapy). ? Placing a device to treat serious abnormal heart rhythms (implantable cardioverter defibrillator, or ICD). ? Placing a device to improve the pumping ability of the heart (left ventricular assist device, or LVAD). ? Receiving a healthy heart from a donor (heart transplant). This is done when other treatments have not helped. Follow these instructions at home: ? Manage other health conditions as told by your health care provider. These may include hypertension, diabetes, thyroid disease, or abnormal heart rhythms. ? Get ongoing education and support as needed. Learn as much as you can about heart failure. ? Keep all follow-up visits. This is important. Where to find more information ? [place] [employer]: www.heart.org ? Centers for Disease Control and Prevention: www.cdc.gov ? NIH National [place] [employer] [place]: www.aby.nih.gov Summary ? Heart failure is a condition in which the heart has trouble pumping blood. ? This condition is commonly caused by high blood pressure and other diseases of the heart and lungs. ? Symptoms of this condition include shortness of breath, tiredness (fatigue), nausea, and swelling of the feet, ankles, legs, or abdomen. ? Treatments for this condition may include medicines, lifestyle changes, and surgery. ? Manage other health conditions as told by your health care provider. This information is not intended to replace advice given to you by your health care provider. Make sure you discuss any questions you have with your health care provider. Document Revised: 06/09/2022 Document Reviewed: 09/21/2020 [employer] Patient Education ?? 2022 [employer] Tests Performed Radiology XR Chest 2 Views 11/24/2023 14:09 EDT Lab Test Name Test Result Date/Time WBC 14.0 K/mcL 11/24/2023 13:39 EDT RBC 4.98 Million/mcL 11/24/2023 13:39 EDT Hgb 15.0 g/dL 11/24/2023 13:39 EDT Hct 46.6 % 11/24/2023 13:39 EDT MCV 93.6 fL 11/24/2023 13:39 EDT MCH 30.1 pg 11/24/2023 13:39 EDT MCHC 32.2 g/dL 11/24/2023 13:39 EDT RDW-CV 15.7 % 11/24/2023 13:39 EDT Platelets 276 K/mcL 11/24/2023 13:39 EDT MPV 9.2 fL 11/24/2023 13:39 EDT Neutro Auto 75.5 % 11/24/2023 13:39 EDT Lymph Auto 14.8 % 11/24/2023 13:39 EDT Bell Auto 8.5 % 11/24/2023 13:39 EDT Eos, Auto 0.80 % 11/24/2023 13:39 EDT Basophil Auto 0.4 % 11/24/2023 13:39 EDT Neutro Absolute 10.6 K/mcL 11/24/2023 13:39 EDT Lymph Absolute 2.1 K/mcL 11/24/2023 13:39 EDT Bell Absolute 1.2 K/mcL 11/24/2023 13:39 EDT Eos Absolute 0.1 K/mcL 11/24/2023 13:39 EDT Baso Absolute 0.1 K/mcL 11/24/2023 13:39 EDT Sodium Level 137 mmol/L 11/24/2023 14:50 EDT Potassium Level 4.3 mmol/L 11/24/2023 14:50 EDT Chloride Level 107 mmol/L 11/24/2023 14:50 EDT CO2 22 mmol/L 11/24/2023 14:50 EDT Alk Phos 66 IntlUnit/L 11/24/2023 14:50 EDT AST 17 IntlUnit/L 11/24/2023 14:50 EDT ALT 34 IntlUnit/L 11/24/2023 14:50 EDT BUN 24 mg/dL 11/24/2023 14:50 EDT Glucose Level 111 mg/dL 11/24/2023 14:50 EDT Creatinine Level 1.40 mg/dL 11/24/2023 14:50 EDT BUN/Creat Ratio 17.1 11/24/2023 14:50 EDT eGFR CKD-EPI 46 mL/min/1.73 m2 11/24/2023 14:50 EDT Calcium Level 9.2 mg/dL 11/24/2023 14:50 EDT Protein Total 6.7 g/dL 11/24/2023 14:50 EDT Albumin Level 4.0 g/dL 11/24/2023 14:50 EDT Globulin 2.7 g/dL 11/24/2023 14:50 EDT A/G Ratio 1.5 g/dL 11/24/2023 14:50 EDT Bilirubin Total 1.1 mg/dL 11/24/2023 14:50 EDT Anion Gap 8.0 11/24/2023 14:50 EDT Magnesium Level 2.1 mg/dL 11/24/2023 13:39 EDT Osmolality 279 mOsm/kg 11/24/2023 14:50 EDT BNP 1266 pg/mL 11/24/2023 14:50 EDT Troponin-I HS 29 ng/L 11/24/2023 13:39 EDT T4 Free 1.18 ng/dL 11/24/2023 14:50 EDT TSH 9.04 mcIntlUnit/mL 11/24/2023 13:39 EDT Patient/Bicycle Racer Signature Patient Name:JESSICATRISTAN I have received this information and my questions have been answered. Patient/Bicycle Racer Name: Patient/Bicycle Racer Signature: Relationship to Patient: Witness Name/Signature: Date: Electronically Signed on: 11/24/2023 16:08 EDTSigned by: Patient Care team information Care Team Personnel Name: AMBROCIO MARY Position: No Access Member Role: Primary Care Physician Address: [address] Insurance Providers Guarantor name: TRISTAN LOPEZ Health Plan Information #: 1 Payer: OPAL Member Number: [id number] Policy Number: JONO Health Plan Information #: 2 Payer: OPAL Member Number: [id number] Policy Number: JONO
--- OUTSIDE RECORDS SUMMARY | 2023-11-29 16:06 | XMS_ITS | Encounter Summary ---
Author Organization [facility] [place] [address] Care Team Providers Care Machine Tool Designer Name Role Phone SandipMavis addison PILY Primary Care Provider [phone] Reason for Visit * Reason Onset Date Comments Referral 11/11/2023 Encounter Details Date Type Department Care Team (Late st Contact Info) Description 11/11/2023 Telephone Cardiology at [address] [phone] Dora Cuevas, glass blowing instructor Social History Tobacco Use Types Packs/Day Years Used Date Smoking Tobacco: Some Days Cigarettes Last attempted to quit: 08/2018 Smokeless Tobacco: Never Alcohol Use Standard Drinks/Week Comments Yes 0 (1 standard drink = 0.6 oz pur e alcohol) Rare Sex and Gender Information Value Date Recorded Sex Assigned at Not on file Gender Identity Not on file Sexual Orientation Not on file documented as of this encounter Miscellaneous Notes * Telephone Encounter - Dora Cuevas, RN - 11/11/2023 2:20 PM EDT Images from the original note were not included. [facility] [address] [place] [id number] Satish Vazquez 1970 was referred to this Cardiology clinic for new onset atrial fibrillation by PCP JON Christina. . Active Ambulatory Problems Diagnosis Date Noted atrial fibrillation/flutter new onset 10/06/2023 Lipoma of skin of back 10/06/2023 Hyperlipidemia 11/11/2023 Hypertension 11/11/2023 Family history of arteriosclerotic cardiovascular disease 11/11/2023 Varicose veins of left lower leg 11/11/2023 Resolved Ambulatory Problems Diagnosis Date Noted No Resolved Ambulatory Problems Past Medical History: Diagnosis Date Former smoker Stroke 11/11/2018 Stroke 01/19/2020 Varicose veins of both lower extremities Current medications aspirin EC 81 mg Tablet, Delayed Release (E.C.) lisinopriL (Zestril) 40 mg tablet atorvastatin (LIPITOR) 40 mg Tablet . Allergies Allergen Reactions Shellfish Derived Anaphylaxis * Telephone Encounter - Dora Cuevas, RN - 11/11/2023 9:56 AM EDT ----- Message from Steffany Bob sent at 11/11/2023 9:25 AM EDT ----- Referral and records scanned documented in this encounter Plan of Treatment Upcoming Encounters Date Type Department Care Team (Late st Contact Info) Description 04/26/2024 10:00 AM EST Office Visit Cardiology at [address] [phone] Reggie Sy MD [facility] [place] [address] documented as of this encounter Visit Diagnoses Not on filedocumented in this encounter Care Teams Machine Tool Designer Relationship Specialty Start Date End Date Mavis Oroepza APRN [address] [place] [address] PCP - General Family Medicine 11/21/18 11/24/23 documented as of this encounter
--- OUTSIDE RECORDS SUMMARY | 2023-11-29 16:06 | XMS_ITS | Encounter Summary ---
Author Organization [facility] Address [facility] [place] [address] Care Team Providers Care Meat Blender Name Role Phone Mavis Oropeza APRN Primary Care Provider [phone] Reason for Visit * Consultation (Urgent) - Closed Specialty Diagnoses / Procedures Referred By Marisol t Referred To Contact Neurology Diagnoses TIA LACUNAR INFARCTION Ruth Mayorga APRN [address] [place] [address] [facility] [address] [place] [address] Referral ID Status Reason Start Date Expiration Date V isits Requested Visits Authorized [id number] Closed Consult, Test & Treat Connection Center PCP Updated and/or Approved 11/21/2018 11/21/2019 1 1 Encounter Details Date Type Department Care Team (Latest Contact Info) Description 01/25/2019 9:00 AM EST [place] [phone] Petar Laws MD [facility] [place] [address] Late effects of cerebrovascular disease Social History Tobacco Use Types Packs/Day Years [...] Sign Reading Time Taken Comments Blood Pressure 145/106 01/25/2019 8:40 AM EST Pulse 69 01/25/2019 8:40 AM EST Temperature - - Respiratory Rate - - Oxygen Saturation - - Inhaled Oxygen Concentration - - Weight 109.3 kg (241 lb) 01/25/2019 8:40 AM EST Height 193 cm (6' 4) 01/25/2019 8:40 AM EST rep orted Body Mass Index 29.34 01/25/2019 8:40 AM EST documented in this encounter Patient Instructions * Patient Instructions* Petar Laws MD - 01/25/2019 9:00 AM EST Stop Eliquis (apixaban) and start aspirin 81mg a day and continue the aspirin indefinitely. I will review the MRI pictures more and let you know if other tests are needed (like a bubble studywith an echocardiogram from the surface of the chest). documented in this encounter Progress Notes * Petar Laws MD - 01/25/2019 9:00 AM EST Images from the original note were not included. Cerebrovascular Disease and Stroke Program Department of Neurology [place] [id number] t: [phone] / f: [phone] Date of Appointment: 01/25/2019 Patient: Satish Vazquez PCP: Mavis Oropeza APRN Consultation Requested By: Ruth Mayorga Aprn [address] [place] [phone] This 48 y.o. male is evaluated because of a right pontine and other possible concomitant cererbral infarctions in October. Came with his Debbi. In August first stroke, got up and troubles walking straight and fell in BR, ? Vertigo, didn't get evaluated. Nonspecific fatigue all summer. He has a hx of HTN and tobacco abuse, ? quit in October. Went to PCP about week before October event and BP med started. In October, he got up and didn't feel well at chapel and dizzy and off balance and in classroom, troubles lifting left hand and in shop whole left side wouldn't work. Admitted to [facility] October, MRI showed a recent R pontine and other small probable recent infarctions left occipital lobe and right parietal white matter. CTA negative. Seen by Dr Sheffield. Had PTx outpt Zio 13 d negative. MAYDA here negative. CT CAP negative. He really has little residual symptoms. I thought speech was a little slurred but says it is unchanged. He drags the L heel a little and balance a little off, trips more easily, noticed when fresh snow on ground No emotional lability No past medical history on file. There is no problem list on file for this patient. Allergies Allergen Reactions ??? Shellfish Derived Anaphylaxis Outpatient Medications Marked as Taking for the 01/25/19 encounter (Office Visit) with Petar Laws MD Medication Sig Dispense Refill ??? apixaban (ELIQUIS) 5 mg Tablet Take 5 mg by mouth daily. ??? lisinopril (PRINIVIL;ZESTRIL) 10 mg Tablet Take 10 mg by mouth daily. ??? cyanocobalamin, vitamin B-12, 500 mcg Tablet Take 500 mcg by mouth daily. ??? atorvastatin (LIPITOR) 40 mg Tablet Take 40 mg by mouth daily. Social History Socioeconomic History ??? Marital status: Spouse name: None ??? Number of children: None ??? Years of education: None ??? Highest education level: None Occupational History ??? None Social Needs ??? Financial resource strain: None ??? Food insecurity: Worry: None Inability: None ??? Transportation needs: Medical: None Non-medical: None Tobacco Use ??? Smoking status: Former Smoker Last attempt to quit: 08/2018 Years since quittin.4 ??? Smokeless tobacco: Never Used Substance and Sexual Activity ??? Alcohol use: Yes Comment: Rare ??? Drug use: Never ??? Sexual activity: None Comment: deffered Lifestyle ??? Physical activity: Days per week: None Minutes per session: None ??? Stress: None Relationships ??? Social connections: Talks on phone: None Gets together: None Attends islam service: None Active member of club or organization: None Attends meetings of clubs or organizations: None Relationship status: None ??? Intimate partner violence: Fear of current or ex partner: None Emotionally abused: None Physically abused: None Forced sexual activity: None Other Topics Concern ??? None Social History Narrative ??? 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 He likes to work on cars and his son races. No family history of neurologic disease noted. Sister HTN. ROS: The following items on the list were endorsed while a complete ROS was obtained:ALL NEGATIVE headache glaucoma transient loss of vision double vision dizziness difficulty speaking weakness of arm/leg numbness of arm/leg unsteadiness walking falls seizures difficulty swallowing memory loss ringing in ears snoring incontinence chest pain palpitations trouble breathing trouble lying flat nausea/vomiting indigestion abdominal pain rashes birthmarks easy bruising blood clots in legs (DVT) poor circulation erectile dysfunction depression anxiety joint pains fatigue Stroke:MMAS-4 01/25/2019 MMAS-4 Score 4 (High Adherence) Do you ever forget to take your medication? No Are you careless at times about taking your medicine? No Sometimes, if you feel worse when you take the medicine, do you stop taking it? No When you feel better do you sometimes stop taking your medicine? No Stroke:PROMIS-10 01/25/2019 Fbwgoh74-[place] Health Score 50.8 Ulicla65-Eqitos Health Score 50.8 Health in general Good Quality of life Very Good Physical health Good Mental health Good Satisfaction with social activities Very Good Ability to carry out physical activities Mostly Rate of pain 0 -No Pain Rate of fatigue Mild Ability to carry out social activities Fair Bothered by emotional problems Rarely Stroke:SIS-16 01/25/2019 SIS-16 Score 75 a. Dress the top part of your body? Not difficult at all b. Bathe yourself? Not difficult at all c. Get to the toilet on time? Not difficult at all d. Control your bladder (not have an accident)? Not difficult at all e. Control your bowels (not have an accident)? Not difficult at all f. Standing without losing balance? A little difficult g. Go shopping? Not difficult at all h. Do heavy manager human capital (e.g., vaccum, laundry or yard work?) A little difficult i. Stay sitting without losing your balance? Not difficult j. Walk without losing your balance? A little difficult k. Move from a bed to a chair? Not difficult at all l. Walk fast? Not difficult at all m. Climb one flight of stairs? A little difficult n. Walk one block? Not difficult at all o. Get in and out of a car? Not difficult at all p. Carry heavy objects (e.g., bag of groceries) with your affected hand? A little difficult Stroke:Cognitive Screening 01/25/2019 Patient Cognitive Screening No Stroke:GAD2+7 01/25/2019 GAD2 Subscore 0 (Brief screen negative) Nervous, anxious Not at all Unable to stop worrying Not at all Stroke:PHQ2+9 01/25/2019 PHQ-2 Score 0 (Brief screen negative) Little interest or pleasure Not at all Down, depressed, hopeless Not at all No flowsheet data found. X stroke questionnaire responses reviewed Exam: Most Recent Vitals: 01/25/19 0840 BP: (!) 145/106 Pulse: 69 General: Well appearing patient, nontoxic. Sclerae anicteric. No cervical adenopathy, thyromegaly or carotid/vertebral bruits. No audible wheezing. No edema lower extremities. Heart regular, no murmur. Radial pulses palpable and symmetric. Neuro: MS--alert, oriented; speech fluent/articulate, paraphasic errors or petey aphasia; naming, repetition, recall intact. CN--PERRL w/o anisocoria; no ptosis; EOMI; visual osorio intact to confrontation; facial sensation;facial smile/grimace intact; hearing intact to conversation Motor--No pronator drift; bulk and tone normal. Sens--light touch, temp intact throughout; No DSSE. Coord--FTN and HTS performed w/o dysmetria Gait- gait unremarkable Tone nl L LE. Speech mildly slurred. NIH Stroke Scale: (bold applicable choices) NIH Stroke Scale at Initial Evaluation: 1.a. Level of consciousness: 0-Alert 1-Not alert, but arousable with minimal stimulation 2-Not alert, requires repeat stimulation to attend 3-Coma 1.b. Ask patient the month and their age: 0-Answers both correctly 1-Answers one correctly 2-Both incorrect 1.c. Ask patient to open and close eyes: 0-Obeys both correctly 1-Obeys one correctly 2-Both incorrect 2. Best gaze (horizontal eye movement): 0-Normal 1-Partial gaze palsy 2-Forced deviation 3. Visual field testin-No visual field loss 1-Partial hemianopia 2-Complete hemianopia 3-Bilateral hemianopia (blind including cortical blindness) 4. Facial paresis (Ask patient to show teeth or raise eyebrows and close eyes tightly): 0-Normal symmetrical movement 1-Minor paralysis (flattened nasolabial fold, asymmetry on smiling) 2-Partial paralysis (total or near paralysis of lower face) 3-Complete paralysis of one or both sides (absence of facial movement in the upper and lower face) 5. Motor function right arm: 0-Normal (extends arm 90 degrees for 10 seconds without drift) 1-Drift 2-Some effort against gravity 3-No effort against gravity 4-No movement UT-Untestable (Joint fused or limb amputated) 5. Motor function- left arm: 0-Normal (extends arm 90 degrees for 10 seconds without drift) 1-Drift 2-Some effort against gravity 3-No effort against gravity (but baseline) 4-No movement UT-Untestable (Joint fused or limb amputated) 6. Motor function right le-Normal (extends leg 30 degrees for 5 seconds without drift) 1-Drift 2-Some effort against gravity 3-No effort against gravity 4-No movement UT-Untestable (Joint fused or limb amputated) 6. Motor function-left le-Normal (extends leg 30 degrees for 5 seconds without drift) 1-Drift 2-Some effort against gravity 3-No effort against gravity 4-No movement UT-Untestable (Joint fused or limb amputated) 7. Limb ataxia: 0-No ataxia 1-Present in one limb 2-Present in two limbs 8. Sensory (Use pinprick to test arms, legs, trunk and face compare side to side): 0-Normal 1-Mild to moderate decrease in sensation 2-Severe to total sensory loss 9. Best language (describe picture, name items, read sentences): 0-No aphasia 1-Mild to moderate aphasia 2-Severe aphasia 3-Mute 10. Dysarthria (read several words): 0-Normal articulation 1-Mild to moderate slurring of words 2-Near unintelligible or unable to speak UT-Intubated or other physical barrier 11. Extinction and inattention: 0-Normal 1-Inattention or extinction to bilateral simultaneous in one of the sensory modalities 2-Severe terri-inattention or terri-inattention to more than one modality TOTAL SCORE: 1 Data and records reviewed: I personally reviewed his echocardiogram with cardiology and the right atrium is well opacified with bubbles and there is no PFO seen on this or on the B-mode imaging but it is unclear if the patientdid a Valsalva maneuver. 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 He has recovered nearly completely. He is now no longer smoking and is having his blood pressure monitored and treated. We reviewed indications for Eliquis and recent trials using DOACS in presumed embolic strokes of uncertain etiology. Given the unclear embolic nature of his strokes and the negative results of these trials, I recommended that he stop Eliquis and start aspirin 81mg a day. He has xanthelesmas, and I would like to see the lipid profile results. I will review his MRI more with Radiology and if there seems to be clear embolic strokes, will consider setting up a TTE with bubbles. documented in this encounter Plan of Treatment Upcoming Encounters Date Type Department Care Team (Late st Contact Info) Description 04/26/2024 10:00 AM EST Office Visit Cardiology at [address] [place] [address] Reggie Sy MD [facility] [place] [address] documented as of this encounter Visit Diagnoses Diagnosis Late effects of cerebrovascular disease Unspecified late effects of cerebrovascular disease documented in this encounter Care Teams Meat Blender Relationship Specialty Start Date End Date Mavis Oropeza APRN [address] [place] [address] PCP - General Family Medicine 11/21/18 11/24/23 documented as of this encounter
--- OUTSIDE RECORDS SUMMARY | 2023-11-29 16:06 | XMS_ITS | Encounter Summary ---
Author Organization [facility] [place] [address] Care Team Providers Care Buttermaker Name Role Phone Mavis Oropeza APRN Primary Care Provider [phone] Reason for Referral * Consultation (Urgent) - Closed Specialty Diagnoses / Procedures Referred By Contac t Referred To Contact Cardiology Diagnoses Atrial flutter, unspecified type Atrial flutter. EKG done in clinic was not able to be retrieved. ZIO PENDING. (EP defers to [facility]) Ruth Mayorga APRN [address] [place] [address] [facility] [address] [place] [phone] Referral ID Status Reason Start Date Expiration Date V isits Requested Visits Authorized [id number] Closed Consult, Test & Treat PCP Updated and/or Approved 10/08/2023 10/07/2024 1 1 Encounter Details Date Type Department Care Team (Latest Contact Info) Description 10/08/2023 Transcribe Orders eDH Incoming Referrals [phone] Ruth Mayorga APRN [address] [place], [place] [id number] Atrial flutter, unspecified type Social History Tobacco Use Types Packs/Day Years [...] 10:00 AM EST Office Visit Cardiology at [address] [place] [address] Reggie Sy MD [facility] [place] [address] Scheduled Referrals Name Type Priority Associated Diagnoses Orde r Schedule Referral to Cardiology Outpatient Referral Routine Atrial flutter, unspecified type Ordered: 10/08/2023 documented as of this encounter Visit Diagnoses Diagnosis Atrial flutter, unspecified type documented in this encounter Care Teams Buttermaker Relationship Specialty Start Date End Date Mavis Oropeza APRN [address] [place] [address] PCP - General Family Medicine 11/21/18 11/24/23 documented as of this encounter
--- OUTSIDE RECORDS SUMMARY | 2023-11-29 16:06 | XMS_ITS | Continuity of Care Document ---
Author Organization [facility] Address [address] [place] [address] Care Team Providers Care Shoe Folder Name Role Phone MARY ALBRECHT Primary Care Physician Encounter LTTL_ID FIN NBR [id number] Date(s): 11/04/23 - 11/04/[address] [address] [place] Discharge Disposition: Home or Self Care Attending Physician: MARY ALBRECHT Admitting Physician: MARY ALBRECHT Referring Physician: MARY ALBRECHT Patient Care team information Care Team Personnel Name: MARY ALBRCEHT Position: No Access Member Role: Primary Care Physician Address: [address] [address] Insurance Providers Guarantor name: TRISTAN ELIZABETHEVENS Health Plan Information #: 1 Payer: [facility] Member Number: [id number] Policy Number: NA Health Plan Information #: 2 Payer: [facility] Member Number: [id number] Policy Number: NA
--- OUTSIDE RECORDS SUMMARY | 2023-11-29 16:06 | XMS_ITS | Encounter Summary ---
Author Organization [facility] Address [facility] [place] [address] Care Team Providers Care Water Quality Assistant Name Role Phone Mavis Oropeza PILY Primary Care Provider [phone] Encounter Details Date Type Department Care Team (Late st Contact Info) Description 03/17/2019 Notes [place] [address] Petar Laws MD [facility] [place] [place] [address] Social History Tobacco Use Types Packs/Day Years [...] on file documented as of this encounter Progress Notes * Petar Laws MD - 03/17/2019 6:03 PM EST Lipids from Oct 2018 showed TC 202, HDL 40 and LDL 144. Will set up TTE with bubble study here if he agrees. Letter sent to PCP and pt documented in this encounter Plan of Treatment Upcoming Encounters Date Type Department Care Team (Late st Contact Info) Description 04/26/2024 10:00 AM EST Office Visit Cardiology at [address] [phone] Reggie Sy MD [facility] [place] [address] documented as of this encounter Visit Diagnoses Not on filedocumented in this encounter Care Teams Water Quality Assistant Relationship Specialty Start Date End Date Mavis Oropeza APRN [address] [place] [address] PCP - General Family Medicine 11/21/18 11/24/23 documented as of this encounter
--- OUTSIDE RECORDS SUMMARY | 2023-11-29 16:06 | XMS_ITS | Encounter Summary ---
Author Organization [facility] [address] Care Team Providers Care Gear Tester Name Role Phone Mavis Oropeza APRN Primary Care Provider [phone] Encounter Details Date Type Department Care Team (Late st Contact Info) Description 03/17/2019 Orders [place] [address] Petar Laws MD [facility] [place] [address] Late effects of cerebrovascular disease; Cryptogenic stroke Social History Tobacco Use Types Packs/Day Years [...] 10:00 AM EST Office Visit Cardiology at [address] [address] Reggie Sy MD [facility] [place] [address] documented as of this encounter Visit Diagnoses Diagnosis Late effects of cerebrovascular disease Unspecified late effects of cerebrovascular disease Cryptogenic stroke Unspecified cerebral artery occlusion with cerebral infarction documented in this encounter Care Teams Gear Tester Relationship Specialty Start Date End Date Mavis Oropeza APRN [address] [place] [address] PCP - General Family Medicine 11/21/18 11/24/23 documented as of this encounter
--- OUTSIDE RECORDS SUMMARY | 2023-11-29 16:06 | XMS_ITS | Encounter Summary ---
Author Organization [facility] Address [facility] [place] [address] Care Team Providers Care Leacher Name Role Phone Unavailable Primary Care Provider Unavailabl e Encounter Details Date Type Department Care Team (Late st Contact Info) Description 11/10/2018 12:40 PM EDT Ancillary Procedure Radiology Library at [facility] [place] [address] [facility] [place] [address] Social History Tobacco Use Types Packs/Day Years [...] 10:00 AM EST Office Visit Cardiology at [address] [address] [facility] [place] [address] documented as of this encounter Procedures Procedure Name Priority Date/Time Associated Diagnosis Comments FILM LIBRARY STORAGE ONLY CT HEAD Routine 11/10/2018 12:39 PM EDT documented in this encounter Results * Film Library- Storage Only CT Head (11/10/2018 12:39 PM EDT) Narrative [facility] - 11/10/2018 12:39 PM EDT This exam is auto-finalizing. It's purpose is for storage only. Steph Curiel MD IMG FILM LIBRARY O RDERABLES Performing Organization Address City/State/[facility] Co de Phone Number [place], [place] documented in this encounter Visit Diagnoses Not on filedocumented in this encounter
--- OUTSIDE RECORDS SUMMARY | 2023-11-29 16:06 | XMS_ITS | Encounter Summary ---
Author Organization [facility] Address [facility] [place] [address] Care Team Providers Care Spool Worker Name Role Phone Mavis Oropeza PILY Primary Care Provider [phone] Encounter Details Date Type Department Care Team (Late st Contact Info) Description 11/19/2023 External Results [place] [address] Social History Tobacco Use Types Packs/Day Years [...] 10:00 AM EST Office Visit Cardiology at [address] [phone] Reggie Sy MD [facility] [place] [address] documented as of this encounter Procedures Procedure Name Priority Date/Time Associated Diagnosis Comments MISC EXTERNAL CARDIOLOGY RESULT Routine 11/19/2023 9:19 AM EDT documented in this encounter Results * External Cardiology Result (11/19/2023 9:19 AM EDT) Anatomical Region Laterality Modality Other Historical Provider EXTERNAL CARDIOLO GY RESULT documented in this encounter Visit Diagnoses Not on filedocumented in this encounter Care Teams Spool Worker Relationship Specialty Start Date End Date Mavis Oropeza APRN [address] [place] [address] PCP - General Family Medicine 11/21/18 11/24/23 documented as of this encounter
--- OUTSIDE RECORDS SUMMARY | 2023-11-29 16:06 | XMS_ITS | Encounter Summary ---
Author Organization [facility] [place] [address] Care Team Providers Care Automotive Light Mechanic Name Role Phone Unavailable Primary Care Provider Unavailabl e Encounter Details Date Type Department Care Team (Late st Contact Info) Description 11/11/2018 Ancillary Procedure Radiology Library at [facility] [place] [address] Petar Laws MD [facility] [place] [address] Social History Tobacco Use Types Packs/Day Years [...] 10:00 AM EST Office Visit Cardiology at [address] [phone] Reggie Sy MD [facility] [address] documented as of this encounter Procedures Procedure Name Priority Date/Time Associated Diagnosis Comments FILM LIBRARY STORAGE ONLY MR HEAD Routine 11/11/2018 12:00 AM EDT documented in this encounter Results * Film Library- Storage Only MR Head (11/11/2018 12:00 AM EDT) Narrative [facility] - 01/24/2019 4:46 PM EST This exam is auto-finalizing. It's purpose is for storage only. Petar Laws MD IMG FILM LIBRARY O RDERABLES Performing Organization Address City/State/[facility] Co de Phone Number [place], [place] documented in this encounter Visit Diagnoses Not on filedocumented in this encounter
--- OUTSIDE RECORDS SUMMARY | 2023-11-29 16:06 | XMS_ITS | Encounter Summary ---
Author Organization [facility] [place] [address] Care Team Providers Care Bar Host/Hostess Name Role Phone Ruth Mayorga PILY Primary Care Provider [phone] Reason for Referral * Consultation (Routine) - Authorized Specialty Diagnoses / Procedures Referred By Contact Referred To Contact Electrophysiology / Cardiology Diagnoses Persistent atrial fibrillation afib (converted on amiodarone, did not convert with DCCV prior to load). consideration of PFA Jamal García MD [facility] [address] [facility] [address] [place] [phone] Referral ID Status Reason Start Date Expiration Date Visits Requested Visits Authorized [id number] Authorized Consult, Test & Treat 11/25/2023 11/24/2024 1 1 Reason for Visit * Reason Comments Atrial Fibrillation Establish Care Encounter Details Date Type Department Care Team (Late st Contact Info) Description 11/25/2023 12:40 PM EDT Office Visit Cardiology at [address] [phone] Jamal García MD [facility] [address] Persistent atrial fibrillation; Cardiomyopathy, unspecified type Social History Tobacco Use Types [...] Sign Reading Time Taken Comments Blood Pressure 117/85 11/25/2023 1:15 PM EDT Pulse 70 11/25/2023 1:15 PM EDT Temperature - - Respiratory Rate - - Oxygen Saturation - - Inhaled Oxygen Concentration - - Weight 106.6 kg (235 lb) 11/25/2023 1:15 PM EDT Height 193 cm (6' 4) 11/25/2023 1:15 PM EDT Body Mass Index 28.61 11/25/2023 1:15 PM EDT documented in this encounter Progress Notes * Jamal García MD - 11/25/2023 12:40 PM EDT Images from the original note were not included. CARDIOLOGY NEW OUTPATIENT PRIMARY CARE PROVIDER: Ruth Mayorga APRN PROBLEM LIST: Patient Active Problem List Diagnosis Atrial fibrillation 09/2023: diagnosed at GP office. Toprol and eliquis added. Toprol increased due to poor rate control 11/2023: presents to [facility] with dyspnea; continues with afib RVR. DCCV attempted but not successful (x 3, max 200 J). Started on amiodarone Cardiomyopathy 10/2023 ([facility]): EF 30%, global HK Hyperlipidemia Hypertension Varicose veins of left lower leg End of day foot is discolored blue Lipoma of skin of back MEDICATIONS: Current Outpatient Medications Medication Instructions AMIOdarone (Pacerone) 200 mg tablet Take 2 tablets every 12 hours by oral route for 9 days. atorvastatin (LIPITOR) 40 mg, Oral, DAILY Eliquis 5 mg tablet 1 tablet, Oral, 2 TIMES DAILY furosemide (LASIX) 40 mg, Oral, DAILY lisinopriL (ZESTRIL) 40 mg, Oral, DAILY metoprolol succinate XL (TOPROL-XL) 100 mg, Oral, 2 TIMES DAILY rosuvastatin (Crestor) 10 mg tablet 1 tablet, Oral, DAILY spironolactone (ALDACTONE) 12.5 mg, Oral, DAILY Subjective: Patient ID: Satish Vazquez is a 52 y.o. male. HPI: 52 m presents on referral from GP for atrial fibrillation. He presented to [facility] with progressive dyspnea. He was noted to be with atrial fibrillation a month or so prior, and was started on toprol and eliquis. DCCV attempted without success, and he was loaded with amiodarone. Since then, he has continued with nyha ii dyspnea. He cannot tell when he converted out of afib back to NSR. He presented to [facility] ED yesterday and was given IV diuresis with good effect, feels much improved. No orthopnea/pnd Objective: Patient Vitals for the past 24 hrs: Pulse BP 11/25/23 1315 70 117/85 Gen: pleasant male in NAD Cor: rrr, s1/s2 of nl character and amplitude, no pathologic m/r/g. Estimated RAP 13. Carotids without bruit. Pulm: CTAB. Normal diaphragmatic movement without use of accessory muscles EKG: nsr, LAE TTE: as per problem list Assessment and Plan: Cardiomyopathy Remains intravascular volume overloaded. Will initiate PO loop. He is on reasonable cardioprotective regimen, and I posit with continued NSR his EF will improve (if it does, it would confirm suspicion that the CDM is due to chronotropic reason. If it does not, ischemia evaluation will be had) - Diuresis: initiate lasix 40 QD. Reviewed he can convert to PRN - Cardioprotection: - Beta Blockade: toprol 100 bid - RAASi: lisinopril 40. I do not think entresto is indicated - MC Blockade: aldactone 12.5 - SGLT2i: defer - Devices: pending TTE - Dx: TTE in ~ 2 months Atrial fibrillation He has no symptoms attributable, and I would posit that the afib has relatively well preceded its discovery (and thus likely caused the CDM). Since there was no apparent cause of the atrial fibrillation and he has likely developed CDM from it, I think ablation consideration would be the next step (rather than lifelong anti-arrhythmics given his youth). Continue rhythm control with amiodarone in e interim. - Strategy: rhythm. Continue amiodarone taper. Toprol - OAC: eliquis 5 bid - Reversible Causes: none identified RTC with EP shortly after TTE Jamal García MD documented in this encounter Miscellaneous Notes * Assessment & Plan Note - Jamal García MD - 11/25/2023 2:05 PM EDT Associated Problem(s): Atrial fibrillation He has no symptoms attributable, and I would posit that the afib has relatively well preceded its discovery (and thus likely caused the CDM). Since there was no apparent cause of the atrial fibrillation and he has likely developed CDM from it, I think ablation consideration would be the next step (rather than lifelong anti-arrhythmics given his youth). Continue rhythm control with amiodarone in e interim. - Strategy: rhythm. Continue amiodarone taper. Toprol - OAC: eliquis 5 bid - Reversible Causes: none identified * Assessment & Plan Note - Jamal García MD - 11/25/2023 2:03 PM EDT Associated Problem(s): Cardiomyopathy Remains intravascular volume overloaded. Will initiate PO loop. He is on reasonable cardioprotective regimen, and I posit with continued NSR his EF will improve (if it does, it would confirm suspicion that the CDM is due to chronotropic reason. If it does not, ischemia evaluation will be had) - Diuresis: initiate lasix 40 QD. Reviewed he can convert to PRN - Cardioprotection: - Beta Blockade: toprol 100 bid - RAASi: lisinopril 40. I do not think entresto is indicated - MC Blockade: aldactone 12.5 - SGLT2i: defer - Devices: pending TTE - Dx: TTE in ~ 2 months documented in this encounter Plan of Treatment Upcoming Encounters Date Type Department Care Team (Late st Contact Info) Description 04/26/2024 10:00 AM EST Office Visit Cardiology at [address] [place] [phone] Reggie Sy MD [facility] [address] Scheduled Referrals Name Type Priority Associated Diagnoses Order Schedule Referral to Cardiac Electrophysiology Outpatient Referral Routine Persistent atrial fibrillation Ordered: 11/25/2023 documented as of this encounter Visit Diagnoses Diagnosis Persistent atrial fibrillation Atrial fibrillation Cardiomyopathy, unspecified type documented in this encounter Care Teams Bar Host/Hostess Relationship Specialty Start Date End Date Ruth Mayorga APRN [address] [place] [address] PCP - General Family Medicine 11/25/23 documented as of this encounter
--- OUTSIDE RECORDS SUMMARY | 2023-11-29 16:06 | XMS_ITS | Encounter Summary ---
Author Organization [facility] Address [facility] [place] [address] Care Team Providers Care Job Hand Name Role Phone Mavis Oropeza APRN Primary Care Provider [phone] Encounter Details Date Type Department Care Team (Late Contact Info) Description 11/11/2023 Abstract Cardiology at [address] [phone] Dora Cuevas, RN Varicose veins of left lower leg Social History Tobacco Use Types Packs/Day Years Used Date Smoking Tobacco: Some Days Cigarettes Last attempted to quit: 08/2018 Smokeless Tobacco: Never Tobacco Cessation:Ready to Q uit: Not Asked; Counseling Given: Not Answered Alcohol Use Standard Drinks/Week Comments Yes 0 (1 standard drink = 0.6 oz pur e alcohol) Rare Sex and Gender Information Value Date Recorded Sex Assigned at Not on file Gender Identity Not on file Sexual Orientation Not on file documented as of this encounter Plan of Treatment Upcoming Encounters Date Type Department Care Team (Late Contact Info) Description 04/26/2024 10:00 AM EST Office Visit Cardiology at [address] [phone] Reggie Sy MD [facility] [place] [address] documented as of this encounter Visit Diagnoses Diagnosis Varicose veins of left lower leg documented in this encounter Care Teams Job Hand Relationship Specialty Start Date End Date Mavis Oropeza APRN [address] [place], [place] [id number] PCP - General Family Medicine 11/21/18 11/24/23 documented as of this encounter
--- OUTSIDE RECORDS SUMMARY | 2023-11-29 16:06 | XMS_ITS | Clinical Summary ---
Author Organization [facility] Address [facility] [place] [address] Care Team Providers Care Furnace Stock Inspector Name Role Phone Ruth Mayorga PILY Primary Care Provider [phone] Allergies Active Allergy Reactions Criticality Noted Date Comments Shellfish Derived Anaphylaxis High 01/02/2019 Medications Medication Sig Dispensed Refills Start Date End Date Status lisinopriL (Zestril) 40 mg tablet Take 40 mg by mouth daily. Active atorvastatin (LIPITOR) 40 mg Tablet Take 40 mg by mouth daily. Active AMIOdarone (Pacerone) 200 mg tablet Take 2 tablets every 12 hours by oral route for 9 days. Active Eliquis 5 mg tablet Take 1 tablet by mouth 2 times daily. 11/09/2023 Active metoprolol succinate XL (Toprol-XL) 100 mg ER 24 hr tablet Take 100 mg by mouth 2 times daily. Active rosuvastatin (Crestor) 10 mg tablet Take 1 tablet by mouth daily. Active spironolactone (Aldactone) 25 mg tablet Take 12.5 mg by mouth daily. Active furosemide (Lasix) 40 mg tablet Take 1 tablet by mouth daily. 90 tablet 11/25/2023 Active Active Problems Problem Noted Date Diagnosed Date Cardiomyopathy 11/25/2023 Overview (11/25/2023): 10/2023 ([facility]): EF 30%, global HK Assessment & Plan (11/25/2023 2:05 PM EDT): Remains intravascular volume overloaded. Will initiate PO [...] - Dx: TTE in ~ 2 months Hyperlipidemia 11/11/2023 Hypertension 11/11/2023 Varicose veins of left lower leg 11/11/2023 Overview (11/11/2023): End of day foot is discolored blue Atrial fibrillation 10/06/2023 Overview (11/25/2023): 09/2023: diagnosed at GP office. Toprol and eliquis added. Toprol increased due to poor rate control 11/2023: presents to [facility] with dyspnea; continues with afib RVR. DCCV attempted but not successful (x 3, max 200 J). Started on amiodarone Assessment & Plan (11/25/2023 2:05 PM EDT): He has no symptoms attributable, and I would posit that the afib has relatively well preceded its discovery (and thus likely caused the CDM). Since there was no apparent cause of the atrial fibrillation and he has likely developed CDM from it, I think ablation consideration would be the next step (rather than lifelong anti- arrhythmics given his youth). Continue rhythm control with amiodarone in the interim. - Strategy: rhythm. Continue amiodarone taper. Toprol - OAC: eliquis 5 bid - Reversible Causes: none identified Lipoma of skin of back 10/06/2023 Resolved Problems Problem Noted Date Diagnosed Date Resolved Date Family history of arterioscl erotic cardiovascular disease 11/11/2023 11/25/2023 Encounters Date Type Department Care Team Description 11/25/2023 12:40 PM EDT Office Visit Cardiology at [address] [place] [address] Jamal García MD Persistent atrial fibrillation; Cardiomyopathy, unspecified type 11/19/2023 Telephone Cardiology at [address] [place] [phone] Vaishali Ridley APRN 11/19/2023 External Results Transfer Center [facility] [place] [address] 11/11/2023 Abstract Cardiology at [address] [phone] Dora Cuevas, RN Varicose veins of left lower leg 11/11/2023 Telephone Cardiology at [address] [phone] Dora Cuevas, chief nursing officer 10/08/2023 Transcribe Orders eDH Incoming Referrals [phone] Ruth Mayorga APRN Atrial flutter, unspecified type from Last 3 Months Family History Medical History Relation Comments Diabetes Father Heart Failure Father Myocardial Infarction Father Cancer Maternal Grandfather Arrhythmia Mother Hypertension Mother Coronary Artery Disease Early Onset Paternal Gra ndfather Myocardial Infarction Paternal Grandfather Hypertension Sister Relation Status Comments Father Maternal Grandfather Mother Alive Paternal Grandfather Sister Alive Social History Tobacco Use Types Packs/Day Years [...] on file Sexual Orientation Not on file Last Filed Vital Signs Vital Sign Reading Time Taken Comments Blood Pressure 117/85 11/25/2023 1:15 PM EDT Pulse 70 11/25/2023 1:15 PM EDT Temperature 36.2 ??C (97.2 ??F) 01/02/2019 1:08 PM ED T Respiratory Rate 16 01/02/2019 1:30 PM EDT Oxygen Saturation 98% 01/02/2019 1:51 PM EDT Inhaled Oxygen Concentration - - Weight 106.6 kg (235 lb) 11/25/2023 1:15 PM EDT Height 193 cm (6' 4) 11/25/2023 1:15 PM EDT Body Mass Index 28.61 11/25/2023 1:15 PM EDT Plan of Treatment Upcoming Encounters Date Type Department Care Team (Late st Contact Info) Description 04/26/2024 10:00 AM EST Office Visit Cardiology at [address] [place] [address] Reggie Sy MD [facility] [place] [address] Health Maintenance Due Date Last Done Comments CT Colonography 1972 Colonoscopy 1972 Colorectal Cancer Screening 1972 FIT DNA 1972 FIT 1972 Sigmoidoscopy (10 year) with FIT yearly 1972 Sigmoidoscopy 1972 Pneumococcal Vaccine: At-Risk 5-64yrs (1 of 2 - PCV) 1 HIV screen 1990 Hepatitis C Screening 1990 Hepatitis B vaccine (0-59 yrs) (1) 12/22/1991 Tdap adult 12/22/1991 Tetanus vaccine 12/22/1991 Diabetes Screening (HgbA1C or Glucose) 2012 Zoster vaccine (1 of 2) 2022 Covid-19 Vaccine (1 - season) 2023 Influenza (Flu) vaccine (1 o f 1 - Influenza standard series) 11/14/2023 Procedures Procedure Name Priority Date/Time Associated Diagnosis Comments EKG 12-LEAD Routine 11/25/2023 1:11 PM EDT [facility] RESULT Routine 11/19/2023 9:19 AM EDT ECG SCAN 11/09/2023 12:00 AM EDT ORDS - PROVIDER CARE SCAN 10/06/2023 12:00 AM EDT from Last 3 Months Results * EKG 12 Lead (11/25/2023 1:11 PM EDT) Ventricular rate 70 BPM MUSE SYSTEM Atrial Rate 70 BPM MUSE SYSTEM P-R Interval 130 ms MUSE SYSTEM QRS Duration 96 ms MUSE SYSTEM Q-T Interval 558 ms MUSE SYSTEM QTC Calculated (Bezet) 602 ms MUSE SYSTEM Calculated P [place] 61 degrees MUSE SYSTEM Calculated R [place] 59 degrees MUSE SYSTEM Calculated T [place] 107 degrees MUSE SYSTEM INTERPRETATION Normal sinus rhythm Possible Left atrial enlargement Nonspecific T wave abnormality Abnormal ECG No previous ECGs available Confirmed by MD García Daniel ([id number]) on 11/29/2023 9:32:57 AM MUSE SYSTEM 11/25/2023 1:11 PM EDT 11/29/2023 9:32 AM EDT Unknown ECG ORDERABLES MUSE SYSTEM * External Cardiology Result (11/19/2023 9:19 AM EDT) Anatomical Region Laterality Modality Other Historical Provider EXTERNAL CARDIOLO GY RESULT * Scan Doc: ECG (11/09/2023 12:00 AM EDT) Narrative 11/09/2023 12:00 AM EDT Ordered by an unspecified provider. Scanning Provider MEDIA MGR SCAN EXT O RDR/RSLT * Scan Doc: [facility] - Provider Care (10/06/2023 12:00 AM EDT) Narrative 10/06/2023 12:00 AM EDT Ordered by an unspecified provider. Scanning Provider MEDIA MGR SCAN EXT O RDR/RSLT from Last 3 Months Care Teams Furnace Stock Inspector Relationship Specialty Start Date End Date Ruth Mayorga APRN [address] [place] [address] PCP - General Family Medicine 11/25/23
--- OUTSIDE RECORDS SUMMARY | 2023-11-29 16:06 | XMS_ITS | Encounter Summary ---
Author [facility] [place] [address] Care Team Providers Care Loom Doffer Name Role Phone Mavis Oropeza PILY Primary Care Provider [phone] Encounter Details Date Type Department Care Team (Late st Contact Info) Description 11/19/2023 Telephone Cardiology at [address] [place] [phone] Vaishali Ridley APRN [facility] [place] [address] Social History Tobacco Use Types Packs/Day Years [...] encounter Miscellaneous Notes * Telephone Encounter - Vaishali Ridley APRN - 11/19/2023 9:32 AM EDT Images from the original note were not included. 11/19/2023 Satish Vazquez Initial Contact Date: 11/19/2023 Initial contact time: 9:32 AM Referring Provider: Dr. Kwame Branch Patient Location: [facility] Past Medical History: New onset atrial fibrillation HTN HLD Presenting Symptoms per OSH: Patient admitted to [facility] with progressive SOB found to be in atrial fibrillation with RVR. Rates 140-150 and sustained. Newly diagnosed 6 weeks prior and started on metoprolol and apixaban (has been compliant with apixaban). Started on diltiazem but discontinued after ECHO showing newly reduced EF 30%. Attempted cardioversion with Dr. Tellez this AM without success. Consulted for recommendations for rate/rhythm control medication options. Vital signs: 143/112, HR 143, RR 16, sp02 96% on RA Pertinent Diagnostic Findings: EKG 11/19/23 0643 Atrial fibrillation RVR, HR 150 Labs: Electrolytes WNL Creat 1.5 LFTs WNL Past cardiac studies: EKG 11/09/23 Atrial fibrillation RVR, HR 153 MAYDA 01/02/19 SUMMARY: 1. No cardiac source of embolus was identified. 2. No thrombus is visualized within the left atrium. No clot is noted in the left atrial appendage. 3. There is no evidence of a patent foramen ovale by either color Doppler or agitated saline injection. 4. Left ventricular chamber size, wall thickness, global and segmental systolic function are within normal limits. Ejection fraction is estimated to be 65%. 5. Right ventricular chamber size, wall thickness, and systolic function are within normal limits. 6. The cardiac valves appear structurally and functionally normal. 7. See remainder of report for additional findings. OSH Interventions: Diltiazem gtt Metoprolol tartrate 100mg BID Apixaban 5mg BID Cardioversion Plan: Patient is found to be in atrial fibrillation with RVR. Poor response to metoprolol tartrate 100mg BID. He has been compliant with his anticoagulation. Agree with stopping diltiazem due to his newly reduced EF 30%. Newly reduced EF can be related to his poorly controlled atrial fibrillation. Recommend increasing metoprolol tartrate to 50mg every 6 hours for better rate control. Can initiate amiodarone gtt with bolus prior to infusion. This can be initiated with concurrently with metoprolol dosing. Recommend continuing apixaban for anticoagulation. Above recommendations were based on my discussion with Dr. Branch; I have not personally interviewedor examined this patient. Advised to call the transfer center back with any changes in the patient condition. Vaishali Ridley APRN Pager #: [phone] 11/19/2023 9:34 AM documented in this encounter Plan of Treatment Upcoming Encounters Date Type Department Care Team (Late st Contact Info) Description 04/26/2024 10:00 AM EST Office Visit Cardiology at [address] [place] [address] Reggie Sy MD [facility] [place] [address] documented as of this encounter Visit Diagnoses Not on filedocumented in this encounter Care Teams Loom Doffer Relationship Specialty Start Date End Date Mavis Oropeza APRN [address] [place] [address] PCP - General Family Medicine 11/21/18 11/24/23 documented as of this encounter
--- OUTSIDE RECORDS SUMMARY | 2023-11-29 16:06 | XMS_ITS | Continuity of Care Document ---
Author Organization [facility] Address [address] [place] [address] Assessment No assessment recorded. Plan of Treatment Reminders Order Date Submit Date Provider Last Modified By Organization Details Last Modified Time Details Appointments hospital follow up 2023 12:00P M Not available Not available Not available Annual Wellness Exam 40 2024 07:30A M Not available Not available Not available Office Visit 30 2024 01:30P M Not available Not available Not available Lab hemoglobi n A1C, fingersti ck 2023 024 [facility], [address] [place] [address], [address], 10/06/2023 16:20:26 Referral urologist referral [address] [facility] ([place] [place], [address] [place], [address], 10/07/2023 09:10:31 cardiolog ist referral 2023 024 [email or web address] [facility], [address] [place], [address], 11/16/2023 10:23:00 Procedures None recorded. Surgeries None recorded. Imaging US, lower back 2023 024 [facility] ([facility]), [address] [place], [address], 11/08/2023 11:51:07 Medication Orders metoprolo l succinate ER 25 mg tablet,ex tended release 24 hr 2023 024 [email or web address] [facility], [address] [place], [address], 11/24/2023 08:37:24 Eliquis 5 mg tablet 2023 024 [facility], [address] [place], [address], 10/06/2023 16:20:30 Patient TargetsNo targets recorded. Patient InstructionsNo instructions recorded. Reason for Referral Urologist Referral for Vasec june requested Referring Physician: Family Shana Espinoza, Encounter Date: 10/06/2023 Photographer'S Assistant Referral for At jamaal shane Referring Physician: Family Shana Espinoza, Encounter Date: 10/06/2023 Photographer'S Assistant Referral for At jamaal shane Referring Physician: Family Shana Espinoza, Encounter Date: 11/09/2023 Results Created Date Observation Date Name Description Value Unit Range Abnormal Flag Note LastModifiedBy Organization Detail LastModifiedTime 10/06/1910/06/2023 hemog lobin A1C, finge rstic k hemoglobin A1C 5.7 % <5.7 Not Available [address], [address], 10/06/2023 14:09:28 09/22/1909/22/2023 ultra sound imagi ng repor t Jhon t Name: Danny Jackson et U Unit #: [id number] Loc: ER Orderi ng Provid er: Irvin Bains M.D. Accoun t #: [id number] Status : REG ER Primar y [...] spectr al Dopple r analys is. COMPAR LILIYA: No exams were availa ble for compar liliya FINDIN GS: RIGHT TESTIC LE: 3.8 x [...] arteri al wavefo kaycee visual ized. IMPRES RICHY: Hypere cindi in the left epidid ymis and testic le consis tent epidid ymo-or chitis . DATA REPOSI TORY: Ordere d By: Irvin Bains M.D. CC: ------ ------ ------ ------ ------ ------ ------ ------ ------ ------ ------ ------ - Dictat ed By: Sudarshan Harden 32 [phone] Transc ribed By: Nick Garcia 07/10/ 24 0932 This is privil eged, confid ential inform ation intend ed only for the provid er named. Any use or distri bution by any person other than this provid er is strict ly prohib ited. If you receiv e this report in error, please notify us immedi ately at and return the origin al report to us at the addres s above. Thank- you. [facility] [address], [place], [address] 09/22/2023 14:55:25 11/08/19 24 11/04/2023 US, lower back No observ ation record ed. [email or web address] [facility] [address], [place], [address], 11/11/2023 08:07:16 11/09/19 24 11/10/2023 elect rocar diogr am No observ ation record ed. [email or web address] [address], [address], 11/10/2023 13:02:09 11/09/19 elect rocar diogr am No observ ation record ed. [email or web address] Not Available 2023 13:01:47 11/16/19 24 11/16/2023 vrad repor t Jhon t Name: Danny Jackson et U Unit #: [id number] Loc: ER Orderi ng Provid er: Accoun t #: [id number] Status : REG ER Primar y [...] MD. Orderi ng:Antonette Singh MD Access ion#=[id number] Ordere d By: CC: ------ ------ ------ ------ ------ ------ ------ ------ ------ ------ ------ ------ ---- Dictat ed By: Report s vrad [email or web address] Transc ribed By: Di Merge 346 This is privil eged, confid ential inform ation intend ed only for the provid er named. Any use or distri bution by any person other than this provid er is strict ly prohib ited. If you receiv e this report in error, please notify us immedi ately at [phone] and return the origin al report to us at the addres s above. Thank- you. [email or web address] [facility] [address] [place], [address] 11/16/2023 11:24:54 11/16/1911/16/2023 x-ray imagi ng repor t Patien t Name: Shankar leslie,Br et U Unit #: [id number] Loc: ICU Orderi ng Provid er: Francisco Lopes M.D. Accoun t #: [id number] Status : ADM IN Primar y Care [...] error, please notify us immedi ately at [phone] and return the origin al report to us at the addres s above. Thank- you. [email or web address] [facility] [address] [place], [address] 11/16/2023 14:40:58 11/16/19 24 11/16/2023 ultra sound imagi ng repor t Patien t Name: Shankar leslie,Br et U Unit #: [id number] Loc: ICU Orderi ng Provid er: Cynthia Foote M.D. Accoun t #: [id number] Status : ADM IN [facility] y [facility] er: Jacques Brown M.D. Date of Exam: Sex: M Admiss ion Date: : 1970 Age: 52 ------ ------ --- APPROV ED REPORT ------ ------ -- EXAM: Compre hensiv e 2D, Dopple r, and color- flow Echoca rdiogr am Patien t Locati on: In-Pat ient Room/B ed: [id number] Sonogr apher: Alison Dickson , RDCS (AE) Indica tions: A FIB Other Inform ation Study Qualit y: Fair. Techni adleina limite d study due to body habitu [...] at the addres s above. Thank- you. [facility] [address], [place], [address] 11/17/2023 12:36:00 11/18/19 24 11/18/2023 event monit or CARDIA C EVENT RECORD ER REPORT JHON Sy NAME: Garth Jackson U UNIT #: [id number] ORDERI NG PROVID ER: ACCOUN T #: [id number] PRIMAR Y CARE PROVID ER: MERRILL MAYS, YAEL Y DATE/T JOAQUIN OF S ERVICE : : 1970 Date of servic e: Time of Servic e: 08:30 Cardia c Event Record er Referr ing Provid er:: Ruth Mayorga Indica tions: : Unspec ified atrial flutte r Cardia c Event Note: This is a cardia c event monito rRoderick sy was monito red for 10 days [...] m 232 There were no appare nt beliaarash sy luna CC: ------ ------ ------ ------ ------ ------ ------ ------ ------ ------ ------ ------ ------ ------ ------ ------ ---- -- Dictat ed by: LENORA MAYS,RAFAT MENDEZ Dictat ed:: 829 Transc ribed Date: Transc ribed Time: 829 [...] at the addres s above. Thank you. [address] , [place], [address] 11/23/2023 16:26:18 11/18/19 24 11/18/2023 cardi ac monit or No observ ation record ed. [facility] [address] [place] [address] [place], [address], 11/18/2023 12:24:27 Result Notes None recorded. Problems Name Problem SNOMED Code Status Onset Date Resolution Date Notes Provider Name and Address Organization Details Recorded Time Daniel karlos patriciaarash richy [id number] Active 201805/06/19 22 - Comments only - Ruth Mayorga RAND CEMENTER - BP high today has not takin lisinopr il for 2-3 days. Previous ly taking 2 -10 mg tables. With patient permissi on I have sent for 20 mg tablets, take 1 daily. Problem Code: I10; Problem Code Type: ICD-10; [address], [place], [address] , [facility] 3 11:48:44 Adult health examinat ion Active 201805/06/19 22 - Comments only - Ruth WEBB - Annual exam complete d at today's visit. [facility] ed routine visit to eye provider . [facility] Care [facility] COVID-19 VACCINAT ION: Per current guidelin es due for MRNA COVID-19 booster vaccinat ion. TETANUS VACCINAT ION: Administ ered 2018. PPSV23 VACCINAT ION: Administ ered in 2019. COLONOSC OPY: Elects not to complete until age 52, denies any family history of colon cancer. LIPIDS: Last complete d 2018. PSA: Will wait on screenin g until age 52, denies any history of prostate cancer. Problem Code: Z00.00; Problem Code Type: ICD-10; Not Available [facility] 3 03:49:54 Family history of Cardiova scular disease 976491792 Active 201810/28/19 19 - Comments only - Ruth WEBB - Jorje voices his awarenes s of cardiac risk in regards to tobacco use. Will return for fasting labs to evaluate for hyperlip idemia. Problem Code: Z82.49; Problem Code Type: ICD-10; [address], [place], [address] , [facility] 3 11:48:31 Nicotine dependen ce 99788371 Active 201803/10/20 19 - Comments only - Ruth Ren Satish continue s to abstain from tobacco. Problem Code: Z87.891; Problem Code Type: ICD-10; Not Available [facility] 3 03:49:54 Hyperlip idemia 95304014 Active 201801/19/20 20 - Comments only - Ruth WEBB - Continue statin. Consider lipids at next visit. Problem Code: E78.5; Problem Code Type: ICD-10; [address], [place], [address] , [facility] 3 11:49:29 Cerebral infarcti on 400032249 Active 201801/19/20 20 - Comments only - Ruth WEBB - Continue asprin 81mg daily. Denies any bleeding concenrs . Problem Code: I63.50; Problem Code Type: ICD-10; [address], [place], [address] , [facility] 3 11:49:24 Pain in thoracic spine 544995537 Completed 201803/12/2023 12/07/19 19 - Comments only [...] Problem Code Type: ICD-10; [address], [place], [address] , [facility] 3 11:49:05 Stress at work 966198601 Completed 202103/12/2023 05/06/19 22 - Comments only - Ruth Ren Encourag ed to FU for mental health concerns that he feels warrant interven tion. Problem Code: Z56.6; Problem Code Type: ICD-10; [address], [place], [address] , [facility] 3 11:48:49 Pre-surg yanni testing Completed 201803/09/2019 Problem Code: Z01.812; Problem Code Type: ICD-10; Not Available [facility] 3 03:50:06 Cardiome fernando 1585483 Completed 201801/19/2020 Problem Code: I51.7; Problem Code Type: ICD-10; Not Available [facility] 3 03:50:07 Tobacco user 387992929 Completed 201812/09/2022 Problem Code: Z72.0; Problem Code Type: ICD-10; Not Available [facility] 3 03:50:10 Dizzines s and giddines s 005093839 Completed 201812/06/2018 Problem Code: R42; Problem Code Type: ICD-10; Not Available [facility] 3 03:50:11 Hyperlip idemia screenin g Completed 201812/09/2022 Problem Code: Z13.220; Problem Code Type: ICD-10; Not Available [facility] 3 03:50:12 Screenin g for cancer Completed 201803/09/2019 Problem Code: Z12.9; Problem Code Type: ICD-10; Not Available [facility] 3 03:50:13 Transien t cerebral ischemia 781169958 Completed 201812/06/2018 Problem Code: G45.9; Problem Code Type: ICD-10; Not Available [facility] 3 03:50:14 Elevated blood-pr essure reading without diagnosi s of hyperten richy 705690199 Completed 201812/09/2022 10/28/19 19 - Comments only - Ruth WEBB - Blood pressure is quite elevated at today's visit. Jorje has not had medical care in some time, he agrees to follow-u p with fasting blood work and blood pressure check for further evaluati on. Problem Code: R03.0; Problem Code Type: ICD-10; [address], [place], [address] , [facility]. 4 14:10:59 Varicose veins of lower extremit y 60847719 Active [address], [place], [address] , [facility]. 3 12:33:56 Lipoma of skin 960758518 Active [address], [place] [address] , [facility] 4 14:09:57 Elevated blood-pr essure reading without diagnosi s of hyperten richy 261271373 Active 202310/28/19 19 - Comments only - Ruth WEBB - Blood pressure is quite elevated at today's visit. Jorje has not had medical care in some time, he agrees to follow-u p with fasting blood work and blood pressure check for further evaluati on. Problem Code: R03.0; Problem Code Type: ICD-10; [address], [place] [address] , [facility] 4 14:10:59 Blood glucose outside referenc e range 831757070 Active [address], [place] [address] , [facility] 4 16:16:53 Atrial flutter 7207859 Active [address], [place] [address] , [facility] 4 16:17:01 Disorder of skin and/or subcutan eous tissue 79497291 Active [address], [facility] [address] , [facility] 4 15:58:21 Tricuspi d valve regurgit ation 223783125 Active [address], [place] [address] , [facility] 4 12:35:15 Mitral valve regurgit ation 45044892 Active [address], [place], [address] , [facility] 4 12:35:27 Atrial fibrilla tion 19070312 Active 2023 VANDA lucas, [facility] 4 08:43:19 Problem Notes None recorded. Medical Equipment None Reported. Allergies No known drug allergies Medications Name Sig Start Date Stop Date Status Note LastModified by Organization Details LastModified Time furosemid e 40 mg tablet TAKE ONE TABLET BY MOUTH EVERY DAY active Not Available Not Available No t Available atorvasta tin 40 mg tablet Take 1 tablet by mouth every night 05/06 completed [facility] Not Available Not Available Not Available amiodaron e 200 mg tablet Take 2 tablets every 12 hours by oral route for 9 days. active Then 200 mg daily per [facility] d/c summary 11/22/23 Not Available Not Available Not Available lisinopri l 20 mg tablet TAKE ONE TABLET BY MOUTH EVERY DAY 03/12 completed DOSE INCREASE D Not Available Not Available Not Available metoprolo l succinate ER 100 mg tablet,ex tended release 24 hr Take 1 tablet every 12 hours by oral route. active per [facility] d/c summary 11/22/23 Not Available Not [...] by mouth once a day 2018 active [facility] Not Available Not Available Not Avai lable metoprolo l succinate ER 25 mg tablet,ex tended release 24 hr TAKE ONE TABLET BY MOUTH EVERY DAY active Disconti nued per [facility] d/c summary 11/22/23 Not Available Not Available Not Available Aspir-81 mg tablet,de layed release Take 1 tab by mouth daily 2018 active [facility] Not Available Not Available Not Avai lable [...] 1 tablet by mouth daily 2018 active [facility] Not Available Not Available Not Avai lable Vitals Date Recorded Body height Oxygen saturation Oxygen saturation in Arterial blood by Pulse oximetry Heart rate Body temperature Body mass index (BMI) Body weight Systolic blood pressure Diastolic blood pressure Provider Name and Address Organization Details Last Updated DateTime 4 189.103 cm 96 % 96 % 71 /min 97.3 [degF] 30.6 kg/m2 456512. 48 g 134 mm[Hg] 98 mm[Hg] Mago White RN [place] - [facility] 4 13:39:21 Social History None recorded. Functional Status None recorded. Mental Status None recorded. Family History Relationship Description Onset Age of this Age Resolved Age Notes Mother Family history of Hypertension Maternal Grandfather Family history of malignant neoplasm Father Family history of heart failure Paternal Grandfather Family history of heart failure PGF- OR at 40 years old Notes:*Problem: Mother: denise corona and healthy Father: age 42 years cause OR Sisters: 1 and healthy Brothers: none Children: 2 both healthy Family History of: Hypertension: no Coronary heart disease: yes father Diabetes mellitus: yes mgm Medical History No medical history recorded. Immunizations Vaccine Type Date Status Provider Name and Address Organization Details Recorded Time Tdap 10/26/2018 completed Not Available [facility] 06:07:27 Influenza, split virus, quadrivalent, PF 01/18/2020 completed Not Available [facility] 01/22/2023 06:07:27 Influenza, split virus, quadrivalent, PF 03/12/2022 completed Not Available [facility] 01/22/2023 06:07:27 COVID-19 vaccine, vector-nr, rS-Ad26, PF, 0.5 mL 06/14/2020 completed Not Available [facility] 01/22/2023 06:07:27 COVID-19, mRNA, LNP-S, PF, 30 mcg/0.3 mL dose, remy-sucrose 03/28/2021 completed Not Available [facility] 01/22/2023 06:07:27 pneumococcal polysaccharide PPV23 10/26/2018 completed Not Available [facility] 2022 06:07:27 Past Encounters Encounter ID Performer Location Encounter Start Date Encounter Closed Date Diagnosis/Indication Diagnosis SNOMED-CT Code Diagnosis ICD10 Code [id number] [address] [address] 10/06/2023 13:29:26 10/06/2023 14:36:02 Essential hypertension 47250450 I10 Vasectomy requested 1839 99669 Z30.2 Lipoma of skin 568755005 D17.30 Blood gluc ose outside reference range 835152274 R73.09 Atrial flutter 4768483 I 48.92 Health Concerns Section Related Observation LastModified by Organization Detai ls LastModified Time None Recorded Concern Status LastModified by Organization Details LastModified Time None Recorded Payers Encounter Date Sequence Insurance Name Policy Number Policy Roldan Covered Member ID Roldan Member ID Guarantor Name 10/06/2023 1 [place] [employer] [place] Satish Vazquez [id number] 30 Satish Vazquez Notes Date Note Type Note Provider Name and Address Organization Details Recorded Time 10/06/2023 text/html HPI Notes: - Requests referral for vasectomy. - Does not check blood pressures at home, has been taking lisinopril. - He has a lump that has been present on his back for the past [address], [place], [address], [place] [facility]. 10/06/2023 16:25:30
--- OUTSIDE RECORDS SUMMARY | 2023-11-29 16:06 | XMS_ITS | Encounter Summary ---
[place] [address] Care Team Providers Care Travel Physical Therapist Name Role Phone Mavis Oropeza APRN Primary Care Provider [phone] Reason for Referral * Diagnostic Test (Routine) - Closed Specialty Diagnoses / Procedures Referred By Marisol sy Referred To Contact Cardiology Diagnoses Intermittent cerebral ischemia Cerebral artery occlusion with cerebral infarction Procedures Transesophageal Echocardiogram (ADAN) Mary Mayorga APRN [address] [place] [address] [facility] [place] [address] Referral ID Status Reason Start Date Expiration Date V isits Requested Visits Authorized [id number] Closed Specialty Service Requested 11/24/2018 01/22/2019 1 1 Reason for Visit * Auth/Cert Specialty Diagnoses / Procedures Referred By Marisol t Referred To Contact Diagnoses Cerebral ischemia, cerebral arter occlusion w/cerebral Procedures PRG ADAN REAL TIME IMG 2D W PRB IMG ACQUIS I&R TRANSESOPHAGEAL ECHOCARDIOGRAM (WRVU 2.55) Referral ID Status Reason Start Date Expiration Date Visits Re quested Visits Authorized [id number] 1 1 Encounter Details Date Type Department Care Team (Latest Contact Info) Description 01/02/2019 12:00 PM EDT - 01/02/2019 11:59 PM EDT Hospital Encounter Non[place] [address] Mary Mayorga APRN [address] [place] [address] Intermittent cerebral ischemia; Cerebral artery occlusion with cerebral infarction Discharge Disposition: Home Social History Tobacco Use [...] 10:00 AM EST Office Visit Cardiology at [address] [place] [address] Reggie Sy MD [facility] [place] [address] documented as of this encounter Procedures Procedure Name Priority Date/Time Associated Diagnosis Comments TRANSESOPHAGEAL ECHOCARDIOGRAM (ADAN) Routine 01/02/2019 1:12 PM EDT Intermittent cerebral ischemia Cerebral artery occlusion with cerebral infarction documented in this encounter Results * ADAN IN MINOR (01/02/2019 1:12 PM EDT) EF 65 HEARTLAB SYSTEM Anatomical Region Laterality Modality Other 01/02/2019 Narrative 01/02/2019 4:51 PM EDT Procedure: ?Transesophageal Echocardiogram Patient: ?JESSICA HUDSON ?(Age): 1970(48y) Med Rec#: ? [id number] ?Sex: ?M ? Site Loc: ? DH ?Ht / Wt: ??19(cm)/108(kg) Pt. Loc: ?PACU ?BSA: ?2.36 Study Date: ?? 01/02/2019 ?Pt. Type: Tape: ? Referring: MARY MAYORGA Reading: Aditya Lemus ([id number]) Pharmacoepidemiologist: Aditya Lemus ([id number]) Pharmacoepidemiologist 2: Roberta Barrett Diagnosis: *Transient cerebral ischemic attack, unspecified (G45.9) *Cerebral infarction due to unspecified occlusion or stenosis of unspecified cerebral artery (I63.50) BP: ? 145/102 SUMMARY: 1. No cardiac source of embolus was identified. 2. No thrombus is visualized within the left atrium. ??No clot is noted in the left atrial [...] See remainder of report for additional findings. Findings ? : Left Ventricle: ? Left ventricular chamber size, wall thickness, global and segmental systolic function are within normal limits. Ejection fraction is estimated to be 65%. ?No thrombus is visualized within the left ventricle. Left Atrium: ? The left atrium is normal in size. ?No thrombus is visualized within the left atrium. ?No clot is noted in the left atrial appendage. ?There is no evidence of a patent foramen ovale by either color Doppler or agitated saline injection. Right Ventricle: ? Right ventricular chamber size, wall thickness, and systolic function are within normal limits. Right Atrium: ? The right atrium is normal in size. ?No thrombus is visualized in the right atrium. Aortic Valve: ? The aortic valve is trileaflet. The leaflets are thin with normal excursion. There is no aortic stenosis or regurgitation present. ?No vegetation is observed on the aortic valve. Mitral Valve: ? The mitral valve appears normal in structure and function. ?There is trace mitral regurgitation present. ?No vegetation is observed on the mitral valve. Tricuspid Valve: ? The tricuspid valve appears normal in structure and function. ?There is trace tricuspid regurgitation present. Pulmonic Valve: ? The pulmonic valve appears normal in structure and function. Pericardium: ? There is no pericardial effusion. Aorta: ? The aorta appears normal. ?There is no plaque visualized in the ascending aorta. ?There is no plaque visualized in the aortic arch. Pulmonary Artery: ? The main pulmonary artery appears normal. Adan Procedures: ? The procedure and risk were explained to the patient who consented to the study. ?The ADAN probe was passed by the delivery man after the patient was sedated with general anesthesia. ?After conscious sedation was administered per hospital protocol, the ADAN probe was passed by Dr. Lemus. ?There were no complications during the procedure. Misc: ? The cardiac valves appear structurally and functionally normal. ?Transesophageal echo, limited spectral Doppler and color Doppler performed. Wall Motion: Segment Name ?Rest ? Base-Anteroseptal ?? Normal ? Base-Anterior ? Normal ? Base-Anterolateral ??Normal ? Base-Posterolateral Normal ? Base-Inferior ? Normal ? Base-Inferoseptal ?? Normal ? Mid-Anteroseptal ?Normal ? Mid-Anterior ?Normal ? Mid-Anterolateral ?? Normal ? Mid-Posterolateral ??Normal ? Mid-Inferior ?Normal ? Mid-Inferoseptal ?Normal ? [place]-Septal ? Normal ? [place]-Anterior ? Normal ? [place]-Lateral ?Normal ? [place]-Inferior ? Normal ? [place]-Tip ?Normal ? This report has been electronically signed by: Aditya Lemus MD ? 01/02/2019 16:50:56 Images reviewed and interpretation verified [facility] Cardiac Ultrasound Laboratory Procedure Note Aditya Lemus MD - 01/02/2019 Procedure: Transesophageal Echocardiogram Patient: JESSICA HUDSON (Age): 1970(48y) Med Rec#: [id number] Sex: M [place] [facility] [place] / Wt: 19(cm)/108(kg) Pt. Loc: PACU BSA: 2.36 Study Date: 01/02/2019 Pt. Type: Tape: Referring: MARY MAYORGA Reading: Aditya Lemus ([id number]) Pharmacoepidemiologist: Aditya Lemus ([id number]) Pharmacoepidemiologist 2: Roberta Barrett Diagnosis: *Transient cerebral ischemic attack, unspecified (G45.9) *Cerebral infarction due to unspecified occlusion or stenosis of unspecified cerebral artery (I63.50) BP: 145/102 SUMMARY: 1. No cardiac source of embolus [...] See remainder of report for additional findings. Findings : Left Ventricle: Left ventricular chamber size, wall thickness, global and segmental systolic function are within normal limits. Ejection fraction is estimated to be 65%. No thrombus is visualized within the left ventricle. Left Atrium: The left atrium is normal in size. No thrombus is visualized within the left atrium. No clot is noted in the left atrial appendage. There is no evidence of a patent foramen ovale by either color Doppler or agitated saline injection. Right Ventricle: Right ventricular chamber size, wall thickness, and systolic function are within normal limits. Right Atrium: The right atrium is normal in size. No thrombus is visualized in the right atrium. Aortic Valve: The aortic valve is trileaflet. The leaflets are thin with normal excursion. There is no aortic stenosis or regurgitation present. No vegetation is observed on the aortic valve. Mitral Valve: The mitral valve appears normal in structure and function. There is trace mitral regurgitation present. No vegetation is observed on the mitral valve. Tricuspid Valve: The tricuspid valve appears normal in structure and function. There is trace tricuspid regurgitation present. Pulmonic Valve: The pulmonic valve appears normal in structure and function. Pericardium: There is no pericardial effusion. Aorta: The aorta appears normal. There is no plaque visualized in the ascending aorta. There is no plaque visualized in the aortic arch. Pulmonary Artery: The main pulmonary artery appears normal. Adan Procedures: The procedure and risk were explained to the patient who consented to the study. The ADAN probe was passed by the delivery man after the patient was sedated with general anesthesia. After conscious sedation was administered per hospital protocol, the ADAN probe was passed by Dr. Lemus. There were no complications during the procedure. Misc: The cardiac valves appear structurally and functionally normal. Transesophageal echo, limited spectral Doppler and color Doppler performed. Wall Motion: Segment Name Rest Base-Anteroseptal Normal Base-Anterior Normal Base-Anterolateral Normal Base-Posterolateral Normal Base-Inferior Normal Base-Inferoseptal Normal Mid-Anteroseptal Normal Mid-Anterior Normal Mid-Anterolateral Normal Mid-Posterolateral Normal Mid-Inferior Normal Mid-Inferoseptal Normal [place]-Septal Normal [place]-Anterior Normal [place]-Lateral Normal [place]-Inferior Normal [place]-Tip Normal This report has been electronically signed by: Aditya Lemus MD 01/02/2019 16:50:56 Images reviewed and interpretation verified [facility] Cardiac Ultrasound Laboratory Mary Mayorga APRN ECHO ORDERABLES documented in this encounter Visit Diagnoses Diagnosis Intermittent cerebral ischemia Unspecified transient cerebral ischemia Cerebral artery occlusion with cerebral infarction Unspecified cerebral artery occlusion with cerebral infarction documented in this encounter Care Teams Travel Physical Therapist Relationship Specialty Start Date End Date Mavis Oropeza APRN [address] [place] [address] PCP - General Family Medicine 11/21/18 11/24/23 documented as of this encounter
[2023-11-29 16:48] LABS: Anion Gap 10.5 mmol/L (3-11); BUN 27 mg/dL (7-18); CO2 26.5 mmol/L (21.0-32.0); CREATININE 1.8 mg/dL (0.70-1.30); Calcium 9.1 mg/dL (8.5-10.1); Chloride 103 mmol/L (98-107); Estimated GFR 45.29 (mL/min/1.73m2); Glucose 119 mg/dL (74-106); Potassium 3.9 mmol/L (3.5-5.1); Sodium 140 mmol/L (136-145)
== END 2023-11-29 16:04 | disposition home or self-care (01) ==
LOC: LBO 16:04
PROVIDERS: PCP Internal Medicine; Visit Provider Internal Medicine
DX: I50.20 Unspecified systolic (congestive) heart failure (principal); I48.91 Unspecified atrial fibrillation; Z51.81 Encounter for therapeutic drug level monitoring
CPT/HCPCS: 36415; 80048

== ENCOUNTER 2024-02-28 17:26 | Outpatient (CLI) | payer BC, SELFPAY ==
[2024-02-28 17:41] LABS: CREATININE 1.6 mg/dL (0.70-1.30); Estimated GFR 51.84 (mL/min/1.73m2)
== END 2024-02-28 17:27 | disposition home or self-care (01) ==
LOC: LBO 17:27
PROVIDERS: PCP Internal Medicine; Visit Provider Nurse Practitioner Family
DX: I10 Essential (primary) hypertension (principal)
CPT/HCPCS: 36415; 82565